=== PATIENT | female | born 1995 | race Two or more races ===

== ENCOUNTER 2023-08-30 11:07 | Outpatient (REF) | payer MEDICAID, SELFPAY ==
[2023-08-30 13:41] LABS: Hematocrit 39.4 % (37.0-47.0); Hemoglobin 12.8 g/dl (12.0-16.0); Mean Corpuscular HGB Conc 32.5 g/dl (31.0-35.0); Mean Corpuscular Hemoglobin 28.6 pg (27.0-33.0); Mean Corpuscular Volume 88.1 fL (80.0-98.0); Platelet Count 285 X10*3/uL (160-400); Red Blood Count 4.47 X10*6/uL (4.20-5.50); Red Cell Distribution Width 13.9 % (11.0-16.0); White Blood Count 5.9 X10*3/uL (4.8-10.8)
[2023-08-30 13:51] LABS: Estimated Average Glucose 97 mg/dL
[2023-08-30 14:00] LABS: Appearance Urine Clear; Color Urine Yellow; Glucose Urine UA Negative (Negative); Leukocyte Esterase Urine Negative (Negative); Nitrite Urine Negative (Negative); Specific Gravity - Urine <= 1.005 (1.005-1.025); Urine Blood Negative (Negative); Urine Ketones Negative (Negative); Urine Protein Negative (Neg-Trace)
[2023-08-30 14:04] LABS: Bacteria Urine None Seen (None Seen); Hyaline Casts Urine 0-2 /LPF (0-2); RBC Urine 0-2 /HPF (0-2); Squamous Epithelial Cell Urine 0-2 /HPF (0-2); WBC Urine 0-5 /HPF (0-5)
[2023-08-30 14:12] LABS: Alanine Aminotransferase 13 U/L (0-31); Albumin Level 4.8 g/dL (3.5-5.0); Alkaline Phosphatase 54 U/L (39-117); Anion Gap 13 (12-20); Aspartate Amino Transferase 21 U/L (5-31); Bilirubin Total 0.7 mg/dL (0.0-1.0); Blood Urea Nitrogen 11 mg/dL (9-16); C Reactive Protein 0.15 mg/dL (< or = 0.50); Calcium 10.1 mg/dL (8.4-10.2); Carbon Dioxide 28 mmol/L (22-29); Chloride 105 mmol/L (96-108); Cholesterol 197 mg/dL (<200); Estimated Glomerular Filt Rate > 60; Glucose Random 89 mg/dL (60-115); HDL Cholesterol 65 mg/dL (>40); LDL Cholesterol Calculated 117 mg/dL (<100); Potassium 3.7 mmol/L (3.3-5.1); Sodium 142 mmol/L (135-145); Total Protein 8.6 g/dL (6.5-8.0); Triglycerides 75 mg/dL (<150)
[2023-08-30 14:20] LABS: TSH reflex Free T4 0.83 uIU/mL (0.32-4.0)
[2023-08-30 14:22] LABS: Erythrocyte Sedimentation Rate 22 MM/HR (0-20)
[2023-08-30 15:50] LABS: CT PCR NOT DETECTED (Not Detect.); NG PCR NOT DETECTED (Not Detect.)
[2023-08-31 07:55] LABS: Syphilis Screen Nonreactive (Nonreactive)
[2023-08-31 08:05] LABS: HBS Num1 238.83 mIU/mL (0-7.99); HBc Num1 0.09 S/CO (0.00-0.79); HBsAGNum1 0.37 S/CO (0.00-0.99); HIV AB/AG Nonreactive (Nonreactive); HIV Num 1 0.07 S/CO (0.00-0.99); Hepatitis B Core Antibody Nonreactive (Nonreactive); Hepatitis B Surface Antigen Negative (Negative); ~HepC Num1 0.17 S/CO (0.00-0.79); ~Hepatitis B Surface Antibody REACTIVE (Nonreactive); ~Hepatitis C Antibody Nonreactive (Nonreactive)
[2023-09-06 13:34] LABS: Anti Nuclear Antibody Screen NEGATIVE (NEGATIVE)
== END 2023-08-30 11:08 | disposition home or self-care (01) ==
LOC: HO.HHCL 11:07
PROVIDERS: Visit Provider Student in an Organized Health Care Education/Training Program
DX: Z00.00 Encounter for general adult medical examination without abnormal findings (principal); Z11.4 Encounter for screening for human immunodeficiency virus [HIV]; Z11.3 Encounter for screening for infections with a predominantly sexual mode of transmission; M32.19 Other organ or system involvement in systemic lupus erythematosus
CPT/HCPCS: 0353U; 36415; 80053; 80061; 81001; 83036; 84443; 85027; 85652; 86038; 86140; 86704; 86706; 86780; 86803; 87340; 87389

== ENCOUNTER 2023-10-27 15:47 | Outpatient (AMB) | payer MEDICAID, SELFPAY ==
--- NOTE | 2023-10-27 15:49 | MHC.OFFVIS ---
Vital Signs 10/27/23 15:51 Height 5 ft Weight 132 lb 11.492 oz BMI 25.9 BP 100/70 Blood Pressure Location Rt brachial Position Sitting Pulse 85 Pulse Source Pulse Oximeter Pulse Oximetry (%) 100 Oxygen Delivery Method Room Air Intake Visit Reasons: Lupus/cm Intake Note: New patient, referred by Dr. Blankenship from [facility], presents today for SLE consult. Would like to have EMG done and see ortho for CTS repair consult. Previously diagnosed in [place]. Special Officer Automat Required: Yes Special Officer Automat Language: Household Personal Assistant Name: Swapna [id number] Information Interpreted: clinical only Accompanied by: Self / Same As Patient Allergies No Known Allergies Allergy (Verified 11/21/23 10:05) HPI Comments Details: Ms. Patrick Norris is a 38-year-old female presents for evaluation and treatment, stating a history of SLE. Upon inquiry the patient shares: --SLE hx 4 going to 5 years --last medication was 3 years. Do not remember the medication - took it for 1 year stopped due to headaches. She slept alot on the med. 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 --fingers turn purple when it's cold. --no chronic diarrhea, blood in stool or urine --Gets joint pain pretty badly, no swelling --Gets SOB - PCP ordered Lung test which is normal, uses pump --denies pericarditis or pleuritis --2 children, no miscarriages. --current symptoms - fatigue, headaches, sun fatigue. hand pain PFSH Medical History (Updated 11/21/23 @ 10:31 by GABRIEL Blanton) Long-term use of hydroxychloroquine Hx of migraine headaches Bone pain of hand Hx of systemic lupus erythematosus (SLE) SLE (systemic lupus erythematosus) Mixed anxiety and depressive disorder Migraine Mild intermittent asthma in adult without complication CTS (carpal tunnel syndrome) Family History (Updated 10/27/23 @ 15:56 by GUSTAVO Streeter) Maternal Grandmother Arthritis Paternal Grandmother Arthritis Social History Alcohol intake: current Alcohol intake frequency: holidays/special occasions only Patient Tobacco Use Status: Former Tobacco user Tobacco use type: Cigarette Current occupational status: unemployed Female Reproductive History Menstrual Total pregnancies: 2 Review of Systems Const All systems reviewed & are unremarkable except as noted in HPI and below Physical Exam Vital Signs: Last Vital Signs Pulse 85 10/27/23 15:51 BP 100/70 10/27/23 15:51 Pulse Ox 100 10/27/23 15:51 Oxygen Delivery Method Room Air 10/27/23 15:51 BMI result Body Mass Index 25.9 APPEARANCE: Patient in no acute distress EYES no redness, normal EARS:? External ear normal. NOSE/SINUS:? Airflow through both nares, no nasal discharge, no bleeding THROAT:? Oral mucosa moist, no ulcerations NECK:? No thyromegaly or masses, no adenopathy, trachea midline. HEART:? Regular rhythm, S1-S2 heard, no murmurs, rubs or gallops. LUNG:? Clear to percussion and auscultation EXTREMITIES:? No edema, no calf tenderness, normal peripheral pulses. NEURO:? Oriented and alert x3.? No focal weakness.? Reflexes symmetric.? Gait normal. SKIN:? There are no skin lesions evident. No objective signs of Raynaud's phenomenon. JOINT EXAM: Cervical Spine:.? Full range of motion without pain; no tenderness. Thoracic Spine:.? No scoliosis.? No tenderness on palpation. Lumbar Spine:.? Alignment normal.? Full range of motion without pain, no tenderness. Chest Wall:.? No tenderness, swelling, increased warmth or erythema. Hands:.? Normal pain-free range of motion with diffuse mild tenderness, but no swelling, increased warmth or erythema. 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 Wrists:.? Normal pain-free range of motion without tenderness, swelling, increased warmth or erythema. Elbows:. Normal pain-free range of motion without tenderness, swelling, increased warmth or erythema. Shoulders:.?? Full range of motion without pain. No tenderness, weakness, swelling, increased warmth or erythema. Hips:.? Full range of motion without pain. Hip bursa:.? No tenderness. Knees:.?? Normal pain-free range of motion without tenderness, swelling, increased warmth or erythema.? There is no effusion or crepitation Ankles:.? Normal pain-free range of motion without tenderness, swelling, increased warmth or erythema. Feet:.? Normal pain-free range of motion with diffuse tenderness, but no swelling, increased warmth or erythema. Tender points:? No tenderness to digital palpation at the occiput, trapezius, second rib, lateral epicondyle, knees, greater trochanter and gluteal area bilaterally. ? Results Reviewed Results Reviewed: Laboratory Tests 08/30/23 11:13 WBC 5.9 RBC 4.47 Hgb 12.8 Hct 39.4 Plt Count 285 ESR 22 H C-Reactive Protein 0.15 Total Protein 8.6 H ELIZABETH Pattern 3 TNP Assessment & Plan Assessment & Plan (1) Hx of systemic lupus erythematosus (SLE): Code(s): M32.9 - Systemic lupus erythematosus, unspecified Category: Medical (2) Bone pain of hand: Code(s): M89.8X4 - Other specified disorders of bone, hand Category: Medical Plan #Hx SLE/Hand Pain: The patient relates a history of systemic lupus while she was living in [place] (see HPI). Most significant to her right now is the chronic fatigue, headaches, diffuse tenderness to hands and forearm bone pain. She does not remember the name of the medication that she had taken prior in [place]. But given the fatigue, headaches, mouth sores and other symptoms as outlined in HPI I think the patient would benefit from hydroxychloroquine as the first-line treatment for SLE. I will do a complete rheumatology panel to obtain her baseline. I will also obtain imaging of her hands specifically also her forearms since she is describing deep tissue, possibly bone pain, to the forearm - the pain is not reproduce with palpation. I spent 40 minutes reviewing history, evaluating patient and documenting Follow-up in 1 month Orders: Orders Creatine Kinase Total 11/03/23 M32.9 - Systemic lupus erythematosus, unspecified Immunoglobulins,IgG IgA IgM 11/03/23 M32.9 - Systemic lupus erythematosus, unspecified Protein Electrophoresis, Serum 11/03/23 M32.9 - Systemic lupus erythematosus, unspecified UA w Microscopic 11/03/23 M32.9 - Systemic lupus erythematosus, unspecified XR hand RT min 3V 11/03/23 M89.8X4 - Other specified disorders of bone, hand XR hand LT min 3V 11/03/23 M89.8X4 - Other specified disorders of bone, hand Erythrocyte Sedimentation Rate 11/03/23 M32.9 - Systemic lupus erythematosus, unspecified ELIZABETH Reflex Titer and Pattern 11/03/23 M32.9 - Systemic lupus erythematosus, unspecified ANCA Vasculitides 11/03/23 M32.9 - Systemic lupus erythematosus, unspecified Anti-Centromere B Antibodies 11/03/23 M32.9 - Systemic lupus erythematosus, unspecified Anti DNA DS Antibody 11/03/23 M32.9 - Systemic lupus erythematosus, unspecified Anti Extractable Nuclear Ag 11/03/23 M32.9 - Systemic lupus erythematosus, unspecified Complement C3 11/03/23 M32.9 - Systemic lupus erythematosus, unspecified Complement C4 11/03/23 M32.9 - Systemic lupus erythematosus, unspecified Complete Blood Count Auto Diff 11/03/23 M32.9 - Systemic lupus erythematosus, unspecified Comprehensive Met. Panel 11/03/23 M32.9 - Systemic lupus erythematosus, unspecified C Reactive Protein 11/03/23 M32.9 - Systemic lupus erythematosus, unspecified Hepatitis A,B,C Profile 11/03/23 M32.9 - Systemic lupus erythematosus, unspecified Immunofixation Pnl, Serum 11/03/23 M32.9 - Systemic lupus erythematosus, unspecified Scleroderma 70 Antibody 11/03/23 M32.9 - Systemic lupus erythematosus, unspecified Sjogren's Antibodies 11/03/23 M32.9 - Systemic lupus erythematosus, unspecified Rheumatoid Factor 11/03/23 M32.9 - Systemic lupus erythematosus, unspecified Cyclic Citrullinated Peptide 11/03/23 M32.9 - Systemic lupus erythematosus, unspecified ECG 12 lead EKG 11/03/23 M32.9 - Systemic lupus erythematosus, unspecified Coding Level of Care Code New Pt Level 4 (23166) Diagnoses Hx of systemic lupus erythematosus (SLE) M32.9 Bone pain of hand M89.8X4
[2023-10-27 15:51] VITALS: BP 100/70; PULSE 85; O2SAT 100; BMI 25.9
== END 2023-10-27 16:34 | disposition home or self-care (01) ==
PROVIDERS: PCP Student in an Organized Health Care Education/Training Program; Referring Provider Student in an Organized Health Care Education/Training Program; Visit Provider Nurse Practitioner Family
DX: M32.9 Systemic lupus erythematosus, unspecified (principal); M89.8X4 Other specified disorders of bone, hand
CPT/HCPCS: 99204

== ENCOUNTER → 2023-10-27 15:47 | Outpatient (BNVA) | payer MEDICAID, SELFPAY | PROVIDERS: PCP Student in an Organized Health Care Education/Training Program; Referring Provider Student in an Organized Health Care Education/Training Program; Visit Provider Nurse Practitioner Family | DX: M32.9 Systemic lupus erythematosus, unspecified (principal); M89.8X4 Other specified disorders of bone, hand | CPT/HCPCS: 99212 ==

== ENCOUNTER 2023-11-03 09:23 | Outpatient (REF) | payer MEDICAID, SELFPAY ==
--- NOTE | ~2023-11-03 | XR_ITS ---
EXAMINATION: Bilateral hand series CLINICAL INFORMATION: Reason for Exam M89.8X4 - Other specified disorders of bone, hand COMPARISON: None. TECHNIQUE: 3 views of each hand FINDINGS: Right hand: The bones joints soft tissues are normal. No fracture or joint abnormality. Left hand: The bone and joints and soft tissues hand are normal. Incidental note made of partially visualized orthopedic fixation with plate and screw noted overlying the radius. No fracture line detected. XR/XR hand RT min 3V IMPRESSION: RIGHT HAND: Normal. LEFT HAND: Normal. Postsurgical changes in the distal radius
--- NOTE | ~2023-11-03 | XR_ITS ---
EXAMINATION: Bilateral hand series CLINICAL INFORMATION: Reason for Exam M89.8X4 - Other specified disorders of bone, hand COMPARISON: None. TECHNIQUE: 3 views of each hand FINDINGS: Right hand: The bones joints soft tissues are normal. No fracture or joint abnormality. Left hand: The bone and joints and soft tissues hand are normal. Incidental note made of partially visualized orthopedic fixation with plate and screw noted overlying the radius. No fracture line detected. XR/XR hand LT min 3V IMPRESSION: RIGHT HAND: Normal. LEFT HAND: Normal. Postsurgical changes in the distal radius
[2023-11-03 09:47] LABS: MANUAL DIFF FLAG NO
--- NOTE | 2023-11-03 09:58 | ECG_ITS ---
Test Reason : SYSTEMIC LUPUS Blood Pressure : / mmHG Vent. Rate : 072 BPM Atrial Rate : 072 BPM P-R Int : 144 ms QRS Dur : 070 ms QT Int : 364 ms P-R-T Axes : 067 039 028 degrees QTc Int : 398 ms Normal sinus rhythm Normal ECG No previous ECGs available Referred By: Nae Florez Electronically Signed By:DASHA RAMON MD
[2023-11-03 10:16] LABS: Basophils Percent Auto 0.6 % (0-2); Eosinophils Absolute Auto 0.1 X10*3/uL (0.0-0.4); Hematocrit 37.7 % (37.0-47.0); Hemoglobin 12.4 g/dl (12.0-16.0); Imm Gran Abs Auto 0.01 X10*3/uL (0.00-0.03); Imm Gran Pct Auto 0.2 % (0.0-0.4); Lymphocytes Absolute Auto 1.9 X10*3/uL (1.2-4.9); Lymphocytes Percent Auto 36.6 % (20-40); Mean Corpuscular HGB Conc 32.9 g/dl (31.0-35.0); Mean Corpuscular Hemoglobin 28.2 pg (27.0-33.0); Mean Corpuscular Volume 85.7 fL (80.0-98.0); Mean Platelet Volume 10.2 fL (9.4-12.3); Monocytes Absolute Auto 0.3 X10*3/uL (0.1-1.2); Monocytes Percent Auto 5.9 % (2-11); Neutrophils Absolute Auto 2.9 x10*3/uL (2.0-8.3); Neutrophils Percent Auto 55.7 % (45-73); Platelet Count 289 X10*3/uL (160-400); Red Cell Distribution Width 12.9 % (11.0-16.0); White Blood Count 5.2 X10*3/uL (4.8-10.8)
[2023-11-03 10:19] LABS: Appearance Urine Cloudy; Color Urine Yellow; Glucose Urine UA Negative (Negative); Leukocyte Esterase Urine Negative (Negative); Nitrite Urine Negative (Negative); Specific Gravity - Urine 1.025 (1.005-1.025); UMIC TRIGGER UA YES; Urine Blood Large (3+) (Negative); Urine Ketones 40 mg/dL (Negative); Urine Protein 100 (2+) mg/dL (Neg-Trace)
[2023-11-03 10:33] LABS: Bacteria Urine 2+ (None Seen); Hyaline Casts Urine 0-2 /LPF (0-2); Squamous Epithelial Cell Urine >20 /HPF (0-2); WBC Urine 0-5 /HPF (0-5)
[2023-11-03 10:38] LABS: Alanine Aminotransferase 10 U/L (0-31); Albumin Level 4.4 g/dL (3.5-5.0); Alkaline Phosphatase 50 U/L (39-117); Anion Gap 11 (12-20); Aspartate Amino Transferase 19 U/L (5-31); Bilirubin Total 0.5 mg/dL (0.0-1.0); Blood Urea Nitrogen 12 mg/dL (9-16); C Reactive Protein 0.18 mg/dL (< or = 0.50); Calcium 9.5 mg/dL (8.4-10.2); Carbon Dioxide 27 mmol/L (22-29); Chloride 105 mmol/L (96-108); Estimated Glomerular Filt Rate > 60; Glucose Random 90 mg/dL (60-115); Potassium 3.9 mmol/L (3.3-5.1); Sodium 139 mmol/L (135-145)
[2023-11-03 10:39] LABS: Rheumatoid Factor < 13.0 IU/mL (<15.0)
[2023-11-03 10:54] LABS: Erythrocyte Sedimentation Rate 16 MM/HR (0-20)
[2023-11-03 10:56] LABS: HBS Num1 198.47 mIU/mL (0-7.99); HBc Num1 0.06 S/CO (0.00-0.79); HBsAGNum1 0.35 S/CO (0.00-0.99); Hepatitis A Antibody IgM 0.25 Index (0-0.79); Hepatitis B Core Antibody Nonreactive (Nonreactive); Hepatitis B Surface Antigen Negative (Negative); ~HepC Num1 0.12 S/CO (0.00-0.79); ~Hepatitis A Antibody IgM Nonreactive (Nonreactive); ~Hepatitis B Surface Antibody REACTIVE (Nonreactive); ~Hepatitis C Antibody Nonreactive (Nonreactive)
[2023-11-06 11:04] LABS: Complement C3 119 mg/dL (83-193)
[2023-11-06 13:04] LABS: Prot Elec - Albumin 4.4 g/dL (3.8-4.8); Prot Elec - Alpha1 0.3 g/dL (0.2-0.3); Prot Elec - Alpha2 0.7 g/dL (0.5-0.9); Prot Elec - Beta 1 0.6 g/dL (0.4-0.6); Prot Elec - Beta 2 0.5 g/dL (0.2-0.5); Prot Elec - Gamma 1.4 g/dL (0.8-1.7); Prot Elec - Total Protein 7.8 g/dL (6.1-8.1)
[2023-11-06 14:18] LABS: Anti DNA DS Antibody 26 IU/mL; Anti-Centromere B Antibodies <1.0 NEG AI (<1.0 NEG); Antibody to SS-A Antigen <1.0 NEG AI (<1.0 NEG); Antibody to SS-B Antigen <1.0 NEG AI (<1.0 NEG); Myeloperoxidase Antibody <1.0 AI; Proteinase 3 PR3 Antibodies <1.0 AI; SM/Ribonucleoprotein Ab <1.0 NEG AI (<1.0 NEG); Scleroderma 70 Antibody <1.0 NEG AI (<1.0 NEG); Smith Protein <1.0 NEG AI (<1.0 NEG)
[2023-11-06 15:43] LABS: Anti Nuclear Antibody Screen NEGATIVE (NEGATIVE)
[2023-11-06 19:08] LABS: Cyclic Citrullinated Peptide <16 UNITS
[2023-11-09 17:23] LABS: IgA 388 mg/dL (47-310); IgG 1399 mg/dL (600-1640); IgM 255 mg/dL (50-300)
== END 2023-11-03 09:24 | disposition home or self-care (01) ==
LOC: HO.LAB 09:23
PROVIDERS: PCP Nurse Practitioner Family; Visit Provider Nurse Practitioner Family
DX: M32.9 Systemic lupus erythematosus, unspecified (principal); M89.8X4 Other specified disorders of bone, hand
CPT/HCPCS: 36415; 73130; 80053; 81001; 82550; 82784; 84165; 85025; 85652; 86021; 86038; 86140; 86160; 86200; 86225; 86235; 86334; 86431; 86704; 86706; 86709; 86803; 87340; 93005

== ENCOUNTER → 2023-11-03 09:58 | Outpatient (BNV) | payer MEDICAID, SELFPAY | PROVIDERS: PCP Nurse Practitioner Family; Visit Provider Internal Medicine Cardiovascular Disease | DX: M32.9 Systemic lupus erythematosus, unspecified (principal) | CPT/HCPCS: 93010 ==

== ENCOUNTER 2023-11-21 09:57 | Outpatient (REF) | payer MEDICAID, SELFPAY ==
[2023-11-22 11:35] LABS: Bacterial Vaginosis PCR NEGATIVE (Negative); Candida Group PCR NOT DETECTED (Not Detect); Candida glab krusei PCR NOT DETECTED (Not Detect); Trichomonas vaginalis PCR NOT DETECTED (Not Detect)
== END 2023-11-21 09:58 | disposition home or self-care (01) ==
LOC: HO.HHCLNP 09:57
PROVIDERS: PCP Pediatrics; Visit Provider Student in an Organized Health Care Education/Training Program
DX: N93.9 Abnormal uterine and vaginal bleeding, unspecified (principal)
CPT/HCPCS: 0352U; 99212

== ENCOUNTER 2023-11-21 09:57 | Outpatient (AMB) | payer MEDICAID, SELFPAY ==
--- NOTE | 2023-11-21 10:02 | A.OFFVIS_ITS ---
Vital Signs 11/21/23 10:10 Height 5 ft Weight 131 lb 6.328 oz BMI 25.7 BP 110/70 Blood Pressure Location Rt brachial Position Sitting Pulse 74 Pulse Source Pulse Oximeter Pulse Oximetry (%) 100 Oxygen Delivery Method Room Air Intake Visit Reasons: Hx of SLE/CM Intake Note: Patient last seen 10/27/23, presents today for SLE follow up and test results. 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 Ge 28 yoF presents for management of SLE. --SLE - Dx 4 going to 5 years in [place] --last medication was 3 years. Do not remember the medication - took it for 1 year stopped due to headaches. She slept alot on the med. 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 --some hair shedding but no bald spots --sometimes mouth sores - 2 months ago last episode --dry eyes uses eye drops prn , dry mouth drinks a lot of water --sun-sensitivy - gets butterfly rash on face and redness chest - she feels exhausted from the sun like it takes her strength away. --fingers turn purple when it's cold. --no chronic diarrhea, blood in stool or urine --Gets joint pain pretty badly, no swelling --Gets SOB - PCP ordered Lung test which is normal, uses pump --denies pericarditis or pleuritis --2 children, no miscarriages. --current symptoms - fatigue, headaches, sun fatigue. hand pain PFSH Medical History (Updated 12/17/23 @ 22:35 by HIWOT Blanton-) Long-term use of hydroxychloroquine Hx of migraine headaches Bone pain of hand Hx of systemic lupus erythematosus (SLE) SLE (systemic lupus erythematosus) Mixed anxiety and depressive disorder Migraine Mild intermittent asthma in adult without complication CTS (carpal tunnel syndrome) Family History (Updated 10/27/23 @ 15:56 by GUSTAVO Streeter) Maternal Grandmother Arthritis Paternal Grandmother Arthritis Social History (Reviewed 11/21/23 @ 10:12 by RUSTY Streeter Alcohol intake: current Alcohol intake frequency: holidays/special occasions only Patient Tobacco Use Status: Former Tobacco user Tobacco use type: Cigarette Current occupational status: unemployed Review of Systems Const All systems reviewed & are unremarkable except as noted in HPI and below Physical Exam Vital Signs: Last Vital Signs Pulse 74 11/21/23 10:10 BP 110/70 11/21/23 10:10 Pulse Ox 100 11/21/23 10:10 Oxygen Delivery Method Room Air 11/21/23 10:10 BMI result Body Mass Index 25.7 APPEARANCE: Patient in no acute distress EYES no redness, normal EARS:? External ear normal. NOSE/SINUS:? Airflow through both nares, no nasal discharge, no bleeding THROAT:? Oral mucosa moist, no ulcerations NECK:? No thyromegaly or masses, no adenopathy, trachea midline. HEART:? Regular rhythm, S1-S2 heard, no murmurs, rubs or gallops. LUNG:? Clear to percussion and auscultation EXTREMITIES:? No edema, no calf tenderness, normal peripheral pulses. NEURO:? Oriented and alert x3.? No focal weakness.? Reflexes symmetric.? Gait normal. SKIN:? There are no skin lesions evident. No objective signs of Raynaud's phenomenon. JOINT EXAM: Cervical Spine:.? Full range of motion without pain; no tenderness. Thoracic Spine:.? No scoliosis.? No tenderness on palpation. Lumbar Spine:.? Alignment normal.? Full range of motion without pain, no tenderness. Chest Wall:.? No tenderness, swelling, increased warmth or erythema. Hands:.? Normal with tenderness but no swelling, increased warmth or erythema. 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 Wrists:.? Normal range of motion with discomfort, slight tenderness but no swelling, increased warmth or erythema. Elbows:. Normal pain-free range of motion without tenderness, swelling, increased warmth or erythema. Shoulders:.?? Full range of motion without pain. No tenderness, weakness, swelling, increased warmth or erythema. Hips:.? Full range of motion without pain. Hip bursa:.? No tenderness. Knees:.?? Normal pain-free range of motion with mild tenderness to joint lines but no swelling, increased warmth or erythema.? There is no effusion or crepitation Ankles:.? Normal pain-free range of motion without tenderness, swelling, increased warmth or erythema. Feet:.? Normal pain-free range of motion without tenderness, swelling, increased warmth or erythema. Tender points:? No tenderness to digital palpation at the occiput, trapezius, second rib, lateral epicondyle, knees, greater trochanter and gluteal area bilaterally. ? Results Reviewed Results Reviewed: Laboratory Tests 11/03/23 11/03/23 09:45 09:46 WBC 5.2 RBC 4.40 Hgb 12.4 Hct 37.7 ESR 16 BUN 12 Creatinine 0.78 AST 19 ALT 10 Total Creatine Kinase 99 C-Reactive Protein 0.18 Total Protein 8.0 Urine Protein 100 (2+) H Urine Blood Large (3+) H Urine RBC 11-20 H IgG Total 1399 IgA Total 388 H IgM 255 Rheumatoid Factor < 13.0 Cycl Citrul Peptide IgG <16 ELIZABETH Screen NEGATIVE Double Strand DNA Ab 26 H Complement C3 119 Complement C4 19 Assessment & Plan Assessment & Plan (1) Hx of systemic lupus erythematosus (SLE): Code(s): M32.9 - Systemic lupus erythematosus, unspecified Category: Medical (2) Bone pain of hand: Code(s): M89.8X4 - Other specified disorders of bone, hand Category: Medical (3) Right-sided headache: Code(s): R51.9 - Headache, unspecified (4) Long-term use of hydroxychloroquine: Code(s): Z79.899 - Other half-way (current) drug therapy Category: Medical (5) SLE (systemic lupus erythematosus): Code(s): M32.9 - Systemic lupus erythematosus, unspecified Category: Medical Qualifiers: Systemic lupus erythematosus type: unspecified Systemic lupus erythematosus organ involvement: unspecified Qualified Code(s): M32.9 - Systemic lupus erythematosus, unspecified (6) Hx of migraine headaches: Code(s): Z86.69 - Personal history of other diseases of the nervous system and sense organs Category: Medical Plan #SLE vs UCTD: Ms. Ge presents for management of Lupus. She does not recall the medication she took for one year. Available lab results show mild elevated IgA and +dsDNA (26) but negative ELIZABETH. Although the ELIZABETH is negative, given her history (see HPI) and the achy joints on PE, I will consider to start her on HCQ. She will need a baseline eye exam. #Hx of Migraine Headaches: She also has chronic headaches and and would benefit from a neurology consult. #Care Home Use: Discussed with patient possible side effects of HCQ. She will require annual eye exams. We will also monitor CBC for cytopenias. Patient will obtain labs 1 week before next visit. Spent 45 minutes reviewing history, evaluating patient and documenting RTC 3 months Orders: Referrals Neurology Referral Z86.69 - Personal history of other diseases of the nervous system and sense organs, R51.9 - Headache, unspecified Ophthalmology Referral M32.9 - Systemic lupus erythematosus, unspecified, Z79.899 - Other half-way (current) drug therapy Medications: New hydroxychloroquine 200 mg PO DAILY 90 tabs 1RF M32.9 - Systemic lupus erythematosus, unspecified Coding Level of Care Code New Pt Level 4 (71153) Complex EM visit Add On G2211 Diagnoses Hx of systemic lupus erythematosus (SLE) M32.9 Bone pain of hand M89.8X4 Right-sided headache R51.9 Long-term use of hydroxychloroquine Z79.899 Systemic lupus erythematosus, unspecified SLE type, unspecified organ involvement status M32.9 Systemic lupus erythematosus type: unspecified Systemic lupus erythematosus organ involvement: unspecified Hx of migraine headaches Z86.69
[2023-11-21 10:10] VITALS: BP 110/70; PULSE 74; O2SAT 100; BMI 25.7
== END 2023-11-21 10:46 | disposition home or self-care (01) ==
PROVIDERS: PCP Pediatrics; Visit Provider Nurse Practitioner Family
DX: M32.9 Systemic lupus erythematosus, unspecified (principal); M89.8X4 Other specified disorders of bone, hand; R51.9 Headache, unspecified; Z79.899 Other long term (current) drug therapy; Z86.69 Personal history of other diseases of the nervous system and sense organs
CPT/HCPCS: 99214

== ENCOUNTER 2023-12-07 11:33 | Outpatient (REF) | payer MEDICAID, SELFPAY ==
--- NOTE | ~2023-12-07 | US_ITS ---
EXAMINATION: US PELVIS CLINICAL INFORMATION: Dysmenorrhea, abnormal uterine bleeding, last menstrual period 3 weeks ago. COMPARISON: None available. TECHNIQUE: Ultrasound of the pelvis is performed using both transabdominal and transvaginal transducers along with Doppler. Transvaginal imaging is performed due to inadequate visualization transabdominally. FINDINGS: Uterus is anteverted and measures 10.3 x 3.8 x 4.4 cm. Uterus is heterogeneous. Visualization of endometrium limited due to bowel gas, body habitus and uterine heterogeneity, but endometrial thickness is approximately 12 mm. Endometrium is difficult to visualize, but appears heterogeneous with at least 2 hypoechoic areas, possibly representing complex fluid. Right ovary measures 2.2 x 2.9 x 1.9 cm, volume 6.4 mL. Left ovary measures 1.7 x 3.2 x 1.6 cm, volume 4.6 mL. Bilateral ovaries are grossly unremarkable. US/US pelvic and transvaginal IMPRESSION: Visualization of endometrium limited due to bowel gas, body habitus and uterine heterogeneity, but endometrial thickness is approximately 12 mm. Endometrium is difficult to visualize, but appears heterogeneous with at least 2 hypoechoic areas, possibly representing complex fluid. Correlation with clinical exam recommended to determine further management including possible followup imaging in 6-8 weeks.
== END 2023-12-07 11:34 | disposition home or self-care (01) ==
LOC: HO.US 11:33
PROVIDERS: PCP Pediatrics; Visit Provider Student in an Organized Health Care Education/Training Program
DX: N93.9 Abnormal uterine and vaginal bleeding, unspecified (principal)
CPT/HCPCS: 76830; 76856

== ENCOUNTER 2024-01-02 17:10 | Outpatient (REF) | payer MEDICAID, SELFPAY ==
[2024-01-02 19:02] LABS: CT PCR NOT DETECTED (Not Detect.); NG PCR NOT DETECTED (Not Detect.)
== END 2024-01-02 17:11 | disposition home or self-care (01) ==
LOC: HO.HHCLNP 17:10
PROVIDERS: Visit Provider Student in an Organized Health Care Education/Training Program
DX: N94.10 Unspecified dyspareunia (principal)
CPT/HCPCS: 0353U

== ENCOUNTER 2024-01-16 15:04 | Outpatient (AMB) | payer MEDICAID, SELFPAY ==
[2024-01-16 15:14] VITALS: BP 114/62; BMI 25.4
--- NOTE | 2024-01-16 15:14 | MHC.OFFVIS ---
Vital Signs 01/16/24 15:14 Height 5 ft Weight 130 lb 1.164 oz BMI 25.4 BP 114/62 Intake Visit Reasons: AUB/referral Journeyman Level Acoustic Analyst Required: Yes Journeyman Level Acoustic Analyst Language: Vehicle Sales Professional Services: Journeyman Level Acoustic Analyst Present Journeyman Level Acoustic Analyst Name: Evi Kapil CHEN Information Interpreted: non-clinical & clinical Dining Service Worker: Dining Service Worker Present (Evi CHEN) Accompanied by: Self / Same As Patient Allergies No Known Allergies Allergy (Verified 01/16/24 15:33) Is last menstrual period known: Yes Last menstrual period: 01/13/24 [facility] Medical History (Updated 01/16/24 @ 16:05 by Flash Bruno MD) Long-term use of hydroxychloroquine Hx of migraine headaches Bone pain of hand Hx of systemic lupus erythematosus (SLE) SLE (systemic lupus erythematosus) Mixed anxiety and depressive disorder Migraine Mild intermittent asthma in adult without complication CTS (carpal tunnel syndrome) Surgical History (Updated 01/16/24 @ 15:35 by Evi Dick CMA) Hx of tubal ligation Hx of section Family History (Updated 10/27/23 @ 15:56 by GUSTAVO Streeter) Maternal Grandmother Arthritis Paternal Grandmother Arthritis Social History Household Members: Spouse, Family and Children Housing: House Alcohol intake: current Alcohol intake frequency: holidays/special occasions only Patient Tobacco Use Status: Never used Tobacco Tobacco use type: Cigarette Current occupational status: unemployed Sexual orientation: Straight/Heterosexual Gender identity: Female Female Reproductive History Menstrual Date of last menstrual period: 01/13/24 control method: permanent sterilization Total pregnancies: 2 Full term: 2 Number of Living Children: 2 Review of Systems Const All systems reviewed & are unremarkable except as noted in HPI and below Card Reports as per HPI Resp Reports as per HPI GI Reports as per HPI and Reports no additional complaints Reports as per HPI Physical Exam Vital Signs: Last Vital Signs BP 114/62 01/16/24 15:14 BMI result Body Mass Index 25.4 Const General: cooperative, healthy appearing and comfortable Chest Chest palpation & inspection: normal inspection of the chest and normal palpation of entire chest wall Breast/axilla inspection: normal inspection of the breasts and normal inspection of the axillae Breast/axilla palpation: normal palpation of the breasts, normal palpation of the axillae and no axillary lymphadenopathy Resp Effort & Inspection: normal respiratory effort Auscultation: clear to auscultation bilaterally Percussion: percussion normal Cardio Palpation: normal PMI Rate: regular rate Rhythm: regular rhythm Heart sounds: no murmurs and no rubs Peripheral pulses: Peripheral pulses 2+ throughout GI Inspection: Yes normal to inspection Palpation (GI): Soft to palpation, nontender, no guarding, not rigid and No hepatosplenomegaly present Percussion: Yes normal to percussion Auscultation: normal bowel sounds Rectal Exam - Female: deferred General: Yes bladder normal to palpation External Female Exam: No lesion Speculum Exam - Vagina: normal appearance of the vagina, normal palpation, normal vaginal discharge and not erythematous Speculum Exam - Cervix: normal appearance of the cervix and normal palpation Bimanual exam- vagina & uterus: normal bimanual exam, normal palpation, uterine size normal, bladder normal to palpation, consistency normal and normal palpation Bimanual Exam- Adnexa, other: normal adnexae, no masses and no tenderness Results AMB Test Urine AMB Test Urine Negative Last Edit by Evi Dick CMA on 01/16/24 15:47 Results Reviewed Results Reviewed: Laboratory Last Values Tst Clinic Negative 01/16/24 15:46 Assessment & Plan Assessment & Plan (1) Abnormal uterine bleeding (AUB): Comment: abn endo by US SLE, Migraine BAÑUELOS Code(s): N93.9 - Abnormal uterine and vaginal bleeding, unspecified Category: Medical Plan: UPT done in the office was negative, Co testing done, GC and chlamydia taken CBC, TSH, prolactin, HCG ordered and pelvic ultrasound recently done. In addition, discussed with the patient the finding on ultrasound showing abnormal endometrium, recommended hysteroscopy D&C possible polypectomy/myomectomy as the next step. Discussed with the patient the different causes of abnormal bleeding including thyroid disorders, uterine and ovarian pathology, endometrial hyperplasia, carcinoma and other potential causes. Discussed with the patient the work up including CBC (to r/o anemia), TSH, prolactin, pelvic Ultrasound, endometrial biopsy to r/o endometrial pathology. Discussed with the patient the procedure , all benefits and risks including but not limited to inability to complete the procedure , insufficient endometrial tissue for a complete evaluation of the endometrial cavity , bleeding, infection, possible need for blood transfusion with all its risk ( HIV,syphilis, Hepatitis, anaphylaxis shock, others..), injury to bladder, rectum, possible need for laparoscopy/laparotomy or hysterectomy. The patient verbalized understanding and signed the consent. Instructions given the patient to stay NPO after midnight the day prior to the procedure and to take only the specific medication (s) discussed the morning of the surgical procedure and to schedule a 2 week postoperative appointment (2) Dyspareunia in female: Code(s): N94.10 - Unspecified dyspareunia Category: Medical Plan: UPT done in the office was negative Discussed with the patient differential diagnosis of dyspareunia. The workup includes but not limited to GC/CT, BV panel collected, pelvic ultrasound recently done. Orders: Orders AMB HCG Urine Test Today Z32.02 - Encounter for test, result negative TSH reflex Free T4 Today N93.9 - Abnormal uterine and vaginal bleeding, unspecified Prolactin Today N93.9 - Abnormal uterine and vaginal bleeding, unspecified HCG Quantitative Today N93.9 - Abnormal uterine and vaginal bleeding, unspecified Complete Blood Count no Diff Today N93.9 - Abnormal uterine and vaginal bleeding, unspecified Coding Level of Care Code New Pt Level 3 (19748) Diagnoses Abnormal uterine bleeding (AUB) N93.9 Dyspareunia in female N94.10
== END 2024-01-16 16:16 | disposition home or self-care (01) ==
LOC: HO.HWS 15:04
PROVIDERS: PCP Pediatrics; Visit Provider Obstetrics & Gynecology
DX: N93.9 Abnormal uterine and vaginal bleeding, unspecified (principal); N94.10 Unspecified dyspareunia; Z32.02 Encounter for pregnancy test, result negative
CPT/HCPCS: 99203

== ENCOUNTER 2024-01-16 15:04 | Outpatient (REF) | payer MEDICAID, SELFPAY ==
[2024-01-16 17:17] LABS: Appearance Urine Clear; Color Urine Yellow; Glucose Urine UA Negative (Negative); Leukocyte Esterase Urine Negative (Negative); Nitrite Urine Negative (Negative); PH 5.5 (5.0-9.0); Specific Gravity - Urine <= 1.005 (1.005-1.025); Urine Blood Negative (Negative); Urine Ketones Negative (Negative); Urine Protein Negative (Neg-Trace)
[2024-01-16 17:23] LABS: Bacteria Urine None Seen (None Seen); Hyaline Casts Urine 0-2 /LPF (0-2); RBC Urine 0-2 /HPF (0-2); Squamous Epithelial Cell Urine 0-2 /HPF (0-2); WBC Urine 0-5 /HPF (0-5)
[2024-01-16 17:24] LABS: Hematocrit 34.1 % (37.0-47.0); Hemoglobin 11.3 g/dl (12.0-16.0); Mean Corpuscular HGB Conc 33.1 g/dl (31.0-35.0); Mean Corpuscular Hemoglobin 27.4 pg (27.0-33.0); Mean Corpuscular Volume 82.6 fL (80.0-98.0); Mean Platelet Volume 10.1 fL (9.4-12.3); Platelet Count 293 X10*3/uL (160-400); Red Blood Count 4.13 X10*6/uL (4.20-5.50); Red Cell Distribution Width 14.6 % (11.0-16.0); White Blood Count 7.2 X10*3/uL (4.8-10.8)
[2024-01-16 17:49] LABS: Alanine Aminotransferase 12 U/L (0-31); Albumin Level 4.7 g/dL (3.5-5.0); Alkaline Phosphatase 52 U/L (39-117); Anion Gap 12 (12-20); Aspartate Amino Transferase 18 U/L (5-31); Bilirubin Total 0.5 mg/dL (0.0-1.0); Blood Urea Nitrogen 16 mg/dL (9-16); C Reactive Protein 0.13 mg/dL (< or = 0.50); Calcium 9.5 mg/dL (8.4-10.2); Carbon Dioxide 21 mmol/L (22-29); Chloride 109 mmol/L (96-108); Estimated Glomerular Filt Rate > 60; Glucose Random 86 mg/dL (60-115); Potassium 3.4 mmol/L (3.3-5.1); Sodium 139 mmol/L (135-145); Total Protein 8.3 g/dL (6.5-8.0)
[2024-01-16 18:09] LABS: HCG Quantitative < 2 mIU/mL; TSH reflex Free T4 0.73 uIU/mL (0.32-4.0)
[2024-01-16 18:27] LABS: Erythrocyte Sedimentation Rate 15 MM/HR (0-20)
[2024-01-17 10:09] LABS: Prolactin 4.1 ng/mL
[2024-01-17 13:43] LABS: Anti DNA DS Antibody 28 IU/mL
[2024-01-18 04:20] LABS: CT PCR NOT DETECTED (Not Detect.); NG PCR NOT DETECTED (Not Detect.)
[2024-01-18 08:48] LABS: Complement C3 77 mg/dL (83-193)
[2024-01-18 11:52] LABS: Bacterial Vaginosis PCR NEGATIVE (Negative); Candida Group PCR NOT DETECTED (Not Detect); Candida glab krusei PCR NOT DETECTED (Not Detect); Trichomonas vaginalis PCR NOT DETECTED (Not Detect)
[2024-01-23 09:08] LABS: HPV mRNA E6/E7 Not Detected (Not Detected)
== END 2024-01-16 15:05 | disposition home or self-care (01) ==
LOC: HO.LAB 15:04
PROVIDERS: Nurse Practitioner Family; PCP Pediatrics; Visit Provider Obstetrics & Gynecology
DX: N93.9 Abnormal uterine and vaginal bleeding, unspecified (principal); M32.9 Systemic lupus erythematosus, unspecified; N94.10 Unspecified dyspareunia; Z32.02 Encounter for pregnancy test, result negative; Z79.899 Other long term (current) drug therapy
CPT/HCPCS: 0352U; 36415; 80053; 81001; 81025; 84146; 84443; 84702; 85027; 85652; 86140; 86160; 86225; 87491; 87591; 87624; 88175; 99202

== ENCOUNTER 2024-01-16 16:21 | Outpatient (REF) | payer MEDICAID, SELFPAY | END 2024-01-16 16:22 | disposition home or self-care (01) | LOC: HO.LNP 16:21 | PROVIDERS: Visit Provider Obstetrics & Gynecology | DX: Z13.89 Encounter for screening for other disorder (principal) ==

== ENCOUNTER 2024-01-23 12:56 | Day surgery (SDC) | payer MEDICAID, SELFPAY ==
--- NOTE | 2024-01-22 12:57 | HO.ANESPROP2 ---
Documented by User: Angeles Emmanuel NP 01/22/24 12:58 HPI - Anesthesia Eval Consult details Narrative: 28yo F for D&C Hysteroscopy,possible myomectomy,possible polypectomy SLE on plaquinel PMFSH Active Problems Active Problems: All Active Problems Dyspareunia in female (Acute) Abnormal uterine bleeding (AUB) (Acute) SLE (systemic lupus erythematosus) (Acute) Long-term use of hydroxychloroquine (Acute) Hx of migraine headaches (Acute) Bone pain of hand (Acute) Hx of systemic lupus erythematosus (SLE) (Acute) Past Medical History Medical History Long-term use of hydroxychloroquine Hx of migraine headaches Bone pain of hand Hx of systemic lupus erythematosus (SLE) SLE (systemic lupus erythematosus) Mixed anxiety and depressive disorder Migraine Mild intermittent asthma in adult without complication CTS (carpal tunnel syndrome) Family History Family History Maternal Grandmother Arthritis Paternal Grandmother Arthritis Surgical History Surgical History Hx of tubal ligation Hx of section Social History Social History Household Members: Spouse, Family and Children Housing: House Alcohol intake: current Alcohol intake frequency: holidays/special occasions only Patient Tobacco Use Status: Never used Tobacco Tobacco use type: Cigarette Use of substances other than those prescribed or required for medical reasons: No Are you DNR?: No Advance Directives: No Advance Directives Information Provided: Yes Current occupational status: unemployed Sexual orientation: Straight/Heterosexual Gender identity: Female Meds Allergies Allergy/AdvReac Type Severity Reaction Status Date / Time No Known Allergies Allergy Verified 01/23/24 13:16 Home Medications ?Medication ?Instructions ?Recorded ?Confirmed ?Last Taken ?Type albuterol sulfate 90 mcg/actuation 2 puff inhalation Q6H PRN wheezing 11/21/23 01/23/24 Unknown History aerosol inhaler (Ventolin HFA) amitriptyline 10 mg tablet 10 mg PO BEDTIME 11/21/23 01/23/24 Unknown History magnesium oxide 400 mg (241.3 mg 400 mg PO QAM 11/21/23 01/23/24 Unknown History magnesium) tablet Exam Pertinent Lab Results Pertinent Lab Results: Laboratory Tests 01/16/24 04:36 WBC 7.2 Hgb 11.3 L Hct 34.1 L Plt Count 293 Sodium 139 Potassium 3.4 Chloride 109 H Carbon Dioxide 21 L BUN 16 Creatinine 0.96 Narrative Narrative: EKG 10/2023 Vent. Rate : 072 BPM Atrial Rate : 072 BPM P-R Int : 144 ms QRS Dur : 070 ms QT Int : 364 ms P-R-T Axes : 067 039 028 degrees QTc Int : 398 ms Normal sinus rhythm Normal ECG No previous ECGs available Assessment and Plan Assessment Anesthesia Assessment: Chart Reviewed Documented by User: David Hensley MD 01/23/24 14:13 PMFSH Past Medical History Medical History Long-term use of hydroxychloroquine Hx of migraine headaches Bone pain of hand Hx of systemic lupus erythematosus (SLE) SLE (systemic lupus erythematosus) Mixed anxiety and depressive disorder Migraine Mild intermittent asthma in adult without complication CTS (carpal tunnel syndrome) Family History Family History Maternal Grandmother Arthritis Paternal Grandmother Arthritis Family history of problems with anesthesia: No Surgical History Surgical History Hx of tubal ligation Hx of section History of Problems with Anesthesia: No Social History Social History Household Members: Spouse, Family and Children Housing: House Alcohol intake: current Alcohol intake frequency: holidays/special occasions only Patient Tobacco Use Status: Never used Tobacco Tobacco use type: Cigarette Use of substances other than those prescribed or required for medical reasons: No Are you DNR?: No Advance Directives: No Advance Directives Information Provided: Yes Current occupational status: unemployed Sexual orientation: Straight/Heterosexual Gender identity: Female Meds Allergies Allergy/AdvReac Type Severity Reaction Status Date / Time No Known Allergies Allergy Verified 01/23/24 13:16 Home Medications ?Medication ?Instructions ?Recorded ?Confirmed ?Last Taken ?Type albuterol sulfate 90 mcg/actuation 2 puff inhalation Q6H PRN wheezing 11/21/23 01/23/24 Unknown History aerosol inhaler (Ventolin HFA) amitriptyline 10 mg tablet 10 mg PO BEDTIME 11/21/23 01/23/24 Unknown History magnesium oxide 400 mg (241.3 mg 400 mg PO QAM 11/21/23 01/23/24 Unknown History magnesium) tablet Exam Airway Mallampati Class: I TM Dist: >3cm Neck ROM: Full Loose/Missing/Broken Teeth: No Assessment and Plan Assessment Anesthesia Assessment: Anesthesia Plan Discussed Final Anesthetic Review Family History of Problems with Anesthesia: No History of Problems with Anesthesia: No NPO: Yes ASA Class: II Final Preanesthetic Review: No Changes in Pt Med Stat, Meds/Allgs Chart Reviewed, Consent Obtained/Reviewed and Anes Risks/Benef Reviewed Patient Risk: Low Procedure Risk: Low Anesthetic Plan Anesthetic Plan: GA Disposition: Standard PACU
[2024-01-23] VITALS (9 sets, daily range): BP systolic 102–125; BP diastolic 62–80; PULSE 60–75; RESP 14–18; TEMP 36.2–36.8; O2SAT 100; BMI 25.6
--- NOTE | 2024-01-23 13:24 | MHC.SHP ---
Pre-Procedural Eval Section A - 24 Hr Update-Section A only Date of Service: 01/23/24 The patient is an INPATIENT: No Changes since office visit: No Cold of Flu in the past 2 weeks, No New Medical Problems, No Changes in Medication and No Patient answered all questions The patient has been examined within 24 hours of the surgical procedure. The History & Physical has been completed within 30 days and I have reviewed it.: Yes Section B - Complete if H&P > 30 days Chief Complaint: Abnormal uterine and vaginal bleeding, unspecified Allergies: Allergies Allergy/AdvReac Type Severity Reaction Status Date / Time No Known Allergies Allergy Verified 01/23/24 13:16 Plan Diagnosis/Plan: Unchanged I have reviewed the history and physical and performed a pertinent physical examination on my patient. No changes have occurred unless specified. Time Spent With Patient Time: Total time managing care of this patient today ____ minutes.
[2024-01-23 13:25] LABS: UPreg QC Valid YES; Urine Pregnancy NEGATIVE (NEGATIVE)
[2024-01-23] MEDS: Lactated Ringers 1,000 ML 100 ML IVCONT (13:52)
--- NOTE | 2024-01-23 14:41 | P.BOP_ITS ---
Brief Operative Note Date of Service: 01/23/24 Pre-op diagnosis: Abnormal endometrium by ultrasound Post-op diagnosis: same (Two endometrial polyp) Procedure: Hysteroscopy D&C, Polypectomy Surgeon: Flash Bruno MD Anesthesia: GLMA Was an Ethnoarchaeologist used for this Procedure?: No Estimated blood loss (mL): 0 Pathology: other (Endometrial Scrapping. Polyps) Condition: stable Disposition: PACU
--- NOTE | 2024-01-23 14:41 | W.PM.OPN ---
Operative Note Operative Note Date of Service: 01/23/24 Narrative: Preop Diagnosis: Abnormal endometrium by US Operation: Diagnostic Hysteroscopy, Dilataion & Curettage and polypectomy Post Op Diagnosis: 2 Endometrial Polyps QBL: Minimal Anesthesia: GLMA Surgeon: Flash Bruno MD Salesforce Administrator: None Complication: None Pathology: Endometrial Scrapings, 2 Endometrial polyps Procedure: The patient was put in the dorsal lithotomy position, scrubbed, and draped in the usual manner. A sterile speculum was inserted in the patient's vagina. The anterior lip of the cervix was grasped with a single tooth tenaculum. The cervix was dilated up to 5 mm, then the scope was inserted in the patient's uterus. Inspection revealed 2 endometrial polyps. The Myosure Reach device was used; it was introduced through the operative channel and 2 polypectomies done with no complications. The scope was then taken out from the uterine cavity, sharp curettings was carried on with minimal to moderate amount of tissues retrieved. At the end of the procedure, all instruments were taken out of the patient uterine and vaginal cavity. The single tooth tenaculum was removed and homeostasis was assured using pressure,. The patient tolerated the procedure well and was transferred to the PACU in a stable condition.
[2024-01-23] MEDS: Ketorolac Tromethamine 15 MG/ML VIAL IVPUSH (15:38)
== END 2024-01-23 16:10 | disposition home or self-care (01) ==
PROVIDERS: PCP Pediatrics; Visit Provider Obstetrics & Gynecology
PROC: 0UDB8ZZ Extraction of Endometrium, Via Natural or Artificial Opening Endoscopic (ICD-10-PCS; CPT 58558; principal; 2024-01-23 14:30)
DX: N93.9 Abnormal uterine and vaginal bleeding, unspecified (principal); N84.0 Polyp of corpus uteri; N94.10 Unspecified dyspareunia; M32.9 Systemic lupus erythematosus, unspecified; F41.8 Other specified anxiety disorders; Z79.899 Other long term (current) drug therapy; Z56.0 Unemployment, unspecified; Z98.51 Tubal ligation status
CPT/HCPCS: 58558; 81025; 88305; J1885; J2250; J2704; J3010

== ENCOUNTER → 2024-01-23 12:56 | Outpatient (BNV) | payer MEDICAID, SELFPAY | PROVIDERS: PCP Pediatrics; Visit Provider Obstetrics & Gynecology | DX: N84.0 Polyp of corpus uteri (principal) | CPT/HCPCS: 58558 ==

== ENCOUNTER 2024-02-07 11:08 | Outpatient (AMB) | payer MEDICAID, SELFPAY ==
--- NOTE | 2024-02-07 11:28 | A.OFFVIS_ITS ---
Vital Signs 02/07/24 11:29 Height 5 ft Weight 130 lb BMI 25.4 Intake Visit Reasons: post op Environmental Services Assistant Required: Yes Environmental Services Assistant Language: Handtools Repairer Services: Environmental Services Assistant Present (in person) Environmental Services Assistant Name: Evi CHEN Information Interpreted: non-clinical & clinical Branch Sales And Service Representative: Branch Sales And Service Representative Present (Evi CHEN) Accompanied by: Self / Same As Patient Allergies No Known Allergies Allergy (Verified 02/07/24 11:30) HPI Comments Details: The patient is presenting post hysteroscopy D&C no complaints minimal vaginal bleeding no feverishness chills or abdominal pain. The pathology showed the following: A. Endometrium, polypectomy: Disordered proliferative endometrium; some fragments with features of endometrial polyp; no atypia identified. B. Endometrium, curettage: Disordered proliferative endometrium; no atypia or hyperplasia identified. The following workup was done.: H&H= 11.3/34.1 TSH, prolactin, hCG, GC and chlamydia were negative. Co testing was done was negative. Pelvic ultrasound showed the following: Uterus is anteverted and measures 10.3 x 3.8 x 4.4 cm. Uterus is heterogeneous. Visualization of endometrium limited due to bowel gas, body habitus and uterine heterogeneity, but endometrial thickness is approximately 12 mm. Endometrium is difficult to visualize, but appears heterogeneous with at least 2 hypoechoic areas, possibly representing complex fluid. Right ovary measures 2.2 x 2.9 x 1.9 cm, volume 6.4 mL. Left ovary measures 1.7 x 3.2 x 1.6 cm, volume 4.6 mL. Bilateral ovaries are grossly unremarkable. [facility] Medical History Long-term use of hydroxychloroquine Hx of migraine headaches Bone pain of hand Hx of systemic lupus erythematosus (SLE) SLE (systemic lupus erythematosus) Mixed anxiety and depressive disorder Migraine Mild intermittent asthma in adult without complication CTS (carpal tunnel syndrome) Surgical History Hx of tubal ligation Hx of section Family History Maternal Grandmother Arthritis Paternal Grandmother Arthritis Social History Household Members: Spouse, Family and Children Housing: House Alcohol intake: current Alcohol intake frequency: holidays/special occasions only Patient Tobacco Use Status: Never used Tobacco Tobacco use type: Cigarette Current occupational status: unemployed Sexual orientation: Straight/Heterosexual Gender identity: Female Review of Systems Const All systems reviewed & are unremarkable except as noted in HPI and below Reports as per HPI and Reports no additional complaints GI Reports no additional complaints Reports no additional complaints Assessment & Plan Assessment & Plan (1) Abnormal uterine bleeding (AUB): Comment: anemia SLE, Migraine BAÑUELOS Code(s): N93.9 - Abnormal uterine and vaginal bleeding, unspecified Category: Medical Plan: Iron sulfate 325 mg p.o. q.d. Discussed with the patient the results of the work up done and options of treatment including Lysteda, BCP's (both contraindicated in patient with SLE), Mirena IUD (USME category 3 with SLE), endometrial ablation and hysterectomy. All pros, cons, risks and benefits if each option was discussed with the patient and the patient decided to think about it and get back to us. All questions answered the patient verbalized understanding. Coding Level of Care Code Est Pt Level 3 (28822) Diagnoses Abnormal uterine bleeding (AUB) N93.9
[2024-02-07 11:29] VITALS: BMI 25.4
== END 2024-02-07 12:20 | disposition home or self-care (01) ==
LOC: HO.HWS 11:08
PROVIDERS: PCP Pediatrics; Referring Provider Pediatrics; Visit Provider Obstetrics & Gynecology
DX: N93.9 Abnormal uterine and vaginal bleeding, unspecified (principal)
CPT/HCPCS: 99213

== ENCOUNTER → 2024-02-07 11:08 | Outpatient (BNVA) | payer MEDICAID, SELFPAY | PROVIDERS: PCP Pediatrics; Visit Provider Obstetrics & Gynecology | DX: N93.9 Abnormal uterine and vaginal bleeding, unspecified (principal) | CPT/HCPCS: 99212 ==

== ENCOUNTER 2024-04-23 08:58 | Outpatient (AMB) | payer MEDICAID, SELFPAY ==
[2024-04-23 09:05] VITALS: BP 110/66; PULSE 77; O2SAT 99; BMI 26.6
--- NOTE | 2024-04-23 09:05 | MHC.OFFVIS ---
Vital Signs 04/23/24 09:05 Height 5 ft Weight 136 lb 3.931 oz BMI 26.6 BP 110/66 Blood Pressure Location Lt brachial Position Sitting Pulse 77 Pulse Source Pulse Oximeter Pulse Oximetry (%) 99 Oxygen Delivery Method Room Air Intake Visit Reasons: Hx of SLE/CM Intake Note: Patient presents for follow up on SLE diagnosis, last seen in the office on 11/21/23 by Nae Florez. Allergies No Known Allergies Allergy (Verified 04/23/24 09:07) Medication List - Last Reconciled 04/23/24 by Deborah Bradley MD albuterol sulfate 90 mcg/actuation (Ventolin HFA) 2 puffs inhalation Q6H PRN amitriptyline 10 mg PO BEDTIME hydroxychloroquine 200 mg PO DAILY magnesium oxide 400 mg PO QAM HPI Comments Details: Patient is a 28-year-old female with SLE without history of significant organ involvement who presents for follow-up Interval History: Last seen 11/21/2023 with Nae Florez. At that time was started on hydroxychloroquine Today she reports some improvement in her joint pain on the Plaquenil. She denies prolonged morning stiffness states that she is stiff for about 5 minutes in the morning. Denies rashes, photosensitivity, alopecia, oral/nasal ulcers, sicca symptoms, lymphadenopathy, chest pain/shortness of breath, foamy urine, lower extremity edema, muscle weakness, Reviewed Ophthalmology note from Arabella Herndon MD of [facility] visit date 11/30/2023. No evidence of Plaquenil toxicity to the eyes. 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 --some hair shedding but no bald spots --sometimes mouth sores --dry eyes uses eye drops prn , dry mouth drinks a lot of water --sun-sensitivy - gets butterfly rash on face and redness chest - she feels exhausted from the sun like it takes her strength away. --fingers turn purple when it's cold. --no chronic diarrhea, blood in stool or urine --Gets joint pain pretty badly, no swelling --Gets SOB --denies pericarditis or pleuritis --2 children, no miscarriages or pre eclampsia Current Rheumatology Medication(s): Plaquenil 200mg daily PFSH Medical History Long-term use of hydroxychloroquine Hx of migraine headaches Bone pain of hand Hx of systemic lupus erythematosus (SLE) SLE (systemic lupus erythematosus) Mixed anxiety and depressive disorder Migraine Mild intermittent asthma in adult without complication CTS (carpal tunnel syndrome) Surgical History Hx of tubal ligation Hx of section Family History Maternal Grandmother Arthritis Paternal Grandmother Arthritis Social History Household Members: Spouse, Family and Children Housing: House Alcohol intake: current Alcohol intake frequency: holidays/special occasions only Patient Tobacco Use Status: Never used Tobacco Tobacco use type: Cigarette Current occupational status: unemployed Sexual orientation: Straight/Heterosexual Gender identity: Female Review of Systems Const Details: Review of Systems Constitutional: Denies fever, chills, weight loss ENT: Denies vision changes, eye pain or eye redness, dental caries, dry mouth GI: Denies nausea, vomiting, diarrhea, abdominal pain, change in BM Pulm: Denies SOB, O[place], hemoptysis, wheezing Cards: Denies chest pain, palpitations Skin: Denies Raynaud's, rash, nail changes, photosensitivity, 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 ?Gait normal. Constitutional Mucous membranes pink and moist patient alert and cooperative HEENT Conjunctiva and sclera clear. ?Pupils equal round and reactive to light. ?No lymphadenopathy. ?Normal dentition. No oral or nasal ulcers. Respiratory System Normal respiratory effort and able to speak in complete sentences. ?Clear to auscultation bilaterally. ?No crackles, rales, rhonchi, wheezes heard. Cardiac System Regular rate and rhythm. ?S1 and S2 heard no murmurs. ?Radial pulses intact bilaterally MSK No deformity, swelling, abnormalities noted to bilateral hands. ?No evidence of synovitis. ?Able to move all joints with full range of motion, without limitation. Skin No evidence of rash. Results Reviewed Results Reviewed: Laboratory Tests 08/30/23 11/03/23 11/03/23 11:13 09:45 09:46 WBC 5.9 5.2 RBC 4.47 4.40 Hgb 12.8 12.4 Hct 39.4 37.7 Plt Count 285 289 ESR 22 H 16 Sodium 139 Potassium 3.9 Chloride 105 Carbon Dioxide 27 BUN 12 Creatinine 0.78 Calcium 9.5 Total Bilirubin 0.5 AST 19 ALT 10 Alkaline Phosphatase 50 C-Reactive Protein 0.18 Urine Color Yellow Urine Appearance Cloudy Urine pH 7.0 Urine Protein 100 (2+) H Urine Blood Large (3+) H Urine RBC 11-20 H ELIZABETH Screen NEGATIVE NEGATIVE Proteinase 3 (PR3) Ab <1.0 Myeloperoxidase Ab <1.0 SS-A/Ro Antibody <1.0 NEG SS-B/La Antibody <1.0 NEG Sm (Delarosa) Antibody <1.0 NEG SM/SINKER PULLER IgG Antibody <1.0 NEG Scl-70 Scleroderma Ab <1.0 NEG Double Strand DNA Ab 26 H Complement C3 119 Complement C4 19 01/16/24 01/16/24 04:36 16:28 WBC 7.2 RBC 4.13 L Hgb 11.3 L Hct 34.1 L Plt Count 293 ESR 15 Sodium 139 Potassium 3.4 Chloride 109 H Carbon Dioxide 21 L BUN 16 Creatinine 0.96 Calcium 9.5 Total Bilirubin 0.5 AST 18 ALT 12 Alkaline Phosphatase 52 C-Reactive Protein 0.13 Urine Color Yellow Urine Appearance Clear Urine pH 5.5 Urine Protein Negative Urine Blood Negative Urine RBC 0-2 ELIZABETH Screen Proteinase 3 (PR3) Ab Myeloperoxidase Ab SS-A/Ro Antibody SS-B/La Antibody Sm (Delarosa) Antibody SM/SINKER PULLER IgG Antibody Scl-70 Scleroderma Ab Double Strand DNA Ab 28 H Complement C3 77 L Complement C4 14 L Assessment & Plan Assessment & Plan (1) SLE (systemic lupus erythematosus): Code(s): M32.9 - Systemic lupus erythematosus, unspecified Category: Medical Qualifiers: Systemic lupus erythematosus type: unspecified Systemic lupus erythematosus organ involvement: unspecified Qualified Code(s): M32.9 - Systemic lupus erythematosus, unspecified Plan: #SLE Patient with ELIZABETH negative lupus without any significant organ involvement. Joint pain is doing better on Plaquenil. Based on her weight her dose of Plaquenil should be 300 mg per day (5mg/kg body weight dose). I advised her to alternate 204 100 mg tablets. She still reports some headache I advised her to take the Plaquenil at night before she goes to sleep. We will check lupus labs today (2) Long-term use of hydroxychloroquine: Code(s): Z79.899 - Other terminal operator (current) drug therapy Category: Medical Plan: #Long-term Use of Hydroxychloroquine Discussed with patient the risks and benefits of hydroxychloroquine in managing the rheumatic condition Benefits include: - Reduced pain, reduce mortality, maintenance of remission and reduction of flares Risks include: - GI upset, skin hyperpigmentation, retinal toxicity (especially after more than 5 years of use), myopathy Advised yearly ophthalmology visits Last ophthalmology visit: 11/30/23. No abnormalities detected Plan I spent 25 minutes reviewing the record and labs, seeing the patient, discussing the treatment plan and documenting in the medical record Orders: Orders UA w Microscopic 4 Months . - Systemic lupus erythematosus, unspecified Erythrocyte Sedimentation Rate 4 Months . - Systemic lupus erythematosus, unspecified Anti DNA DS Antibody Today . - Systemic lupus erythematosus, unspecified UA w Microscopic Today . - Systemic lupus erythematosus, unspecified Erythrocyte Sedimentation Rate Today . - Systemic lupus erythematosus, unspecified Complete Blood Count Auto Diff Today . - Systemic lupus erythematosus, unspecified Comprehensive Met. Panel Today . - Systemic lupus erythematosus, unspecified Comprehensive Met. Panel 4 Months . - Systemic lupus erythematosus, unspecified Anti DNA DS Antibody 4 Months . - Systemic lupus erythematosus, unspecified Complement C4 4 Months . - Systemic lupus erythematosus, unspecified C Reactive Protein 4 Months . - Systemic lupus erythematosus, unspecified Complement C3 4 Months . - Systemic lupus erythematosus, unspecified Protein Creatinine Ratio, Ur 4 Months . - Systemic lupus erythematosus, unspecified Complement C3 Today M32.9 - Systemic lupus erythematosus, unspecified Complement C4 Today M32.9 - Systemic lupus erythematosus, unspecified C Reactive Protein Today M32.9 - Systemic lupus erythematosus, unspecified Protein Creatinine Ratio, Ur Today M32.9 - Systemic lupus erythematosus, unspecified Complete Blood Count Auto Diff 4 Months M32.9 - Systemic lupus erythematosus, unspecified Medications: Changed From hydroxychloroquine 200 mg PO DAILY 90 tabs 1RF M32.9 - Systemic lupus erythematosus, unspecified To hydroxychloroquine Take 1 pill alternating with 2 pills every other day 400 mg (2 x 200 mg) PO DAILY 90 tabs 1RF M3.9 - Systemic lupus erythematosus, unspecified Coding Level of Care Code Est Pt Level 3 (03636) Complex EM visit Add On G2211 Diagnoses Systemic lupus erythematosus, unspecified SLE type, unspecified organ involvement status M32. Systemic lupus erythematosus type: unspecified Systemic lupus erythematosus organ involvement: unspecified Long-term use of hydroxychloroquine Z79.899
== END 2024-04-23 09:34 | disposition home or self-care (01) ==
PROVIDERS: PCP Pediatrics; Referring Provider Pediatrics; Visit Provider Student in an Organized Health Care Education/Training Program
DX: M32.9 Systemic lupus erythematosus, unspecified (principal); Z79.899 Other long term (current) drug therapy
CPT/HCPCS: 99213

== ENCOUNTER → 2024-04-23 08:58 | Outpatient (BNVA) | payer MEDICAID, SELFPAY | PROVIDERS: PCP Pediatrics; Visit Provider Student in an Organized Health Care Education/Training Program ==

== ENCOUNTER 2024-04-23 09:42 | Outpatient (REF) | payer MEDICAID, SELFPAY ==
[2024-04-23 10:50] LABS: Appearance Urine Clear; Color Urine Yellow; Glucose Urine UA Negative (Negative); Leukocyte Esterase Urine Negative (Negative); Nitrite Urine Negative (Negative); PH 5.5 (5.0-9.0); Urine Blood Negative (Negative); Urine Ketones Negative (Negative); Urine Protein Negative (Neg-Trace)
[2024-04-23 10:56] LABS: Bacteria Urine None Seen (None Seen); Hyaline Casts Urine 0-2 /LPF (0-2); RBC Urine 0-2 /HPF (0-2); Squamous Epithelial Cell Urine 0-2 /HPF (0-2); WBC Urine 0-5 /HPF (0-5)
[2024-04-23 11:00] LABS: MANUAL DIFF FLAG NO
[2024-04-23 11:01] LABS: Basophils Percent Auto 0.5 % (0-2); Eosinophils Absolute Auto 0.1 X10*3/uL (0.0-0.4); Eosinophils Percent Auto 1.1 % (0-4); Hematocrit 40.3 % (37.0-47.0); Hemoglobin 13.5 g/dl (12.0-16.0); Imm Gran Abs Auto 0.01 X10*3/uL (0.00-0.03); Imm Gran Pct Auto 0.2 % (0.0-0.4); Lymphocytes Absolute Auto 2.1 X10*3/uL (1.2-4.9); Lymphocytes Percent Auto 31.7 % (20-40); Mean Corpuscular HGB Conc 33.5 g/dl (31.0-35.0); Mean Corpuscular Hemoglobin 29.2 pg (27.0-33.0); Mean Corpuscular Volume 87.2 fL (80.0-98.0); Mean Platelet Volume 9.9 fL (9.4-12.3); Monocytes Absolute Auto 0.4 X10*3/uL (0.1-1.2); Monocytes Percent Auto 5.4 % (2-11); Neutrophils Percent Auto 61.1 % (45-73); Platelet Count 262 X10*3/uL (160-400); Red Blood Count 4.62 X10*6/uL (4.20-5.50); Red Cell Distribution Width 13.8 % (11.0-16.0); White Blood Count 6.5 X10*3/uL (4.8-10.8)
[2024-04-23 11:34] LABS: Total Protein Urine Random < 7 mg/dL (<12)
[2024-04-23 11:38] LABS: Erythrocyte Sedimentation Rate 7 MM/HR (0-20)
[2024-04-23 11:45] LABS: Alanine Aminotransferase 11 U/L (0-31); Albumin Level 4.5 g/dL (3.5-5.0); Alkaline Phosphatase 51 U/L (39-117); Anion Gap 10 (12-20); Aspartate Amino Transferase 16 U/L (5-31); Bilirubin Total 0.6 mg/dL (0.0-1.0); Blood Urea Nitrogen 12 mg/dL (9-16); C Reactive Protein < 0.10 mg/dL (< or = 0.50); Calcium 9.6 mg/dL (8.4-10.2); Carbon Dioxide 29 mmol/L (22-29); Chloride 105 mmol/L (96-108); Estimated Glomerular Filt Rate > 60; Glucose Random 98 mg/dL (60-115); Potassium 4.1 mmol/L (3.3-5.1); Sodium 140 mmol/L (135-145); Total Protein 7.8 g/dL (6.5-8.0)
[2024-04-24 10:59] LABS: Complement C3 132 mg/dL (83-193)
[2024-04-24 20:59] LABS: Anti DNA DS Antibody 29 IU/mL
== END 2024-04-23 09:43 | disposition home or self-care (01) ==
LOC: HO.10HDL 09:42
PROVIDERS: Visit Provider Student in an Organized Health Care Education/Training Program
DX: M32.9 Systemic lupus erythematosus, unspecified (principal); Z79.899 Other long term (current) drug therapy
CPT/HCPCS: 36415; 80053; 81001; 82570; 84156; 85025; 85652; 86140; 86160; 86225; 99212

== ENCOUNTER 2024-06-13 10:07 | Outpatient (AMB) | payer MEDICAID, SELFPAY ==
--- NOTE | 2024-06-13 10:17 | MHC.OFFVIS ---
Vital Signs 06/13/24 10:24 Height 5 ft Weight 132 lb BMI 25.8 BP 104/60 Blood Pressure Location Rt brachial Pulse 100 Pulse Source Pulse Oximeter Pulse Oximetry (%) 97 Oxygen Delivery Method Room Air Intake Visit Reasons: [id number], unspecified Torpedoman'S Mate Required: No Accompanied by: Self / Same As Patient Allergies No Known Allergies Allergy (Verified 06/13/24 10:23) Medication List - Last Reconciled 06/13/24 by HIWOT Dorsey albuterol sulfate 90 mcg/actuation (Ventolin HFA) 2 puffs inhalation Q6H PRN hydroxychloroquine 400 mg (2 x 200 mg) PO DAILY HPI Comments Details: Right-handed 29-yr-old female presents for new pt evaluation of headache disorder to reestablish care w/ neurology since she moved from [place] to [facility]. Pt reports she has had migraine for about 10 years, started months after her 1st child child was born (via ). Then she develeoped a right sided headcahe after hse was dx'd w/ SLE about 4-5 yrs. Over this time, both headcahes have become more stronger. PMH and ROS are notable for:? 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 Some restless legs, occassional nocturnal leg cramps. Caffeine use: 1 cups of coffee in am per day Substance use: none Exercise:?walks on a treadmill Employment:?not currently working, now living w/ her father. Headache questionnaire:? Previous work-up: unsure Types of headache disorders: 2 Typical migraine headache characteristics: Prodrome symptoms: none Aura: denies Pain intensity: [id number] Location, quality, characteristics: Starts as regular pain in bilateral temples then the pain becomes throbbing and severe.. Associated symptoms: neck tightness, photophobia, phonophobia, allodynia, lightheadedness, fatigue, cognitive difficulties, activity intolerance, Postdrome: lingering feeling unwell Triggers: none Time of day: No specific time of day Duration and Frequency: Has an every day headache a/w photo/photophobia, but becomes severe 3-4 days every 1-2 weeks. How does headache impact your life? has to rest, cannot work Typical right-sided headache characteristics: Prodrome symptoms: none Aura: none Pain intensity: severe Location, quality, characteristics: Starts in the right neck like a strong injection/tingling/squeezing and moves up over head into right eye- like her eye is pulsating Associated symptoms: nothing in addition to her underlying migraine s/s Postdrome: residual pain Triggers: when her migarine is too strong Time of day: No specific time of day- but can occur at night Duration and Frequency: 5 minutes 2-3 x's per day at times when headcahe severe, but not every time. The 1st attack is usually the strongest. Current acute medication use/interventions: Advil Migraine 2 tabs bid, with Tylenol 1000mg bid, Naproxen 440mg bid. Current preventative medication use: none. Was taking oral magnesium, however patient states her nutrition is advise her to stop taking oral form and take a daily bath in with magnesium in the water. Non-pharmacological interventions: sleep, hot bath in magnesium [facility] Medical History Long-term use of hydroxychloroquine Hx of migraine headaches Bone pain of hand Hx of systemic lupus erythematosus (SLE) SLE (systemic lupus erythematosus) Mixed anxiety and depressive disorder Migraine Mild intermittent asthma in adult without complication CTS (carpal tunnel syndrome) Surgical History Hx of tubal ligation Hx of section Family History Maternal Grandmother Arthritis Paternal Grandmother Arthritis Social History Household Members: Spouse, Family and Children Housing: House Alcohol intake: current Alcohol intake frequency: holidays/special occasions only Patient Tobacco Use Status: Never used Tobacco Tobacco use type: Cigarette Current occupational status: unemployed Sexual orientation: Straight/Heterosexual Gender identity: Female Physical Exam Vital Signs: Last Vital Signs Pulse 100 06/13/24 10:24 BP 104/60 06/13/24 10:24 Pulse Ox 97 06/13/24 10:24 Oxygen Delivery Method Room Air 06/13/24 10:24 BMI result Body Mass Index 25.8 Const Orientation/consciousness: patient oriented x3 Resp Effort & Inspection: normal respiratory effort and able to speak in complete sentences Neuro Other: Mild photophobia Mild signs of lower dental teeth wearing No palpable scalp tenderness. Bilateral mild posterior cervical tightness. Cervical ROM: full Left Spurling: Provokes discomfort moving into right upper trap Right Spurling: normal. General: patient oriented x3 Cranial nerves: Yes CN's II-XII intact bilaterally Cognition (Neuro): normal cognition Gait exam (Neuro): Normal gait present Motor exam (neuro): 5/5 motor strength present throughout Deep tendon reflexes (DTR's): Right triceps reflex intensity grade: 2+, Left triceps reflex intensity grade: 2+, Rt Biceps (C5, C6): 2+, Left biceps reflex intensity grade: 2+, Right brachioradialis reflex intensity grade: 2+, Left brachioradialis reflex intensity grade: 2+, Right patellar reflex intensity grade: 2+ and Left patellar reflex intensity grade: 2+ Coordination: [id number] test normal, tandem gait normal and Romberg test negative Pupils: Normal pupillary reactivity/response: bilateral Psych Appearance: grossly normal Mental Status: mental status grossly normal Speech and movement: Normal speech and movement present Affect: normal affect Attitude: cooperative Thought process: Normal thought process present Assessment & Plan Assessment & Plan (1) Worsening headaches: Code(s): R51.9 - Headache, unspecified Category: Medical (2) Right-sided headache: Comment: DDx includes secondary headache, exacerbation of untreated chronic migraine, occipital neuralgia Code(s): R51.9 - Headache, unspecified Category: Medical (3) Chronic migraine without aura: Code(s): G43.709 - Chronic migraine without aura, not intractable, without status migrainosus Category: Medical Plan Pt advised to undergo: Brain MRI with and without contrast as patient has worsening headaches in setting lupus diagnosis. XR C-spine We will also request notes from her network architect manager. For overall headache management: Optimize good self-care, including but not limited to maintaining a healthy diet, adequate fluid intake, adequate sleep, and engaging in regular physical activity. Track headaches, especially after any treatment regimen changes. ReadOz is one of many headache tracking apps. Information shared on non-pharmacological interventions which may help to alleviate headache attack burden. For light sensitivity: Patient may benefit from trying blue light filtering glasses, green glasses, green light therapy. Avoiding wearing sunglasses inside. For sound sensitivity: Patent may benefit from trying noise cancellation ear plugs. Neuromodulation devices, which can be used alone or with pharmacological treatment. For indications of bruxism: Advised to try an OTC mouth guard. For acute headache treatment: Discussed importance of taking acute medications at the first sign of headache, however stressed importance of avoiding acute medication overuse (especially with combined headache medications). Trial Sumatriptan 100mg tab, 1/2 - 1 tab (50-100mg) at onset of headache, may repeat in 2 hours. Max of 2 tabs (200mg) per 24 hours. May take sumatriptan with OTC Tylenol 650-1,000mg every 4-6 hours, Ibuprofen (liquid gels) 600mg every 6 hours, or Naproxen (liquid gels) 440mg q 12 hrs prn. Potential adverse effects of triptans, include but are not limited to nausea, fatigue, chest tightness/tingling (usually passes within a few minutes), medication overuse headaches. Previous acute migraine medication trials: OTC Advil migraine, naproxen, Tylenol. Acute migraine medication contraindications: None at this time For headache prevention medication: Preventative medications should be taken routinely as prescribed for best effect, it may take several weeks for full effect to take effect. Start Riboflavin 400mg qam Resume Magnesium 400mg qhs Previous migraine prevention medication trials: None Migraine prevention medication contraindications: None at this time, the patient expresses concern for medications that may make her sleepy or drowsy. Pt seen in collaboration w/ Dr Rakel Ortiz. Will follow-up upon review of above and patient to follow-up in clinic in 3-4 months or sooner prn. Orders: Orders XR cervical spine w flex/ext Today M54.2 - Cervicalgia MR head/brain wo/w con Today R51.9 - Headache, unspecified Coding Level of Care Code New Pt Level 4 (24225) Diagnoses Worsening headaches R51.9 Right-sided headache R51.9 Chronic migraine without aura G43.709
[2024-06-13 10:24] VITALS: BP 104/60; PULSE 100; O2SAT 97; BMI 25.8
== END 2024-06-13 12:02 | disposition home or self-care (01) ==
PROVIDERS: PCP Pediatrics; Visit Provider Nurse Practitioner Family
DX: R51.9 Headache, unspecified (principal); G43.709 Chronic migraine without aura, not intractable, without status migrainosus
CPT/HCPCS: 99204

== ENCOUNTER → 2024-06-13 10:07 | Outpatient (BNVA) | payer MEDICAID, SELFPAY | PROVIDERS: PCP Pediatrics; Visit Provider Nurse Practitioner Family | DX: G43.709 Chronic migraine without aura, not intractable, without status migrainosus (principal); M32.9 Systemic lupus erythematosus, unspecified; Z79.899 Other long term (current) drug therapy | CPT/HCPCS: 99212 ==

== ENCOUNTER → 2024-07-13 12:42 | Outpatient (BNV) | payer MEDICAID, SELFPAY | PROVIDERS: PCP Student in an Organized Health Care Education/Training Program; Visit Provider Radiology Diagnostic Radiology | DX: R51.9 Headache, unspecified (principal) | CPT/HCPCS: 70553 ==

== ENCOUNTER 2024-07-13 12:57 | Outpatient (REF) | payer MEDICAID, SELFPAY ==
--- NOTE | ~2024-07-13 | MR_ITS ---
EXAMINATION: MR BRAIN WITHOUT THEN WITH IV CONTRAST HISTORY: R51.9 - Headache, unspecified TECHNIQUE: Sagittal T1, and axial T1, FLAIR, T2, gradient echo, and diffusion weighted MR images of the brain were obtained. Subsequently, axial, and coronal T1-weighted images were obtained after the administration of intravenous gadolinium. Six mL Gadavist was administered. COMPARISON: None FINDINGS: The brain parenchyma is unremarkable, demonstrating normal gould/white differentiation. No foci of abnormal signal intensity are identified. The ventricular system is normal in size and configuration. There is no mass effect or midline shift. No intra or extra-axial fluid collections are identified. There are no foci of restricted diffusion. There is no abnormal contrast enhancement. Normal vascular flow voids are noted in the basilar and carotid arteries. The visualized paranasal sinuses are clear. MR/MR head/brain wo/w con IMPRESSION: Unremarkable MRI of the brain without and with contrast. Electronically signed by: Mp Nicolas MD 07/15/2024 10:[address] [facility]
[2024-07-13] MEDS: gadobutroL 7.5 ML VIAL IVPUSH (13:50)
== END 2024-07-13 12:58 | disposition home or self-care (01) ==
LOC: HO.MRI 12:57
PROVIDERS: PCP Student in an Organized Health Care Education/Training Program; Visit Provider Nurse Practitioner Family
DX: R51.9 Headache, unspecified (principal)
CPT/HCPCS: 70553; A9585

== ENCOUNTER 2024-08-05 17:52 | Emergency (ER) | payer MEDICAID, SELFPAY ==
[2024-08-05 18:13] VITALS: BP 118/56; PULSE 72; RESP 16; TEMP 36.1; O2SAT 100; BMI 25.4
--- NOTE | 2024-08-05 18:14 | ED_ITS ---
HPI - General Adult General Chief complaint: Urogenital-Female Stated complaint: ?uti Time Seen by Provider: 08/05/24 22:13 History of Present Illness ED Provider: Inessa FARIA narrative: The patient is a 29-year-old female with a history of lupus. She says this afternoon she developed burning with urination and she thought that her urine looked blood-tinged. She also had urgency and frequency. No flank pain. No fever, sweats, chills. No nausea or vomiting. Related Data Home Medications ?Medication ?Instructions ?Recorded ?Confirmed albuterol sulfate 90 mcg/actuation 2 puff inhalation Q6H PRN wheezing 11/21/23 06/13/24 aerosol inhaler (Ventolin HFA) Previous Rx's ?Medication ?Instructions ?Recorded hydroxychloroquine 200 mg tablet 400 mg (2 x 200 mg) PO DAILY #90 04/23/24 tabs cephalexin 500 mg capsule 500 mg PO BID #10 caps 08/05/24 phenazopyridine 200 mg tablet 200 mg PO TID PRN dysuria 6 doses 08/05/24 #6 tabs Allergies Allergy/AdvReac Type Severity Reaction Status Date / Time No Known Allergies Allergy Verified 08/05/24 18:15 Review of Systems 2 Review of Systems: Yes all other systems are reviewed and are negative PMFSH Past Medical History Medical History Long-term use of hydroxychloroquine Hx of migraine headaches Bone pain of hand Hx of systemic lupus erythematosus (SLE) SLE (systemic lupus erythematosus) Mixed anxiety and depressive disorder Migraine Mild intermittent asthma in adult without complication CTS (carpal tunnel syndrome) Surgical History Hx of tubal ligation Hx of section Family History Family History Maternal Grandmother Arthritis Paternal Grandmother Arthritis Social History Social History Household Members: Spouse, Family and Children Housing: House Alcohol intake: current Alcohol intake frequency: holidays/special occasions only Patient Tobacco Use Status: Never used Tobacco Tobacco use type: Cigarette Advance Directives: No Advance Directives Information Provided: No Do you have a plan to hurt others: No Plan Current occupational status: unemployed Sexual orientation: Straight/Heterosexual Gender identity: Female Physical Exam ED Vital Signs: Vital Signs - 24 hr 08/05/24 18:13 08/05/24 22:37 08/05/24 22:48 Temperature 97.0 F 98.0 F 98.0 F Pulse Rate 72 76 76 Respiratory Rate 16 16 16 Blood Pressure 118/56 L 112/66 112/66 Pulse Oximetry 100 100 100 Oxygen Delivery Method Room Air Room Air Room Air BMI result Body Mass Index 25.4 Const Other: The patient is awake, alert, pleasant, cooperative. She does not appear obviously ill or in distress. HENMT Other: Face is symmetrical. Mucous membranes moist. Eyes General: appearance normal, both eyes and all related structures Resp Effort & Inspection: normal respiratory effort Auscultation: clear to auscultation bilaterally Cardio Rate: regular rate Rhythm: regular rhythm Heart sounds: S1 normal heart sound present and S2 normal heart sound present GI Other: The abdomen is soft and nontender Back/Spine/Pelvis Other: No CVA percussion tenderness on either flank Skin General skin exam: no rashes or lesions noted Neuro Other: The patient is awake and alert with a normal mental status. Cranial nerves are intact. She moves her extremities normally and appropriately. Extrem Other: No peripheral edema. Course Course Course Narrative: RME performed by Sumaya Flores PA-C. Patient is a 29 year old assigned female at presenting to the emergency department with painful urination and blood in her urine. Detailed physical exam and review of systems are deferred to the cellophane bath mixer. Labs ordered. Patient placed back in the waiting room pending room availability and results. Medications Administered Discontinued Medications Generic Name Dose Route Start Last Admin Trade Name Angela PRN Reason Stop Dose Admin Cephalexin HCl 500 mg 08/05/24 22:22 08/05/24 22:40 Cephalexin 500 Mg Capsule PO 08/05/24 22:23 500 mg ONCE ONE Administration Phenazopyridine HCl 200 mg 08/05/24 22:22 08/05/24 22:40 Phenazopyridine Hcl 200 Mg Tablet PO 08/05/24 22:23 200 mg ONCE ONE Administration Medical Decision Making Medical Decision Making MDM Narrative: The patient presents with the acute urinary symptoms. She has no systemic symptoms. Urinalysis is consistent with a urinary tract infection. There is blood in her urine. She likely has hemorrhagic cystitis. She does not have a history of frequent UTIs. She will be placed on cephalexin and phenazopyridine. Lab Data 08/05/24 18:26 08/05/24 18:26 Labs: Lab Results 08/05/24 08/05/24 Range/Units 18:26 18:27 WBC 12.7 H (4.8-10.8) X10*3/uL RBC 4.28 (4.20-5.50) X10*6/uL Hgb 13.0 (12.0-16.0) g/dl Hct 38.8 (37.0-47.0) % MCV 90.7 (80.0-98.0) fL MCH 30.4 (27.0-33.0) pg MCHC 33.5 (31.0-35.0) g/dl RDW 12.2 (11.0-16.0) % Plt Count 264 (160-400) X10*3/uL MPV 9.9 (9.4-12.3) fL Immature Gran % (Auto) 0.4 (0.0-0.4) % Neut % (Auto) 75.1 H (45-73) % Lymph % (Auto) 18.1 L (20-40) % Saunders % (Auto) 5.6 (2-11) % Eos % (Auto) 0.6 (0-4) % Baso % (Auto) 0.2 (0-2) % Lymph # (Auto) 2.3 (1.2-4.9) X10*3/uL [place] # (Auto) 0.7 (0.1-1.2) X10*3/uL Eos # (Auto) 0.1 (0.0-0.4) X10*3/uL Baso # (Auto) 0.0 (0.0-0.2) X10*3/uL Abs Immat Gran (auto) 0.05 H (0.00-0.03) X10*3/uL Absolute Neuts (auto) 9.5 H (2.0-8.3) x10*3/uL Absolute Nucleated RBC 0.000 (0.0-0.012) X10*3/uL Nucleated RBC % (auto) 0.0 (0.0-0.2) /100WBC Sodium 140 (135-145) mmol/L Potassium 3.9 (3.3-5.1) mmol/L Chloride 108 (96-108) mmol/L Carbon Dioxide 27 (22-29) mmol/L Anion Gap 9 L (12-20) BUN 17 H (9-16) mg/dL Creatinine 0.93 (0.5-1.4) mg/dL Estim Creat Clear Calc 70.4 Estimated GFR > 60 Random Glucose 93 (60-115) mg/dL Calcium 9.4 (8.4-10.2) mg/dL Magnesium 2.1 (1.6-2.6) mg/dL Total Bilirubin 0.4 (0.0-1.0) mg/dL AST 21 (5-31) U/L ALT 18 (0-31) U/L Alkaline Phosphatase 54 (39-117) U/L Total Protein 7.9 (6.5-8.0) g/dL Albumin 4.4 (3.5-5.0) g/dL Beta HCG, Quant < 2 mIU/mL Urine Color [place] A Urine Appearance Cloudy Urine pH 5.5 (5.0-9.0) Ur Specific [place] <= 1.005 (1.005-1.025) Urine Protein 30 (1+) H (Neg-Trace) mg/dL Urine Glucose (UA) Negative (Negative) mg/dL Urine Ketones Negative (Negative) mg/dL Urine Blood Large (3+) H (Negative) Urine Nitrite Negative (Negative) Ur Leukocyte Esterase Large (3+) H (Negative) Urine RBC >20 H (0-2) /HPF Urine WBC >50 H (0-5) /HPF Ur Squamous Epith Cells 0-2 (0-2) /HPF Urine Bacteria None Seen (None Seen) Hyaline Casts 0-2 (0-2) /LPF Discharge Plan Discharge Clinical Impression: Acute hemorrhagic cystitis Patient Disposition: Home, Self-Care Instructions: Urinary Tract Infection in Women (ED) Additional Instructions: Your urine indicates that you have a urinary tract infection today. Sometimes urinary tract infections can cause a lot of bleeding from the bladder. I believe this is the case with you today. When this happens we call the urinary tract infection ?hemorrhagic cystitis. The treatment is still the same antibiotics for a regular UTI. You has been started on an antibiotic called cephalexin. Please take this 2 times a day. I have also sent a prescription for a medication that may help the discomfort of a urinary tract infection. This is called phenazopyridine. You may take this medication up to 3 times per day. This will turn your urine orange. Drink lot of fluids. Stay in touch with your regular doctor for additional advice as needed. Return to the emergency room if you feel significantly worse. Prescriptions: New cephalexin 500 mg capsule 500 mg PO BID Qty: 10 0RF phenazopyridine 200 mg tablet 200 mg PO TID PRN (Reason: dysuria) Qty: 6 0RF No Action albuterol sulfate [Ventolin HFA] 90 mcg/actuation HFA aerosol inhaler 2 puff inhalation Q6H PRN (Reason: wheezing) hydroxychloroquine 200 mg tablet 400 mg PO DAILY Qty: 90 1RF Rx Instructions: Take 1 pill alternating with 2 pills every other day Referrals: Ya Rojas MD [Primary Care Provider] - (UTI) Interventions: ED Discharge Assessment Last Done: 08/05/24 22:48 Discharge Date/Time: 08/05/24 22:49 Print Language: Japanese
[2024-08-05 18:31] LABS: MANUAL DIFF FLAG NO
[2024-08-05 18:34] LABS: Appearance Urine Cloudy; Color Urine Orange; Glucose Urine UA Negative (Negative); Leukocyte Esterase Urine Large (3+) (Negative); Nitrite Urine Negative (Negative); PH 5.5 (5.0-9.0); Specific Gravity - Urine <= 1.005 (1.005-1.025); UMIC TRIGGER UACC YES; Urine Blood Large (3+) (Negative); Urine Ketones Negative (Negative); Urine Protein 30 (1+) mg/dL (Neg-Trace)
[2024-08-05 18:36] LABS: Bacteria Urine None Seen (None Seen); Hyaline Casts Urine 0-2 /LPF (0-2); RBC Urine >20 /HPF (0-2); Squamous Epithelial Cell Urine 0-2 /HPF (0-2); UACC Culture Trigger YES; WBC Urine >50 /HPF (0-5)
[2024-08-05 18:41] LABS: Basophils Percent Auto 0.2 % (0-2); Eosinophils Absolute Auto 0.1 X10*3/uL (0.0-0.4); Eosinophils Percent Auto 0.6 % (0-4); Hematocrit 38.8 % (37.0-47.0); Imm Gran Abs Auto 0.05 X10*3/uL (0.00-0.03); Imm Gran Pct Auto 0.4 % (0.0-0.4); Lymphocytes Absolute Auto 2.3 X10*3/uL (1.2-4.9); Lymphocytes Percent Auto 18.1 % (20-40); Mean Corpuscular HGB Conc 33.5 g/dl (31.0-35.0); Mean Corpuscular Hemoglobin 30.4 pg (27.0-33.0); Mean Corpuscular Volume 90.7 fL (80.0-98.0); Mean Platelet Volume 9.9 fL (9.4-12.3); Monocytes Absolute Auto 0.7 X10*3/uL (0.1-1.2); Monocytes Percent Auto 5.6 % (2-11); Neutrophils Absolute Auto 9.5 x10*3/uL (2.0-8.3); Neutrophils Percent Auto 75.1 % (45-73); Platelet Count 264 X10*3/uL (160-400); Red Blood Count 4.28 X10*6/uL (4.20-5.50); Red Cell Distribution Width 12.2 % (11.0-16.0); White Blood Count 12.7 X10*3/uL (4.8-10.8)
[2024-08-05 18:52] LABS: Alanine Aminotransferase 18 U/L (0-31); Albumin Level 4.4 g/dL (3.5-5.0); Alkaline Phosphatase 54 U/L (39-117); Anion Gap 9 (12-20); Aspartate Amino Transferase 21 U/L (5-31); Bilirubin Total 0.4 mg/dL (0.0-1.0); Blood Urea Nitrogen 17 mg/dL (9-16); Calcium 9.4 mg/dL (8.4-10.2); Carbon Dioxide 27 mmol/L (22-29); Chloride 108 mmol/L (96-108); Creatinine Clr Calc Pharmacy 70.4; Estimated Glomerular Filt Rate > 60; Glucose Random 93 mg/dL (60-115); Magnesium 2.1 mg/dL (1.6-2.6); Potassium 3.9 mmol/L (3.3-5.1); Sodium 140 mmol/L (135-145); Total Protein 7.9 g/dL (6.5-8.0)
[2024-08-05 18:53] LABS: HCG Quantitative < 2 mIU/mL
--- OUTSIDE RECORDS SUMMARY | 2024-08-05 22:05 | XMS_ITS | Encounter Summary ---
Author Organization [facility] Address [address] [facility] [address] [place] [address] Care Team Providers Care Slubber Runner Name Role Phone Ya Rojas MD Primary Care Pro vider Reason for Visit * Reason Onset Date Comments New Patient 05/04/2023 Encounter Details Date Type Department Care Team ([facility] st Contact Info) Description 05/04/2023 Telephone [facility] MEDICINE [address], [place] [phone] Joe Navarro MD [address] [place] [phone] New Patient Social History Tobacco Use Types Packs/Day Years Used Date Smoking Tobacco: Never Assessed Comments Unknown Sex and Gender Information Value Date Recorded Sex Assigned at Female 05/09/2022 10:27 AM EDT Legal Sex Female 10:27 AM EDT Gender Identity Female 07/04/2023 1:57 PM EST Sexual Orientation Straight 07/04/2023 1: 59 PM EST documented as of this encounter Miscellaneous Notes * Telephone Encounter - Darryl Hernandez - 05/04/2023 3:51 PM EDT 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
--- OUTSIDE RECORDS SUMMARY | 2024-08-05 22:05 | XMS_ITS | Encounter Summary ---
Author Organization [employer] Address [address] [facility] [address] [place] [address] Care Team Providers Care Transaction Manager Name Role Phone Ya Rojas MD Primary Care Pro vider Encounter Details Date Type Department Care Team (Late st Contact Info) Description 08/05/2024 Orders Only GENERIC EXTERNAL DATA DEPARTMENT Provider, Generic External Data Social History Tobacco Use Types Packs/Day Years Used Date Smoking Tobacco: Never Smokeless Tobacco: Never Alcohol Use Standard Drinks/Week Comments Yes 0 (1 standard drink = 0.6 oz pur e alcohol) social Depression Answer Date Recorded Patient Health Questionnaire-9 Score 11 11/24/2023 Patient Health Questionnaire-9 Score 11 11/24/2023 Last PHQ-9: Questionnaire Data Not on file 0 11/24/2023 Housing Stability Answer Date Recorded What is your housing situation today? I have ronnie shepard 11/21/[address] you li ve. Do you have problems with any of the following? None of the above 11/21/2023 Food Insecurity Answer Date Recorded Within the past 12 months, y ou worried that your food would run out before you got money to buy more: Never True 11/21/2023 Within the past 12 months,th e food you bought just didn't last and you didn't have enough money to get more: Never True Transportation Answer Date Recorded In the past 12 months, has l ack of transportation kept you from medical appts, meetings, work or from getting things needed for daily living? No 11/21/2023 Utilities Answer Date Recorded In the past 12 months, has t he electric, gas, oil or water company threatened to shut off services in your home? No 11/21/2023 Depression Answer Date Recorded Patient Health Questionnaire-2 Score 3 11/24/2023 Comments Unknown Sex and Gender Information Value Date Recorded Sex Assigned at Female 05/09/2022 10:27 AM EDT Legal Sex Female 10:27 AM EDT Gender Identity Female 07/04/2023 1:57 PM EST Sexual Orientation Straight 07/04/2023 1: 59 PM EST documented as of this encounter Plan of Treatment Not on file documented as of this encounter Procedures Procedure Name Priority Date/Time Associated Diagnosis Comments URINALYSIS, COMPLETE, WITH REFLEX TO CULTURE Routine 08/05/2024 6:27 PM EST CBC WITH AUTO DIFFERENTIAL Routine 08/05/2024 6:26 PM EST HCG, TOTAL, QN Routine 08/05/2024 6:26 PM EST MAGNESIUM Routine 08/05/2024 6:26 PM EST COMPREHENSIVE METABOLIC PANEL Routine 08/05/2024 6:26 PM EST documented in this encounter Results * (ABNORMAL) Urinalysis, Complete, with Reflex to Culture (08/05/2024 6:27 PM EST) Color Urine [place](A) [facility] Appearance Urine Cloudy [facility] PH 5.5 5.0 - 9.0 [facility] Glucose Urine UA Negative Negative mg/dL [facility] Urine Blood Large (3+)(A) Negative [facility] Specific [place] - Urine <=1.005 1.005 - 1.025 [facility] Urine Protein 30 (1+)(A) Neg-Trace mg/dL [facility] Urine Ketones Negative Negative mg/dL [facility] Nitrite Urine Negative Negative [facility] Leukocyte Esterase Urine Large (3+)(A) Negative [facility] RBC Urine >20(A) 0 - 2 /HPF [facility] Urine WBC >50(A) 0 - 5 /HPF [facility] Urine Squamous Epithelial Cell 0-2 0 - 2 /HPF [facility] Urine Bacteria None Seen None Seen [facility] Hyaline Casts, Urine 0-2 0 - 2 /LPF [facility] 08/05/2024 6:27 PM EST 08/05/2024 6:30 PM EST Narrative [facility] - 08/05/2024 6:37 PM EST 1825Urine, Clean Catch Generic External Data Provider LAB URINE ORDERAB LES Final Result Performing Organization Address [facility]/ZIP Co de Phone Number [facility] [address] [place] [phone] * hCG, Total, Quantitative (08/05/2024 6:26 PM EST) HCG Quantitative <2 mIU/mL [facility] Comment:Weeks post LMP Appro ximate hCG(Last Menstrual Period) Range (mIU/ml)3 - 4 weeks 9 - 1304 - 5 weeks 75 - 2,6005 - 6 weeks 850 - 20,8006 - 7 weeks 4000 - 100,2007 - 12 weeks 11,500 - 289,02341 - 16 weeks 18,300 - 137,88618 - 29 weeks (2nd trimester) 1,400 - 53,26452 - 41 weeks (3rd trimester) 940 - 60,000The Stewart B- hCG assay is used for the early detection ofpregnancy; it cannot be used to diagnose any conditionunrelated to . If a B-hCG level is not supportedby the clinical evidence, results should be confirmed by analternative method (qualitative urine hCG, for example). 08/05/2024 6:26 PM EST 08/05/2024 6:30 PM EST Generic External Data Provider LAB BLOOD ORDERAB LES Final Result Performing Organization Address [facility]/ZIP Co de Phone Number [facility] [address] [place] [phone] * Magnesium (08/05/2024 6:26 PM EST) Pathologist [facility] Magnesium 2.1 1.6 - 2.6 mg/dL [facility] 08/05/2024 6:26 PM EST 08/05/2024 6:30 PM EST us Generic External Data Provider LAB BLOOD ORDERAB LES Final Result [facility] [address] [place] [phone] * (ABNORMAL) Comprehensive Metabolic Panel (08/05/2024 6:26 PM EST) Sodium 140 135 - 145 mmol/L [facility] Potassium 3.9 3.3 - 5.1 mmol/L [facility] Chloride 108 96 - 108 mmol/L [facility] Carbon Dioxide 27 22 - 29 mmol/L [facility] Anion Gap 9(L) 12 - 20 [facility] Urea Nitrogen (BUN) 17(H) 9 - 16 mg/dL [facility] Creatinine, Serum 0.93 0.5 - 1.4 mg/dL [facility] Creatinine Clr Calc Pharmacy 70.4 [facility] Comment:Provided height and weight: 152.4 cm,58.967 kg.eGFR (calculated from the MDRD study equation) and eCrCl(calculated from the Cockcroft-Gault equation) are based ondifferent parameters and may not yield comparable results.If eCrCl result is absurd, please check patient'sheight/weight. Estimated Glomerular Filt Rate >60 [facility] Comment:Chronic Kidney Disea se: Estimated GFR < 60 mL/min/1.57p3[place] Kidney Disease: Estimated GFR < 15 mL/min/1.73m2 Glucose 93 60 - 115 mg/dL [facility] Calcium 9.4 8.4 - 10.2 mg/dL [facility] Bilirubin, Total 0.4 0.0 - 1.0 mg/dL [facility] Aspartate Amino Transferase 21 5 - 31 U/L [facility] Alanine Aminotransferase 18 0 - 31 U/L [facility] Total Protein 7.9 6.5 - 8.0 g/dL [facility] Albumin Level 4.4 3.5 - 5.0 g/dL [facility] Alkaline Phosphatase 54 39 - 117 U/L [facility] 08/05/2024 6:26 PM EST 08/05/2024 6:30 PM EST us Generic External Data Provider LAB BLOOD ORDERAB LES Final Result [facility] [address] [place] [phone] * (ABNORMAL) CBC auto differential (08/05/2024 6:26 PM EST) White Blood Count 12.7(H) 4.8 - 10.8 X10*3/uL [facility] Red Blood Count 4.28 4.20 - 5.50 X10*6/uL [facility] Hemoglobin 13.0 12.0 - 16.0 g/dl [facility] Hematocrit 38.8 37.0 - 47.0 % [facility] Mean Corpuscular Volume 90.7 80.0 - 98.0 fL [facility] Mean Corpuscular Hemoglobin 30.4 27.0 - 33.0 pg [facility] Mean Corpuscular HGB Conc 33.5 31.0 - 35.0 g/dl [facility] Red Cell Distribution Width 12.2 11.0 - 16.0 % [facility] Platelet Count 264 160 - 400 X10*3/uL [facility] Mean Platelet Volume 9.9 9.4 - 12.3 fL [facility] Neutrophils Percent Auto 75.1(H) 45 - 73 % [facility] Imm Gran Pct Auto 0.4 0.0 - 0.4 % [facility] Lymphocytes Percent Auto 18.1(L) 20 - 40 % [facility] Monocytes Percent Auto 5.6 2 - 11 % [facility] Eosinophils Percent Auto 0.6 0 - 4 % [facility] Basophils Percent Auto 0.2 0 - 2 % [facility] NRBC Pct Auto 0.0 0.0 - 0.2 /100WBC [facility] Neutrophils Absolute Auto 9.5(H) 2.0 - 8.3 x10*3/uL [facility] Imm Gran Abs Auto 0.05(H) 0.00 - 0.03 X10*3/uL [facility] Lymphocytes Absolute Auto 2.3 1.2 - 4.9 X10*3/uL [facility] Monocytes Absolute Auto 0.7 0.1 - 1.2 X10*3/uL [facility] Eosinophils Absolute Auto 0.1 0.0 - 0.4 X10*3/uL [facility] Basophils Absolute Auto 0.0 0.0 - 0.2 X10*3/uL [facility] NRBC Abs Auto 0.000 0.0 - 0.012 X10*3/uL [facility] 08/05/2024 6:26 PM EST 08/05/2024 6:30 PM EST us Generic External Data Provider LAB BLOOD ORDERAB LES Final Result Performing Organization Address City/State/[facility] Co de Phone Number [facility] [address] [place] [phone] documented in this encounter Visit Diagnoses Not on filedocumented in this encounter Additional Health Concerns Assessment Noted Time PHQ-9 Depression Total Score: 11 024 10:11 AM EDT documented as of this encounter Care Teams Transaction Manager Relationship Specialty Start Date End Date Ya Rojas MD [address] [place] [address] PCP - General Internal Medicine 08/30/23 documented as of this encounter
--- OUTSIDE RECORDS SUMMARY | 2024-08-05 22:05 | XMS_ITS | Clinical Summary ---
Author Organization [employer] [facility] Address [address] [place] [address] Care Team Providers Care Seed Sorter Name Role Phone Unavailable Primary Care Provider Unavailabl e Social History Tobacco Use Types Packs/Day Years Used Date Smoking Tobacco: Never Assessed Sex and Gender Information Value Date Recorded Sex Assigned at Not on file Gender Identity Not on file Sexual Orientation Not on file Plan of Treatment Health Maintenance Due Date Last Done Comments DTaP,Tdap,and Td Vaccines (1 - Tdap) 2012 Hepatitis B Vaccines (1 of 3 - 19+ 3-dose series) 2012 Cervical Cancer Screening: P ap Smear 2014 Depression Screening 08/03/2023 HIV Screening 08/03/2023 Hepatitis C Screening 08/03/2023 Social Influencers of Health Screening 08/03/2023 COVID-19 Vaccine ( - 2023-2 5 season) 2024 Influenza Vaccine (#1) 2024 HIB Vaccines Aged Out No longer eligi ble based on patient's age to complete this topic HPV Vaccines Aged Out No longer eligi ble based on patient's age to complete this topic Hepatitis A Vaccines Aged Out No long er eligible based on patient's age to complete this topic IPV Vaccines Aged Out No longer eligi ble based on patient's age to complete this topic MMR Vaccines Aged Out No longer eligi ble based on patient's age to complete this topic Meningococcal ACWY Vaccine Aged Out N o longer eligible based on patient's age to complete this topic Pneumococcal Vaccine: Pediat rics (0 to 5 Years) and At-Risk Patients (6 to 64 Years) Aged Out No longer eligible b ased on patient's age to complete this topic RSV Immunization Patients Un jakob 20 months Aged Out No longer eligible b ased on patient's age to complete this topic Varicella Vaccines Aged Out No longer eligible based on patient's age to complete this topic
--- OUTSIDE RECORDS SUMMARY | 2024-08-05 22:05 | XMS_ITS | Patient Health Record ---
Author Organization [facility] Address [address] [place] [address] Support Name Relationship Address Phone JANET GUILLAUME Emergency Contact [address] [place] [address] Janet Guillaume Guarantor Unknown Reason For Referral No Information Immunizations Vaccine Route Administration Date Status Comme nts COVID-19, Pfizer Booster IM Intramuscular 07/21/2021 Admin istered Plan Of Treatment No Information
--- OUTSIDE RECORDS SUMMARY | 2024-08-05 22:05 | XMS_ITS | Encounter Summary ---
Author Organization [employer] Address [address] [facility] [facility] [address] [place] [address] Care Team Providers Care Phlebotomy Supervisor Name Role Phone Ya Rojas MD Primary Care Pro vider Encounter Details Date Type Department Care Team (Late st Contact Info) Description 07/13/2024 Orders Only [facility] External Provider, [facility] Social History Tobacco Use Types Packs/Day Years [...] Procedure Name Priority Date/Time Associated Diagnosis Comments MR BRAIN W AND WO CONTRAST Routine 07/13/2024 1:29 PM EST documented in this encounter Results * Mr Brain w/ and w/o Contrast (07/13/2024 1:29 PM EST) Anatomical Region Laterality Modality Brain Magnetic Resonan ce 07/13/2024 1:29 PM EST Narrative 07/15/2024 10:07 AM EST ? [facility] ?[address] ?[place] [address] ? Magnetic Resonance Report ? Signed ? Patient: Joo Yingoja,Diorimar ? MR#: [id number] ? : 1995 ?Acct:[id number] ? Age/Sex: 29 / F ?ADM Date: 07/13/24 ? Loc: HO.MRI ? Attending Dr: Zoe MI ? Ordering Physician: Zoe Craft ?? Date of Service: 07/13/24 ?? Procedure(s): MR head/brain wo/w con ?? Accession Number(s): [id number] ? cc: Zoe Craft; Ya Rojas MD ? EXAMINATION: ??MR BRAIN WITHOUT THEN WITH IV CONTRAST ? HISTORY: ??R51.9 - Headache, unspecified ? TECHNIQUE: ?Sagittal T1, and axial T1, FLAIR, T2, gradient echo, and ?? diffusion weighted MR images of the brain were obtained. ??Subsequently, ?? axial, and coronal T1-weighted images were obtained after the ?? administration of intravenous gadolinium. ??Six mL Gadavist was ?? administered. ? COMPARISON: None ? FINDINGS: ? The brain parenchyma is unremarkable, demonstrating normal gould/white ?? differentiation. No foci of abnormal signal intensity are identified. ?? The ventricular system is normal in size and configuration. ??There is ?? no mass effect or midline shift. No intra or extra-axial fluid ?? collections are identified. There are no foci of restricted diffusion. ? There is no abnormal contrast enhancement. ? Normal vascular flow voids are noted in the basilar and carotid ?? arteries. ??The visualized paranasal sinuses are clear. ? MR/MR head/brain wo/w con ?? IMPRESSION: ? Unremarkable MRI of the brain without and with contrast. ? Electronically signed by: ??Mp Nicolas MD ??07/15/2024 10:04 AM EST ? Dictated By: ?Mp Nicolas MD ? Signed By: ?<Electronically signed by Mp Nicolas MD in OV> ?07/15/24 1004 ? DD/ 1329 ? TD/TT: 07/13/24 1348 ? Chisel Worker: ? Procedure Note Chirag Lowry - 07/15/2024 [place] [id number] Magnetic Resonance Report Signed Patient: Isac Chavis MR#: [id number] : 1995Acct:[id number] Age/Sex: 29 / FADM Date: 07/13/24 Loc: HO.MRI Attending Dr: Zoe MI Ordering Physician: Zoe Craft Date of Service: 07/13/24 Procedure(s): MR head/brain wo/w con Accession Number(s): [id number] cc: Zoe Craft; Ya Rojas MD EXAMINATION: MR BRAIN WITHOUT THEN WITH IV CONTRAST HISTORY: R51.9 - Headache, unspecified TECHNIQUE: Sagittal T1, and axial T1, FLAIR, T2, gradient echo, and diffusion weighted MR images of the brain were obtained. Subsequently, axial, and coronal T1-weighted images were obtained after the administration of intravenous gadolinium. Six mL Gadavist was administered. COMPARISON: None FINDINGS: The brain parenchyma is unremarkable, demonstrating normal gould/white differentiation. No foci of abnormal signal intensity are identified. The ventricular system is normal in size and configuration. There is no mass effect or midline shift. No intra or extra-axial fluid collections are identified. There are no foci of restricted diffusion. There is no abnormal contrast enhancement. Normal vascular flow voids are noted in the basilar and carotid arteries. The visualized paranasal sinuses are clear. MR/MR head/brain wo/w con IMPRESSION: Unremarkable MRI of the brain without and with contrast. Electronically signed by: Mp Nicolas MD 07/15/2024 10:04 AM [facility] [place] Dictated By: Mp Nicolas MD Signed By: <Electronically signed by Mp Nicolas MD in OV> 07/15/24 1004 DD/ 1329 TD/TT: 07/13/24 1348 Chisel Worker: [facility] External Provider IMG MRI PROCEDURES Edited Result - Final documented in this encounter Visit Diagnoses Not on filedocumented in this encounter Additional Health Concerns Assessment Noted Time PHQ-9 Depression Total Score: 11 11/23/ 024 10:11 AM EDT documented as of this encounter Care Teams Phlebotomy Supervisor Relationship Specialty Start Date End Date Ya Rojas MD [address] [place] [id number] PCP - General Internal Medicine 08/30/23 documented as of this encounter
[2024-08-05 22:37] VITALS: BP 112/66; PULSE 76; RESP 16; TEMP 36.7; O2SAT 100
[2024-08-05] MEDS: Phenazopyridine HCL 200 MG TABLET PO (22:40)
[2024-08-05] MEDS: cephALEXin 500 MG CAPSULE PO (22:40)
[2024-08-05 22:48] VITALS: BP 112/66; PULSE 76; RESP 16; TEMP 36.7; O2SAT 100
== END 2024-08-05 22:49 | disposition home or self-care (01) ==
PROVIDERS: Physician Assistant Medical; Emergency Provider Emergency Medicine; PCP Student in an Organized Health Care Education/Training Program
DX: N30.01 Acute cystitis with hematuria (principal); B96.20 Unspecified Escherichia coli [E. coli] as the cause of diseases classified elsewhere; L93.0 Discoid lupus erythematosus; J45.909 Unspecified asthma, uncomplicated; Z79.899 Other long term (current) drug therapy
CPT/HCPCS: 36415; 80053; 81001; 83735; 84702; 85025; 87086; 87088; 87186; 99283; 99284

== ENCOUNTER 2024-08-16 12:51 | Outpatient (REF) | payer MEDICAID, SELFPAY ==
--- NOTE | ~2024-08-16 | XR_ITS ---
EXAMINATION: XR CERVICAL SPINE FLEXION EXTENSION HISTORY: M54.2 - Cervicalgia COMPARISON: There are no prior studies for comparison. FINDINGS: AP, neutral, flexion, and extension lateral, bilateral oblique, and open-mouth odontoid views of the cervical spine are submitted. Osseous mineralization is normal. Seven cervical vertebral bodies are identified maintaining normal height and alignment without evidence of fracture or subluxation. The intervertebral disc spaces are preserved. The neural foramina patent bilaterally. There is no abnormal motion with flexion or extension. The odontoid and lateral masses of C1 are intact. There is no prevertebral soft tissue swelling. XR/XR cervical spine w flex/ext IMPRESSION: Unremarkable examination of the cervical spine. There is no abnormal motion with flexion or extension. Electronically signed by: Mp Nicolas MD 08/16/2024 02:31 PM DOMO
[2024-08-16 13:15] LABS: MANUAL DIFF FLAG NO
--- OUTSIDE RECORDS SUMMARY | 2024-08-16 13:29 | XMS_ITS | Clinical Summary ---
Author Organization [facility] [facility] Address [address] [place] [address] Care Team Providers Care Fixed Wing Pilot Name Role Phone Unavailable Primary Care Provider [...]
--- OUTSIDE RECORDS SUMMARY | 2024-08-16 13:29 | XMS_ITS | Clinical Summary ---
Author Organization [employer] Address [address] [place] [address] Care Team Providers Care Cured Meats Supervisor Name Role Phone Ya Rojas MD Primary Care Pro vider Allergies No known active allergies Medications * This document contains information received from the source organization and may not represent a complete record from that organization. cyanocobalamin (Vitamin B-12) 100 MCG tablet Take 100 mcg by mouth in the morning. Active hydroxychloroquin e (Plaquenil) 200 MG tablet Take 1 tablet by mouth Once per day. 4 Active topiramate (Topamax) 50 MG tabletIndications :Migraine without status migrainosus, not intractable, unspecified migraine type Take 50 mg by mouth Once per day. 30 tablet 2 4 01/02/20 25 Active SUMAtriptan (Imitrex) 25 MG tabletIndications :Migraine without status migrainosus, not intractable, unspecified migraine type Take 1 tablet (25 mg) by mouth 1 (one) time if needed for migraine. May repeat dose once in 2 hours if no relief. Do not exceed 2 doses in 24 hours. 9 tablet 1 4 Active ferrous gluconate (Fergon) 324 (38 Fe) MG tablet Take 324 mg by mouth with breakfast. Active lidocaine (Lidoderm) 5 % patchIndications: Chronic low back pain, unspecified back pain laterality, unspecified whether sciatica present Apply 1 patch topically Once per day. Remove & discard patch within 12 hours or as directed by . 30 patch 2 4 Active magnesium oxide (Mag-Ox) 400 (240 Mg) MG tabletIndications :Other migraine without status migrainosus, not intractable TAKE 1 TABLET BY MOUTH EVERY MORNING 90 tablet 4 Active albuterol 108 (90 Base) MCG/ACT inhalerIndication s:Mild intermittent asthma with (acute) exacerbation Inhale 2 puffs every 6 (six) hours if needed for wheezing. 18 g 3 4 05/28/20 25 Active predniSONE (Deltasone) 20 MG tabletIndications :Mild intermittent asthma with (acute) exacerbation 2 tabs po daily for 5 days 10 tablet 4 Active Active Problems Problem Noted Date Diagnosed Date Mild intermittent asthma with (acute) exacerbati on 05/28/2024 Assessment & Plan (05/28/2024 2:23 PM EST): Faint wheezing on exam - Refilling albuterol 108 (90 Base) MCG/ACT inhaler 05/28/24 - Prescribed predniSONE (Deltasone) 20 MG tablet 05/28/24 - ER precautions discussed. - Seek medical attention for worsening symptoms. Overweight 04/03/2024 Anemia 04/03/2024 Chronic lower back pain 04/03/2024 Abnormal uterine bleeding 11/21/2023 CTS (carpal tunnel syndrome) 08/30/2023 Mild intermittent asthma without complication Migraine 08/30/2023 Mixed anxiety and depressive disorder 08/30/2023 Overview (09/04/2023): During IBH Consult Isac presenting with depressed mood, loss of interests/pleasure , changes in sleep difficulty falling asleep, change in appetite or weight reduce appetite, psychomotor agitation, trouble concentrating, fatigue/loss of energy, hopelessness, difficulty concentrating and excessive worry/anxiety, difficulty controlling worry, easily fatigued, difficulty concentrating/Mind going blank , irritability, muscle tension, and sleep disturbance difficulty falling asleep; for a period of 6-12 mo, for all symptoms in the context of family issues, illness or family illness, recent move, and relationship issues. Isac moved from [place] on 12/2022 looking for better opportunities. She endorsed depressive symptoms due to stressors and medical condition (RA). PCP will start medication to treat sxs (see PCP note). Patient had two children (10 and 7 y/o); she lives with her grandmother and children. PLAN: (check all that apply) New/Additional Services needed Off-site services for . Referral for OP individual therapy will be placed. clinician Penny will provide intervention during next medical appt. Assessment & Plan (11/24/2023 10:22 AM EDT): During IBH Consult Isac presenting with depressed mood, loss of interests/pleasure , changes in sleep difficulty falling asleep, psychomotor retardation, trouble concentrating, thoughts of worthlessness or guilt, fatigue/loss of energy, inappropriate guilt , hopelessness, worthlessness , difficulty concentrating and excessive worry/anxiety, difficulty controlling worry, restless/keyed up/On edge, easily fatigued, difficulty concentrating/Mind going blank , and irritability; for a period of 6-12 mo, for all symptoms in the context of family issues and recent move. Isac reported improvement of sxs since our last appt. She was able to incorporate coping techniques into her routine. Able to manage sxs and recognize the importance of setting up boundaries and communicate feelings to others. Not taking medication due to side effect (PCP updated). PLAN: (check all that apply) Continue with current services (defined as services in the past 12 months) Behavioral Health Integration Plan Patient Self Plan Patient to utilize skills provided in intervention , [facility], Patient to engage in OP therapy , and Patient to reach out to [facility] as needed. Pt received call from external agency to start OP services, but couldn't connect due to being out of the state. She has tried calling agency back with no success. Pt will follow- up with agency and update clinician if extra support is needed for services. Assessment & Plan (09/27/2023 2:09 PM EDT): During IBH Consult Isac presenting with loss of interests/pleasure , changes in sleep difficulty falling asleep, change in appetite or weight overeating, trouble concentrating, fatigue/loss of energy, hopelessness, worthlessness , difficulty concentrating and excessive worry/anxiety, difficulty controlling worry, easily fatigued, and irritability; for a period of 6-12 mo, for all symptoms in the context of illness or family illness, recent move, and relationship issues. Isac reported improvement of sxs since our last appt. She was able to incorporate coping techniques into her routine. Able to manage sxs and recognize the importance of setting up boundaries and communicate feelings to others. PLAN: (check all that apply) Continue with current services (defined as services in the past 12 months) . [facility]. Number giving to patient. SLE (systemic lupus erythematosus related syndro me) 08/30/2023 Health care maintenance 08/30/2023 Stress-related problem 08/30/2023 Assessment & Plan (11/24/2023 10:22 AM EDT): During IBH Consult Isac presenting with depressed mood, loss of interests/pleasure , changes in sleep difficulty falling asleep, psychomotor retardation, trouble concentrating, thoughts of worthlessness or guilt, fatigue/loss of energy, inappropriate guilt , hopelessness, worthlessness , difficulty concentrating and excessive worry/anxiety, difficulty controlling worry, restless/keyed up/On edge, easily fatigued, difficulty concentrating/Mind going blank , and irritability; for a period of 6-12 mo, for all symptoms in the context of family issues and recent move. Isac reported improvement of sxs since our last appt. She was able to incorporate coping techniques into her routine. Able to manage sxs and recognize the importance of setting up boundaries and communicate feelings to others. Not taking medication due to side effect (PCP updated). PLAN: (check all that apply) Continue with current services (defined as services in the past 12 months) Behavioral Health Integration Plan Patient Self Plan Patient to utilize skills provided in intervention , Patient to [facility] as needed, Patient to engage in OP therapy , and Patient to reach out to [facility] as needed. Pt received call from external agency to start OP services, but couldn't connect due to being out of the state. She has tried calling agency back with no success. Pt will follow- up with agency and update clinician if extra support is needed for MH services. Assessment & Plan (09/27/2023 2:10 PM EDT): During IBH Consult Isac presenting with loss of interests/pleasure , changes in sleep difficulty falling asleep, change in appetite or weight overeating, trouble concentrating, fatigue/loss of energy, hopelessness, worthlessness , difficulty concentrating and excessive worry/anxiety, difficulty controlling worry, easily fatigued, and irritability; for a period of 6-12 mo, for all symptoms in the context of illness or family illness, recent move, and relationship issues. Isac reported improvement of sxs since our last appt. She was able to incorporate coping techniques into her routine. Able to manage sxs and recognize the importance of setting up boundaries and communicate feelings to others. PLAN: (check all that apply) Continue with current services (defined as services in the past 12 months) . Referral placed to [facility]. Number giving to patient. Encounters Date Type Department Care Team Description 08/05/2024 Orders Only GENERIC EXTERNAL DATA DEPARTMENT Provider, Generic External Data 07/13/2024 Orders Only [facility] External Provider, [facility] 05/28/2024 3:00 PM EST Office Visit [facility] [address] [place] [address] Rachael Pavon MD Mild intermittent asthma with (acute) exacerbation (Primary Dx) 05/28/2024 1:00 PM EST Clinical Support [facility] [address], [place] [phone] Overweight (BMI 25.0-29.9) (Primary Dx) 05/28/2024 Travel from Last 3 Months Immunizations Name Administration Dates Next Due HPV 9-Valent 01/03/2024 Influenza injectable quadrivalent preservative f ree 08/30/2023 Influenza, seasonal, injectable, preservative fr ee 04/03/2024 Pfizer Covid-19 Vaccine 12+ 04/03/2024, Social History Tobacco Use Types Packs/Day Years Used Date Smoking Tobacco: Never Smokeless Tobacco: Never Tobacco Cessation:Counseling Given: Not Answered Alcohol Use Standard Drinks/Week Comments Yes 0 [...] Orientation Straight 07/04/2023 1: 59 PM EST Last Filed Vital Signs Vital Sign Reading Time Taken Comments Blood Pressure 113/65 05/28/2024 2:11 PM EST Pulse 91 05/28/2024 2:11 PM EST Temperature 36.6 ??C (97.9 ??F) 05/28/2024 2:11 PM ES T Respiratory Rate 20 05/28/2024 2:11 PM EST Oxygen Saturation 100% 05/28/2024 2:11 PM EST Inhaled Oxygen Concentration - - Weight 60.7 kg (133 lb 12.8 oz) 05/28/2024 2:11 PM EST Height 154.9 cm (5' 1 ) 05/17/2024 1:18 PM EST Body Mass Index 25.28 05/17/2024 1:18 PM EST Plan of Treatment Health Maintenance Due Date Last Done Comments Alcohol/Substance Use Screening 2005 Family Planning (PISQ) 2008 DTaP/Tdap/Td Vaccines (1 - Tdap) 2012 Hepatitis B Vaccines (1 of 3 - 19+ 3-dose series) 2012 Pneumococcal Vaccine: Pediatrics (0 to 5 Years) and At-Risk Patients (6 to 49) Years) (1 of 2 - PCV) 2012 Depression Monitoring (PHQ-9) 05/26/2024, 11/24/2023 HPV Vaccines (3 - 3-dose SCD M series) 07/04/2024 04/05/2024, 01/03/2024 SDOH Screening 11/20/2024 11/21/2023 Depression Screening 11/23/2024 11/24/2023, 11/24/2023 Tobacco Screening 04/03/2025 04/03/2024 Pap Smear 01/16/2027 01/17/2024 Cervical Cancer Screening 01/16/2029 HPV/Cotest 01/16/2029 01/17/2024 Zoster Vaccines (1 of 2) 2043 RSV Patients and Patients Aged 60 years or older (1 - 1-dose 75+ series) 2068 HIV Screening Completed 08/30/2023 Hepatitis C Screening Completed 08/30/2023 COVID-19 Vaccine Completed 04/03/2024, 08/30/2023 Influenza Vaccine Completed 04/03/2024, 08/30/2023 HIB Vaccines Aged Out No longer eligi ble based on patient's age to complete this topic Hepatitis A Vaccines Aged Out No long er eligible based on patient's age to complete this topic IPV Vaccines Aged Out No longer eligi ble based on patient's age to complete this topic Meningococcal Vaccine Aged Out No lashawn dean eligible based on patient's age to complete this topic RSV under 20 months Aged Out No longe r eligible based on patient's age to complete this topic Rotavirus Vaccines Aged Out No longer eligible based on patient's age to complete this topic Procedures Procedure Name Priority Date/Time Associated Diagnosis Comments CULTURE, URINE, ROUTINE Routine 08/05/2024 6:37 PM EST URINALYSIS, COMPLETE, WITH REFLEX TO CULTURE Routine 08/05/2024 6:27 PM EST HCG, TOTAL, QN Routine 08/05/2024 6:26 PM EST MAGNESIUM Routine 08/05/2024 6:26 PM EST COMPREHENSIVE METABOLIC PANEL Routine 08/05/2024 6:26 PM EST CBC WITH AUTO DIFFERENTIAL Routine 08/05/2024 6:26 PM EST MR BRAIN W AND WO CONTRAST Routine 07/13/2024 1:29 PM EST THINPREP IMAGING PAP AND HPV MRNA E6/E7 WITH REFLEX TO HPV 16,18/45 Routine 01/17/2024 3:04 PM EDT HEPATITIS C AB W/REFL TO HCV RNA, QN, PCR Routine 08/30/2023 11:13 AM EST Annual physical exam HIV 1/2 ANTIGEN/ANTIBODY, FOURTH GENERATION W/RFL Routine 08/30/2023 11:13 AM EST Annual physical exam from Last 3 Months or Most Recently Relevant to Health Maintenance Results * Culture, Urine, Routine (08/05/2024 6:37 PM EST) Urine Urine specimen obtained by clean catch procedure / Unknown 08/05/2024 6:37 PM EST 08/05/2024 6:37 PM EST Comment:[facility] - 08/07/2024 8:07 AM EST Escherichia coli Quant > 100,000 cfu/mL Escherichia coli: Ampicillin >=32(R) Escherichia coli: Cefazolin (Urine) 2(S) Escherichia coli: Cefepime <=0.12(S) Escherichia coli: Ceftriaxone <=0.25(S) Escherichia coli: Ciprofloxacin <=0.06(S) Escherichia coli: Gentamicin <=1(S) Escherichia coli: Nitrofurantoin <=16(S) Escherichia coli: Trimethoprim/Sulfamethoxazole <=20(S) Specimen Source: Urine clean catch us Generic External Data Provider LAB MICROBIOLOGY - GENERAL ORDERABLES Final Result [facility] [address] [place] [address] [place] [phone] * (ABNORMAL) Urinalysis, Complete, with Reflex to Culture (08/05/2024 6:27 PM EST) Color Urine Mellette(A) [facility] Appearance Urine Cloudy [facility] PH 5.5 5.0 - 9.0 [facility] Glucose Urine UA Negative Negative mg/dL [facility] Urine Blood Large (3+)(A) Negative [facility] Specific [place] - Urine <=1.005 1.005 - 1.025 [facility] Urine Protein 30 (1+)(A) Neg-Trace mg/dL [facility] Urine Ketones Negative Negative mg/dL [facility] Nitrite Urine Negative Negative [facility] Leukocyte Esterase Urine Large (3+)(A) Negative [facility] RBC Urine >20(A) 0 - 2 /HPF [facility] Urine WBC >50(A) 0 - 5 /HPF [facility] Urine Squamous Epithelial Cell 0-2 0 - 2 /HPF [facility] Urine Bacteria None Seen None Seen [facility] Hyaline Casts, Urine 0-2 0 - 2 /LPF [facility] 08/05/2024 6:27 PM EST 08/05/2024 6:30 PM EST Narrative [facility] - 08/05/2024 6:37 PM EST 1825Urine, Clean Catch us Generic External Data Provider LAB URINE ORDERAB LES Final Result [facility] [address] [place] [address] [phone] * (ABNORMAL) CBC auto differential (08/05/2024 6:26 PM EST) White Blood Count 12.7(H) 4.8 - 10.8 X10*3/uL [facility] Red Blood Count 4.28 4.20 - 5.50 X10*6/uL [facility] Hemoglobin 13.0 12.0 - 16.0 g/dl [facility] Hematocrit 38.8 37.0 - 47.0 % [facility] Mean Corpuscular Volume 90.7 80.0 - 98.0 fL [facility] Mean Corpuscular Hemoglobin 30.4 27.0 - 33.0 pg [facility] Mean Corpuscular HGB Conc 33.5 31.0 - 35.0 g/dl [facility] Red Cell Distribution Width 12.2 11.0 - 16.0 % [facility] Platelet Count 264 160 - 400 X10*3/uL [facility] Mean Platelet Volume 9.9 9.4 - 12.3 fL [facility] Neutrophils Percent Auto 75.1(H) 45 - 73 % [facility] Imm Gran Pct Auto 0.4 0.0 - 0.4 % [facility] Lymphocytes Percent Auto 18.1(L) 20 - 40 % [facility] Monocytes Percent Auto 5.6 2 - 11 % [facility] Eosinophils Percent Auto 0.6 0 - 4 % [facility] Basophils Percent Auto 0.2 0 - 2 % [facility] NRBC Pct Auto 0.0 0.0 - 0.2 /100WBC [facility] Neutrophils Absolute Auto 9.5(H) 2.0 - 8.3 x10*3/uL [facility] Imm Gran Abs Auto 0.05(H) 0.00 - 0.03 X10*3/uL [facility] Lymphocytes Absolute Auto 2.3 1.2 - 4.9 X10*3/uL [facility] Monocytes Absolute Auto 0.7 0.1 - 1.2 X10*3/uL [facility] Eosinophils Absolute Auto 0.1 0.0 - 0.4 X10*3/uL [facility] Basophils Absolute Auto 0.0 0.0 - 0.2 X10*3/uL [facility] NRBC Abs Auto 0.000 0.0 - 0.012 X10*3/uL [facility] 08/05/2024 6:26 PM EST 08/05/2024 6:30 PM EST Generic External Data Provider LAB BLOOD ORDERAB LES Final Result Performing Organization Address [facility] Co de Phone Number [facility] [address] [place] [phone] * hCG, Total, Quantitative (08/05/2024 6:26 PM EST) HCG Quantitative <2 mIU/mL [facility] Comment:Weeks post LMP Appro ximate hCG(Last Menstrual Period) Range (mIU/ml)3 - 4 weeks 9 - 1304 - 5 weeks 75 - 2,6005 - 6 weeks 850 - 20,8006 - 7 weeks 4000 - 100,2007 - 12 weeks 11,500 - 289,10248 - 16 weeks 18,300 - 137,60240 - 29 weeks (2nd trimester) 1,400 - 53,95643 - 41 weeks (3rd trimester) 940 - [...] ORDERAB LES Final Result Performing Organization Address City/[facility] Co de Phone Number [facility] [address] [place] [phone] * Magnesium (08/05/2024 6:26 PM EST) Magnesium 2.1 1.6 - 2.6 mg/dL [facility] 08/05/2024 6:26 PM EST 08/05/2024 6:30 PM EST Generic External Data Provider LAB BLOOD ORDERAB LES Final Result Performing Organization Address [facility]/State/ZIP Co de Phone Number [facility] [address] [place] [phone] * (ABNORMAL) Comprehensive Metabolic Panel (08/05/2024 6:26 PM EST) Sodium 140 135 - 145 mmol/L [facility] Potassium 3.9 3.3 - 5.1 mmol/L [facility] Chloride 108 96 - 108 mmol/L [facility] Carbon Dioxide 27 22 - 29 mmol/L [facility] Anion Gap 9(L) 12 - 20 [facility] Urea Nitrogen (BUN) 17(H) 9 - 16 mg/dL [facility] Creatinine, Serum 0.93 0.5 - 1.4 mg/dL [facility] Creatinine Clr Calc Pharmacy 70.4 [facility] Comment:Provided height and weight: 152.4 cm,58.967 kg.eGFR (calculated from the MDRD study equation) and eCrCl(calculated from the Cockcroft-Gault equation) are based ondifferent parameters and may not yield comparable results.If eCrCl result is absurd, please check patient'sheight/weight. Estimated Glomerular Filt Rate >60 [facility] Comment:Chronic Kidney Disea se: Estimated GFR < 60 mL/min/1.50e1Ldqntl Kidney Disease: Estimated GFR < 15 mL/min/1.73m2 Glucose 93 60 - 115 mg/dL [facility] Calcium 9.4 8.4 - 10.2 mg/dL [facility] Bilirubin, Total 0.4 0.0 - 1.0 mg/dL [facility] Aspartate Amino Transferase 21 5 - 31 U/L [facility] Alanine Aminotransferase 18 0 - 31 U/L [facility] Total Protein 7.9 6.5 - 8.0 g/dL [facility] Albumin Level 4.4 3.5 - 5.0 g/dL [facility] Alkaline Phosphatase 54 39 - 117 U/L [facility] 08/05/2024 6:26 PM EST 08/05/2024 6:30 PM EST us Generic External Data Provider LAB BLOOD ORDERAB LES Final Result [facility] [address] [place] [phone] * Mr Brain w/ and w/o Contrast (07/13/2024 1:29 PM EST) Anatomical Region Laterality Modality Brain Magnetic Resonan ce 07/13/2024 1:29 PM EST Narrative 07/15/2024 10:07 AM EST ? [facility] ?[address] ?[place] [address] ? Magnetic Resonance Report ? Signed ? Patient: Ge Baca,Diorimar ? MR#: [id number] ? : 1995 ?Acct:[id number] ? Age/Sex: 29 / F ?ADM Date: 07/13/24 ? Loc: HO.MRI ? Attending Dr: Zoe MI ? Ordering Physician: Zoe Craft ?? Date of Service: 07/13/24 ?? Procedure(s): MR head/brain wo/w con ?? Accession Number(s): [id number] ? cc: Zoe Craft; Ya Rojas MD [...] ??Mp Nicolas MD ??07/15/2024 10:04 AM EST ?? RP ? Dictated By: ?Mp Nicolas MD ? Signed By: ?<Electronically signed by Mp Nicolas MD in OV> ?07/15/24 1004 ? DD/ 1329 ? TD/TT: 07/13/24 1348 ? Shank Sander: ? Procedure Note [place], Image - 07/15/2024 [place] [address] Magnetic Resonance Report Signed Patient: Isac Chavis MR#: [id number] : 1995Acct:[id number] Age/Sex: 29 FADM Date: 07/13/24 Loc: HO.MRI Attending Dr: Zoe MI Ordering Physician: Zoe Craft Date of Service: 07/13/24 Procedure(s): MR head/brain wo/w con Accession Number(s): [id number] cc: Zoe Craft; Ya Rojas MD EXAMINATION: [...] by: Mp Nicolas MD 07/15/2024 10:04 AM EST Dictated By: Mp Nicolas MD Signed By: <Electronically signed by Mp Nicolas MD in OV> 07/15/24 1004 DD/ 1329 TD/TT: 07/13/24 1348 Shank Sander: [facility] External Provider IMG MRI PROCEDURES Edited Result - Final * [facility] Pap and HPV mRNA E6/E7 with Reflex to HPV 16,18/45 (01/17/2024 3:04 PM EDT) HPV 16 RNA VTP [facility] HPV 18/45 RNA [facility] HPV nRNA E6/E7 Not Detected Not Detected [facility] Comment:Methodology: Transcr iption-Mediated AmplificationThis assay detects E6/E7 viral messenger RNA (mRNA) from 14high-risk HPV types (16,18,31,33,35,39,45,51,52,56,58,59,66,68).Cervical sources are required for HPV testing.If a vaginal source from a patient who has had atotal hysterectomy with removal of cervix wassubmitted, please contact the testing laboratoryfor alternative testing options.For additional information, please refer tohttp://education.Hookflash/faq/RML832k1(This link if provided for information/educational purposes only.)THIS TEST WAS PERFORMED AT:[facility] [place] [phone] ESCALANTE MD SOURCE: SEE NOTE [facility] Comment:Cervix Report Status: [facility] Clinical Information: SEE NOTE [facility] Comment:None given LMP: SEE NOTE [facility] Comment:01/13/2024 Prev. PAP: SEE NOTE [facility] Comment:NONE GIVEN Prev. BX: SEE NOTE [facility] Comment:NONE GIVEN Statement Of Adequacy: SEE NOTE [facility] Comment:Satisfactory for moe luation.Endocervical/transformation zone componentpresent. General Categorization: [facility] Interpretation/Result: SEE NOTE [facility] Comment:Cytology Results: Ne gative for intraepitheliallesion or malignancy. Cytology Comment SEE NOTE [facility] Comment:This Pap test has be en evaluated with computerassisted technology. Special Education Secretary: SEE NOTE [facility] Comment:GSG, CT(ASCP)CT scre ening location: [place] [address] Review Special Education Secretary: [facility] Pathologist [facility] PAP Infection [facility] See Note SEE NOTE [facility] Comment:EXPLANATORY NOTE:The Pap is a screening test for cervical cancer. It isnot a diagnostic test and is subject to false negativeand false positive results. It is most reliable when asatisfactory sample, regularly obtained, is submittedwith relevant clinical findings and history, and whenthe Pap result is evaluated along with historic andcurrent clinical information. 01/17/2024 3:04 PM EDT 01/17/2024 4:02 PM EDT Narrative [facility] - 01/24/2024 12:48 PM EDT SEE SCANNED RESULTS IN EMRWas previous PAP abnormal? UnknownClinical Information: routineCollection Date: 01/16/24igh risk HPV with 16 ?? 18 genotyping? YReflex HPV any abnormal diagnosis? YReflex HPV if ASCUS only? NHigh Risk HPV (any diagnosis)? YLMP: 01/13/24Date of previous PAP unknownPerformed by: : [id number] us Generic External Data Provider LAB PATHOLOGY ORD ERABLES Final Result Performing Organization Address [facility] Co de Phone Number [facility] [address] [place] [phone] * Hepatitis C Antibody with Reflex to HCV, RNA, Quantitative, Real-Time PCR (08/30/2023 11:13 AM EST) Hepatitis C Antibody Nonreactive Nonreactive [facility] Comment:Antibodies to HCV no t detected; does not exclude early acuteHCV infection. Blood Venous blood specimen / Unknown 08/30/2023 11:13 AM EST 08/30/2023 1:27 PM EST Ya Khan MD LAB BLOOD ORDERAB LES Final Result Performing Organization Address [facility] Co de Phone Number [facility] [address] [place] [phone] * HIV-1/2 Antigen and Antibodies, Fourth Generation, with Reflexes (08/30/2023 11:13 AM EST) HIV AB/AG Nonreactive Nonreactive [facility] Comment:HIV-1 p24 Ag and/or HIV-1/HIV-2 Ab not detected.A test result that is nonreactive does not exclude thepossibility of exposure to or infection with HIV-1 and/orHIV-2. Nonreactive results in this assay for individualswith prior exposure to HIV-1 and/or HIV-2 may be due toantigen and antibody levels that are below the limit ofdetection of this assay.The DynadecniRackwise HIV Ag/Ab Combo assay result andsupplemental assay results should be interpreted inconjunction with the patient's clinical presentation,history and other laboratory results. If the results areinconsistent with clinical evidence, additional testing issuggested to confirm the result. Blood Venous blood specimen / Unknown 08/30/2023 11:13 AM EST 08/30/2023 1:27 PM EST Ya Khan MD LAB BLOOD ORDERAB LES Final Result [facility] [address] [place] [address] [phone] from Last 3 Months or Most Recently Relevant to Health Maintenance Insurance C3 Care Teams Cured Meats Supervisor Relationship Specialty Start Date End Date Ya Rojas MD [address] [place] [phone] PCP - General Internal Medicine 08/30/23
--- OUTSIDE RECORDS SUMMARY | 2024-08-16 13:29 | XMS_ITS | Encounter Summary ---
Author Organization [employer] Address [address] [facility] [place] [address] Care Team Providers Care Poultry Farm Laborer Name Role Phone Ya Rojas MD Primary [...] EST documented in this encounter Results * Culture, Urine, Routine (08/05/2024 6:37 PM EST) Urine Urine specimen obtained by clean catch procedure / Unknown 08/05/2024 6:37 PM EST 08/05/2024 6:37 PM EST Comment:[facility] - 08/07/2024 8:07 AM EST Escherichia coli Quant > 100,000 cfu/mL Escherichia coli: Ampicillin >=32(R) Escherichia coli: Cefazolin (Urine) 2(S) Escherichia coli: Cefepime <=0.12(S) Escherichia coli: Ceftriaxone <=0.25(S) Escherichia coli: Ciprofloxacin <=0.06(S) Escherichia coli: Gentamicin <=1(S) Escherichia coli: Nitrofurantoin <=16(S) Escherichia coli: Trimethoprim/Sulfamethoxazole <=20(S) Specimen Source: Urine clean catch us Generic External Data Provider LAB MICROBIOLOGY - GENERAL ORDERABLES Final Result Performing Organization Address City/[facility]/ZIP Co de Phone Number [facility] [address] [place], [place] [phone] * (ABNORMAL) Urinalysis, Complete, with Reflex to Culture (08/05/2024 6:27 PM EST) Color Urine [place](A) [facility] Appearance Urine Cloudy [facility] PH 5.5 5.0 - 9.0 [facility] Glucose Urine UA Negative Negative mg/dL [facility] Urine Blood Large (3+)(A) Negative [facility] Specific [place] - Urine <=1.005 1.005 - 1.025 [facility] Urine Protein 30 (1+)(A) Neg-Trace mg/dL [facility] Urine Ketones Negative Negative mg/dL [facility] Nitrite Urine Negative Negative [facility] Leukocyte Esterase Urine Large (3+)(A) Negative [facility] RBC Urine >20(A) 0 - 2 /HPF [facility] Urine WBC >50(A) 0 - 5 /HPF [facility] Urine Squamous Epithelial Cell 0-2 0 - 2 /HPF [facility] Urine Bacteria None Seen None Seen [facility] Hyaline Casts, Urine 0-2 0 - 2 /LPF [facility] 08/05/2024 6:27 PM EST 08/05/2024 6:30 PM EST Narrative [facility] - 08/05/2024 6:37 PM EST 1825Urine, Clean Catch Generic External Data Provider LAB URINE ORDERAB LES Final Result Performing Organization Address [facility]/ZIP Co de Phone Number [facility] [address] [place] [phone] * hCG, Total, Quantitative (08/05/2024 6:26 PM EST) HCG Quantitative <2 mIU/mL [facility] Comment:Weeks post LMP Appro ximate hCG(Last Menstrual Period) Range (mIU/ml)3 - 4 weeks 9 - 1304 - 5 weeks 75 - 2,6005 - 6 weeks 850 - 20,8006 - 7 weeks 4000 - 100,2007 - 12 weeks 11,500 - 289,80074 - 16 weeks 18,300 - 137,40012 - 29 weeks (2nd trimester) 1,400 - 53,33787 - 41 weeks (3rd trimester) 940 - [...] ORDERAB LES Final Result Performing Organization Address [facility]/ZIP Co de Phone Number [facility] [address] [place] [phone] * Magnesium (08/05/2024 6:26 PM EST) Pathologist [facility] Magnesium 2.1 1.6 - 2.6 mg/dL [facility] 08/05/2024 6:26 PM EST 08/05/2024 6:30 PM EST Generic External Data Provider LAB BLOOD ORDERAB LES Final Result Performing Organization Address [facility] Co de Phone Number [facility] [address] [place] [phone] * (ABNORMAL) Comprehensive Metabolic Panel (08/05/2024 6:26 PM EST) Sodium 140 135 - 145 mmol/L [facility] Potassium 3.9 3.3 - 5.1 mmol/L [facility] Chloride 108 96 - 108 mmol/L [facility] Carbon Dioxide 27 22 - 29 mmol/L [facility] Anion Gap 9(L) 12 - 20 [facility] Urea Nitrogen (BUN) 17(H) 9 - 16 mg/dL [facility] Creatinine, Serum 0.93 0.5 - 1.4 mg/dL [facility] Creatinine Clr Calc Pharmacy 70.4 [facility] Comment:Provided height and weight: 152.4 cm,58.967 kg.eGFR (calculated from the MDRD study equation) and eCrCl(calculated from the Cockcroft-Gault equation) are based ondifferent parameters and may not yield comparable results.If eCrCl result is absurd, please check patient'sheight/weight. Estimated Glomerular Filt Rate >60 [facility] Comment:Chronic Kidney Disea se: Estimated GFR < 60 mL/min/1.33d6Haayym Kidney Disease: Estimated GFR < 15 mL/min/1.73m2 Glucose 93 60 - 115 mg/dL [facility] Calcium 9.4 8.4 - 10.2 mg/dL [facility] Bilirubin, Total 0.4 0.0 - 1.0 mg/dL [facility] Aspartate Amino Transferase 21 5 - 31 U/L [facility] Alanine Aminotransferase 18 0 - 31 U/L [facility] Total Protein 7.9 6.5 - 8.0 g/dL [facility] Albumin Level 4.4 3.5 - 5.0 g/dL [facility] Alkaline Phosphatase 54 39 - 117 U/L [facility] 08/05/2024 6:26 PM EST 08/05/2024 6:30 PM EST us Generic External Data Provider LAB BLOOD ORDERAB LES Final Result [facility] [address] [place] [address] [phone] * (ABNORMAL) CBC auto differential (08/05/2024 6:26 PM EST) White Blood Count 12.7(H) 4.8 - 10.8 X10*3/uL [facility] Red Blood Count 4.28 4.20 - 5.50 X10*6/uL [facility] Hemoglobin 13.0 12.0 - 16.0 g/dl [facility] Hematocrit 38.8 37.0 - 47.0 % [facility] Mean Corpuscular Volume 90.7 80.0 - 98.0 fL [facility] Mean Corpuscular Hemoglobin 30.4 27.0 - 33.0 pg [facility] Mean Corpuscular HGB Conc 33.5 31.0 - 35.0 g/dl [facility] Red Cell Distribution Width 12.2 11.0 - 16.0 % [facility] Platelet Count 264 160 - 400 X10*3/uL [facility] Mean Platelet Volume 9.9 9.4 - 12.3 fL [facility] Neutrophils Percent Auto 75.1(H) 45 - 73 % [facility] Imm Gran Pct Auto 0.4 0.0 - 0.4 % [facility] Lymphocytes Percent Auto 18.1(L) 20 - 40 % [facility] Monocytes Percent Auto 5.6 2 - 11 % [facility] Eosinophils Percent Auto 0.6 0 - 4 % [facility] Basophils Percent Auto 0.2 0 - 2 % [facility] NRBC Pct Auto 0.0 0.0 - 0.2 /100WBC [facility] Neutrophils Absolute Auto 9.5(H) 2.0 - 8.3 x10*3/uL [facility] Imm Gran Abs Auto 0.05(H) 0.00 - 0.03 X10*3/uL [facility] Lymphocytes Absolute Auto 2.3 1.2 - 4.9 X10*3/uL [facility] Monocytes Absolute Auto 0.7 0.1 - 1.2 X10*3/uL [facility] Eosinophils Absolute Auto 0.1 0.0 - 0.4 X10*3/uL [facility] Basophils Absolute Auto 0.0 0.0 - 0.2 X10*3/uL [facility] NRBC Abs Auto 0.000 0.0 - 0.012 X10*3/uL [facility] 08/05/2024 6:26 PM EST 08/05/2024 6:30 PM EST us Generic External Data Provider LAB BLOOD ORDERAB LES Final Result [facility] [address] [place] [phone] documented in this encounter Visit Diagnoses Not on filedocumented in this encounter Additional Health Concerns Assessment Noted Time PHQ-9 Depression Total Score: 11 11/23/ 024 10:11 AM EDT documented as of this encounter Care Teams Poultry Farm Laborer Relationship Specialty Start Date End Date Ya Rojas MD [address] [place] [phone] PCP - General Internal Medicine 08/30/23 documented as of this encounter
--- OUTSIDE RECORDS SUMMARY | 2024-08-16 13:29 | XMS_ITS | Encounter Summary ---
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 EFFECTIVE SINCE 05/04/2023 documented in this encounter Plan of Treatment Not on file documented as of this encounter Visit Diagnoses Not on filedocumented in this encounter Care Teams Editor Newspaper Relationship Specialty Start Date End Date Ya Rojas MD [address] [place] [phone] PCP - General Internal Medicine 08/30/23 documented as of this encounter
[2024-08-16 13:52] LABS: Basophils Absolute Auto 0.1 X10*3/uL (0.0-0.2); Basophils Percent Auto 0.8 % (0-2); Eosinophils Percent Auto 0.4 % (0-4); Hematocrit 41.8 % (37.0-47.0); Imm Gran Abs Auto 0.02 X10*3/uL (0.00-0.03); Imm Gran Pct Auto 0.3 % (0.0-0.4); Lymphocytes Absolute Auto 2.2 X10*3/uL (1.2-4.9); Lymphocytes Percent Auto 29.6 % (20-40); Mean Corpuscular HGB Conc 33.5 g/dl (31.0-35.0); Mean Corpuscular Volume 89.7 fL (80.0-98.0); Mean Platelet Volume 10.1 fL (9.4-12.3); Monocytes Absolute Auto 0.4 X10*3/uL (0.1-1.2); Monocytes Percent Auto 5.7 % (2-11); Neutrophils Absolute Auto 4.7 x10*3/uL (2.0-8.3); Neutrophils Percent Auto 63.2 % (45-73); Platelet Count 271 X10*3/uL (160-400); Red Blood Count 4.66 X10*6/uL (4.20-5.50); Red Cell Distribution Width 11.9 % (11.0-16.0); White Blood Count 7.4 X10*3/uL (4.8-10.8)
[2024-08-16 14:08] LABS: Appearance Urine Clear; Color Urine Yellow; Glucose Urine UA Negative (Negative); Leukocyte Esterase Urine Negative (Negative); Nitrite Urine Negative (Negative); Urine Blood Negative (Negative); Urine Ketones Negative (Negative); Urine Protein Negative (Neg-Trace)
[2024-08-16 14:14] LABS: Bacteria Urine None Seen (None Seen); Hyaline Casts Urine 0-2 /LPF (0-2); RBC Urine 0-2 /HPF (0-2); WBC Urine 0-5 /HPF (0-5)
[2024-08-16 14:24] LABS: Anion Gap 15 (12-20); Blood Urea Nitrogen 14 mg/dL (9-16); Carbon Dioxide 25 mmol/L (22-29); Chloride 104 mmol/L (96-108); Potassium 3.9 mmol/L (3.3-5.1); Sodium 140 mmol/L (135-145)
[2024-08-16 14:25] LABS: Alanine Aminotransferase 15 U/L (0-31); Albumin Level 4.7 g/dL (3.5-5.0); Alkaline Phosphatase 43 U/L (39-117); Aspartate Amino Transferase 22 U/L (5-31); Bilirubin Total 0.7 mg/dL (0.0-1.0); C Reactive Protein < 0.10 mg/dL (< or = 0.50); Calcium 9.9 mg/dL (8.4-10.2); Estimated Glomerular Filt Rate > 60; Glucose Random 86 mg/dL (60-115); Total Protein 8.4 g/dL (6.5-8.0)
[2024-08-16 14:30] LABS: Erythrocyte Sedimentation Rate 10 MM/HR (0-20)
[2024-08-16 14:51] LABS: Total Protein Urine Random < 7 mg/dL (<12)
[2024-08-19 10:18] LABS: Complement C3 134 mg/dL (83-193)
[2024-08-19 15:57] LABS: Anti DNA DS Antibody 29 IU/mL
== END 2024-08-16 12:52 | disposition home or self-care (01) ==
LOC: HO.XRAY 12:51
PROVIDERS: Absent Provider Student in an Organized Health Care Education/Training Program; PCP Student in an Organized Health Care Education/Training Program; Referring Provider Student in an Organized Health Care Education/Training Program; Visit Provider Nurse Practitioner Family
DX: M32.9 Systemic lupus erythematosus, unspecified (principal); M54.2 Cervicalgia
CPT/HCPCS: 36415; 72052; 80053; 81001; 82570; 84156; 85025; 85652; 86140; 86160; 86225

== ENCOUNTER → 2024-08-16 13:19 | Outpatient (BNV) | payer MEDICAID, SELFPAY | PROVIDERS: Absent Provider Student in an Organized Health Care Education/Training Program; PCP Student in an Organized Health Care Education/Training Program; Referring Provider Student in an Organized Health Care Education/Training Program; Visit Provider Radiology Diagnostic Radiology | DX: M54.2 Cervicalgia (principal) | CPT/HCPCS: 72052 ==

== ENCOUNTER 2024-08-23 08:40 | Outpatient (AMB) | payer MEDICAID, SELFPAY ==
--- NOTE | 2024-08-23 08:50 | A.OFFVIS_ITS ---
Vital Signs 08/23/24 09:06 Height 5 ft Weight 133 lb 9.602 oz BMI 26.1 BP 94/60 Blood Pressure Location Lt brachial Position Sitting Respiration 16 Pulse 67 Pulse Source Pulse Oximeter Pulse Oximetry (%) 97 Oxygen Delivery Method Room Air Intake Visit Reasons: SLE Intake Note: Patient presents for SLE. Cloth Classer Required: Yes Cloth Classer Language: Assistant Account Executive Services: Cloth Classer Offered & Declined Cloth Classer Name: Isac Baca Information Interpreted: non-clinical & clinical Allergies No Known Allergies Allergy (Verified 08/23/24 09:04) Medication List - Last Reconciled 08/23/24 by Deborah Bradley MD albuterol sulfate 90 mcg/actuation (Ventolin HFA) 2 puffs inhalation Q6H PRN cephalexin 500 mg PO BID hydroxychloroquine 400 mg (2 x 200 mg) PO DAILY phenazopyridine 200 mg PO TID PRN 6 doses HPI Comments Details: Patient is a 28-year-old female with SLE without history of significant organ involvement who presents for follow-up Interval History: Last seen 04/23/24 with me. At that time she was doing well on Plaquenil. Today, She complaints of numbness and tingling to her bilateral hands when she is sleeping at night causing her to wake up in the middle of the night and shake out her hands. Denies rashes, photosensitivity, alopecia, oral/nasal ulcers, sicca symptoms, lymphadenopathy, chest pain/shortness of breath, foamy urine, lower extremity edema, muscle weakness, Rheumatologic History: SLE Ddx 2019 in [place] Arthritis, mouth ulcers, dry eyes/dry mouth, photosensitivity, malar rash, Raynaud's Positive ELIZABETH, positive double-stranded DNA, low complements Negative Delarosa and SSA/SSB Plaquenil 11/2023 Current Rheumatology Medication(s): Plaquenil 200mg bid PFSH Medical History Long-term use of hydroxychloroquine Hx of migraine headaches Bone pain of hand Hx of systemic lupus erythematosus (SLE) SLE (systemic lupus erythematosus) Mixed anxiety and depressive disorder Migraine Mild intermittent asthma in adult without complication CTS (carpal tunnel syndrome) Surgical History Hx of tubal ligation Hx of section Family History Maternal Grandmother Arthritis Paternal Grandmother Arthritis Social History Household Members: Spouse, Family and Children Housing: House Alcohol intake: current Alcohol intake frequency: holidays/special occasions only Patient Tobacco Use Status: Never used Tobacco Tobacco use type: Cigarette Current occupational status: unemployed Sexual orientation: Straight/Heterosexual Gender identity: Female Review of Systems Const Details: Review of Systems Constitutional: Denies fever, chills, weight loss ENT: Denies vision changes, eye pain or eye redness, dental caries, dry mouth GI: Denies nausea, vomiting, diarrhea, abdominal pain, change in BM Pulm: Denies SOB, OAKLEY, hemoptysis, wheezing Cards: Denies chest pain, palpitations Skin: Denies Raynaud's, rash, nail changes, photosensitivity, DANCE CHOREOGRAPHER: Denies headaches, weakness, paresthesias, recurrent falls MSK: as per HPI All other systems reviewed and are unremarkable except noted above Physical Exam Vital Signs: Last Vital Signs Pulse 67 08/23/24 09:06 Resp 16 08/23/24 09:06 BP 94/60 08/23/24 09:06 Pulse Ox 97 08/23/24 09:06 Oxygen Delivery Method Room Air 08/23/24 09:06 BMI result Body Mass Index 26.1 Vital signs reviewed Physical Examination CONSTITUITIONAL Patient alert and cooperative. Well appearing and in no apparent painful distress HEENT Conjunctiva and sclera clear. ?Pupils equal round and reactive to light. ?No lymphadenopathy. ? CHEST/RESPIRATORY SYSTEM Normal respiratory effort and able to speak in complete sentences. ?Clear to auscultation bilaterally. ?No crackles, rales, rhonchi, wheezes heard. CARDIAC SYSTEM Regular rate and rhythm. ?S1 and S2 heard no murmurs. ?Radial pulses intact bilaterally MSK Hands: ?Good web production assistant strength bilaterally. No deformities noted. ?No synovitis noted to the MCPs, PIPs or DIPs. ?No tenderness to palpation of these joints. Wrists: ?Full range of motion at the wrists without pain. ?No tenderness to palpation or synovitis noted to the wrists. Positive Phalen's test after 15 seconds Elbows: Full range of motion without pain. No tenderness, weakness, swelling, increased warmth or erythema. Shoulders: Full range of motion without pain. No tenderness, weakness, swelling, increased warmth or erythema. Hips: Full range of motion without pain. Hip bursa: No tenderness to palpation Knees: ?Full range of motion. ?No tenderness, swelling, increased warmth or erythema.?No effusion or crepitations Ankles: Full range of motion. ?No tenderness, swelling, increased warmth or erythema.? Feet: ?Negative squeeze test. ?No tenderness to palpation or swelling of the MTPs. Tender points:?No tenderness to palpation of the bilateral trapezius, supraspinatus, greater trochanters, anterior costochondral junctions, bilateral gluteal areas, bilateral suboccipital muscle insertions SKIN Skin intact without rashes. Results Reviewed Results Reviewed: Laboratory Tests 01/16/24 04/23/24 08/16/24 04:36 09:45 13:13 WBC 7.4 RBC 4.66 Hgb 14.0 Hct 41.8 Plt Count 271 ESR 10 Sodium 140 Potassium 3.9 Chloride 104 Carbon Dioxide 25 BUN 14 Creatinine 0.79 AST 22 ALT 15 Alkaline Phosphatase 43 C-Reactive Protein < 0.10 Total Protein 8.4 H Albumin 4.7 Double Strand DNA Ab 28 H 29 H 29 H Complement C3 77 L 132 134 Complement C4 14 L 21 21 Assessment & Plan Assessment & Plan (1) SLE (systemic lupus erythematosus): Code(s): M32.9 - Systemic lupus erythematosus, unspecified Category: Medical Qualifiers: Systemic lupus erythematosus organ involvement: unspecified Systemic lupus erythematosus type: unspecified Qualified Code(s): M32.9 - Systemic lupus erythematosus, unspecified Plan: #SLE Patient with ELIZABETH negative lupus without any significant organ involvement. Joint pain is doing better on Plaquenil. Plan - Plaquenil 200mg alternating with 400mg - RTC 4 months - Labs before next visit: CBC, CMP, ESR, CRP, C3, C4, dsDNA, UA, UPC (2) Bilateral carpal tunnel syndrome: Code(s): G56.03 - Carpal tunnel syndrome, bilateral upper limbs Plan: #Bilateral carpal tunnel syndrome Patient with numbness and tingling to her bilateral hands that requires her to shake out her hands in the middle of the night. Positive Phalen's test on exam History and exam consistent with carpal tunnel syndrome. Recommended bracing at nights Plan - Bilateral wrist brace at nights for the next 8 weeks (3) Long-term use of hydroxychloroquine: Code(s): Z79.899 - Other penitentiary (current) drug therapy Category: Medical Plan: #Long-term Use of Hydroxychloroquine Discussed with patient the risks and benefits of hydroxychloroquine in managing the rheumatic condition Benefits include: - Reduced pain, reduce mortality, maintenance of remission and reduction of flares Risks include: - GI upset, skin hyperpigmentation, retinal toxicity (especially after more than 5 years of use), myopathy Advised yearly ophthalmology visits Last ophthalmology visit: 11/30/23. No abnormalities detected Plan I spent 25 minutes reviewing the record and labs, seeing the patient, discussing the treatment plan and documenting in the medical record Orders: Orders Complete Blood Count Auto Diff 4 Months M32.9 - Systemic lupus erythematosus, unspecified, Z79.899 - Other electronic bench technician (current) drug therapy Comprehensive Met. Panel 4 Months M32.9 - Systemic lupus erythematosus, unspecified, Z79.899 - Other penitentiary (current) drug therapy Erythrocyte Sedimentation Rate 4 Months M32.9 - Systemic lupus erythematosus, unspecified, Z79.899 - Other penitentiary (current) drug therapy Protein Creatinine Ratio, Ur 4 Months M32.9 - Systemic lupus erythematosus, unspecified, Z79.899 - Other penitentiary (current) drug therapy Complement C3 4 Months M32.9 - Systemic lupus erythematosus, unspecified, Z79.899 - Other electronic bench technician (current) drug therapy Complement C4 4 Months M32.9 - Systemic lupus erythematosus, unspecified, Z79.899 - Other penitentiary (current) drug therapy C Reactive Protein 4 Months M32.9 - Systemic lupus erythematosus, unspecified, Z79.899 - Other electronic bench technician (current) drug therapy UA w Microscopic 4 Months M32.9 - Systemic lupus erythematosus, unspecified, Z79.899 - Other penitentiary (current) drug therapy Medications: New Brace,wrist (Wrist Brace - one) As directed. Right and left hand and wrist carpal tunnel brace 2 ea 0RF G56.03 - Carpal tunnel syndrome, bilateral upper limbs Refilled hydroxychloroquine Take 1 pill alternating with 2 pills every other day 400 mg (2 x 200 mg) PO DAILY 90 tabs 1RF M32.9 - Systemic lupus erythematosus, unspecified Coding Level of Care Code Est Pt Level 3 (60485) Complex EM visit Add On G2211 Diagnoses Systemic lupus erythematosus, unspecified SLE type, unspecified organ involvement status M32.9 Systemic lupus erythematosus organ involvement: unspecified Systemic lupus erythematosus type: unspecified Bilateral carpal tunnel syndrome G56.03 Long-term use of hydroxychloroquine Z79.899
--- OUTSIDE RECORDS SUMMARY | 2024-08-23 08:56 | XMS_ITS | Encounter Summary ---
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 EFFECTIVE SINCE 05/04/2023 documented in this encounter Plan of Treatment Not on file documented as of this encounter Visit Diagnoses Not on filedocumented in this encounter Care Teams Chin Strap Maker Relationship Specialty Start Date End Date Ya Rojas MD [address] [place] [phone] PCP - General Internal Medicine 08/30/23 documented as of this encounter
--- OUTSIDE RECORDS SUMMARY | 2024-08-23 08:56 | XMS_ITS | Clinical Summary ---
Author Organization [employer] Address [address] [facility] [facility] [address] [place] [address] Care Team Providers Care Bridge Worker Apprentice Name Role Phone Ya Rojas MD Primary [...] move, and relationship issues. Isac moved from [place] on 12/2022 looking for better opportunities. She [...] intervention , Patient [facility] to [facility] team [facility] needed, Patient to engage in [...] past 12 months) . Referral placed to [facility]. Number giving to patient. SLE (systemic [...] intervention , Patient to reach out to [facility] team as needed, Patient to engage in [...] past 12 months) . Referral placed to [facility] Number giving to patient. Encounters Date Type Department Care Team Description 08/16/2024 Orders Only GENERIC EXTERNAL DATA DEPARTMENT Provider, Generic External Data 08/05/2024 Orders Only GENERIC EXTERNAL DATA DEPARTMENT Provider, Generic External Data 07/13/2024 Orders Only [facility] External Provider, [facility] 05/28/2024 3:00 PM EST Office Visit [facility] [address] [place] [address] Rachael Pavon MD Mild intermittent asthma with (acute) exacerbation (Primary Dx) 05/28/2024 1:00 PM EST Clinical Support [facility] DIABETES/NUTRITION [address] [place] [address] Overweight (BMI 25.0-29.9) (Primary Dx) 05/28/2024 Travel from Last 3 Months Immunizations Name Administration Dates Next Due HPV 9-Valent 01/03/2024 Influenza injectable quadrivalent preservative f ree 08/30/2023 Influenza, seasonal, injectable, preservative fr ee 04/03/2024 Pfizer Covid-19 Vaccine 12+ 04/03/2024, 4 Social History Tobacco Use Types Packs/Day Years [...] Procedure Name Priority Date/Time Associated Diagnosis Comments XR SPINE CERVICAL W/FLEXT AND/OR EXT Routine 08/16/2024 1:30 PM EST DNA (DS) ANTIBODY Routine 08/16/2024 1:1 3 PM EST SED RATE BY MODIFIED WESTERGREN Routine 08/16/2024 1:13 PM EST CBC WITH AUTO DIFFERENTIAL Routine 08/16/2024 1:13 PM EST PROTEIN CREATININE RATIO, URINE Routine 08/16/2024 1:12 PM EST URINALYSIS, COMPLETE Routine 08/16/2024 1:12 PM EST CULTURE, URINE, ROUTINE Routine 08/05/2024 6:37 PM [...] Recently Relevant to Health Maintenance Results * XR Spine Cervical w/ Flext and/ Or Ext (08/16/2024 1:30 PM EST) Anatomical Region Laterality Modality Radiographic Mary ging 08/16/2024 1:30 PM EST Narrative 08/16/2024 2:37 PM EST ? [facility] ?[address] ?[place] [address] ?XRay Report ? Signed ? Patient: Ge Baca,Diorimar ? MR#: [id number] ? : 1995 ?Acct:[id number] ? Age/Sex: 29 / F ?ADM Date: 08/16/24 ? Loc: HO.XRAY ? Attending Dr: Zoe [place] ? Ordering Physician: Zoe Craft ?? Date of Service: 08/16/24 ?? Procedure(s): XR cervical spine w flex/ext ?? Accession Number(s): [id number] ? cc: Zoe Craft; Ya Rojas MD ? EXAMINATION: ??XR CERVICAL SPINE FLEXION EXTENSION ? HISTORY: M54.2 - Cervicalgia ? COMPARISON: There are no prior studies for comparison. ? FINDINGS: ??AP, neutral, flexion, and extension lateral, bilateral ?? oblique, and open-mouth odontoid views of the cervical spine are ?? submitted. ??Osseous mineralization is normal. ??Seven cervical vertebral ?? bodies are identified maintaining normal height and alignment without ?? evidence of fracture or subluxation. ??The intervertebral disc spaces ?? are preserved. ??The neural foramina patent bilaterally. ??There is no ?? abnormal motion with flexion or extension. The odontoid and lateral ?? masses of C1 are intact. ??There is no prevertebral soft tissue swelling. ? XR/XR cervical spine w flex/ext ?? IMPRESSION: ?? Unremarkable examination of the cervical spine. There is no abnormal ?? motion with flexion or extension. ? Electronically signed by: ??Mp Nicolas MD ??08/16/2024 02:31 PM EST ?? RP ? Dictated By: ?Mp Nicolas MD ? Signed By: ?<Electronically signed by Mp Nicolas MD in OV> ?08/16/24 1431 ? DD/ 1330 ? TD/TT: 08/16/24 1345 ? Bricklayer Tender: ? Procedure Note Alen, Image - 08/16/[address] [address] XRay Report Signed Patient: Isac Chavis MR#: [id number] : 1995Acct:[id number] Age/Sex: 29 / FADM Date: 08/16/24 Loc: HOPHILIP Attending Dr: Zoe [place] Ordering Physician: Zoe Craft Date of Service: 08/16/24 Procedure(s): XR cervical spine w flex/ext Accession Number(s): [id number] cc: Zoe Craft; Ya Rojas MD EXAMINATION: XR CERVICAL SPINE FLEXION EXTENSION HISTORY: M54.2 - Cervicalgia COMPARISON: There are no prior studies for comparison. FINDINGS: AP, neutral, flexion, and extension lateral, bilateral oblique, and open-mouth odontoid views of the cervical spine are submitted. Osseous mineralization is normal. Seven cervical vertebral bodies are identified maintaining normal height and alignment without evidence of fracture or subluxation. The intervertebral disc spaces are preserved. The neural foramina patent bilaterally. There is no abnormal motion with flexion or extension. The odontoid and lateral masses of C1 are intact. There is no prevertebral soft tissue swelling. XR/XR cervical spine w flex/ext IMPRESSION: Unremarkable examination of the cervical spine. There is no abnormal motion with flexion or extension. Electronically signed by: Mp Nicolas MD 08/16/2024 02:31 PM EST Dictated By: Mp Nicolas MD Signed By: <Electronically signed by Mp Nicolas MD in OV> 08/16/24 1431 DD/ 1330 TD/TT: 08/16/24 1345 Bricklayer Tender: [facility] External Provider IMG XR PROCEDURES Final Result * CBC auto differential (08/16/2024 1:13 PM EST) Only the most recent of2 resultswithin the time period is included. White Blood Count 7.4 4.8 - 10.8 X10*3/uL [facility] Red Blood Count 4.66 4.20 - 5.50 X10*6/uL [facility] Hemoglobin 14.0 12.0 - 16.0 g/dl [facility] Hematocrit 41.8 37.0 - 47.0 % [facility] Mean Corpuscular Volume 89.7 80.0 - 98.0 fL [facility] Mean Corpuscular Hemoglobin 30.0 27.0 - 33.0 pg [facility] Mean Corpuscular HGB Conc 33.5 31.0 - 35.0 g/dl [facility] Red Cell Distribution Width 11.9 11.0 - 16.0 % [facility] Platelet Count 271 160 - 400 X10*3/uL [facility] Mean Platelet Volume 10.1 9.4 - 12.3 fL [facility] Neutrophils Percent Auto 63.2 45 - 73 % [facility] Imm Gran Pct Auto 0.3 0.0 - 0.4 % [facility] Lymphocytes Percent Auto 29.6 20 - 40 % [facility] Monocytes Percent Auto 5.7 2 - 11 % [facility] Eosinophils Percent Auto 0.4 0 - 4 % [facility] Basophils Percent Auto 0.8 0 - 2 % [facility] NRBC Pct Auto 0.0 0.0 - 0.2 /100WBC [facility] Neutrophils Absolute Auto 4.7 2.0 - 8.3 x10*3/uL [facility] Imm Gran Abs Auto 0.02 0.00 - 0.03 X10*3/uL [facility] Lymphocytes Absolute Auto 2.2 1.2 - 4.9 X10*3/uL [facility] Monocytes Absolute Auto 0.4 0.1 - 1.2 X10*3/uL [facility] Eosinophils Absolute Auto 0.0 0.0 - 0.4 X10*3/uL [facility] Basophils Absolute Auto 0.1 0.0 - 0.2 X10*3/uL [facility] NRBC Abs Auto 0.000 0.0 - 0.012 X10*3/uL [facility] 08/16/2024 1:13 PM EST 08/16/2024 1:13 PM EST Generic External Data Provider LAB BLOOD ORDERAB LES Final Result Performing Organization Address [facility] Co de Phone Number [facility] [address] [place] [phone] * (ABNORMAL) DNA (ds) Antibody (08/16/2024 1:13 PM EST) Pathologist [facility] Anti DNA DS Antibody 29(A) IU/mL [facility] Comment:IU/mL Interpretatio n < or = 4 Negative 5-9 Indeterminate > or = 10 PositiveTHIS TEST WAS PERFORMED AT:[facility] [place] [id number] ESCALANTE MD 08/16/2024 1:13 PM EST 08/16/2024 1:13 PM EST Generic External Data Provider LAB BLOOD ORDERAB LES Final Result Performing Organization Address [facility] Co de Phone Number [facility] [address] [place] [phone] * Sed Rate by Modified Collinren (08/16/2024 1:13 PM EST) Pathologist [facility] Erythrocyte Sedimentation Rate 10 0 - 20 MM/HR [facility] Comment:Patients with polycy themia and many hemoglobin abnormalitiesmay have depressed sed rates whereas patients with anemiamay have elevated sed rates. 08/16/2024 1:13 PM EST 08/16/2024 1:13 PM EST Generic External Data Provider LAB BLOOD ORDERAB LES Final Result Performing Organization Address [facility] Co de Phone Number [facility] [address] [place] [phone] * Protein Creatinine Ratio, Urine (08/16/2024 1:12 PM EST) Creatinine, Urine 64.90 mg/dL [facility] Protein, Total, Random Urine <7 <12 mg/dL [facility] Protein/Creatin ine Ratio, Ur TNP <0.2 [facility] Comment:Unable to calculate urine protein creatinine ratio due tolow creatinine or protein result. 08/16/2024 1:12 PM EST 08/16/2024 1:47 PM EST us Generic External Data Provider LAB URINE ORDERAB LES Final Result Performing Organization Address [facility] Co de Phone Number [facility] [address] [place] [phone] * Urinalysis Complete (08/16/2024 1:12 PM EST) Color Urine Yellow [facility] Appearance Urine Clear [facility] PH 6.0 5.0 - 9.0 [facility] Glucose Urine UA Negative Negative mg/dL [facility] Urine Blood Negative Negative [facility] Specific [place] - Urine 1.010 1.005 - 1.025 [facility] Urine Protein Negative Neg-Trace mg/dL [facility] Urine Ketones Negative Negative mg/dL [facility] Nitrite Urine Negative Negative [facility] Leukocyte Esterase Urine Negative Negative [facility] RBC Urine 0-2 0 - 2 /HPF [facility] Urine WBC 0-5 0 - 5 /HPF [facility] Urine Squamous Epithelial Cell 3-5 0 - 2 /HPF [facility] Urine Bacteria None Seen None Seen [facility] Hyaline Casts, Urine 0-2 0 - 2 /LPF [facility] 08/16/2024 1:12 PM EST 08/16/2024 1:47 PM EST Generic External Data Provider LAB URINE ORDERAB LES Final Result Performing Organization Address City/[facility]/ZIP Co de Phone Number [facility] [address] [place] [phone] * Culture, Urine, Routine (08/05/2024 6:37 PM EST) Urine Urine specimen obtained by clean catch procedure / Unknown 08/05/2024 6:37 PM EST 08/05/2024 6:37 PM EST Comment:UACC Narrative [facility] - 08/07/2024 8:07 AM EST Escherichia coli Quant > 100,000 cfu/mL Escherichia coli: Ampicillin >=32(R) Escherichia coli: Cefazolin (Urine) 2(S) Escherichia coli: Cefepime <=0.12(S) Escherichia coli: Ceftriaxone <=0.25(S) Escherichia coli: Ciprofloxacin <=0.06(S) Escherichia coli: Gentamicin <=1(S) Escherichia coli: Nitrofurantoin <=16(S) Escherichia coli: Trimethoprim/Sulfamethoxazole <=20(S) Specimen Source: Urine clean catch Generic External Data Provider LAB MICROBIOLOGY - GENERAL ORDERABLES Final Result [facility] [address] [place] [phone] * (ABNORMAL) Urinalysis, Complete, with Reflex to Culture (08/05/2024 6:27 PM EST) Color Urine Basalt(A) [facility] Appearance Urine Cloudy [facility] PH 5.5 5.0 - 9.0 [facility] Glucose Urine UA Negative Negative mg/dL [facility] Urine Blood Large (3+)(A) Negative [facility] Specific [place] - Urine <=1.005 1.005 - 1.025 [facility] Urine Protein 30 (1+)(A) Neg-Trace mg/dL [facility] Urine Ketones Negative Negative mg/dL [facility] Nitrite Urine Negative Negative [facility] Leukocyte Esterase Urine Large (3+)(A) Negative [facility] RBC Urine >20(A) 0 - 2 /HPF [facility] Urine WBC >50(A) 0 - 5 /HPF [facility] Urine Squamous Epithelial Cell 0-2 0 - 2 /HPF [facility] Urine Bacteria None Seen None Seen [facility] Hyaline Casts, Urine 0-2 0 - 2 /LPF [facility] 08/05/2024 6:27 PM EST 08/05/2024 6:30 PM EST Narrative [facility] - 08/05/2024 6:37 PM EST 1825Urine, Clean Catch Generic External Data Provider LAB URINE ORDERAB LES Final Result Performing Organization Address [facility] de Phone Number [facility] [address] [place] [phone] * hCG, Total, Quantitative (08/05/2024 6:26 PM EST) HCG Quantitative <2 mIU/mL [facility] Comment:Weeks post LMP Appro ximate hCG(Last Menstrual Period) Range (mIU/ml)3 - 4 weeks 9 - 1304 - 5 weeks 75 - 2,6005 - 6 weeks 850 - 20,8006 - 7 weeks 4000 - 100,2007 - 12 weeks 11,500 - 289,39024 - 16 weeks 18,300 - 137,13402 - 29 weeks (2nd trimester) 1,400 - 53,17305 - 41 weeks (3rd trimester) 940 - [...] ORDERAB LES Final Result Performing Organization Address [facility] Co de Phone Number [facility] [address] [place] [phone] * Magnesium (08/05/2024 6:26 PM EST) Magnesium 2.1 1.6 - 2.6 mg/dL [facility] 08/05/2024 6:26 PM EST 08/05/2024 6:30 PM EST us Generic External Data Provider LAB BLOOD ORDERAB LES Final Result [facility] [address] [place] [phone] * (ABNORMAL) Comprehensive Metabolic Panel (08/05/2024 6:26 PM EST) Sodium 140 135 - 145 mmol/L [facility] Potassium 3.9 3.3 - 5.1 mmol/L [facility] Chloride 108 96 - 108 mmol/L [facility] Carbon Dioxide 27 22 - 29 mmol/L [facility] Anion Gap 9(L) 12 - 20 [facility] Urea Nitrogen (BUN) 17(H) 9 - 16 mg/dL [facility] Creatinine, Serum 0.93 0.5 - 1.4 mg/dL [facility] Creatinine Clr Calc Pharmacy 70.4 [facility] Comment:Provided height and weight: 152.4 cm,58.967 kg.eGFR (calculated from the MDRD study equation) and eCrCl(calculated from the Cockcroft-Gault equation) are based ondifferent parameters and may not yield comparable results.If eCrCl result is absurd, please check patient'sheight/weight. Estimated Glomerular Filt Rate >60 [facility] Comment:Chronic Kidney Disea se: Estimated GFR < 60 mL/min/1.40o9Mjhzsz Kidney Disease: Estimated GFR < 15 mL/min/1.73m2 Glucose 93 60 - 115 mg/dL [facility] Calcium 9.4 8.4 - 10.2 mg/dL [facility] Bilirubin, Total 0.4 0.0 - 1.0 mg/dL [facility] Aspartate Amino Transferase 21 5 - 31 U/L [facility] Alanine Aminotransferase 18 0 - 31 U/L [facility] Total Protein 7.9 6.5 - 8.0 g/dL [facility] Albumin Level 4.4 3.5 - 5.0 g/dL [facility] Alkaline Phosphatase 54 39 - 117 U/L [facility] 08/05/2024 6:26 PM EST 08/05/2024 6:30 PM EST us Generic External Data Provider LAB BLOOD ORDERAB LES Final Result [facility] [address] [place] [phone] * Mr Brain w/ and w/o Contrast (07/13/2024 1:29 PM EST) Anatomical Region Laterality Modality Brain Magnetic Resonan ce 07/13/2024 1:29 PM EST Narrative 07/15/2024 10:07 AM EST ? [facility] ?[address] ?[place] [address] ? Magnetic Resonance Report ? Signed ? Patient: GeIsac Jade ? MR#: [id number] ? : 1995 ?Acct:[id number] ? Age/Sex: 29 / F ?ADM Date: 07/13/24 ? Loc: HO.MRI ? Attending Dr: Zoe [place] ? Ordering Physician: Zoe Craft ?? Date of Service: 07/13/24 ?? Procedure(s): MR head/brain wo/w con ?? Accession Number(s): [id number] ? cc: Zoe Craft; Ya Rojas MD [...] DD/ 1329 ? TD/TT: 07/13/24 1348 ? Bricklayer Tender: ? Procedure Note Alen, Image - 07/15/2024 [place] [address] Magnetic Resonance Report Signed Patient: Isac Chavis MR#: [id number] : 1995Acct:[id number] Age/Sex: 29 / FADM Date: 07/13/24 Loc: HO.MRI Attending Dr: Zoe [place] Ordering Physician: Zoe Craft Date of Service: 07/13/24 Procedure(s): MR head/brain wo/w con Accession Number(s): [id number] cc: Zoe Craft; Ya Rojas MD EXAMINATION: [...] by: Mp Nicolas MD 07/15/2024 10:04 AM [facility] Dictated By: Mp Nicolas MD Signed By: <Electronically signed by pM Nicolas MD in OV> 07/15/24 1004 DD/ 1329 TD/TT: 07/13/24 1348 Bricklayer Tender: [facility] External Provider IMG MRI PROCEDURES Edited Result - Final * [facility] Pap and HPV mRNA E6/E7 with Reflex to HPV 16,18/45 (01/17/2024 3:04 PM EDT) HPV 16 RNA [facility] HPV 18/45 RNA [facility] HPV nRNA E6/E7 Not Detected Not Detected [facility] Comment:Methodology: Transcr iption-Mediated AmplificationThis assay detects E6/E7 viral messenger RNA (mRNA) from 14high-risk HPV types (16,18,31,33,35,39,45,51,52,56,58,59,66,68).Cervical sources are required for HPV testing.If a vaginal source from a patient who has had atotal hysterectomy with removal of cervix wassubmitted, please contact the testing laboratoryfor alternative testing options.For additional information, please refer tohttp://education.KXEN/faq/RZT037o6(This link if provided for information/educational purposes only.)THIS TEST WAS PERFORMED AT:[facility] [address] [id number] ESCALANTE MD SOURCE: SEE NOTE [facility] Comment:Cervix Report Status: [facility] Clinical Information: SEE NOTE [facility] Comment:None given LMP: SEE NOTE [facility] Comment:01/13/2024 Prev. PAP: SEE NOTE [facility] Comment:NONE GIVEN Prev. BX: SEE NOTE [facility] Comment:NONE GIVEN Statement Of Adequacy: SEE NOTE [facility] Comment:Satisfactory for moe luation.Endocervical/transformation zone componentpresent. General Categorization: [facility] Interpretation/Result: SEE NOTE [facility] Comment:Cytology Results: Ne gative for intraepitheliallesion or malignancy. Cytology Comment SEE NOTE [facility] Comment:This Pap test has be en evaluated with computerassisted technology. Personal Financial Representative: SEE NOTE [facility] Comment:[facility], CT(ASCP)CT scre ening location: [address] [address] Review Personal Financial Representative: [facility] Pathologist [facility] PAP Infection [facility] See Note SEE [facility] Comment:EXPLANATORY NOTE:The Pap is a screening test for cervical cancer. It isnot a diagnostic test and is subject to false negativeand false positive results. It is most reliable when asatisfactory sample, regularly obtained, is submittedwith relevant clinical findings and history, and whenthe Pap result is evaluated along with historic andcurrent clinical information. 01/17/2024 3:04 PM EDT 01/17/2024 4:02 PM EDT Narrative [facility] - 01/24/2024 12:48 PM EDT SEE SCANNED RESULTS IN EMRWas previous PAP abnormal? UnknownClinical Information: routineCollection Date: 01/16/24igh risk HPV with 16 ?? 18 genotyping? YReflex HPV any abnormal diagnosis? YReflex HPV if ASCUS only? NHigh Risk HPV (any diagnosis)? YLMP: 01/13/24Date of previous PAP unknownPerformed by: : [id number] us Generic External Data Provider LAB PATHOLOGY ORD ERABLES Final Result Performing Organization Address [facility] Co de Phone Number [facility] [address] [place] [phone] * Hepatitis C Antibody with Reflex to HCV, RNA, Quantitative, Real-Time PCR (08/30/2023 11:13 AM EST) Pathologist [facility] Hepatitis C Antibody Nonreactive Nonreactive [facility] Comment:Antibodies to HCV no t detected; does not exclude early acuteHCV infection. Blood Venous blood specimen / Unknown 08/30/2023 11:13 AM EST 08/30/2023 1:27 PM EST us Ya Khan MD LAB BLOOD ORDERAB LES Final Result Performing Organization Address [facility] de Phone Number [facility] [address] [place] [phone] * HIV-1/2 Antigen and Antibodies, Fourth Generation, with Reflexes (08/30/2023 11:13 AM EST) HIV AB/AG Nonreactive Nonreactive [facility] Comment:HIV-1 p24 Ag and/or HIV-1/HIV-2 Ab not detected.A test result that is nonreactive does not exclude thepossibility of exposure to or infection with HIV-1 and/orHIV-2. Nonreactive results in this assay for individualswith prior exposure to HIV-1 and/or HIV-2 may be due toantigen and antibody levels that are below the limit ofdetection of this assay.The [employer] HIV Ag/Ab Combo assay result andsupplemental assay results should be interpreted inconjunction with the patient's clinical presentation,history and other laboratory results. If the results areinconsistent with clinical evidence, additional testing issuggested to confirm the result. Blood Venous blood specimen / Unknown 08/30/2023 11:13 AM EST 08/30/2023 1:27 PM EST Ya Khan MD LAB BLOOD ORDERAB LES Final Result [facility] [address] [place] [phone] from Last 3 Months or Most Recently Relevant to Health Maintenance Insurance [employer] Care Teams Bridge Worker Apprentice Relationship Specialty Start Date End Date Ya Rojas MD [address] [place] [phone] PCP - General Internal Medicine 08/30/23
--- OUTSIDE RECORDS SUMMARY | 2024-08-23 08:56 | XMS_ITS | Clinical Summary ---
Author Organization [facility] ity Address [address] [place] [address] Care Team Providers Care Immigration Law Specialist Name Role Phone Unavailable Primary Care Provider Unavailabl e Social History Tobacco Use Types Packs/Day Years Used Date Smoking Tobacco: Never Assessed Comments Unknown Sex and Gender Information Value Date Recorded Sex Assigned at Not on file Legal Sex Female 8:15 PM EST Gender Identity Not on file Sexual Orientation [...] patient's age to complete this topic Meningococcal B Vacine Aged Out No lo nger eligible based on patient's age to complete [...]
--- OUTSIDE RECORDS SUMMARY | 2024-08-23 08:56 | XMS_ITS | Encounter Summary ---
Author Organization [employer] Address [address] [facility] [address] [place] [address] Care Team Providers Care Can Dryer Name Role Phone Ya Rojas MD Primary Care Pro vider Encounter Details Date Type Department Care Team (Late st Contact Info) Description 08/16/2024 Orders Only GENERIC EXTERNAL DATA [...] AND/OR EXT Routine 08/16/2024 1:30 PM EST CBC WITH AUTO DIFFERENTIAL Routine 08/16/2024 1:13 PM EST DNA (DS) ANTIBODY Routine 08/16/2024 1:1 3 PM EST SED RATE BY MODIFIED WESTERGREN Routine 08/16/2024 1:13 PM EST PROTEIN CREATININE RATIO, URINE Routine 08/16/2024 1:12 PM EST URINALYSIS, COMPLETE Routine 08/16/2024 1:12 PM EST documented in this encounter Results * XR Spine Cervical w/ Flext and/ Or Ext (08/16/2024 1:30 PM EST) Anatomical Region Laterality Modality Radiographic Mary ging 08/16/2024 1:30 PM EST Narrative 08/16/2024 2:37 PM EST ? [facility] ?[address] ?[place] [address] ?XRay Report ? Signed ? Patient: Ge Baca,Diorimar ? MR#: [id number] ? : 1995 ?Acct:[id number] ? Age/Sex: 29 / F ?ADM Date: 02/07/25 ? Loc: HO.XRAY ? Attending Dr: Zoe MI ? Ordering Physician: Zoe Craft ?? Date of Service: 08/16/24 ?? Procedure(s): XR cervical spine w flex/ext ?? Accession Number(s): [id number] ? cc: Zoe Craft; Ya Rojas MD [...] ??Mp Nicolas MD ??08/16/2024 02:31 PM EST ? Dictated By: ?Mp Nicolas MD ? Signed By: ?<Electronically signed by Mp Nicolas MD in OV> ?08/16/24 1431 ? DD/ 1330 ? TD/TT: 08/16/24 1345 ? Automotive Product Specialist: ? Procedure Note Alen, Image - 08/16/[address] [address] SHAZIAay Report Signed Patient: Isac Chavis MR#: [id number] : 1995Acct:[id number] Age/Sex: 29 / FADM Date: 08/16/24 Loc: [facility]DA[facility] Attending Dr: Zoe MI Ordering Physician: Zoe Craft Date of Service: 08/16/24 Procedure(s): XR cervical spine w flex/ext Accession Number(s): [id number] cc: Zoe Craft; Ya Rojas MD EXAMINATION: [...] 08/16/24 1431 DD/ 1330 TD/TT: 08/16/24 1345 Automotive Product Specialist: [facility] External Provider IMG XR PROCEDURES Final Result * (ABNORMAL) DNA (ds) Antibody (08/16/2024 1:13 PM EST) Anti DNA DS Antibody 29(A) IU/mL [facility] Comment:IU/mL Interpretation < or = 4 Negative 5-9 Indeterminate > or = 10 PositiveTHIS TEST WAS PERFORMED AT:[id number] [place] [id number] ESCALANTE MD 08/16/2024 1:13 PM EST 08/16/2024 1:13 PM EST Generic External Data Provider LAB BLOOD ORDERAB LES Final Result [facility] [address] [place] [address] [phone] * Sed Rate by Umer Littlejohn (08/16/2024 1:13 PM EST) Erythrocyte Sedimentation Rate 10 0 - 20 MM/HR [facility] Comment:Patients with polycy themia and many hemoglobin abnormalitiesmay have depressed sed rates whereas patients with anemiamay have elevated sed rates. 08/16/2024 1:13 PM EST 08/16/2024 1:13 PM EST us Generic External Data Provider LAB BLOOD ORDERAB LES Final Result [facility] [address] [place] [address] [phone] * CBC auto differential (08/16/2024 1:13 PM EST) Pathologist [facility] White Blood Count 7.4 4.8 - 10.8 X10*3/uL [facility] Red Blood Count 4.66 4.20 - 5.50 X10*6/uL [facility] Hemoglobin 14.0 12.0 - 16.0 g/dl [facility] Hematocrit 41.8 37.0 - 47.0 % [facility] Mean Corpuscular Volume 89.7 80.0 - 98.0 fL [facility] Mean Corpuscular Hemoglobin 30.0 27.0 - 33.0 pg [facility] Mean Corpuscular HGB Conc 33.5 31.0 - 35.0 g/dl [facility] Red Cell Distribution Width 11.9 11.0 - 16.0 % [facility] Platelet Count 271 160 - 400 X10*3/uL [facility] Mean Platelet Volume 10.1 9.4 - 12.3 fL [facility] Neutrophils Percent Auto 63.2 45 - 73 % [facility] Imm Gran Pct Auto 0.3 0.0 - 0.4 % [facility] Lymphocytes Percent Auto 29.6 20 - 40 % [facility] Monocytes Percent Auto 5.7 2 - 11 % [facility] Eosinophils Percent Auto 0.4 0 - 4 % [facility] Basophils Percent Auto 0.8 0 - 2 % [facility] NRBC Pct Auto 0.0 0.0 - 0.2 /100WBC [facility] Neutrophils Absolute Auto 4.7 2.0 - 8.3 x10*3/uL [facility] Imm Gran Abs Auto 0.02 0.00 - 0.03 X10*3/uL [facility] Lymphocytes Absolute Auto 2.2 1.2 - 4.9 X10*3/uL [facility] Monocytes Absolute Auto 0.4 0.1 - 1.2 X10*3/uL [facility] Eosinophils Absolute Auto 0.0 0.0 - 0.4 X10*3/uL [facility] Basophils Absolute Auto 0.1 0.0 - 0.2 X10*3/uL [facility] NRBC Abs Auto 0.000 0.0 - 0.012 X10*3/uL [facility] 08/16/2024 1:13 PM EST 08/16/2024 1:13 PM EST us Generic External Data Provider LAB BLOOD ORDERAB LES Final Result Performing Organization Address City/[facility]/ZIP Co de Phone Number [facility] [address] [place] [phone] * Protein Creatinine Ratio, Urine (08/16/2024 1:12 PM EST) Creatinine, Urine 64.90 mg/dL [facility] Protein, Total, Random Urine <7 <12 mg/dL [facility] Protein/Creatin ine Ratio, Ur TNP <0.2 [facility] Comment:Unable to calculate urine protein creatinine ratio due tolow creatinine or protein result. 08/16/2024 1:12 PM EST 08/16/2024 1:47 PM EST us Generic External Data Provider LAB URINE ORDERAB LES Final Result Performing Organization Address City/[facility]/ZIP Co de Phone Number [facility] [address] [place] [phone] * Urinalysis Complete (08/16/2024 1:12 PM EST) Color Urine Yellow [facility] Appearance Urine Clear [facility] PH 6.0 5.0 - 9.0 [facility] Glucose Urine UA Negative Negative mg/dL [facility] Urine Blood Negative Negative [facility] Specific [place] - Urine 1.010 1.005 - 1.025 [facility] Urine Protein Negative Neg-Trace mg/dL [facility] Urine Ketones Negative Negative mg/dL [facility] Nitrite Urine Negative Negative [facility] Leukocyte Esterase Urine Negative Negative [facility] RBC Urine 0-2 0 - 2 /HPF [facility] Urine WBC 0-5 0 - 5 /HPF [facility] Urine Squamous Epithelial Cell 3-5 0 - 2 /HPF [facility] Urine Bacteria None Seen None Seen [facility] Hyaline Casts, Urine 0-2 0 - 2 /LPF [facility] 08/16/2024 1:12 PM EST 08/16/2024 1:47 PM EST us Generic External Data Provider LAB URINE ORDERAB LES Final Result Performing Organization Address City/State/[facility] Co de Phone Number [facility] [address] [place] [phone] [phone] documented in this encounter Visit Diagnoses Not on filedocumented in this encounter Additional Health Concerns Assessment Noted Time PHQ-9 Depression Total Score: 11 11/23/ 024 10:11 AM EDT documented as of this encounter Care Teams Can Dryer Relationship Specialty Start Date End Date Ya Rojas MD [address] [place] [phone] PCP - General Internal Medicine 08/30/23 documented as of this encounter
--- OUTSIDE RECORDS SUMMARY | 2024-08-23 08:56 | XMS_ITS | Encounter Summary ---
Author Organization [employer] Address [address] [facility] 7t [place] [address] Care Team Providers Care Photographic Aide Name Role Phone Ya Rojas MD Primary [...] 6:37 PM EST 08/05/2024 6:37 PM EST Comment:[facility] - 08/07/2024 8:07 AM EST [...] GENERAL ORDERABLES Final Result Performing Organization Address City/[facility]/ZIP Co de Phone Number [facility] [address], [place] [phone] * (ABNORMAL) Urinalysis, Complete, with Reflex to Culture (08/05/2024 6:27 PM EST) Color Urine [place](A) [facility] Appearance Urine Cloudy [facility] PH 5.5 5.0 - 9.0 [facility] Glucose Urine UA Negative Negative mg/dL [facility] Urine Blood Large (3+)(A) Negative [facility] Specific [place] - Urine <=1.005 1.005 - 1.025 [facility] Urine Protein 30 (1+)(A) Neg-Trace mg/dL [facility] Urine Ketones Negative Negative mg/dL [facility] Nitrite Urine Negative Negative [facility] Leukocyte Esterase Urine Large (3+)(A) Negative [facility] RBC Urine >20(A) 0 - 2 /HPF [facility] Urine WBC >50(A) 0 - 5 /HPF [facility] Urine Squamous Epithelial Cell 0-2 0 - 2 /HPF [facility] Urine Bacteria None Seen None Seen [facility] Hyaline Casts, Urine 0-2 0 - 2 /LPF [facility] 08/05/2024 6:27 PM EST 08/05/2024 6:30 PM EST Narrative [facility] - 08/05/2024 6:37 PM EST 1825Urine, Clean Catch Generic External Data Provider LAB URINE ORDERAB LES Final Result Performing Organization Address [facility]/ZIP Co de Phone Number [facility] [address] [place] [phone] * hCG, Total, Quantitative (08/05/2024 6:26 PM EST) HCG Quantitative <2 mIU/mL [facility] Comment:Weeks post LMP Appro ximate hCG(Last Menstrual Period) Range (mIU/ml)3 - 4 weeks 9 - 1304 - 5 weeks 75 - 2,6005 - 6 weeks 850 - 20,8006 - 7 weeks 4000 - 100,2007 - 12 weeks 11,500 - 289,05048 - 16 weeks 18,300 - 137,40331 - 29 weeks (2nd trimester) 1,400 - 53,62467 - 41 weeks (3rd trimester) 940 - [...] ORDERAB LES Final Result Performing Organization Address [facility]/ZIP Co de Phone Number [facility] [address] [place] [phone] * Magnesium (08/05/2024 6:26 PM EST) Pathologist [facility] Magnesium 2.1 1.6 - 2.6 mg/dL [facility] 08/05/2024 6:26 PM EST 08/05/2024 6:30 PM EST Generic External Data Provider LAB BLOOD ORDERAB LES Final Result Performing Organization Address [facility] Co de Phone Number [facility] [address] [place] [phone] * (ABNORMAL) Comprehensive Metabolic Panel (08/05/2024 6:26 PM EST) Sodium 140 135 - 145 mmol/L [facility] Potassium 3.9 3.3 - 5.1 mmol/L [facility] Chloride 108 96 - 108 mmol/L [facility] Carbon Dioxide 27 22 - 29 mmol/L [facility] Anion Gap 9(L) 12 - 20 [facility] Urea Nitrogen (BUN) 17(H) 9 - 16 mg/dL [facility] Creatinine, Serum 0.93 0.5 - 1.4 mg/dL [facility] Creatinine Clr Calc Pharmacy 70.4 [facility] Comment:Provided height and weight: 152.4 cm,58.967 kg.eGFR (calculated from the MDRD study equation) and eCrCl(calculated from the Cockcroft-Gault equation) are based ondifferent parameters and may not yield comparable results.If eCrCl result is absurd, please check patient'sheight/weight. Estimated Glomerular Filt Rate >60 [facility] Comment:Chronic Kidney Disea se: Estimated GFR < 60 mL/min/1.38c5Urvlfv Kidney Disease: Estimated GFR < 15 mL/min/1.73m2 Glucose 93 60 - 115 mg/dL [facility] Calcium 9.4 8.4 - 10.2 mg/dL [facility] Bilirubin, Total 0.4 0.0 - 1.0 mg/dL [facility] Aspartate Amino Transferase 21 5 - 31 U/L [facility] Alanine Aminotransferase 18 0 - 31 U/L [facility] Total Protein 7.9 6.5 - 8.0 g/dL [facility] Albumin Level 4.4 3.5 - 5.0 g/dL [facility] Alkaline Phosphatase 54 39 - 117 U/L [facility] 08/05/2024 6:26 PM EST 08/05/2024 6:30 PM EST us Generic External Data Provider LAB BLOOD ORDERAB LES Final Result [facility] [address] [place] [phone] * (ABNORMAL) CBC auto differential (08/05/2024 6:26 PM EST) White Blood Count 12.7(H) 4.8 - 10.8 X10*3/uL [facility] Red Blood Count 4.28 4.20 - 5.50 X10*6/uL [facility] Hemoglobin 13.0 12.0 - 16.0 g/dl [facility] Hematocrit 38.8 37.0 - 47.0 % [facility] Mean Corpuscular Volume 90.7 80.0 - 98.0 fL [facility] Mean Corpuscular Hemoglobin 30.4 27.0 - 33.0 pg [facility] Mean Corpuscular HGB Conc 33.5 31.0 - 35.0 g/dl [facility] Red Cell Distribution Width 12.2 11.0 - 16.0 % [facility] Platelet Count 264 160 - 400 X10*3/uL [facility] Mean Platelet Volume 9.9 9.4 - 12.3 fL [facility] Neutrophils Percent Auto 75.1(H) 45 - 73 % [facility] Imm Gran Pct Auto 0.4 0.0 - 0.4 % [facility] Lymphocytes Percent Auto 18.1(L) 20 - 40 % [facility] Monocytes Percent Auto 5.6 2 - 11 % [facility] Eosinophils Percent Auto 0.6 0 - 4 % [facility] Basophils Percent Auto 0.2 0 - 2 % [facility] NRBC Pct Auto 0.0 0.0 - 0.2 /100WBC [facility] Neutrophils Absolute Auto 9.5(H) 2.0 - 8.3 x10*3/uL [facility] Imm Gran Abs Auto 0.05(H) 0.00 - 0.03 X10*3/uL [facility] Lymphocytes Absolute Auto 2.3 1.2 - 4.9 X10*3/uL [facility] Monocytes Absolute Auto 0.7 0.1 - 1.2 X10*3/uL [facility] Eosinophils Absolute Auto 0.1 0.0 - 0.4 X10*3/uL [facility] Basophils Absolute Auto 0.0 0.0 - 0.2 X10*3/uL [facility] NRBC Abs Auto 0.000 0.0 - 0.012 X10*3/uL [facility] 08/05/2024 6:26 PM EST 08/05/2024 6:30 PM EST us Generic External Data Provider LAB BLOOD ORDERAB LES Final Result [facility] [address] [place] [phone] documented in this encounter Visit Diagnoses Not on filedocumented in this encounter Additional Health Concerns Assessment Noted Time PHQ-9 Depression Total Score: 11 11/23/ 024 10:11 AM EDT documented as of this encounter Care Teams Photographic Aide Relationship Specialty Start Date End Date Ya Rojas MD [address] [place] [address] PCP - General Internal Medicine 08/30/23 documented as of this encounter
[2024-08-23 09:06] VITALS: BP 94/60; PULSE 67; RESP 16; O2SAT 97; BMI 26.1
== END 2024-08-23 09:23 | disposition home or self-care (01) ==
PROVIDERS: PCP Student in an Organized Health Care Education/Training Program; Visit Provider Student in an Organized Health Care Education/Training Program
DX: M32.9 Systemic lupus erythematosus, unspecified (principal); G56.03 Carpal tunnel syndrome, bilateral upper limbs; Z79.899 Other long term (current) drug therapy
CPT/HCPCS: 99213

== ENCOUNTER → 2024-08-23 08:40 | Outpatient (BNVA) | payer MEDICAID, SELFPAY | PROVIDERS: PCP Student in an Organized Health Care Education/Training Program; Visit Provider Student in an Organized Health Care Education/Training Program | DX: M32.9 Systemic lupus erythematosus, unspecified (principal); G56.03 Carpal tunnel syndrome, bilateral upper limbs; Z79.899 Other long term (current) drug therapy | CPT/HCPCS: 99212 ==

== ENCOUNTER 2024-09-09 07:48 | Outpatient (AMB) | payer MEDICAID, SELFPAY ==
--- NOTE | 2024-09-09 07:48 | MHC.OFFVIS ---
Intake Visit Reasons: 3 mo follow up Intake Note: Patient presents follow up migraine. X-ray/MRI in chart Allergies No Known Allergies Allergy (Verified 09/09/24 07:49) HPI Comments Details: Right-handed 29-yr-old female presents for televideo f/u of migraine. 08/16/2024 C-spine x-ray with flexion/extension was unremarkable. 07/13/2024 brain MRI with and without contrast results were unremarkable. Patient states her migraine attacks are better and occurring less often, which he attributes to starting an exercise program. She is currently having approximately 3 migraine days per week. The migraine attacks usually, but not always respond to OTC Tylenol or ibuprofen. She has started riboflavin, which he finds helpful. Magnesium in the past was helpful, however she does not have any refills. She is not interested in augmenting her migraine preventative regimen at this time, as she is feeling better. States she never received the sumatriptan. Right-handed 29-yr-old female presents for new pt evaluation of headache disorder to reestablish care w/ neurology since she moved from [place] to [facility]. Pt reports she has had migraine for about 10 years, started months after her 1st child child was born (via ). Then she develeoped a right sided headcahe after hse was dx'd w/ SLE about 4-5 yrs. Over this time, both headcahes have become more stronger. PMH and ROS are notable for:? 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 Some restless legs, occassional nocturnal leg cramps. Caffeine use: 1 cups of coffee in am per day Substance use: none Exercise:?walks on a treadmill Employment:?not currently working, now living w/ her father. Headache questionnaire:? Previous work-up: unsure Types of headache disorders: 2 Typical migraine headache characteristics: Prodrome symptoms: none Aura: denies Pain intensity: [id number] Location, quality, characteristics: Starts as regular pain in bilateral temples then the pain becomes throbbing and severe.. Associated symptoms: neck tightness, photophobia, phonophobia, allodynia, lightheadedness, fatigue, cognitive difficulties, activity intolerance, Postdrome: lingering feeling unwell Triggers: none Time of day: No specific time of day Duration and Frequency: Has an every day headache a/w photo/photophobia, but becomes severe 3-4 days every 1-2 weeks. How does headache impact your life? has to rest, cannot work Typical right-sided headache characteristics: Prodrome symptoms: none Aura: none Pain intensity: severe Location, quality, characteristics: Starts in the right neck like a strong injection/tingling/squeezing and moves up over head into right eye- like her eye is pulsating Associated symptoms: nothing in addition to her underlying migraine s/s Postdrome: residual pain Triggers: when her migarine is too strong Time of day: No specific time of day- but can occur at night Duration and Frequency: 5 minutes 2-3 x's per day at times when headcahe severe, but not every time. The 1st attack is usually the strongest. Current acute medication use/interventions: Advil Migraine 2 tabs bid, with Tylenol 1000mg bid, Naproxen 440mg bid. Current preventative medication use: none. Was taking oral magnesium, however patient states her nutrition is advise her to stop taking oral form and take a daily bath in with magnesium in the water. Non-pharmacological interventions: sleep, hot bath in magnesium [facility] Medical History Long-term use of hydroxychloroquine Hx of migraine headaches Bone pain of hand Hx of systemic lupus erythematosus (SLE) SLE (systemic lupus erythematosus) Mixed anxiety and depressive disorder Migraine Mild intermittent asthma in adult without complication CTS (carpal tunnel syndrome) Surgical History Hx of tubal ligation Hx of section Family History Maternal Grandmother Arthritis Paternal Grandmother Arthritis Social History Household Members: Spouse, Family and Children Housing: House Alcohol intake: current Alcohol intake frequency: holidays/special occasions only Patient Tobacco Use Status: Never used Tobacco Tobacco use type: Cigarette Current occupational status: unemployed Sexual orientation: Straight/Heterosexual Gender identity: Female Physical Exam Const General: cooperative and no acute distress Orientation/consciousness: patient oriented x3 Resp Effort & Inspection: normal respiratory effort and able to speak in complete sentences Neuro General: patient oriented x3 Cognition (Neuro): normal cognition Psych Appearance: grossly normal Mental Status: mental status grossly normal Speech and movement: Normal speech and movement present Affect: normal affect Attitude: cooperative Telehealth Telehealth Telehealth Platform: [employer] Location of provider rendering services: practice address Location of patient: address on file Patient Identification confirmed using: Name, : Yes Telehealth method: video Patient verbally consented to treatment: Yes Patient verbally consented to billing insurance company: Yes Patient informed of any privacy concerns related to visit: Yes Minutes spent on Phone/Video with Pt.: 6 Assessment & Plan Assessment & Plan (1) Chronic migraine without aura: Code(s): G43.709 - Chronic migraine without aura, not intractable, without status migrainosus Category: Medical (2) Right-sided headache: Comment: DDx includes h/o chronic migraine, ? occipital neuralgia Code(s): R51.9 - Headache, unspecified Category: Medical (3) Bruxism: Code(s): F45.8 - Other somatoform disorders Category: Medical Plan Reviewed: Brain MRI with and without contrast- unremarkable XR C-spine- unremarkable For overall headache management: Optimize good self-care, including but not limited to maintaining a healthy diet, adequate fluid intake, adequate sleep, and engaging in regular physical activity. Track headaches, especially after any treatment regimen changes. Migraine [employer] is one of many headache tracking apps. Information previously shared on non-pharmacological interventions which may help to alleviate headache attack burden. For light sensitivity: Patient may benefit from trying blue light filtering glasses, green glasses, green light therapy. Avoiding wearing sunglasses inside. For sound sensitivity: Patent may benefit from trying noise cancellation ear plugs. Neuromodulation devices, which can be used alone or with pharmacological treatment. For indications of bruxism: Advised to try an OTC mouth guard. Follow-up with Rheumatology as scheduled for management of SLE. For acute headache treatment: Discussed importance of taking acute medications at the first sign of headache, however stressed importance of avoiding acute medication overuse (especially with combined headache medications). We will recent order to trial Sumatriptan 100mg tab, 1/2 - 1 tab (50-100mg) at onset of headache, may repeat in 2 hours. Max of 2 tabs (200mg) per 24 hours. May take sumatriptan with OTC Tylenol 650-1,000mg every 4-6 hours, Ibuprofen (liquid gels) 600mg every 6 hours, or Naproxen (liquid gels) 440mg q 12 hrs prn. Potential adverse effects of triptans, include but are not limited to nausea, fatigue, chest tightness/tingling (usually passes within a few minutes), medication overuse headaches. Previous acute migraine medication trials: OTC Advil migraine, naproxen, Tylenol. Acute migraine medication contraindications: None at this time For headache prevention medication: Continue Riboflavin 400mg qam Resume Magnesium 400mg qhs Previous migraine prevention medication trials: None Migraine prevention medication contraindications: None at this time, the patient expresses concern for medications that may make her sleepy or drowsy. Pt to follow-up in 6 months or sooner prn. Medications: New sumatriptan succinate (0.5 - 1 x 100 mg) 50 - 100 mg orally at onset of headache, may repeat in 2 hrs PRN; max 2 tabs per day or 4 tabs/week (may take with Ibuprofen) 30 days 12 tabs 6RF migraine headache riboflavin (vitamin B2) 400 mg PO DAILY 30 days 30 tabs 6RF magnesium oxide may hold for loose stools 400 mg PO BEDTIME 30 days 30 tabs 6RF Coding Level of Care Code Tele Est Pt Level 4 (58624) Diagnoses Chronic migraine without aura G43.709 Right-sided headache R51.9 Bruxism F45.8
--- OUTSIDE RECORDS SUMMARY | 2024-09-09 07:51 | XMS_ITS | Clinical Summary ---
Author Organization [employer] Address [address] [facility] 7t [place] [address] Care Team Providers Care Bottler Helper Name Role Phone Ya Rojas MD Primary [...] move, and relationship issues. Isac moved from [place] on 12/2022 looking for better opportunities. She [...] intervention , Patient to reach out to [facility] team as needed, Patient to engage [...] past 12 months) . [facility]erral placed [facility] Number giving to patient. SLE (systemic [...] intervention , Patient to reach out to [facility] team as needed, Patient to engage [...] past 12 months) . Referral placed to [facility] Number giving to patient. Encounters Date Type Department Care Team Description 09/05/2024 Telephone [facility] [address] [place] [address] Ya Rojas MD October Recall 08/16/2024 Orders Only GENERIC EXTERNAL DATA DEPARTMENT Provider, Generic External Data 08/05/2024 Orders Only GENERIC EXTERNAL DATA DEPARTMENT Provider, Generic External Data 07/13/2024 Orders Only [facility] External Provider, [facility] from Last 3 Months Immunizations Name Administration [...] 2:11 PM EST Oxygen Saturation 100% 05/28/2024 2: 11 PM EST Inhaled Oxygen Concentration - - Weight 60.7 kg (133 lb 12.8 oz) 05/28/2024 2:11 PM EST Height 154.9 cm (5' 1 ) 05/17/2024 1:18 PM EST Body Mass Index 25.28 05/17/2024 1:18 PM EST Plan of Treatment Upcoming Encounters Date Type Department Care Team (Late st Contact Info) Description 10/24/2024 9:00 AM EDT Office Visit [facility] [address] [place] [address] Ya Rojas MD [address] [place] [address] Health Maintenance Due Date Last Done Comments Alcohol/Substance Use Screening 2005 Family Planning (PISQ) 2008 DTaP/Tdap/Td Vaccines (1 - Tdap) 2012 Hepatitis B Vaccines (1 of 3 - 19+ 3-dose series) 2012 Pneumococcal Vaccine: Pediatrics (0 to 5 Years) and At-Risk Patients (6 to 49) Years) (1 of 2 - PCV) 2012 Depression Monitoring (PHQ-9) 05/26/2024, 11/24/2023 SDOH Screening 11/20/2024 11/21/2023 Depression Screening 11/23/2024 [...] 04/03/2024, 08/30/2023 Influenza Vaccine Completed 04/03/2024, 08/30/2023 HPV Vaccines Completed 07/04/2024, 04/05/2024, 01/03/2024 HIB Vaccines Aged Out No longer eligi [...] EST Narrative 08/16/2024 2:37 PM EST ? [facility] ?[address] ?[place] [address] ?XRay Report ? Signed ? Patient: Ge Baca,Diorimar ? MR#: [id number] ? : 1995 ?Acct:[id number] ? Age/Sex: 29 / F ?ADM Date: 08/16/24 ? Loc: HO.XRAY ? Attending Dr: Zoe MI ? Ordering Physician: Zoe Craft ?? Date of Service: 08/16/24 ?? Procedure(s): XR cervical spine w flex/ext ?? Accession Number(s): [id number] ? cc: Zoe Craft; Ya Rojas MD [...] DD/ 1330 ? TD/TT: 08/16/24 1345 ? Mapping Pilot: ? Procedure Note Alen, Chirag - 08/16/[address] [address] XRay Report Signed Patient: Isac Chavis MR#: [id number] : 1995Acct:[id number] Age/Sex: 29 / FADM Date: 08/16/24 Loc: HO.MODESTO Attending Dr: Zoe MI Ordering Physician: Zoe Craft Date of Service: 08/16/24 Procedure(s): XR cervical spine w flex/ext Accession Number(s): [id number] cc: Zoe Craft; Ya Rojas MD EXAMINATION: [...] 08/16/24 1431 DD/ 1330 TD/TT: 08/16/24 1345 Mapping Pilot: [facility] External Provider IMG XR PROCEDURES Final Result * CBC auto differential (08/16/2024 1:13 PM EST) Only the most recent of2 resultswithin the time period is included. White Blood Count 7.4 4.8 - 10.8 X10*3/uL [facility] Red Blood Count 4.66 4.20 - 5.50 X10*6/uL [facility] Hemoglobin 14.0 12.0 - 16.0 g/dl [facility] Hematocrit 41.8 37.0 - 47.0 % [facility] Mean Corpuscular Volume 89.7 80.0 - 98.0 fL [facility] Mean Corpuscular Hemoglobin 30.0 27.0 - 33.0 pg [facility] Mean Corpuscular HGB Conc 33.5 31.0 - 35.0 g/dl [facility] Red Cell Distribution Width 11.9 11.0 - 16.0 % [facility] Platelet Count 271 160 - 400 X10*3/uL [facility] Mean Platelet Volume 10.1 9.4 - 12.3 fL [facility] Neutrophils Percent Auto 63.2 45 - 73 % [facility] Imm Gran Pct Auto 0.3 0.0 - 0.4 % [facility] Lymphocytes Percent Auto 29.6 20 - 40 % [facility] Monocytes Percent Auto 5.7 2 - 11 % [facility] Eosinophils Percent Auto 0.4 0 - 4 % [facility] Basophils Percent Auto 0.8 0 - 2 % [facility] NRBC Pct Auto 0.0 0.0 - 0.2 /100WBC [facility] Neutrophils Absolute Auto 4.7 2.0 - 8.3 x10*3/uL [facility] Imm Gran Abs Auto 0.02 0.00 - 0.03 X10*3/uL [facility] Lymphocytes Absolute Auto 2.2 1.2 - 4.9 X10*3/uL [facility] Monocytes Absolute Auto 0.4 0.1 - 1.2 X10*3/uL [facility] Eosinophils Absolute Auto 0.0 0.0 - 0.4 X10*3/uL [facility] Basophils Absolute Auto 0.1 0.0 - 0.2 X10*3/uL [facility] NRBC Abs Auto 0.000 0.0 - 0.012 X10*3/uL [facility] 08/16/2024 1:13 PM EST 08/16/2024 1:13 PM EST Generic External Data Provider LAB BLOOD ORDERAB LES Final Result Performing Organization Address [facility] Co de Phone Number [facility] [address] [place] [phone] * (ABNORMAL) DNA (ds) Antibody (08/16/2024 1:13 PM EST) Pathologist [facility] Anti DNA DS Antibody 29(A) IU/mL [facility] Comment:IU/mL Interpretation < or = 4 Negative 5-9 Indeterminate > or = 10 PositiveTHIS TEST WAS PERFORMED AT:[employer] [place] [id number] ESCALANTE MD 08/16/2024 1:13 PM EST 08/16/2024 1:13 PM EST Generic External Data Provider LAB BLOOD ORDERAB LES Final Result Performing Organization Address [facility] de Phone Number [facility] [address] [place] [phone] * Sed Rate by Modified Eron (08/16/2024 1:13 PM EST) [facility] Erythrocyte Sedimentation Rate 10 0 - 20 MM/HR [facility] Comment:Patients with polycy themia and many hemoglobin abnormalitiesmay have depressed sed rates whereas patients with anemiamay have elevated sed rates. 08/16/2024 1:13 PM EST 08/16/2024 1:13 PM EST Generic External Data Provider LAB BLOOD ORDERAB LES Final Result Performing Organization Address [facility] Co de Phone Number [facility] [address] [place] [phone] * Protein Creatinine Ratio, Urine (08/16/2024 1:12 PM EST) Pathologist [facility] Creatinine, Urine 64.90 mg/dL [facility] Protein, Total, Random Urine <7 <12 mg/dL [facility] Protein/Creatin ine Ratio, Ur TNP <0.2 [facility] Comment:Unable to calculate urine protein creatinine ratio due tolow creatinine or protein result. 08/16/2024 1:12 PM EST 08/16/2024 1:47 PM EST us Generic External Data Provider LAB URINE ORDERAB LES Final Result Performing Organization Address [facility] Co de Phone Number [facility] [address] [place] [phone] * Urinalysis Complete (08/16/2024 1:12 PM EST) Color Urine Yellow [facility] Appearance Urine Clear [facility] PH 6.0 5.0 - 9.0 [facility] Glucose Urine UA Negative Negative mg/dL [facility] Urine Blood Negative Negative [facility] Specific [place] - Urine 1.010 1.005 - 1.025 [facility] Urine Protein Negative Neg-Trace mg/dL [facility] Urine Ketones Negative Negative mg/dL [facility] Nitrite Urine Negative Negative [facility] Leukocyte Esterase Urine Negative Negative [facility] RBC Urine 0-2 0 - 2 /HPF [facility] Urine WBC 0-5 0 - 5 /HPF [facility] Urine Squamous Epithelial Cell 3-5 0 - 2 /HPF [facility] Urine Bacteria None Seen None Seen [facility] Hyaline Casts, Urine 0-2 0 - 2 /LPF [facility] 08/16/2024 1:12 PM EST 08/16/2024 1:47 PM EST us Generic External Data Provider LAB URINE ORDERAB LES Final Result Performing Organization Address [facility]/ZIP Co de Phone Number [facility] [address] [place] [phone] * Culture, Urine, Routine (08/05/2024 6:37 PM EST) Urine Urine specimen obtained by clean catch procedure / Unknown 08/05/2024 6:37 PM EST 08/05/2024 6:37 PM EST Comment:UACC Narrative [facility] - 08/07/2024 8:07 AM EST Escherichia coli Quant > 100,000 cfu/mL Escherichia coli: Ampicillin >=32(R) Escherichia coli: Cefazolin (Urine) 2(S) Escherichia coli: Cefepime <=0.12(S) Escherichia coli: Ceftriaxone <=0.25(S) Escherichia coli: Ciprofloxacin <=0.06(S) Escherichia coli: Gentamicin <=1(S) Escherichia coli: Nitrofurantoin <=16(S) Escherichia coli: Trimethoprim/Sulfamethoxazole <=20(S) Specimen Source: Urine clean catch Generic External Data Provider LAB MICROBIOLOGY - GENERAL ORDERABLES Final Result [facility] [address] [place] [phone] * (ABNORMAL) Urinalysis, Complete, with Reflex to Culture (08/05/2024 6:27 PM EST) Color Urine Stevens(A) [facility] Appearance Urine Cloudy [facility] PH 5.5 5.0 - 9.0 [facility] Glucose Urine UA Negative Negative mg/dL [facility] Urine Blood Large (3+)(A) Negative [facility] Specific [place] - Urine <=1.005 1.005 - 1.025 [facility] Urine Protein 30 (1+)(A) Neg-Trace mg/dL [facility] Urine Ketones Negative Negative mg/dL [facility] Nitrite Urine Negative Negative [facility] Leukocyte Esterase Urine Large (3+)(A) Negative [facility] RBC Urine >20(A) 0 - 2 /HPF [facility] Urine WBC >50(A) 0 - 5 /HPF [facility] Urine Squamous Epithelial Cell 0-2 0 - 2 /HPF [facility] Urine Bacteria None Seen None Seen [facility] Hyaline Casts, Urine 0-2 0 - 2 /LPF [facility] 08/05/2024 6:27 PM EST 08/05/2024 6:30 PM EST Narrative [facility] - 08/05/2024 6:37 PM EST 1825Urine, Clean Catch Generic External Data Provider LAB URINE ORDERAB LES Final Result Performing Organization Address [facility] Co de Phone Number [facility] [address] [place] [phone] * hCG, Total, Quantitative (08/05/2024 6:26 PM EST) HCG Quantitative <2 mIU/mL [facility] Comment:Weeks post LMP Appro ximate hCG(Last Menstrual Period) Range (mIU/ml)3 - 4 weeks 9 - 1304 - 5 weeks 75 - 2,6005 - 6 weeks 850 - 20,8006 - 7 weeks 4000 - 100,2007 - 12 weeks 11,500 - 289,89892 - 16 weeks 18,300 - 137,22592 - 29 weeks (2nd trimester) 1,400 - 53,04722 - 41 weeks (3rd trimester) 940 - [...] ORDERAB LES Final Result Performing Organization Address [facility] Co de Phone Number [facility] [address] [place] [phone] * Magnesium (08/05/2024 6:26 PM EST) Magnesium 2.1 1.6 - 2.6 mg/dL [facility] 08/05/2024 6:26 PM EST 08/05/2024 6:30 PM EST us Generic External Data Provider LAB BLOOD ORDERAB LES Final Result [facility] [address] [place] [phone] [phone] * (ABNORMAL) Comprehensive Metabolic Panel (08/05/2024 6:26 PM EST) Sodium 140 135 - 145 mmol/L [facility] Potassium 3.9 3.3 - 5.1 mmol/L [facility] Chloride 108 96 - 108 mmol/L [facility] Carbon Dioxide 27 22 - 29 mmol/L [facility] Anion Gap 9(L) 12 - 20 [facility] Urea Nitrogen (BUN) 17(H) 9 - 16 mg/dL [facility] Creatinine, Serum 0.93 0.5 - 1.4 mg/dL [facility] Creatinine Clr Calc Pharmacy 70.4 [facility] Comment:Provided height and weight: 152.4 cm,58.967 kg.eGFR (calculated from the MDRD study equation) and eCrCl(calculated from the Cockcroft-Gault equation) are based ondifferent parameters and may not yield comparable results.If eCrCl result is absurd, please check patient'sheight/weight. Estimated Glomerular Filt Rate >60 [facility] Comment:Chronic Kidney Disea se: Estimated GFR < 60 mL/min/1.54c6Esjopi Kidney Disease: Estimated GFR < 15 mL/min/1.73m2 Glucose 93 60 - 115 mg/dL [facility] Calcium 9.4 8.4 - 10.2 mg/dL [facility] Bilirubin, Total 0.4 0.0 - 1.0 mg/dL [facility] Aspartate Amino Transferase 21 5 - 31 U/L [facility] Alanine Aminotransferase 18 0 - 31 U/L [facility] Total Protein 7.9 6.5 - 8.0 g/dL [facility] Albumin Level 4.4 3.5 - 5.0 g/dL [facility] Alkaline Phosphatase 54 39 - 117 U/L [facility] 08/05/2024 6:26 PM EST 08/05/2024 6:30 PM EST us Generic External Data Provider LAB BLOOD ORDERAB LES Final Result [facility] [address] [place] [phone] * Mr Brain w/ and w/o Contrast (07/13/2024 1:29 PM EST) Anatomical Region Laterality Modality Brain Magnetic Resonan ce 07/13/2024 1:29 PM EST Narrative 07/15/2024 10:07 AM EST ? [facility] ?[address] ?[place] [address] ? Magnetic Resonance Report ? Signed ? Patient: Ge Baca,Diorimar ? MR#: [id number] ? : 1995 ?Acct:[id number] ? Age/Sex: 29 / F ?ADM Date: 07/13/24 ? Loc: HO.MRI ? Attending Dr: Zoe MI ? Ordering Physician: Zoe Craft ?? Date of Service: 07/13/24 ?? Procedure(s): MR head/brain wo/w con ?? Accession Number(s): [id number] ? cc: Zoe Craft; Ya Rojas MD [...] DD/ 1329 ? TD/TT: 07/13/24 1348 ? Mapping Pilot: ? Procedure Note Chirag Lowry - 07/15/2024 [place] [address] Magnetic Resonance Report Signed Patient: Isac Chavis MR#: [id number] : 1995Acct:[id number] Age/Sex: 29 / FADM Date: 07/13/24 Loc: HO.MRI Attending Dr: Zoe [place] Ordering Physician: Zoe Craft Date of Service: 07/13/24 Procedure(s): MR head/brain wo/w con Accession Number(s): [id number] cc: Zoe Craft; Ya Rojas MD EXAMINATION: [...] by: Mp Nicolas MD 07/15/2024 10:04 AM [facility] Dictated By: Mp Nicolas MD Signed By: <Electronically signed by Mp Nicolas MD in OV> 07/15/24 1004 DD/ 1329 TD/TT: 07/13/24 1348 Mapping Pilot: [facility] External Provider IMG MRI PROCEDURES Edited Result - Final * [facility] Imaging Pap and HPV mRNA E6/E7 with Reflex to HPV 16,18/45 (01/17/2024 3:04 PM EDT) HPV 16 RNA [facility] HPV 18/45 RNA [facility] HPV nRNA E6/E7 Not Detected Not Detected [facility] Comment:Methodology: Transcr iption-Mediated AmplificationThis assay detects E6/E7 viral messenger RNA (mRNA) from 14high-risk HPV types (16,18,31,33,35,39,45,51,52,56,58,59,66,68).Cervical sources are required for HPV testing.If a vaginal source from a patient who has had atotal hysterectomy with removal of cervix wassubmitted, please contact the testing laboratoryfor alternative testing options.For additional information, please refer tohttp://education.FAD ? IO/faq/NPG380x7(This link if provided for information/educational purposes only.)THIS TEST WAS PERFORMED AT:[facility] [address] [id number] ESCALANTE MD SOURCE: SEE NOTE [facility] Comment:Cervix Report Status: [facility] Clinical Information: SEE NOTE [facility] Comment:None given LMP: SEE NOTE [facility] Comment:01/13/2024 Prev. PAP: SEE NOTE [facility] Comment:NONE GIVEN Prev. BX: SEE NOTE [facility] Comment:NONE GIVEN Statement Of Adequacy: SEE NOTE [facility] Comment:Satisfactory for moe luation.Endocervical/transformation zone componentpresent. General Categorization: [facility] Interpretation/Result: SEE NOTE [facility] Comment:Cytology Results: Ne gative for intraepitheliallesion or malignancy. Cytology Comment SEE NOTE [facility] Comment:This Pap test has be en evaluated with computerassisted technology. Dish Technician: SEE NOTE [facility] Comment:GSG, CT(ASCP)CT scre ening location: [address] [address] Review Dish Technician: [facility] Pathologist [facility] PAP Infection [facility] See Note SEE NOTE [facility] Comment:EXPLANATORY NOTE:The Pap is a screening test for cervical cancer. It isnot a diagnostic test and is subject to false negativeand false positive results. It is most reliable when asatisfactory sample, regularly obtained, is submittedwith relevant clinical findings and history, and whenthe Pap result is evaluated along with historic andcurrent clinical information. 01/17/2024 3:04 PM EDT 01/17/2024 4:02 PM EDT Narrative [facility] - 01/24/2024 12:48 PM EDT SEE SCANNED RESULTS IN EMRWas previous PAP abnormal? UnknownClinical Information: routineCollection Date: 01/16/24igh risk HPV with 16 ?? 18 genotyping? YReflex HPV any abnormal diagnosis? YReflex HPV if ASCUS only? NHigh Risk HPV (any diagnosis)? YLMP: 01/13/24Date of previous PAP unknownPerformed by: : [id number] us Generic External Data Provider LAB PATHOLOGY ORD ERABLES Final Result Performing Organization Address [facility] Co de Phone Number [facility] [address] [place] [phone] * Hepatitis C Antibody with Reflex to HCV, RNA, Quantitative, Real-Time PCR (08/30/2023 11:13 AM EST) Hepatitis C Antibody Nonreactive Nonreactive [facility] Comment:Antibodies to HCV no t detected; does not exclude early acuteHCV infection. Blood Venous blood specimen / Unknown 08/30/2023 11:13 AM EST 08/30/2023 1:27 PM EST us Ya Khan MD LAB BLOOD ORDERAB LES Final Result Performing Organization Address [facility] de Phone Number [facility] [address] [place] [phone] * HIV-1/2 Antigen and Antibodies, Fourth Generation, with Reflexes (08/30/2023 11:13 AM EST) HIV AB/AG Nonreactive Nonreactive [facility] Comment:HIV-1 p24 Ag and/or HIV-1/HIV-2 Ab not detected.A test result that is nonreactive does not exclude thepossibility of exposure to or infection with HIV-1 and/orHIV-2. Nonreactive results in this assay for individualswith prior exposure to HIV-1 and/or HIV-2 may be due toantigen and antibody levels that are below the limit ofdetection of this assay.The [employer] HIV Ag/Ab Combo assay result andsupplemental assay results should be interpreted inconjunction with the patient's clinical presentation,history and other laboratory results. If the results areinconsistent with clinical evidence, additional testing issuggested to confirm the result. Blood Venous blood specimen / Unknown 08/30/2023 11:13 AM EST 08/30/2023 1:27 PM EST Ya Khan MD LAB BLOOD ORDERAB LES Final Result [facility] [address] [place] [address] [phone] from Last 3 Months or Most Recently Relevant to Health Maintenance Insurance C3 Care Teams Bottler Helper Relationship Specialty Start Date End Date Ya Rojas MD [address] [place] [phone] PCP - General Internal Medicine 08/30/23
--- OUTSIDE RECORDS SUMMARY | 2024-09-09 07:51 | XMS_ITS | Clinical Summary ---
Author Organization [facility] Address [address] [place] [address] Care Team Providers Care Director Of Regional Sales Name Role Phone Unavailable Primary Care Provider [...]
--- OUTSIDE RECORDS SUMMARY | 2024-09-09 07:51 | XMS_ITS | Encounter Summary ---
Author Organization [employer] Address [address] [facility] 7 [place] [address] Care Team Providers Care Cane Stripper Name Role Phone Ya Rojas MD Primary Care Pro vider Reason for Visit * Reason Onset Date Comments October09/05/2024 Encounter Details Date Type Department Care Team ([facility] st Contact Info) Description 09/05/2024 Telephone [facility] [address] [place], [place] [phone] Ya Rojas MD [address] [place] [address] October Recall Social History Tobacco Use Types Packs/Day Years [...] encounter Miscellaneous Notes * Telephone Encounter - Radha Lopez MA - 09/05/2024 1:17 PM EST Telephone call to patient to schedule the following recall: Visit type: Physical Appointment notes: Physical Patient agree to appointment on 10/24/24 at 9 AM with Krzysztof. documented in this encounter Plan of Treatment Upcoming Encounters Date Type Department Care Team (Late st Contact Info) Description 10/24/2024 9:00 AM EDT Office Visit [facility] [address] [place] [phone] Ya Rojas MD [address] [place] [phone] documented as of this encounter Visit Diagnoses Not on filedocumented in this encounter Additional Health Concerns Assessment Noted Time PHQ-9 Depression Total Score: 11 024 10:11 AM EDT documented as of this encounter Care Teams Cane Stripper Relationship Specialty Start Date End Date Ya Rojas MD [address] [place] [phone] PCP - General Internal Medicine 08/30/23 documented as of this encounter
--- OUTSIDE RECORDS SUMMARY | 2024-09-09 07:51 | XMS_ITS | Encounter Summary ---
Author Organization [employer] [facility] Address [address] 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 EFFECTIVE SINCE 05/04/2023 documented in this encounter Plan of Treatment Upcoming Encounters Date Type Department Care Team (Late Contact Info) Description 10/24/2024 9:00 AM EDT Office Visit [facility] [address] [place], [place] [phone] Ya Rojas MD [address] [place], [place] [phone] documented as of this encounter Visit Diagnoses Not on filedocumented in this encounter Care Teams Forest Pathologist Relationship Specialty Start Date End Date Ya Rojas MD [address] [place], [place] [phone] PCP - General Internal Medicine 08/30/23 documented as of this encounter
--- OUTSIDE RECORDS SUMMARY | 2024-09-09 07:51 | XMS_ITS | Encounter Summary ---
Author Organization [employer] Address [address] [place] [address] Care Team Providers Care Vocational Teacher Name Role Phone Ya Rojas MD Primary [...] as of this encounter Plan of Treatment Upcoming Encounters Date Type Department Care Team (Late st Contact Info) Description 10/24/2024 9:00 AM EDT Office Visit [facility] [address] [place] [address] Ya Rojas MD [address], [place] [phone] documented as of this encounter Procedures Procedure [...] EST Narrative 08/16/2024 2:37 PM EST ? [facility] [facility] ?[address] ?[place] [address] ?XRay Report ? Signed ? Patient: Ge Baca,Diorimar ? MR#: [id number] ? : 1995 ?Acct:[id number] ? Age/Sex: 29 / F ?ADM Date: 08/16/24 ? Loc: HO.XRAY ? Attending Dr: Zoe MI ? Ordering Physician: Zoe Craft ?? Date of Service: 08/16/24 ?? Procedure(s): XR cervical spine w flex/ext ?? Accession Number(s): [id number] ? cc: Zoe Craft; Ya Rojas MD [...] DD/ 1330 ? TD/TT: 08/16/24 1345 ? 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: [facility] External Provider IMG XR PROCEDURES Final Result * (ABNORMAL) DNA (ds) Antibody (08/16/2024 1:13 PM EST) Anti DNA DS Antibody 29(A) IU/mL [facility] Comment:IU/mL Interpretation < or = 4 Negative 5-9 Indeterminate > or = 10 PositiveTHIS TEST WAS PERFORMED AT:[employer] [place] [id number] ESCALANTE MD 08/16/2024 1:13 PM EST 08/16/2024 1:13 PM EST us Generic External Data Provider LAB BLOOD ORDERAB LES Final Result Performing Organization Address [facility]/ZIP Co de Phone Number [facility] [address] [place] [address] [phone] * Sed Rate by Modified Westergren (08/16/2024 1:13 PM EST) Erythrocyte Sedimentation Rate 10 0 - 20 MM/HR [facility] Comment:Patients with polycy themia and many hemoglobin abnormalitiesmay have depressed sed rates whereas patients with anemiamay have elevated sed rates. 08/16/2024 1:13 PM EST 08/16/2024 1:13 PM EST Generic External Data Provider LAB BLOOD ORDERAB LES Final Result Performing Organization Address [facility] de Phone Number [facility] [address] [place] [phone] * CBC auto differential (08/16/2024 1:13 PM EST) White Blood Count 7.4 4.8 - 10.8 X10*3/uL [facility] Red Blood Count 4.66 4.20 - 5.50 X10*6/uL [facility] Hemoglobin 14.0 12.0 - 16.0 g/dl [facility] Hematocrit 41.8 37.0 - 47.0 % [facility] Mean Corpuscular Volume 89.7 80.0 - 98.0 fL [facility] Mean Corpuscular Hemoglobin 30.0 27.0 - 33.0 pg [facility] Mean Corpuscular HGB Conc 33.5 31.0 - 35.0 g/dl [facility] Red Cell Distribution Width 11.9 11.0 - 16.0 % [facility] Platelet Count 271 160 - 400 X10*3/uL [facility] Mean Platelet Volume 10.1 9.4 - 12.3 fL [facility] Neutrophils Percent Auto 63.2 45 - 73 % [facility] Imm Gran Pct Auto 0.3 0.0 - 0.4 % [facility] Lymphocytes Percent Auto 29.6 20 - 40 % [facility] Monocytes Percent Auto 5.7 2 - 11 % [facility] Eosinophils Percent Auto 0.4 0 - 4 % [facility] Basophils Percent Auto 0.8 0 - 2 % [facility] NRBC Pct Auto 0.0 0.0 - 0.2 /100WBC [facility] Neutrophils Absolute Auto 4.7 2.0 - 8.3 x10*3/uL [facility] Imm Gran Abs Auto 0.02 0.00 - 0.03 X10*3/uL [facility] Lymphocytes Absolute Auto 2.2 1.2 - 4.9 X10*3/uL [facility] Monocytes Absolute Auto 0.4 0.1 - 1.2 X10*3/uL [facility] Eosinophils Absolute Auto 0.0 0.0 - 0.4 X10*3/uL [facility] Basophils Absolute Auto 0.1 0.0 - 0.2 X10*3/uL [facility] NRBC Abs Auto 0.000 0.0 - 0.012 X10*3/uL [facility] 08/16/2024 1:13 PM EST 08/16/2024 1:13 PM EST us Generic External Data Provider LAB BLOOD ORDERAB LES Final Result [facility] [address] [place] [phone] * Protein Creatinine Ratio, Urine (08/16/2024 1:12 PM EST) Creatinine, Urine 64.90 mg/dL [facility] Protein, Total, Random Urine <7 <12 mg/dL [facility] Protein/Creatin ine Ratio, Ur TNP <0.2 [facility] Comment:Unable to calculate urine protein creatinine ratio due tolow creatinine or protein result. 08/16/2024 1:12 PM EST 08/16/2024 1:47 PM EST Generic External Data Provider LAB URINE ORDERAB LES Final Result Performing Organization Address [facility] de Phone Number [facility] [address] [place] [phone] * Urinalysis Complete (08/16/2024 1:12 PM EST) Color Urine Yellow [facility] Appearance Urine Clear [facility] PH 6.0 5.0 - 9.0 [facility] Glucose Urine UA Negative Negative mg/dL [facility] Urine Blood Negative Negative [facility] Specific [place] - Urine 1.010 1.005 - 1.025 [facility] Urine Protein Negative Neg-Trace mg/dL [facility] Urine Ketones Negative Negative mg/dL [facility] Nitrite Urine Negative Negative [facility] Leukocyte Esterase Urine Negative Negative [facility] RBC Urine 0-2 0 - 2 /HPF [facility] Urine WBC 0-5 0 - 5 /HPF [facility] Urine Squamous Epithelial Cell 3-5 0 - 2 /HPF [facility] Urine Bacteria None Seen None Seen [facility] Hyaline Casts, Urine 0-2 0 - 2 /LPF [facility] 08/16/2024 1:12 PM EST 08/16/2024 1:47 PM EST Generic External Data Provider LAB URINE ORDERAB LES Final Result Performing Organization Address [facility] Co de Phone Number [facility] [address] [place] [phone] documented in this encounter Visit Diagnoses Not on filedocumented in this encounter Additional Health Concerns Assessment Noted Time PHQ-9 Depression Total Score: 11 11/23/2 024 10:11 AM EDT documented as of this encounter Care Teams Vocational Teacher Relationship Specialty Start Date End Date Ya Rojas MD [address] [place] [phone] PCP - General Internal Medicine 08/30/23 documented as of this encounter
== END 2024-09-19 16:01 | disposition home or self-care (01) ==
PROVIDERS: PCP Pediatrics; Visit Provider Nurse Practitioner Family
DX: G43.709 Chronic migraine without aura, not intractable, without status migrainosus (principal); F45.8 Other somatoform disorders
CPT/HCPCS: 99214

== ENCOUNTER → 2024-09-09 07:48 | Outpatient (BNVA) | payer MEDICAID, SELFPAY | PROVIDERS: PCP Pediatrics; Visit Provider Nurse Practitioner Family ==

== ENCOUNTER 2024-10-24 09:40 | Outpatient (REF) | payer MEDICAID, SELFPAY ==
[2024-10-24 11:34] LABS: Hematocrit 39.9 % (37.0-47.0); Hemoglobin 13.5 g/dl (12.0-16.0); Mean Corpuscular HGB Conc 33.8 g/dl (31.0-35.0); Mean Corpuscular Hemoglobin 30.2 pg (27.0-33.0); Mean Corpuscular Volume 89.3 fL (80.0-98.0); Mean Platelet Volume 10.2 fL (9.4-12.3); Platelet Count 253 X10*3/uL (160-400); Red Blood Count 4.47 X10*6/uL (4.20-5.50); Red Cell Distribution Width 12.3 % (11.0-16.0); White Blood Count 5.5 X10*3/uL (4.8-10.8)
[2024-10-24 12:05] LABS: Syphilis Screen Nonreactive (Nonreactive)
[2024-10-24 12:06] LABS: HIV AB/AG Nonreactive (Nonreactive); HIV Num 1 0.07 S/CO (0.00-0.99); ~Hepatitis C Antibody Nonreactive (Nonreactive)
[2024-10-24 12:11] LABS: Estimated Average Glucose 100 mg/dL; Hemoglobin A1C 119.0301 umol/L; Hemoglobin A1c % 5.1 % (<6.0); Total Hemoglobin (HGBA1C) 3662.9426 umol/L
[2024-10-24 12:19] LABS: Alanine Aminotransferase 15 U/L (0-31); Albumin Level 4.4 g/dL (3.5-5.0); Anion Gap 11 (12-20); Aspartate Amino Transferase 22 U/L (5-31); Bilirubin Total 0.9 mg/dL (0.0-1.0); Blood Urea Nitrogen 11 mg/dL (9-16); Calcium 9.4 mg/dL (8.4-10.2); Carbon Dioxide 25 mmol/L (22-29); Chloride 107 mmol/L (96-108); Cholesterol 143 mg/dL (<200); Estimated Glomerular Filt Rate > 60; Glucose Random 83 mg/dL (60-115); HDL Cholesterol 62 mg/dL (>40); Iron 178 mcg/dL (30-160); LDL Cholesterol Calculated 67 mg/dL (<100); Percent Iron Saturation 53 % (15-50); Sodium 139 mmol/L (135-145); Total Iron Binding Capacity 339 mcg/dL (228-428); Total Protein 7.6 g/dL (6.5-8.0); Triglycerides 73 mg/dL (<150); Unsaturated Iron Binding 161 ug/dL
[2024-10-24 12:27] LABS: Alkaline Phosphatase 39 U/L (39-117); Ferritin 19 ng/mL (10-122); TSH reflex Free T4 1.14 uIU/mL (0.32-4.0)
[2024-10-24 16:31] LABS: CT PCR NOT DETECTED (Not Detect.); NG PCR NOT DETECTED (Not Detect.)
== END 2024-10-24 09:41 | disposition home or self-care (01) ==
LOC: HO.HHCL 09:40
PROVIDERS: Visit Provider Student in an Organized Health Care Education/Training Program
DX: Z00.00 Encounter for general adult medical examination without abnormal findings (principal)
CPT/HCPCS: 80053; 80061; 82728; 83036; 83540; 84443; 85027; 86780; 86803; 87389; 87491; 87591

== ENCOUNTER 2024-12-12 10:17 | Outpatient (REF) | payer MEDICAID, SELFPAY ==
[2024-12-12 10:46] LABS: MANUAL DIFF FLAG NO
[2024-12-12 10:52] LABS: Basophils Percent Auto 0.9 % (0-2); Eosinophils Absolute Auto 0.1 X10*3/uL (0.0-0.4); Eosinophils Percent Auto 1.5 % (0-4); Hematocrit 37.6 % (37.0-47.0); Hemoglobin 12.7 g/dl (12.0-16.0); Lymphocytes Absolute Auto 1.8 X10*3/uL (1.2-4.9); Lymphocytes Percent Auto 38.9 % (20-40); Mean Corpuscular HGB Conc 33.8 g/dl (31.0-35.0); Mean Corpuscular Hemoglobin 30.1 pg (27.0-33.0); Mean Corpuscular Volume 89.1 fL (80.0-98.0); Monocytes Absolute Auto 0.4 X10*3/uL (0.1-1.2); Monocytes Percent Auto 7.9 % (2-11); Neutrophils Absolute Auto 2.3 x10*3/uL (2.0-8.3); Neutrophils Percent Auto 50.8 % (45-73); Platelet Count 248 X10*3/uL (160-400); Red Blood Count 4.22 X10*6/uL (4.20-5.50); Red Cell Distribution Width 12.2 % (11.0-16.0); White Blood Count 4.6 X10*3/uL (4.8-10.8)
[2024-12-12 11:24] LABS: Alanine Aminotransferase 16 U/L (0-31); Albumin Level 4.5 g/dL (3.5-5.0); Alkaline Phosphatase 46 U/L (39-117); Anion Gap 9 (12-20); Aspartate Amino Transferase 22 U/L (5-31); Bilirubin Total 0.9 mg/dL (0.0-1.0); Blood Urea Nitrogen 13 mg/dL (9-16); C Reactive Protein < 0.10 mg/dL (< or = 0.50); Calcium 9.5 mg/dL (8.4-10.2); Carbon Dioxide 27 mmol/L (22-29); Chloride 108 mmol/L (96-108); Estimated Glomerular Filt Rate > 60; Glucose Random 95 mg/dL (60-115); Sodium 140 mmol/L (135-145); Total Protein 7.4 g/dL (6.5-8.0)
[2024-12-12 11:32] LABS: Erythrocyte Sedimentation Rate 11 MM/HR (0-20)
[2024-12-12 11:59] LABS: Appearance Urine Clear; Color Urine Yellow; Glucose Urine UA Negative (Negative); Leukocyte Esterase Urine Negative (Negative); Nitrite Urine Negative (Negative); PH 6.5 (5.0-9.0); Specific Gravity - Urine <= 1.005 (1.005-1.025); Urine Blood Negative (Negative); Urine Ketones Negative (Negative); Urine Protein Negative (Neg-Trace)
--- OUTSIDE RECORDS SUMMARY | 2024-12-12 12:00 | XMS_ITS | Clinical Summary ---
Author Organization [employer] Address [address] [facility] [address] [place] [address] Care Team Providers Care 2Nd Pressman Name Role Phone Ya Rojas MD Primary Care Pro vider Allergies No known active allergies Medications * This document contains information received from the source organization and may not represent a complete record from that organization. cyanocobalamin (Vitamin B-12) 100 MCG tablet Take 100 mcg by mouth in the morning. Active hydroxychloroqui ne (Plaquenil) 200 MG tablet Take 1 tablet by mouth Once per day. Takes 200 mg alternating 400 mg daily 4 Active ferrous gluconate (Fergon) 324 (38 Fe) MG tablet Take 324 mg by mouth with breakfast. Active albuterol 108 (90 Base) MCG/ACT inhalerIndicatio ns:Mild intermittent asthma with (acute) exacerbation Inhale 2 puffs every 6 (six) hours if needed for wheezing. 18 g 3 4 05/28/20 25 Active riboflavin (Vitamin B-2) 400 MG tablet Take 1 tablet by mouth Once per day. 5 Active SUMAtriptan (Imitrex) 100 MG tablet TAKE 1/2 TO 1 TABLET AT ONSET OF HEADACHE MAY REPEAT IN 2 HRS MAX 2TABS/DAY OR 4TABS/ WEEK 5 Active alpha tocopherol (Vitamin E) 100 units capsule Take 100 Units by mouth Once per day. Active cholecalciferol (Vitamin D-3) 25 MCG (1000 UT) tablet Take 1,000 Units by mouth Once per day. Active topiramate (Topamax) 50 MG tabletIndication s:Migraine without status migrainosus, not intractable, unspecified migraine type Take 1 tablet (50 mg) by mouth Once per day. 30 tablet 2 5 10/25/19 26 Active magnesium oxide (Mag-Ox) 400 (240 Mg) MG tabletIndication s:Other migraine without status migrainosus, not intractable TAKE 1 TABLET BY MOUTH EVERY MORNING 90 tablet 5 Active lidocaine (Lidoderm) 5 % patchIndications :Chronic low back pain, unspecified back pain laterality, unspecified whether sciatica present Apply 1 patch topically Once per day. Remove & discard patch within 12 hours or as directed by MD. 30 patch 2 5 Active Active Problems Problem Noted Date Diagnosed [...] move, and relationship issues. Isac moved from [place] on 12/2022 looking for better opportunities. She [...] past 12 months) . Referral placed to [facility]. Number giving to patient. SLE (systemic lupus [...] past 12 months) . Referral placed to [facility]. Number giving to patient. Encounters Date Type Department Care Team Description 12/05/[address] [address] Ya Rojas MD Results 10/26/[address] [address] Ya Rojas MD Chronic low back pain, unspecified back pain laterality, unspecified whether sciatica present; Migraine without status migrainosus, not intractable, unspecified migraine type 10/24/2024 9:00 AM EDT Office Visit [address] [address] Ya Rojas MD Annual physical exam (Primary Dx); SLE (systemic lupus erythematosus related syndrome) ([facility]); Mild intermittent asthma with (acute) exacerbation; Migraine without status migrainosus, not intractable, unspecified migraine type; Other migraine without status migrainosus, not intractable 10/24/[address] [phone] Ya Rojas MD Referral 10/24/2024 Travel 10/17/[address] [address] Ya Rojas MD chart prep 10/17/2024 Patient Outreach [facility] [address] [place], [place] [phone] Ya Rojas MD Pre-visit Planning (SDOH negative, Tobacco screening negative. ) 09/20/2024 Population Health Risk Score [facility] () [address] [phone] Provider, Population Health Generic from Last 3 Months Immunizations Immunization Administration Dates Next Due HPV 9-Valent 07/04/2024,04/05/2024,01/03/2024 Influenza injectable quadriv alent preservative free 08/30/2023 Influenza, seasonal, injecta ble, preservative free 04/03/2024 Pfizer Covid-19 Vaccine 12+ 04/03/2024, Family History Medical History Relation Name Comments DM2 Maternal Grandfather Relation Name Status Comments Maternal Grandfather Social History Tobacco Use Types Packs/Day Years Used Date Smoking Tobacco: Never Smokeless Tobacco: Never Tobacco Cessation:Counseling Given: Not Answered Alcohol Use Standard Drinks/Week Comments Yes 0 (1 standard drink = 0.6 oz pur e alcohol) social Depression Answer Date Recorded Patient Health Questionnaire-9 Score 6 10/24/2024 Patient Health Questionnaire-9 Score 6 10/24/2024 Last PHQ-9: Questionnaire Data Not on file 0 10/24/2024 Housing Stability Answer Date Recorded What is [...] Answer Date Recorded Patient Health Questionnaire-2 Score 2 10/24/2024 Internet Access Answer Date Recorded Internet Access Q1 Yes 10/17/2024 Internet Access Q2 Not on file 10/17/2024 Comments Unknown Sex and Gender Information Value Date Recorded Sex Assigned at Female 05/09/2022 10:27 AM EDT Legal Sex Female 10:27 AM EDT Gender Identity Female 07/04/2023 1:57 PM EST Sexual Orientation Straight 07/04/2023 1: 59 PM EST Last Filed Vital Signs Vital Sign Reading Time Taken Comments Blood Pressure 104/63 10/24/2024 9:10 AM EDT Pulse 77 10/24/2024 9:10 AM EDT Temperature 36.8 ??C (98.2 ??F) 10/24/2024 9:10 AM ED T Respiratory Rate 20 10/24/2024 9:10 AM EDT Oxygen Saturation 98% 10/24/2024 9:10 AM EDT Inhaled Oxygen Concentration - - Weight 59.9 kg (132 lb) 10/24/2024 9:10 AM EDT Height 154.9 cm (5' 1 ) 10/24/2024 9:10 AM EDT Body Mass Index 24.94 10/24/2024 9:10 AM EDT Plan of Treatment Upcoming Encounters Date Type Department Care Team (Late st Contact Info) Description 01/28/2025 10:30 AM EDT Office Visit [facility] [address] [place] [address] Tarka Indigo, OD [address] [place] [address] Health Maintenance Due Date Last Done Comments Family Planning (PISQ) 2008 DTaP/Tdap/Td Vaccines (1 - Tdap) 2012 Hepatitis B Vaccines (1 of 3 - 19+ 3-dose series) 2012 Pneumococcal Vaccine: Pediatrics (0 to 5 Years) and At-Risk Patients (6 to 49) Years) (1 of 2 - PCV) 2012 SDOH Screening 10/17/2025 10/17/2024 Alcohol/Substance Use Screening 10/24/2025 10/24/2024 Depression Screening 10/24/2025 10/24/2024, 10/24/2024 Disability Screening 10/24/2025 10/24/2024 Tobacco Screening 10/24/2025 10/24/2024 Pap Smear 01/16/2027 01/17/2024 Cervical Cancer Screening 01/16/2029 HPV/Cotest 01/16/2029 01/17/2024 Zoster Vaccines (1 of 2) 2043 RSV Patients and Patients Aged 60 years or older (1 - 1-dose 75+ series) 2068 COVID-19 Vaccine Completed 04/03/2024, 08/30/2023 Influenza Vaccine Completed 04/03/2024, 08/30/2023 HPV Vaccines Completed 07/04/2024, 04/05/2024, 01/03/2024 HIV Screening Completed 10/24/2024, 08/30/2023 Hepatitis C Screening Completed 10/24/2024 , 08/30/2023 HIB Vaccines Aged Out No longer eligi ble based on patient's age to complete this topic Hepatitis A Vaccines Aged Out No long er eligible based on patient's age to complete this topic IPV Vaccines Aged Out No longer eligi ble based on patient's age to complete this topic Meningococcal B Vaccine Aged Out No l onger eligible based on patient's age to complete [...] Procedure Name Priority Date/Time Associated Diagnosis Comments LIPID PANEL, STANDARD Routine 10/24/2024 9:42 AM EDT Annual physical exam FERRITIN Routine 10/24/2024 9:42 AM EDT Annual physical exam IRON AND TOTAL IRON BINDING CAPACITY Routine 10/24/2024 9:42 AM EDT Annual physical exam TSH W/REFLEX TO FT4 Routine 10/24/2024 9 :42 AM EDT Annual physical exam SYPHILIS SCREEN Routine 10/24/2024 9:42 AM EDT Annual physical exam HIV 1/2 ANTIGEN/ANTIBODY, FOURTH GENERATION W/RFL Routine 10/24/2024 9:42 AM EDT Annual physical exam HEPATITIS C AB W/REFL TO HCV RNA, QN, PCR Routine 10/24/2024 9:42 AM EDT Annual physical exam HEMOGLOBIN A1C Routine 10/24/2024 9:42 AM EDT Annual physical exam COMPREHENSIVE METABOLIC PANEL Routine 10/24/2024 9:42 AM EDT Annual physical exam CBC Routine 10/24/2024 9:42 AM EDT Annual physical exam CHLAMYDIA/N. GONORRHOEAE RNA, TMA, UROGENITAL Routine 10/24/2024 9:42 AM EDT Annual physical exam THINPREP IMAGING PAP AND HPV MRNA E6/E7 WITH REFLEX TO HPV 16,18/45 Routine 01/17/2024 3:04 PM EDT from Last 3 Months or Most Recently Relevant to Health Maintenance Results * Syphilis Screen (10/24/2024 9:42 AM EDT) Syphilis Screen Nonreactive Nonreactive [facility] Blood 10/24/2024 9:42 AM EDT 10/24/2024 11:19 AM EDT Ya Khan MD LAB BLOOD ORDERAB LES Final Result [facility] [address] [place] [phone] * TSH with Reflex to Free T4 (10/24/2024 9:42 AM EDT) TSH reflex Free T4 1.14 0.32 - 4.0 uIU/mL [facility] Blood 10/24/2024 9:42 AM EDT 10/24/2024 11:19 AM EDT us Ya Khan MD LAB BLOOD ORDERAB LES Final Result Performing Organization Address [facility] Co de Phone Number [facility] [address] [place] [phone] * Hepatitis C Antibody with Reflex to HCV, RNA, Quantitative, Real-Time PCR (10/24/2024 9:42 AM EDT) Pathologist [facility] Hepatitis C Antibody Nonreactive Nonreactive [facility] Comment:Antibodies to HCV no t detected; does not exclude early acuteHCV infection. Blood Venous blood specimen / Unknown 10/24/2024 9:42 AM EDT 10/24/2024 11:19 AM EDT us Ya Khan MD LAB BLOOD ORDERAB LES Final Result Performing Organization Address [facility] Phone Number [facility] [address] [place] [phone] * (ABNORMAL) Iron And Total Iron Binding Capacity (10/24/2024 9:42 AM EDT) Pathologist [facility] Iron 178(H) 30 - 160 mcg/dL [facility] Total Iron Binding Capacity 339 228 - 428 mcg/dL [facility] Percent Iron Saturation 53(H) 15 - 50 % [facility] Unsaturated Iron Binding 161 ug/dL [facility] Blood Venous blood specimen / Unknown 10/24/2024 9:42 AM EDT 10/24/2024 11:19 AM EDT Ya Khan MD LAB BLOOD ORDERAB LES Final Result Performing Organization Address [facility] Co de Phone Number [facility] [address] [place] [phone] * Chlamydia/N. Gonorrhoeae RNA, TMA, Urogenitial (10/24/2024 9:42 AM EDT) CT PCR NOT DETECTED Not Detect. [facility] Comment:A not detected test result does not exclude the possibilityof infection because test results can be affected byimproper specimen collection, concurrent antibiotic therapy,or the number of organisms in the specimen which may bebelow the sensitivity of the test. As with many diagnostictests, results from the Xpert CT/NG assay should beinterpreted in conjunction with other laboratory andclinical data available to the clinician.Xpert CT/NG performance has not been evaluated in patientsless than 14 years of age. The assay should not be used forthe evaluationof suspected sexual abuse or for other medico-legalindications. Additional testing is recommended in anycircumstance when false positive or false negative resultscould lead to adverse medical, social or psychologicalconsequences. NG PCR NOT DETECTED Not Detect. [facility] Comment:A not detected test result does not exclude the possibilityof infection because test results can be affected byimproper specimen collection, concurrent antibiotic therapy,or the number of organisms in the specimen which may bebelow the sensitivity of the test. As with many diagnostictests, results from the Xpert CT/NG assay should beinterpreted in conjunction with other laboratory andclinical data available to the clinician.Xpert CT/NG performance has not been evaluated in patientsless than 14 years of age. The assay should not be used forthe evaluationof suspected sexual abuse or for other medico-legalindications. Additional testing is recommended in anycircumstance when false positive or false negative resultscould lead to adverse medical, social or psychologicalconsequences. Urine (Urine, Random) 10/24/2024 9:42 AM EDT 10/24/2024 11:25 AM EDT Narrative [facility] - 10/24/2024 4:32 PM EDT Urine us Ya Khan MD LAB MICROBIOLOGY - GENERAL ORDERABLES Final Result [facility] [address] [place] [phone] * HIV-1/2 Antigen and Antibodies, Fourth Generation, with Reflexes (10/24/2024 9:42 AM EDT) Pathologist [facility] HIV AB/AG Nonreactive Nonreactive [facility] Comment:HIV-1 p24 Ag and/or HIV-1/HIV-2 Ab not detected.A test result that is nonreactive does not exclude thepossibility of exposure to or infection with HIV-1 and/orHIV-2. Nonreactive results in this assay for individualswith prior exposure to HIV-1 and/or HIV-2 may be due toantigen and antibody levels that are below the limit ofdetection of this assay.The scrible HIV Ag/Ab Combo assay result andsupplemental assay results should be interpreted inconjunction with the patient's clinical presentation,history and other laboratory results. If the results areinconsistent with clinical evidence, additional testing issuggested to confirm the result. Blood Venous blood specimen / Unknown 10/24/2024 9:42 AM EDT 10/24/2024 11:19 AM EDT us Ya Khan MD LAB BLOOD ORDERAB LES Final Result [facility] [address] [place] [phone] * CBC (10/24/2024 9:42 AM EDT) Pathologist [facility] White Blood Count 5.5 4.8 - 10.8 X10*3/uL [facility] Red Blood Count 4.47 4.20 - 5.50 X10*6/uL [facility] Hemoglobin 13.5 12.0 - 16.0 g/dl [facility] Hematocrit 39.9 37.0 - 47.0 % [facility] Mean Corpuscular Volume 89.3 80.0 - 98.0 fL [facility] Mean Corpuscular Hemoglobin 30.2 27.0 - 33.0 pg [facility] Mean Corpuscular HGB Conc 33.8 31.0 - 35.0 g/dl [facility] Red Cell Distribution Width 12.3 11.0 - 16.0 % [facility] Platelet Count 253 160 - 400 X10*3/uL [facility] Mean Platelet Volume 10.2 9.4 - 12.3 fL [facility] NRBC Pct Auto 0.0 0.0 - 0.2 /100WBC [facility] NRBC Abs Auto 0.000 0.0 - 0.012 X10*3/uL [facility] Blood Venous blood specimen / Unknown 10/24/2024 9:42 AM EDT 10/24/2024 11:19 AM EDT Ya Khan MD LAB BLOOD ORDERAB LES Final Result Performing Organization Address [facility]/ZIP Co de Phone Number [facility] [address] [place] [phone] * Hemoglobin A1c (10/24/2024 9:42 AM EDT) Hemoglobin A1c 5.1 <6.0 % [facility] Comment:Hemoglobin A1C Refer ence Range Adults: 4.8 - 6.0 % Non diabetic: < 6.0 % Goal: < 7.0 %Additional Action Suggested: > 8.0 %Note: Hemoglobin A1c results are invalid for patients with abnormal amounts of HbF. Blood transfusions may impact the HbA1c concentration in the patient sample. Estimated Average Glucose 100 mg/dL [facility] Comment:eAG = Estimated ave rage glucose which is %A1C expressed asaverage glucose, using the formula of the [id number] Glucose study (ADAG), Diabetes Care, Vol.31,#8,Feb. 2007 Blood Venous blood specimen / Unknown 10/24/2024 9:42 AM EDT 10/24/2024 11:19 AM EDT us Ya Khan MD LAB BLOOD ORDERAB LES Final Result Performing Organization Address [facility]/ZIP Co de Phone Number [facility] [address] [place] [phone] * Ferritin (10/24/2024 9:42 AM EDT) Ferritin 19 10 - 122 ng/mL [facility] Blood Venous blood specimen / Unknown 10/24/2024 9:42 AM EDT 10/24/2024 11:19 AM EDT us Ya Khan MD LAB BLOOD ORDERAB LES Final Result Performing Organization Address City/[facility] Co de Phone Number [facility] [address] [place] [phone] * Lipid Panel, Standard (10/24/2024 9:42 AM EDT) Triglycerides 73 <150 mg/dL [facility] Comment:Desirable Triglyceri de: less than 150 mg/dLBorderline High Triglyceride 150-199 mg/dLHigh Triglyceride: 200-499 mg/dLVery High Triglyceride: greater than or equal to 5OO mg/dL Cholesterol 143 <200 mg/dL [facility] Comment:Desirable Cholestero l: less than 200 mg/dLBorderline High Cholesterol: 200-239 mg/dLHigh Cholesterol: greater than 239 mg/dL LDL Cholesterol Calculated 67 <100 mg/dL [facility] Comment:Desirable LDL: less than 100 mg/dLNear Optimal/Above Optimal LDL: 110- 129 mg/dLBorderline High LDL: 130-159 mg/dLHigh LDL: 160-189 mg/dLVery High LDL: greater than or equal to 190 mg/dL HDL Cholesterol 62 >40 mg/dL [facility] Comment:Desirable HDL: great er than 40 mg/dL Note: This HDL assay may give artificially low results in patients with liver disease. Blood Venous blood specimen / Unknown 10/24/2024 9:42 AM EDT 10/24/2024 11:19 AM EDT us Ya Khan MD LAB BLOOD ORDERAB LES Final Result Performing Organization Address City/[facility]/ZIP Co de Phone Number [facility] [address] [place] [phone] * (ABNORMAL) Comprehensive Metabolic Panel (10/24/2024 9:42 AM EDT) Sodium 139 135 - 145 mmol/L [facility] Potassium 4.0 3.3 - 5.1 mmol/L [facility] Chloride 107 96 - 108 mmol/L [facility] Carbon Dioxide 25 22 - 29 mmol/L [facility] Anion Gap 11(L) 12 - 20 [facility] Urea Nitrogen (BUN) 11 9 - 16 mg/dL [facility] Creatinine, Serum 0.77 0.5 - 1.4 mg/dL [facility] Estimated Glomerular Filt Rate >60 [facility] Comment:Chronic Kidney Disea se: Estimated GFR < 60 mL/min/1.49z4Amptue Kidney Disease: Estimated GFR < 15 mL/min/1.73m2 Glucose 83 60 - 115 mg/dL [facility] Calcium 9.4 8.4 - 10.2 mg/dL [facility] Bilirubin, Total 0.9 0.0 - 1.0 mg/dL [facility] Aspartate Amino Transferase 22 5 - 31 U/L [facility] Alanine Aminotransferase 15 0 - 31 U/L [facility] Total Protein 7.6 6.5 - 8.0 g/dL [facility] Albumin Level 4.4 3.5 - 5.0 g/dL [facility] Alkaline Phosphatase 39 39 - 117 U/L [facility] Blood Venous blood specimen / Unknown 10/24/2024 9:42 AM EDT 10/24/2024 11:19 AM EDT us Ya Khan MD LAB BLOOD ORDERAB LES Final Result [facility] [address] [place] [phone] * ThinPrep Imaging Pap and HPV mRNA E6/E7 with Reflex to HPV 16,18/45 (01/17/2024 3:04 PM EDT) HPV 16 RNA [facility] HPV 18/45 RNA [facility] HPV nRNA E6/E7 Not Detected Not Detected [facility] Comment:Methodology: Transcr iption-Mediated AmplificationThis assay detects E6/E7 viral messenger RNA (mRNA) from 14high-risk HPV types (16,18,31,33,35,39,45,51,52,56,58,59,66,68).Cervical sources are required for HPV testing.If a vaginal source from a patient who has had atotal hysterectomy with removal of cervix wassubmitted, please contact the testing laboratoryfor alternative testing options.For additional information, please refer [email or web address]/[email or web address](This link if provided for information/educational purposes only.)THIS TEST WAS PERFORMED AT:[facility] [address] [phone] ESCALANTE MD SOURCE: SEE NOTE [facility] Comment:Cervix Report Status: [facility] Clinical Information: SEE NOTE [facility] Comment:None given LMP: SEE NOTE [facility] Comment:01/13/2024 Prev. PAP: SEE NOTE [facility] Comment:NONE GIVEN Prev. BX: SEE NOTE [facility] Comment:NONE GIVEN Statement Of Adequacy: SEE NOTE [facility] Comment:Satisfactory for moe luation.Endocervical/transformation zone componentpresent. General Categorization: [facility] Interpretation/Result: SEE NOTE [facility] Comment:Cytology Results: Ne gative for intraepitheliallesion or malignancy. Cytology Comment SEE NOTE [facility] Comment:This Pap test has be en evaluated with computerassisted technology. Rod Puller: SEE NOTE [facility] Comment:GSG, CT(ASCP)CT scre ening location: [place] [address] Review Rod Puller: [facility] Pathologist [facility] PAP Infection [facility] See Note SEE NOTE [facility] Comment:EXPLANATORY NOTE:The Pap is a screening test for cervical cancer. It isnot a diagnostic test and is subject to false negativeand false positive results. It is most reliable when asatisfactory sample, regularly obtained, is submittedwith relevant clinical findings and history, and whenthe Pap result is evaluated along with historic andcurrent clinical information. 01/17/2024 3:04 PM EDT 01/17/2024 4:02 PM EDT Narrative [facility] - 01/24/2024 12:48 PM EDT SEE SCANNED RESULTS IN EMRWas previous PAP abnormal? UnknownClinical Information: routineCollection Date: 01/16/24igh risk HPV with 16 ?? 18 genotyping? YReflex HPV any abnormal diagnosis? YReflex HPV if ASCUS only? NHigh Risk HPV (any diagnosis)? YLMP: 01/13/24Date of previous PAP unknownPerformed by: : [id number] us Generic External Data Provider LAB PATHOLOGY ORD ERABLES Final Result [facility] [address] [place] [phone] from Last 3 Months or Most Recently Relevant to Health Maintenance [place] [address] [place] [address] C3 Care Teams 2Nd Pressman Relationship Specialty Start Date End Date Ya Rojas MD [address] [place] [phone] PCP - General Internal Medicine 08/30/23
[2024-12-12 12:01] LABS: Bacteria Urine None Seen (None Seen); Hyaline Casts Urine 0-2 /LPF (0-2); RBC Urine 0-2 /HPF (0-2); WBC Urine 0-5 /HPF (0-5)
[2024-12-12 12:25] LABS: Creatinine Urine 54.55 mg/dL; Total Protein Urine Random < 7 mg/dL (<12)
[2024-12-13 12:13] LABS: Complement C3 132 mg/dL (83-193)
== END 2024-12-12 10:18 | disposition home or self-care (01) ==
LOC: HO.HHCL 10:17
PROVIDERS: Visit Provider Student in an Organized Health Care Education/Training Program
DX: M32.9 Systemic lupus erythematosus, unspecified (principal); Z79.899 Other long term (current) drug therapy
CPT/HCPCS: 36415; 80053; 81001; 82570; 84156; 85025; 85652; 86140; 86160

== ENCOUNTER 2024-12-20 08:03 | Outpatient (AMB) | payer MEDICAID, SELFPAY ==
--- NOTE | 2024-12-20 08:04 | A.OFFVIS_ITS ---
Vital Signs 12/20/24 08:08 Height 5 ft Weight 131 lb 9.855 oz BMI 25.7 BP 90/62 Blood Pressure Location Lt brachial Position Sitting Pulse 75 Pulse Source Pulse Oximeter Pulse Oximetry (%) 97 Oxygen Delivery Method Room Air Intake Visit Reasons: 4 months Intake Note: Patient presents for 4 months follow up. Allergies No Known Allergies Allergy (Verified 12/20/24 08:08) Medication List - Last Reconciled 12/20/24 by Deborah Bradley MD albuterol sulfate 90 mcg/actuation (Ventolin HFA) 2 puffs inhalation Q6H PRN Brace,wrist (Wrist Brace - one) As directed. Right and left hand and wrist carpal tunnel brace hydroxychloroquine 400 mg (2 x 200 mg) PO DAILY magnesium oxide 400 mg PO BEDTIME 30 days phenazopyridine 200 mg PO TID PRN 6 doses riboflavin (vitamin B2) 400 mg PO DAILY 30 days sumatriptan succinate 50 - 100 mg orally at onset of headache, may repeat in 2 hrs PRN; max 2 tabs per day or 4 tabs/week (may take with Ibuprofen) 30 days HPI Comments Details: Patient is a 29 year-old female with SLE without history of significant organ involvement who presents for follow-up Interval History: Last seen 08/23/24 with me. At that visit she was complaining of numbness and tingling to her bilateral hands especially when she is sleeping at night. No signs or symptoms concerning for active lupus. She had a positive Phalen's test on examination consistent with bilateral carpal tunnel syndrome. Recommended bilateral wrist brace at nights Today, She states that she has been using the splints, which has helped but they are uncomfortable to wear for sleeping. Hands still get numb Complaining of low back pain, using a patch but still has some pain Has a lot of fatigue and has easy bruising Rheumatologic History: SLE Ddx 2019 in [place] Arthritis, mouth ulcers, dry eyes/dry mouth, photosensitivity, malar rash, Raynaud's Positive ELIZABETH, positive double-stranded DNA, low complements Negative Delarosa and SSA/SSB Plaquenil 11/2023 Current Rheumatology Medication(s): Plaquenil 200mg alt 400mg every other day PFSH Medical History Long-term use of hydroxychloroquine Hx of migraine headaches Bone pain of hand Hx of systemic lupus erythematosus (SLE) SLE (systemic lupus erythematosus) Mixed anxiety and depressive disorder Migraine Mild intermittent asthma in adult without complication CTS (carpal tunnel syndrome) Surgical History Hx of tubal ligation Hx of section Family History Maternal Grandmother Arthritis Paternal Grandmother Arthritis Social History Household Members: Spouse, Family and Children Housing: House Alcohol intake: current Alcohol intake frequency: holidays/special occasions only Patient Tobacco Use Status: Never used Tobacco Tobacco use type: Cigarette Current occupational status: unemployed Sexual orientation: Straight/Heterosexual Gender identity: Female Review of Systems Const Details: Review of Systems Constitutional: Denies fever, chills, weight loss ENT: Denies vision changes, eye pain or eye redness, dental caries, dry mouth GI: Denies nausea, vomiting, diarrhea, abdominal pain, change in BM Pulm: Denies SOB, [place], hemoptysis, wheezing Cards: Denies chest pain, palpitations Skin: Denies Raynaud's, rash, nail changes, photosensitivity, INSULATION HELPER: Denies headaches, weakness, paresthesias, recurrent falls MSK: as per HPI All other systems reviewed and are unremarkable except noted above Physical Exam Vital Signs: Last Vital Signs Pulse 75 12/20/24 08:08 BP 90/62 12/20/24 08:08 Pulse Ox 97 12/20/24 08:08 Oxygen Delivery Method Room Air 12/20/24 08:08 BMI result Body Mass Index 25.7 Vital signs reviewed Physical Examination CONSTITUITIONAL Patient alert and cooperative. Well appearing and in no apparent painful distress HEENT Conjunctiva and sclera clear. ?Pupils equal round and reactive to light. ?No lymphadenopathy. ? CHEST/RESPIRATORY SYSTEM Normal respiratory effort and able to speak in complete sentences. ?Clear to auscultation bilaterally. ?No crackles, rales, rhonchi, wheezes heard. CARDIAC SYSTEM Regular rate and rhythm. ?S1 and S2 heard no murmurs. 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 No deformities noted. ?No synovitis noted to the MCPs, PIPs or DIPs. ?No tenderness to palpation of these joints. Wrists: ?Full range of motion at the wrists without pain. ?No tenderness to palpation or synovitis noted to the wrists. Positive Phalen's test after 15 seconds Elbows: Full range of motion without pain. No tenderness, weakness, swelling, increased warmth or erythema. Shoulders: Full range of motion without pain. No tenderness, weakness, swelling, increased warmth or erythema. Hips: Full range of motion without pain. Hip bursa: No tenderness to palpation Knees: ?Full range of motion. ?No tenderness, swelling, increased warmth or erythema.?No effusion or crepitations Ankles: Full range of motion. ?No tenderness, swelling, increased warmth or erythema.? Feet: ?Negative squeeze test. ?No tenderness to palpation or swelling of the MTPs. Tender points:?No tenderness to palpation of the bilateral trapezius, supraspinatus, greater trochanters, anterior costochondral junctions, bilateral gluteal areas, bilateral suboccipital muscle insertions Negative straight leg raise bilaterally TTP of the paraspinal muscles of the lumbar spine SKIN Skin intact without rashes. Results Reviewed Results Reviewed: Laboratory Tests 12/12/24 10:45 WBC 4.6 L RBC 4.22 Hgb 12.7 Hct 37.6 Plt Count 248 ESR 11 Sodium 140 Potassium 4.0 Chloride 108 Carbon Dioxide 27 BUN 13 Creatinine 0.81 AST 22 ALT 16 Alkaline Phosphatase 46 C-Reactive Protein < 0.10 Total Protein 7.4 Albumin 4.5 Laboratory Tests 08/16/24 12/12/24 13:13 10:45 Double Strand DNA Ab 29 H Complement C3 134 132 Complement C4 21 21 Laboratory Tests 12/12/24 10:44 Urine Color Yellow Urine Protein Negative Urine Blood Negative U Random Total Protein < 7 Assessment & Plan Assessment & Plan (1) SLE (systemic lupus erythematosus): Comment: SLE Ddx 2020 in [place] Arthritis, mouth ulcers, dry eyes/dry mouth, photosensitivity, malar rash, Raynaud's Positive ELIZABETH, positive double-stranded DNA, low complements Negative Delarosa and SSA/SSB Plaquenil 11/2023 Code(s): M32.9 - Systemic lupus erythematosus, unspecified Category: Medical Qualifiers: Systemic lupus erythematosus type: unspecified Systemic lupus erythematosus organ involvement: unspecified Qualified Code(s): M32.9 - Systemic lupus erythematosus, unspecified Plan: #SLE Patient is a 29-year-old female with lupus without any significant organ involvement. Joint pain is doing better on Plaquenil. Fatigue is an unfortunate sequelae of having lupus which there is no treatment for it. Recommended lifestyle changes and adjustments to account for this fatigue. She also complained of easy bruising. Her platelets were normal. No evidence to suggest underlying coagulopathy. Plan - Plaquenil 200mg alternating with 400mg - RTC 4 months - Labs before next visit: CBC, CMP, ESR, CRP, C3, C4, dsDNA, UA, UPC (2) Bilateral carpal tunnel syndrome: Code(s): G56.03 - Carpal tunnel syndrome, bilateral upper limbs Plan: #Bilateral carpal tunnel syndrome Patient with numbness and tingling to her bilateral hands that requires her to shake out her hands in the middle of the night. Positive Phalen's test on exam History and exam consistent with carpal tunnel syndrome. Did not improve much with the brace. We will get ultrasound-guided steroid injection Plan - Bilateral US guided carpal tunnel steroid injection (3) Back Pain: Code(s): M54.9 - Dorsalgia, unspecified Qualifiers: Back pain location: low back pain Chronicity: chronic Back pain laterality: midline Sciatica presence: without sciatica Qualified Code(s): M54.50 - Low back pain, unspecified; G89.29 - Other chronic pain Plan: #Low back pain Patient with low back pain. No evidence of sciatica. We will give a 2 week course of high-dose ibuprofen and check x-rays Plan - XR L spine - Ibuprofen 800mg tid x 14 days (4) Long-term use of hydroxychloroquine: Code(s): Z79.899 - Other mcc (current) drug therapy Category: Medical Plan: #Long-term Use of Hydroxychloroquine Discussed with patient the risks and benefits of hydroxychloroquine in managing the rheumatic condition Benefits include: - Reduced pain, reduce mortality, maintenance of remission and reduction of flares Risks include: - GI upset, skin hyperpigmentation, retinal toxicity (especially after more than 5 years of use), myopathy Advised yearly ophthalmology visits Last ophthalmology visit: 11/30/23. No abnormalities detected Plan I spent 30 minutes reviewing the record and labs, seeing the patient, discussing the treatment plan and documenting in the medical record Orders: Orders US guided asp or inj major jt Today G56.03 - Carpal tunnel syndrome, bilateral upper limbs Complement C3 6 Months M32.9 - Systemic lupus erythematosus, unspecified Anti DNA DS Antibody 6 Months M32.9 - Systemic lupus erythematosus, unspecified Complete Blood Count Auto Diff 6 Months M32.9 - Systemic lupus erythematosus, unspecified Comprehensive Met. Panel 6 Months M32.9 - Systemic lupus erythematosus, unspeci fied C Reactive Protein 6 Months M32.9 - Systemic lupus erythematosus, unspecified UA w Microscopic 6 Months M32.9 - Systemic lupus erythematosus, unspecified XR lumbar spine 2-3V Today M54.9 - Dorsalgia, unspecified Complement C4 6 Months M32.9 - Systemic lupus erythematosus, unspecified Erythrocyte Sedimentation Rate 6 Months M32.9 - Systemic lupus erythematosus, unspecified Protein Creatinine Ratio, Ur 6 Months M32.9 - Systemic lupus erythematosus, unspecified Vitamin D 25-OH Total 6 Months E55.9 - Vitamin D deficiency, unspecified Medications: New ibuprofen 800 mg PO Q8H 14 days 42 tabs 0RF M54.9 - Dorsalgia, unspecified Discontinued phenazopyridine Discontinued Reason: Patient Completed Course 200 mg PO TID PRN 6 tabs 0RF dysuria Coding Level of Care Code Est Pt Level 4 (09455) Complex EM visit Add On G2211 Diagnoses Systemic lupus erythematosus, unspecified SLE type, unspecified organ involvement status M32.9 Systemic lupus erythematosus type: unspecified Systemic lupus erythematosus organ involvement: unspecified Bilateral carpal tunnel syndrome G56.03 Chronic midline low back pain without sciatica M54.50; G89.29 Back pain location: low back pain Chronicity: chronic Back pain laterality: midline Sciatica presence: without sciatica Long-term use of hydroxychloroquine Z79.899
--- OUTSIDE RECORDS SUMMARY | 2024-12-20 08:06 | XMS_ITS | Clinical Summary ---
Author Organization [employer] Address [address] [facility] [address]t [place] [address] Care Team Providers Care Plaster Foreman Name Role Phone Ya Rojas MD Primary [...] move, and relationship issues. Isac moved from [place] on 12/2022 looking for better opportunities. She [...] intervention , [facility] as needed, Patient to engage [...] past 12 months) . Referral placed to [facility]. Number giving to patient. SLE (systemic [...] intervention , [facility] as needed, Patient to engage [...] Type Department Care Team Description 12/05/[address] [phone] Ya Rojas MD Results 10/26/[address] [address] Ya Rojas MD Chronic low back pain, unspecified back pain laterality, unspecified whether sciatica present; Migraine without status migrainosus, not intractable, unspecified migraine type 10/24/2024 9:00 AM EDT Office Visit [address] [address] Ya Rojas MD Annual physical exam (Primary Dx); SLE (systemic lupus erythematosus related syndrome) ([facility]); Mild intermittent asthma with (acute) exacerbation; Migraine without status migrainosus, not intractable, unspecified migraine type; Other migraine without status migrainosus, not intractable 10/24/[address] [address] Ya Rojas MD Referral 10/24/2024 Travel 10/17/[address] [address] Ya Rojas MD chart prep 10/17/2024 Patient Outreach [facility] [address] [place], [place] [phone] Ya Rojas MD Pre-visit Planning (SDOH negative, Tobacco screening negative. ) 09/20/2024 Population Health Risk Score [facility] () [address] [phone] Provider, Population Health Generic from [...] Description 01/28/2025 10:30 AM EDT Office Visit [facility] [address] [place] [address] Tarka Indigo, OD [address] [place] [address] Health Maintenance Due Date Last Done Comments [...] 9:42 AM EDT) Syphilis Screen Nonreactive Nonreactive [facility] Blood 10/24/2024 9:42 AM EDT 10/24/2024 11:19 AM EDT Ya Khan MD LAB BLOOD ORDERAB LES Final Result [facility] [address] [place] [phone] * TSH with Reflex to Free T4 (10/24/2024 9:42 AM EDT) TSH reflex Free T4 1.14 0.32 - 4.0 uIU/mL [facility] Blood 10/24/2024 9:42 AM EDT 10/24/2024 11:19 AM EDT us Ya Khan MD LAB BLOOD ORDERAB LES Final Result Performing Organization Address [facility] Co de Phone Number [facility] [address] [place] [phone] * Hepatitis C Antibody with Reflex to HCV, RNA, Quantitative, Real-Time PCR (10/24/2024 9:42 AM EDT) Pathologist [facility] Hepatitis C Antibody Nonreactive Nonreactive [facility] Comment:Antibodies to HCV no t detected; does not exclude early acuteHCV infection. Blood Venous blood specimen / Unknown 10/24/2024 9:42 AM EDT 10/24/2024 11:19 AM EDT us Ya Khan MD LAB BLOOD ORDERAB LES Final Result Performing Organization Address [facility] Phone Number [facility] [address] [place] [phone] * (ABNORMAL) Iron And Total Iron Binding Capacity (10/24/2024 9:42 AM EDT) Pathologist [facility] Iron 178(H) 30 - 160 mcg/dL [facility] Total Iron Binding Capacity 339 228 - 428 mcg/dL [facility] Percent Iron Saturation 53(H) 15 - 50 % [facility] Unsaturated Iron Binding 161 ug/dL [facility] Blood Venous blood specimen / Unknown 10/24/2024 9:42 AM EDT 10/24/2024 11:19 AM EDT Ya Khan MD LAB BLOOD ORDERAB LES Final Result Performing Organization Address [facility] Co de Phone Number [facility] [address] [place] [phone] * Chlamydia/N. Gonorrhoeae RNA, TMA, Urogenitial (10/24/2024 9:42 AM EDT) CT PCR NOT DETECTED Not Detect. [facility] Comment:A not detected test result does [...] psychologicalconsequences. NG PCR NOT DETECTED Not Detect. [facility] Comment:A not detected test result does [...] AM EDT 10/24/2024 11:25 AM EDT Narrative [facility] - 10/24/2024 4:32 PM EDT Urine us Ya Khan MD LAB MICROBIOLOGY - GENERAL ORDERABLES Final Result [facility] [address] [place] [phone] [phone] * HIV-1/2 Antigen and Antibodies, Fourth Generation, with Reflexes (10/24/2024 9:42 AM EDT) Pathologist [facility] HIV AB/AG Nonreactive Nonreactive [facility] Comment:HIV-1 p24 Ag and/or HIV-1/HIV-2 Ab not detected.A test result that is nonreactive does not exclude thepossibility of exposure to or infection with HIV-1 and/orHIV-2. Nonreactive results in this assay for individualswith prior exposure to HIV-1 and/or HIV-2 may be due toantigen and antibody levels that are below the limit ofdetection of this assay.The [employer] HIV Ag/Ab Combo assay result andsupplemental assay results should be interpreted inconjunction with the patient's clinical presentation,history and other laboratory results. If the results areinconsistent with clinical evidence, additional testing issuggested to confirm the result. Blood Venous blood specimen / Unknown 10/24/2024 9:42 AM EDT 10/24/2024 11:19 AM EDT us Ya Khan MD LAB BLOOD ORDERAB LES Final Result [facility] [address] [place] [phone] * CBC (10/24/2024 9:42 AM EDT) Pathologist [facility] White Blood Count 5.5 4.8 - 10.8 X10*3/uL [facility] Red Blood Count 4.47 4.20 - 5.50 X10*6/uL [facility] Hemoglobin 13.5 12.0 - 16.0 g/dl [facility] Hematocrit 39.9 37.0 - 47.0 % [facility] Mean Corpuscular Volume 89.3 80.0 - 98.0 fL [facility] Mean Corpuscular Hemoglobin 30.2 27.0 - 33.0 pg [facility] Mean Corpuscular HGB Conc 33.8 31.0 - 35.0 g/dl [facility] Red Cell Distribution Width 12.3 11.0 - 16.0 % [facility] Platelet Count 253 160 - 400 X10*3/uL [facility] Mean Platelet Volume 10.2 9.4 - 12.3 fL [facility] NRBC Pct Auto 0.0 0.0 - 0.2 /100WBC [facility] NRBC Abs Auto 0.000 0.0 - 0.012 X10*3/uL [facility] Blood Venous blood specimen / Unknown 10/24/2024 9:42 AM EDT 10/24/2024 11:19 AM EDT Ya Khan MD LAB BLOOD ORDERAB LES Final Result Performing Organization Address [facility]/ZIP Co de Phone Number [facility] [address] [place] [phone] * Hemoglobin A1c (10/24/2024 9:42 AM EDT) Hemoglobin A1c 5.1 <6.0 % [facility] Comment:Hemoglobin A1C Refer ence Range Adults: 4.8 - 6.0 % Non diabetic: < 6.0 % Goal: < 7.0 %Additional Action Suggested: > 8.0 %Note: Hemoglobin A1c results are invalid for patients with abnormal amounts of HbF. Blood transfusions may impact the HbA1c concentration in the patient sample. Estimated Average Glucose 100 mg/dL [facility] Comment:eAG = Estimated ave rage glucose which is %A1C expressed asaverage glucose, using the formula of the V6T-WooqelyLcxdmbn Glucose study (ADAG), Diabetes Care, Vol.31,#8,Feb. 2007 Blood Venous blood specimen / Unknown 10/24/2024 9:42 AM EDT 10/24/2024 11:19 AM EDT us Ya Khan MD LAB BLOOD ORDERAB LES Final Result Performing Organization Address [facility]/ZIP Co de Phone Number [facility] [address] [place] [phone] * Ferritin (10/24/2024 9:42 AM EDT) Ferritin 19 10 - 122 ng/mL [facility] Blood Venous blood specimen / Unknown 10/24/2024 9:42 AM EDT 10/24/2024 11:19 AM EDT us Ya Khan MD LAB BLOOD ORDERAB LES Final Result Performing Organization Address [facility] Co de Phone Number [facility] [address] [place] [phone] * Lipid Panel, Standard (10/24/2024 9:42 AM EDT) Triglycerides 73 <150 mg/dL [facility] Comment:Desirable Triglyceri de: less than 150 mg/dLBorderline High Triglyceride 150-199 mg/dLHigh Triglyceride: 200-499 mg/dLVery High Triglyceride: greater than or equal to 5OO mg/dL Cholesterol 143 <200 mg/dL [facility] Comment:Desirable Cholestero l: less than 200 mg/dLBorderline High Cholesterol: 200-239 mg/dLHigh Cholesterol: greater than 239 mg/dL LDL Cholesterol Calculated 67 <100 mg/dL [facility] Comment:Desirable LDL: less than 100 mg/dLNear Optimal/Above Optimal LDL: 110- 129 mg/dLBorderline High LDL: 130-159 mg/dLHigh LDL: 160-189 mg/dLVery High LDL: greater than or equal to 190 mg/dL HDL Cholesterol 62 >40 mg/dL [facility] Comment:Desirable HDL: great er than 40 mg/dL Note: This HDL assay may give artificially low results in patients with liver disease. Blood Venous blood specimen / Unknown 10/24/2024 9:42 AM EDT 10/24/2024 11:19 AM EDT us Ya Khan MD LAB BLOOD ORDERAB LES Final Result Performing Organization Address City/[facility]/ZIP Co de Phone Number [facility] [address] [place] [phone] * (ABNORMAL) Comprehensive Metabolic Panel (10/24/2024 9:42 AM EDT) Sodium 139 135 - 145 mmol/L [facility] Potassium 4.0 3.3 - 5.1 mmol/L [facility] Chloride 107 96 - 108 mmol/L [facility] Carbon Dioxide 25 22 - 29 mmol/L [facility] Anion Gap 11(L) 12 - 20 [facility] Urea Nitrogen (BUN) 11 9 - 16 mg/dL [facility] Creatinine, Serum 0.77 0.5 - 1.4 mg/dL [facility] Estimated Glomerular Filt Rate >60 [facility] Comment:Chronic Kidney Disea se: Estimated GFR < 60 mL/min/[id number] Kidney Disease: Estimated GFR < 15 mL/min/1.73m2 Glucose 83 60 - 115 mg/dL [facility] Calcium 9.4 8.4 - 10.2 mg/dL [facility] Bilirubin, Total 0.9 0.0 - 1.0 mg/dL [facility] Aspartate Amino Transferase 22 5 - 31 U/L [facility] Alanine Aminotransferase 15 0 - 31 U/L [facility] Total Protein 7.6 6.5 - 8.0 g/dL [facility] Albumin Level 4.4 3.5 - 5.0 g/dL [facility] Alkaline Phosphatase 39 39 - 117 U/L [facility] Blood Venous blood specimen / Unknown 10/24/2024 9:42 AM EDT 10/24/2024 11:19 AM EDT us Ya Khan MD LAB BLOOD ORDERAB LES Final Result [facility] [address] [place] [phone] [phone] * ThinPrep Imaging Pap and HPV mRNA E6/E7 with Reflex to HPV 16,18/45 (01/17/2024 3:04 PM EDT) HPV 16 RNA [facility] HPV 18/45 RNA [facility] HPV nRNA E6/E7 Not Detected Not Detected [facility] Comment:Methodology: Transcr iption-Mediated AmplificationThis assay detects E6/E7 viral messenger RNA (mRNA) from 14high-risk HPV types (16,18,31,33,35,39,45,51,52,56,58,59,66,68).Cervical sources are required for HPV testing.If a vaginal source from a patient who has had atotal hysterectomy with removal of cervix wassubmitted, please contact the testing laboratoryfor alternative testing options.For additional information, please refer tohttp://education.ABOVE [employer]/faq/XUB128i8(This link if provided for information/educational purposes only.)THIS TEST WAS PERFORMED AT:[employer] [address] [id number] ESCALANTE MD SOURCE: SEE NOTE [facility] Comment:Cervix Report Status: [facility] Clinical Information: SEE NOTE [facility] Comment:None given LMP: SEE NOTE [facility] Comment:01/13/2024 Prev. PAP: SEE NOTE [facility] Comment:NONE GIVEN Prev. BX: SEE NOTE [facility] Comment:NONE GIVEN Statement Of Adequacy: SEE NOTE [facility] Comment:Satisfactory for moe luation.Endocervical/transformation zone componentpresent. General Categorization: [facility] Interpretation/Result: SEE NOTE [facility] Comment:Cytology Results: Ne gative for intraepitheliallesion or malignancy. Cytology Comment SEE NOTE [facility] Comment:This Pap test has be en evaluated with computerassisted technology. Biofuels Technology Development Manager: SEE NOTE [facility] Comment:GSG, CT(ASCP)CT scre ening location: [place] [address] Review Biofuels Technology Development Manager: [facility] Pathologist [facility] PAP Infection [facility] See Note SEE NOTE [facility] Comment:EXPLANATORY NOTE:The Pap is a screening test for cervical cancer. It isnot a diagnostic test and is subject to false negativeand false positive results. It is most reliable when asatisfactory sample, regularly obtained, is submittedwith relevant clinical findings and history, and whenthe Pap result is evaluated along with historic andcurrent clinical information. 01/17/2024 3:04 PM EDT 01/17/2024 4:02 PM EDT Narrative [facility] - 01/24/2024 12:48 PM EDT SEE SCANNED RESULTS IN EMRWas previous PAP abnormal? UnknownClinical Information: routineCollection Date: 01/16/24igh risk HPV with 16 ?? 18 genotyping? YReflex HPV any abnormal diagnosis? YReflex HPV if ASCUS only? NHigh Risk HPV (any diagnosis)? YLMP: 01/13/24Date of previous PAP unknownPerformed by: : [id number] us Generic External Data Provider LAB PATHOLOGY ORD ERABLES Final Result [facility] [address] [place] [phone] [phone] from Last 3 Months or Most Recently Relevant to Health Maintenance [place] [address] [place] [address] C3 Care Teams Plaster Foreman Relationship Specialty Start Date End Date Ya Rojas MD [address] [place] [phone] PCP - General Internal Medicine 08/30/23
[2024-12-20 08:08] VITALS: BP 90/62; PULSE 75; O2SAT 97; BMI 25.7
== END 2024-12-20 08:35 | disposition home or self-care (01) ==
LOC: HO.RHE 08:03
PROVIDERS: PCP Pediatrics; Visit Provider Student in an Organized Health Care Education/Training Program
DX: M32.9 Systemic lupus erythematosus, unspecified (principal); G56.03 Carpal tunnel syndrome, bilateral upper limbs; M54.50 Low back pain, unspecified; G89.29 Other chronic pain; Z79.899 Other long term (current) drug therapy
CPT/HCPCS: 99214

== ENCOUNTER → 2024-12-20 08:03 | Outpatient (BNVA) | payer MEDICAID, SELFPAY | PROVIDERS: PCP Pediatrics; Visit Provider Student in an Organized Health Care Education/Training Program | DX: G56.03 Carpal tunnel syndrome, bilateral upper limbs (principal); M32.9 Systemic lupus erythematosus, unspecified; M54.50 Low back pain, unspecified; G89.29 Other chronic pain; Z79.899 Other long term (current) drug therapy | CPT/HCPCS: 99212 ==

== ENCOUNTER 2025-02-07 08:53 | Outpatient (REF) | payer MEDICAID, SELFPAY ==
--- OUTSIDE RECORDS SUMMARY | 2025-02-07 09:07 | XMS_ITS | Clinical Summary ---
Author Organization [facility] Address [address] [place] [address] Care Team Providers Care Grocery Worker Name Role Phone Unavailable Primary Care Provider [...] Cervical Cancer Screening: P ap Smear 2014 HIV Screening 08/03/2023 Hepatitis C Screening 08/03/2023 Social Influencers of Health Screening 08/03/2023 COVID-19 Vaccine ( - 2023-2 5 season) 2024 Depression Screening 07/10/2024 Influenza Vaccine (#1) 2025 HIB Vaccines Aged Out No longer eligi [...] 5 Years) and At-Risk Patients (6 to 49 Years) Aged Out No longer eligible b ased on patient's age to complete this topic RSV Immunization Patients Un jakob 20 months Aged Out No longer eligible b ased on patient's age to complete this topic Varicella Vaccines Aged Out No longer eligible based on patient's age to complete this topic
--- OUTSIDE RECORDS SUMMARY | 2025-02-07 09:07 | XMS_ITS | Clinical Summary ---
Author Organization [employer] Address [address] [facility] [address] [place] [address] Care Team Providers Care Manager French Name Role Phone Ya Rojas MD Primary [...] move, and relationship issues. Isac moved from [place] on 12/2022 looking for better opportunities. She [...] intervention , [facility], Patient to engage in [...] past 12 months) . Referral placed to [facility]. Number giving to patient. SLE (systemic lupus [...] intervention , [facility], Patient to engage in [...] past 12 months) . [facility] Number giving to patient. Encounters Date Type Department Care Team Description 12/24/2024 Telephone [facility] [address] [place], [place] [phone] Ya Rojas MD Nurse Triage 12/05/2024 Telephone [facility] [address] [place] [address] Ya Rojas MD Results from Last 3 Months Immunizations Immunization Administration [...] 77 10/24/2024 9:10 AM EDT Temperature 36.8 C (98.2 F) 10/24/2024 9:10 AM EDT Respiratory Rate 20 10/24/2024 9:10 AM EDT Oxygen Saturation 98% 10/24/2024 9:10 AM EDT Inhaled Oxygen Concentration - - Weight 59.9 kg (132 lb) 10/24/2024 9:10 AM EDT Height 154.9 cm (5' 1 ) 10/24/2024 9:10 AM EDT Body Mass Index 24.94 10/24/2024 9:10 AM EDT Plan of Treatment Health Maintenance Due Date Last Done Comments Family Planning (PISQ) 2008 DTaP/Tdap/Td Vaccines (1 - Tdap) 2012 Hepatitis B Vaccines (1 of 3 - 19+ 3-dose series) 2012 Pneumococcal Vaccine: Pediatrics (0 to 5 Years) and At-Risk Patients (6 to 49) Years (1 of 2 - PCV) 2012 Influenza Vaccine (#1) 2025 , 08/30/2023 SDOH Screening 10/17/2025 10/17/2024 Alcohol/Substance Use Screening 10/24/2025 10/24/2024 Depression Screening 10/24/2025 10/24/2024, 10/24/2024 Disability Screening 10/24/2025 10/24/2024 Tobacco Screening 10/24/2025 10/24/2024 Pap Smear 01/16/2027 01/17/2024 Cervical Cancer Screening 01/16/2029 HPV/Cotest 01/16/2029 01/17/2024 Zoster Vaccines (1 of 2) 2043 RSV Patients and Patients Aged 60 years or older (1 - 1-dose 75+ series) 2068 COVID-19 Vaccine Completed 04/03/2024, 08/30/2023 HPV Vaccines Completed [...] Procedure Name Priority Date/Time Associated Diagnosis Comments HEPATITIS C AB W/REFL TO HCV RNA, QN, PCR Routine 10/24/2024 9:42 AM EDT Annual physical exam HIV 1/2 ANTIGEN/ANTIBODY, FOURTH GENERATION W/RFL Routine 10/24/2024 9:42 AM EDT Annual physical exam THINPREP IMAGING PAP AND HPV MRNA E6/E7 WITH REFLEX TO HPV 16,18/45 Routine 01/17/2024 3:04 PM EDT from Last 3 Months or Most Recently Relevant to Health Maintenance Results * Hepatitis C Antibody with Reflex to HCV, RNA, Quantitative, Real-Time PCR (10/24/2024 9:42 AM EDT) Hepatitis C Antibody Nonreactive Nonreactive [facility] Comment:Antibodies to HCV no t detected; does not exclude early acuteHCV infection. Blood Venous blood specimen / Unknown 10/24/2024 9:42 AM EDT 10/24/2024 11:19 AM EDT Ya Khan MD LAB BLOOD ORDERAB LES Final Result [facility] [address] [place] [phone] * HIV-1/2 Antigen and Antibodies, Fourth Generation, with Reflexes (10/24/2024 9:42 AM EDT) HIV AB/AG Nonreactive Nonreactive [facility] Comment:HIV-1 p24 Ag and/or HIV-1/HIV-2 Ab not detected.A test result that is nonreactive does not exclude thepossibility of exposure to or infection with HIV-1 and/orHIV-2. Nonreactive results in this assay for individualswith prior exposure to HIV-1 and/or HIV-2 may be due toantigen and antibody levels that are below the limit ofdetection of this assay.The [email or web address] HIV Ag/Ab Combo assay result andsupplemental assay results should be interpreted inconjunction with the patient's clinical presentation,history and other laboratory results. If the results areinconsistent with clinical evidence, additional testing issuggested to confirm the result. Blood Venous blood specimen / Unknown 10/24/2024 9:42 AM EDT 10/24/2024 11:19 AM EDT us Ya Khan MD LAB BLOOD ORDERAB LES Final Result [facility] [address] [place] [phone] [phone] * ThinPrep Imaging Pap and HPV mRNA E6/E7 with Reflex to HPV 16,18/45 (01/17/2024 3:04 PM EDT) HPV 16 RNA [facility] HPV 18/45 RNA [facility] HPV nRNA E6/E7 Not Detected Not Detected [facility] Comment:Methodology: Transcr iption-Mediated AmplificationThis assay detects E6/E7 viral messenger RNA (mRNA) from 14high-risk HPV types (16,18,31,33,35,39,45,51,52,56,58,59,66,68).Cervical sources are required for HPV testing.If a vaginal source from a patient who has had atotal hysterectomy with removal of cervix wassubmitted, please contact the testing laboratoryfor alternative testing options.For additional information, please refer tohttp://education.ProMed/faq/GFI509p3(This link if provided for information/educational purposes only.)THIS TEST WAS PERFORMED AT:[employer] [place] [phone] ESCALANTE MD SOURCE: SEE NOTE [facility] Comment:Cervix Report Status: [facility] Clinical Information: SEE NOTE [facility] Comment:None given LMP: SEE NOTE [facility] Comment:01/13/2024 Prev. PAP: SEE NOTE [facility] Comment:NONE GIVEN Prev. BX: SEE NOTE [facility] Comment:NONE GIVEN Statement Of Adequacy: SEE [facility] Comment:Satisfactory for moe luation.Endocervical/transformation zone componentpresent. General Categorization: [facility] Interpretation/Result: SEE NOTE [facility] Comment:Cytology Results: Ne gative for intraepitheliallesion or malignancy. Cytology Comment SEE NOTE [facility] Comment:This Pap test has be en evaluated with computerassisted technology. Varnish Inspector: SEE NOTE [facility] Comment:GSG, CT(ASCP)CT scre ening location: [place] [address] Review Varnish Inspector: [facility] Pathologist [facility] PAP Infection [facility] See Note SEE NOTE [facility] Comment:EXPLANATORY NOTE:The Pap is a screening test for cervical cancer. It isnot a diagnostic test and is subject to false negativeand false positive results. It is most reliable when asatisfactory sample, regularly obtained, is submittedwith relevant clinical findings and history, and whenthe Pap result is evaluated along with historic andcurrent clinical information. 01/17/2024 3:04 PM EDT 01/17/2024 4:02 PM EDT Narrative [facility] - 01/24/2024 12:48 PM EDT SEE SCANNED RESULTS IN EMRWas previous PAP abnormal? UnknownClinical Information: routineCollection Date: 01/16/24igh risk HPV with 16 18 genotyping? YReflex HPV any abnormal diagnosis? YReflex HPV if ASCUS only? NHigh Risk HPV (any diagnosis)? YLMP: 01/13/24Date of previous PAP unknownPerformed by: : [id number] us Generic External Data Provider LAB PATHOLOGY ORD ERABLES Final Result [facility] [address] [place] [address] [phone] from Last 3 Months or Most Recently Relevant to Health Maintenance Insurance [address] [place], [place] [address] C3 Care Teams Manager French Relationship Specialty Start Date End Date Ya Rojas MD [address] [place] [phone] PCP - General Internal Medicine 08/30/23
--- OUTSIDE RECORDS SUMMARY | 2025-02-07 09:07 | XMS_ITS | Patient Health Record ---
Author Organization [employer] [facility] JONATHAN V ELEAZAR GARCIA PA Address [address] [facility] [address] [place] [address] Support Name Relationship Address Phone Isac Ge Guarantor Unknown Unavail able Reason For Referral No Information Plan Of Treatment No Information Insurance Providers Payer Name Payer Address Payer Phone Subscriber Number Group Number Insured Name Patient Relationship to Insured Coverage Start Date Coverage End Date [employer] [facility] [address] [address] [place] [phone] [id number] Isac Ge Self - patient is the insured 9
[2025-02-07] MEDS: Lidocaine HCl 2 % MPF 5 ML VIAL SUBCUT (10:16)
--- NOTE | 2025-02-07 14:57 | PCN2_ITS ---
Brief Operative Note Date of procedure: 02/07/25 Pre-op diagnosis: Bilateral carpal tunnel syndrome Procedure: Date: 02/07/2025 Study Type: Limited Ultrasound with Guidance of needle placement Indication: Bilateral carpal tunnel syndrome with failed conservative measures Study Site: Right Wrist Equipment: [employer] Brief History: Patient with bilateral carpal tunnel with failed conservative measures of splinting Findings: ?Orthogonal views of the palmar aspect of the right wrist was obtained in grayscale and Doppler. Procedure: ?After obtaining informed consent for an ultrasound-guided aspiration and glucocorticoid injection of the right wrist, the median nerve was imaged with ultrasound and revealed median nerve diameter 0.201cm2 consistent with carpal tunnel syndrome. ?The radial artery was identified and avoided. The wrist was sterilely prepped with chlorhexidine and anesthetized with lidocaine spray. ?A 21 gauge 1.5 in needle was advanced and placed inferior to the median nerve under direct ultrasound visualization using in plane technique. ?40 mg of kenalog with 1cc 2% lidocaine was injected. ?The procedure was well tolerated. Impressions: ?Right carpal tunnel syndrome with enlarged median nerve. Successful injection of the inferior epineurium of the right median nerve Date: 02/07/2025 Study Type: Limited Ultrasound with Guidance of needle placement Indication: Bilateral carpal tunnel syndrome with failed conservative measures Study Site: Left Wrist Equipment: [employer] Brief History: Patient with bilateral carpal tunnel with failed conservative measures of splinting Findings: ?Orthogonal views of the palmar aspect of the left wrist was obtained in grayscale and Doppler. Procedure: ?After obtaining informed consent for an ultrasound-guided aspiration and glucocorticoid injection of the left wrist, the median nerve was imaged with ultrasound and revealed median nerve diameter 0.197cm2 consistent with carpal tunnel syndrome. ?The radial artery was identified and avoided. The wrist was sterilely prepped with chlorhexidine and anesthetized with lidocaine spray. ?A 21 gauge 1.5 in needle was advanced and placed inferior to the median nerve under direct ultrasound visualization using in plane technique. ?40 mg of kenalog with 1cc 2% lidocaine was injected. ?The procedure was well tolerated. Impressions: ?Left carpal tunnel syndrome with enlarged median nerve. Successful injection of the inferior epineurium of the left median nerve Condition: stable
== END 2025-02-07 08:54 | disposition home or self-care (01) ==
LOC: HO.US 08:53
PROVIDERS: PCP Pediatrics; Visit Provider Student in an Organized Health Care Education/Training Program
DX: M89.8X4 Other specified disorders of bone, hand (principal)
CPT/HCPCS: 20526; 76942; J2003; J3301

== ENCOUNTER → 2025-02-07 08:53 | Outpatient (BNV) | payer MEDICAID, SELFPAY | PROVIDERS: PCP Pediatrics; Visit Provider Student in an Organized Health Care Education/Training Program | DX: G56.03 Carpal tunnel syndrome, bilateral upper limbs (principal) | CPT/HCPCS: 20526; 76942 ==

== ENCOUNTER 2025-04-09 10:07 | Outpatient (REF) | payer MEDICAID, SELFPAY ==
--- OUTSIDE RECORDS SUMMARY | 2025-04-09 09:40 | XMS_ITS | Encounter Summary ---
Author Organization [employer] Address [address] [place] [address] 7 [place] [address] Care Team Providers Care Applications Scientist Name Role Phone Ya Rojas MD Primary Care Pro vider Reason for Referral * Imaging (Urgent) - Authorized Specialty Diagnoses / Procedures Referred By Contac t Referred To Contact Radiology Diagnoses Vaginal bleeding SLE (systemic lupus erythematosus related syndrome) (CMS/HCC) (HCC) Abnormal uterine bleeding Procedures Us Pelvis complete Ruma Gallardo MD [address] [place] [address] Phone: tel: fax: [address] Phone: tel: fax: Referral ID Status Reason Start Date Expiration Date V isits Requested Visits Authorized [id number] Authorized 04/09/2025 04/09/2026 1 1 * Imaging (Urgent) - Authorized Specialty Diagnoses / Procedures Referred By Contac t Referred To Contact Radiology Diagnoses Vaginal bleeding SLE (systemic lupus erythematosus related syndrome) (CMS/HCC) (HCC) Abnormal uterine bleeding Procedures US Pelvis Transvaginal Ruma Gallardo MD [address] [place] [address] Phone: tel: fax: [address] Phone: tel: fax: Referral ID Status Reason Start Date Expiration Date V isits Requested Visits Authorized [id number] Authorized 04/09/2025 04/09/2026 1 1 Reason for Visit * Reason Comments Blood in Urine CO continuous bleedi ng for 17 days. Pt states she's been bleeding no other symptoms Encounter Details Date Type Department Care Team (Latest Contact Info) Description 04/09/2025 9:40 AM EDT Office Visit [facility] [address] [address] Vaginal bleeding (Primary Dx); SLE (systemic lupus [...] 9:19 AM EDT documented in this encounter Plan of Treatment Upcoming Encounters Date Type Department Care Team (Late st Contact Info) Description 06/10/2025 9:45 AM EST Office Visit [facility] [address] [place] [phone] Ya Rojas MD [address] [place] [address] Scheduled Orders Name Type Priority Associated Diagnoses Orde r Schedule CBC auto differential Lab Routine Vaginal bleeding Expected: 04/09/2025 (Approximate), Expires: 04/09/2026 Ferritin Lab Routine Vaginal bleeding Expected: 04/09/2025, Expires: 04/09/2026 Hepatic Function Panel Lab Routine Vaginal bleeding Expected: 04/09/2025 (Approximate), Expires: 04/09/2026 Basic Metabolic Panel Lab Routine Vaginal bleeding Expected: 04/09/2025 (Approximate), Expires: 04/09/2026 Iron And Total Iron Binding Capacity Lab Routine Vaginal bleeding Expected: 04/09/2025, Expires: 04/09/2026 TSH W/Reflex to FT4 Lab Routine Vaginal bleeding Expected: 04/09/2025 (Approximate), Expires: 04/09/2026 Urinalysis, Complete, with Reflex to Culture Lab Routine Vaginal bleeding Expected: 04/09/2025 (Approximate), Expires: 04/09/2026 Prothrombin Time-INR Lab Routine Vaginal bleeding Expected: 04/09/2025, Expires: 04/09/2026 US Pelvis Transvaginal Imaging Urgent Vaginal bleeding SLE (systemic lupus erythematosus related syndrome) ([facility]) Abnormal uterine bleeding Expected: 04/09/2025, Expires: 04/09/2026 Us Pelvis complete Imaging Urgent Vaginal bleeding SLE (systemic lupus erythematosus related syndrome) ([facility]) Abnormal uterine bleeding Expected: 04/09/2025, Expires: 04/09/2026 documented as of this encounter Procedures Procedure Name Priority Date/Time Associated Diagnosis Comments POCT URINALYSIS DIPSTICK Routine 04/09/2025 9:54 AM EDT Vaginal bleeding Abnormal uterine bleeding POCT , URINE Routine 04/09/2025 9:44 AM EDT Vaginal bleeding documented in this encounter Results * (ABNORMAL) POCT Urinalysis (04/09/2025 9:54 AM EDT) Color, UA Yellow Clarity, UA Clear Glucose, UA Negative Bilirubin, UA Negative Ketones, UA Negative Spec Grav, UA 1.030 Blood, UA Positive(A) Negative, None Detected Comment:Moderate pH, UA 0.2 Protein, UA Negative Urobilinogen, UA 0.2 Leukocytes, UA Negative Negative, Rare, Trace Nitrite, UA Negative Negative, None Detected Urine 04/09/2025 9:54 AM EDT Ruma Gallardo MD POINT OF CARE TEST ENTER/EDIT ORDERABLES Final Result * POCT Urine (04/09/2025 9:44 AM EDT) Preg Test, Ur Negative Negative, Indeterminate, None Detected, Invalid, Specimen unsatisfactory for evaluation, Weakly Positive, 2+ QC Media Lot # [id number] Lot# Expiration Date , Urine 04/09/2025 9:44 AM EDT us Ruma [...] documented as of this encounter Care Teams Applications Scientist Relationship Specialty Start Date End Date Ya Rojas MD [address] [place] [phone] PCP - General Internal Medicine 08/30/23 documented as of this encounter
[2025-04-09 11:01] LABS: MANUAL DIFF FLAG NO
--- OUTSIDE RECORDS SUMMARY | 2025-04-09 11:21 | XMS_ITS | Clinical Summary ---
Author Organization [facility] Address [address] [place] [address] Care Team Providers Care Systems Programmer Name Role Phone Unavailable Primary Care Provider [...] Cervical Cancer Screening: P ap Smear 2014 HPV Vaccines (1 - 3-dose SCD M series) 2020 HIV Screening 08/03/2023 Hepatitis C Screening 08/03/2023 Social Influencers of Health Screening 08/03/2023 Depression Screening 07/10/2024 COVID-19 Vaccine ( - 2023-2 5 season) 2025 Influenza Vaccine (#1) 2025 RSV Immunization Adult Patie nts (1 - 1-dose 75+ series) 2068 HIB Vaccines Aged Out No longer eligi [...] complete this topic RSV Immunization Patients Un jakbo 20 months Aged Out No longer eligible b ased on patient's age to complete this topic Varicella Vaccines Aged Out No longer eligible based on patient's age to complete this topic
--- OUTSIDE RECORDS SUMMARY | 2025-04-09 11:21 | XMS_ITS | Clinical Summary ---
Author Organization [employer] Address [address] [facility] 7t [place] [address] Care Team Providers Care Substation Supervisor Name Role Phone Ya Rojas MD [...] and relationship issues. Isac moved from [place] on 12/2022 looking for better opportunities. She [...] intervention , [facility], Patient to engage [...] past 12 months) . Referral placed to [facility]. Number giving to patient. SLE (systemic lupus erythema tosus related syndrome) ([facility]) 08/30/2023 Health care maintenance 08/30/2023 Stress-related problem [...] intervention , [facility], Patient to engage [...] Encounters Date Type Department Care Team Description 04/09/2025 9:40 AM EDT Office Visit [facility] [address] [place], [place] [phone] Vaginal bleeding (Primary Dx); SLE (systemic lupus erythematosus related syndrome) (CMS/HCC) (HCC); Abnormal uterine bleeding 04/09/2025 Travel 02/17/2025 Telephone [facility] [address] [place], [place] [phone] Ya Rojas MD apr recall from Last 3 Months Immunizations Immunization Administration [...] 22 04/09/2025 9:19 AM EDT Oxygen Saturation 98% 10/24/2024 9:10 AM EDT Inhaled Oxygen Concentration - - Weight 59.7 kg (131 lb 9.6 oz) 04/09/2025 9:19 A M EDT Height 152.4 cm (5') 04/09/2025 9:19 AM EDT Body Mass Index 25.7 04/09/2025 9:19 AM EDT Plan of Treatment Upcoming Encounters Date Type Department Care Team (Late st Contact Info) Description 06/10/2025 9:45 AM EST Office Visit [facility] [address] [place], [place] [phone] Ya Rojas MD [address] [place], [place] [phone] Health Maintenance Due Date Last Done Comments [...] 10/24/2024 Disability Screening 10/24/2025 10/24/2024 Tobacco Screening 04/09/2026 04/09/2025 Pap Smear 01/16/2027 01/17/2024 Cervical Cancer Screening [...] Routine 04/09/2025 9:44 AM EDT Vaginal bleeding HEPATITIS C AB W/REFL TO HCV RNA, QN, PCR Routine 10/24/2024 9:42 AM EDT Annual physical exam HIV 1/2 ANTIGEN/ANTIBODY, FOURTH GENERATION W/RFL Routine 10/24/2024 9:42 AM EDT Annual physical exam THINPREP IMAGING PAP AND HPV MRNA E6/E7 WITH REFLEX TO HPV 16,18/45 Routine 01/17/2024 3:04 PM EDT from Last 3 Months or Most Recently Relevant to Health Maintenance Results * (ABNORMAL) POCT Urinalysis (04/09/2025 9:54 [...] Media Lot # [id number] Lot# Expiration Date [id number] Urine 04/09/2025 9:44 AM EDT us Ruma Gallardo MD POINT OF CARE TEST ENTER/EDIT ORDERABLES Final Result * Hepatitis C Antibody with Reflex to HCV, RNA, Quantitative, Real-Time PCR (10/24/2024 9:42 AM EDT) Hepatitis C Antibody Nonreactive Nonreactive [facility] Comment:Antibodies to HCV no t detected; does not exclude early acuteHCV infection. Blood Venous blood specimen / Unknown 10/24/2024 9:42 AM EDT 10/24/2024 11:19 AM EDT Ya Khan MD LAB BLOOD ORDERAB LES Final Result [facility] [address] [place] [phone] * HIV-1/2 Antigen and Antibodies, Fourth Generation, with Reflexes (10/24/2024 9:42 AM EDT) Pathologist [facility] HIV AB/AG Nonreactive Nonreactive [facility] Comment:HIV-1 p24 Ag and/or HIV-1/HIV-2 Ab not detected.A test result that is nonreactive does not exclude thepossibility of exposure to or infection with HIV-1 and/orHIV-2. Nonreactive results in this assay for individualswith prior exposure to HIV-1 and/or HIV-2 may be due toantigen and antibody levels that are below the limit ofdetection of this assay.The [employer] HIV Ag/Ab Combo assay result andsupplemental assay results should be interpreted inconjunction with the patient's clinical presentation,history and other laboratory results. If the results areinconsistent with clinical evidence, additional testing issuggested to confirm the result. Blood Venous blood specimen / Unknown 10/24/2024 9:42 AM EDT 10/24/2024 11:19 AM EDT us Ya Khan MD LAB BLOOD ORDERAB LES Final Result [facility] [address] [place] [address] [phone] * ThinPrep Imaging Pap and HPV mRNA E6/E7 with Reflex to HPV 16,18/45 (01/17/2024 3:04 PM EDT) HPV 16 RNA [facility] HPV 18/45 RNA [facility] HPV nRNA E6/E7 Not Detected Not Detected [facility] Comment:Methodology: Transcr iption-Mediated AmplificationThis assay detects E6/E7 viral messenger RNA (mRNA) from 14high-risk HPV types (16,18,31,33,35,39,45,51,52,56,58,59,66,68).Cervical sources are required for HPV testing.If a vaginal source from a patient who has had atotal hysterectomy with removal of cervix wassubmitted, please contact the testing laboratoryfor alternative testing options.For additional information, please refer [email or web address]/faq/SPS197d7(This link if provided for information/educational purposes only.)THIS TEST WAS PERFORMED AT:[employer] [place] [phone] ESCALANTE MD SOURCE: SEE NOTE [facility] Comment:Cervix Report Status: [facility] Clinical Information: SEE NOTE [facility] Comment:None given LMP: SEE NOTE [facility] Comment:01/13/2024 Prev. PAP: SEE NOTE [facility] Comment:NONE GIVEN Prev. BX: SEE NOTE [facility] Comment:NONE GIVEN Statement Of Adequacy: SEE [facility] Comment:Satisfactory for moe luation.Endocervical/transformation zone componentpresent. General Categorization: [facility] Interpretation/Result: SEE NOTE [facility] Comment:Cytology Results: Ne gative for intraepitheliallesion or malignancy. Cytology Comment SEE NOTE [facility] Comment:This Pap test has be en evaluated with computerassisted technology. Director Of Epidemiology: SEE NOTE [facility] Comment:GSG, CT(ASCP)CT scre ening location: [place] [address] Review Director Of Epidemiology: [facility] Pathologist [facility] PAP Infection [facility] See Note SEE NOTE [facility] Comment:EXPLANATORY NOTE:The Pap is a screening test for cervical cancer. It isnot a diagnostic test and is subject to false negativeand false positive results. It is most reliable when asatisfactory sample, regularly obtained, is submittedwith relevant clinical findings and history, and whenthe Pap result is evaluated along with historic andcurrent clinical information. 01/17/2024 3:04 PM EDT 01/17/2024 4:02 PM EDT Narrative [facility] - 01/24/2024 12:48 PM EDT SEE SCANNED RESULTS IN EMRWas previous PAP abnormal? UnknownClinical Information: routineCollection Date: 01/16/24igh risk HPV with 16 18 genotyping? YReflex HPV any abnormal diagnosis? YReflex HPV if ASCUS only? NHigh Risk HPV (any diagnosis)? YLMP: 01/13/24Date of previous PAP unknownPerformed by: : [id number] us Generic External Data Provider LAB PATHOLOGY ORD ERABLES Final Result [facility] [address] [place] [phone] from Last 3 Months or Most Recently Relevant to Health Maintenance Insurance [address] [place], [place] [id number] Care Teams Substation Supervisor Relationship Specialty Start Date End Date Ya Rojas MD [address] [place] [phone] PCP - General Internal Medicine 08/30/23
--- OUTSIDE RECORDS SUMMARY | 2025-04-09 11:21 | XMS_ITS | Encounter Summary ---
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 EFFECTIVE SINCE 05/04/2023 documented in this encounter Plan of Treatment Upcoming Encounters Date Type Department Care Team (Late Contact Info) Description 06/10/2025 9:45 AM EST Office Visit [facility] [address] [place] [address] [phone] Ya Rojas MD [address] [place], [place] [phone] documented as of this encounter Visit Diagnoses Not on filedocumented in this encounter Care Teams Internal Grinder Set Up Operator Relationship Specialty Start Date End Date Ya Rojas MD [address] [place], [place] [phone] PCP - General Internal Medicine 08/30/23 documented as of this encounter
--- OUTSIDE RECORDS SUMMARY | 2025-04-09 11:21 | XMS_ITS | Patient Health Record ---
Author Organization [facility] [employer] [facility] Address [address] [facility] [address] [place] [address] Care Team Providers Care Motor Vehicle License Clerk Name Role Phone Yolanda Ramos Primary Care Provider [phone] YOLANDA KAUR MD Unavailable Unavaila ble Reason For Referral No Information Medications Medication SIG (Take, Route, Frequency, Duration) Notes Start Date End Date Status Cefdinir 300 MG as directed Orally Active predniSONE 20 MG 2 tablet Orally Once a day; Duration: 30 Active ZyrTEC Allergy 10 MG 1 tablet Orally Onc e a day; Duration: 30 day(s) Active Fluticasone Propionate 50 MCG/ACT 1 spray in each nostril Nasally Once a day; Duration: 30 day(s) Active traMADol HCl 50 MG 1 tablet as needed O rally Once a day Active ProAir HFA 108 (90 Base) MCG/ACT 2 puffs as needed Inhalation every 6 hrs Active Lidocaine 5 % 1 patch to skin tatum ve after 12 hours Externally Once a day Active Escitalopram Oxalate 10 MG 1 tablet Oral ly Once a day; Duration: 30 day(s) Active CellCept 500 MG 2 tablets Orally Twi ce a day; Duration: 90 days Active Social History Tobacco Use: Social History Observation Description Date Details (start date - stop date) Never Smoker NA - NA Tobacco Use/Smoking Question Answer Notes Are you a nonsmoker Alcohol Screen (Audit-C) Question Answer Notes Did you have a drink containing alcohol in the p ast year? No Points 0 Interpretation Negative Problems Problem Type SNOMED Code ICD Code Onset Dates Problem Status W/U Status Risk Notes Problem Systemic lupus erythematosus (06067409) Systemic lupus erythematosus, unspecified (M32.9) Active confirmed Plan Of Treatment No Information Insurance Providers Payer Name Payer Address Payer Phone Subscriber Number Group Number Insured Name Patient Relationship to Insured Coverage Start Date Coverage End Date [place] [address] [address] [place]AM[place]A [phone] [id number] JANET MERINO Self - patient is the insured 9 Medical (General) History Medical History History ICD Code Lupus Asthma Lower back arthritis Surgical History Surgery Date(Month/Year) Left forearm surgery-broken x2
--- OUTSIDE RECORDS SUMMARY | 2025-04-09 11:21 | XMS_ITS | Patient Health Record ---
Author Organization [employer]ATH[employer]ARC[employer] Address [address] [facility] [address] [place] [address] Support Name Relationship Address Phone Isac Ge Guarantor Unknown Unavail able Reason For Referral No Information Plan Of Treatment No Information Insurance Providers Payer Name Payer Address Payer Phone Subscriber Number Group Number Insured Name Patient Relationship to Insured Coverage Start Date Coverage End Date Aetna [facility] [address] [address] [place] [phone] [id number] Isac Ge Self - patient is the insured 9
--- OUTSIDE RECORDS SUMMARY | 2025-04-09 11:22 | XMS_ITS | Encounter Summary ---
Author Organization [employer] Address [address] [facility] 7t [place] [address] Care Team Providers Care Director Of Graduate Admissions Name Role Phone Ya Rojas MD Primary Care Pro vider Encounter Details Date Type Department Care Team (Latest Contact Info) Description 04/09/2025 Travel Social History Tobacco Use Types Packs/Day Years [...] Description 06/10/2025 9:45 AM EST Office Visit [facility] [address] [place] [phone] Ya Rojas MD [address] [place] [phone] documented as of this encounter Visit Diagnoses Not on filedocumented in this encounter Additional Health Concerns Assessment Noted Time PHQ-9 Depression Total Score: 6 10/25/19 25 9:48 AM EDT documented as of this encounter Care Teams Director Of Graduate Admissions Relationship Specialty Start Date End Date Ya Rojas MD [address] [place] [phone] PCP - General Internal Medicine 08/30/23 documented as of this encounter
[2025-04-09 11:27] LABS: Appearance Urine Clear; Glucose Urine UA Negative (Negative); PH 6.5 (5.0-9.0); Specific Gravity - Urine <= 1.005 (1.005-1.025); UMIC TRIGGER UACC YES
[2025-04-09 11:29] LABS: Hematocrit 39.9 % (37.0-47.0); Hemoglobin 12.8 g/dl (12.0-16.0); Imm Gran Abs Auto 0.01 X10*3/uL (0.00-0.03); Imm Gran Pct Auto 0.2 % (0.0-0.4); Lymphocytes Absolute Auto 1.8 X10*3/uL (1.2-4.9); Mean Corpuscular HGB Conc 32.1 g/dl (31.0-35.0); Mean Corpuscular Hemoglobin 29.0 pg (27.0-33.0); Mean Corpuscular Volume 90.3 fL (80.0-98.0); NRBC Abs Auto 0.000 X10*3/uL (0.0-0.012); NRBC Pct Auto 0.0 /100WBC (0.0-0.2); Platelet Count 275 X10*3/uL (160-400); Red Blood Count 4.42 X10*6/uL (4.20-5.50); White Blood Count 5.2 X10*3/uL (4.8-10.8)
[2025-04-09 11:32] LABS: INTERNATIONAL NORM RATIO 1.1 (0.9-1.1); Prothrombin Time 12.3 SEC (10.9-12.4)
[2025-04-09 12:13] LABS: Alanine Aminotransferase 14 U/L (0-31); Albumin Level 4.4 g/dL (3.5-5.0); Alkaline Phosphatase 45 U/L (39-117); Anion Gap 8 (12-20); Aspartate Amino Transferase 20 U/L (5-31); Blood Urea Nitrogen 10 mg/dL (9-16); Calcium 9.2 mg/dL (8.4-10.2); Carbon Dioxide 28 mmol/L (22-29); Chloride 109 mmol/L (96-108); Estimated Glomerular Filt Rate > 60; Iron 135 mcg/dL (30-160); Percent Iron Saturation 39 % (15-50); Potassium 4.1 mmol/L (3.3-5.1); Sodium 141 mmol/L (135-145); Total Iron Binding Capacity 350 mcg/dL (228-428); Total Protein 7.0 g/dL (6.5-8.0); Unsaturated Iron Binding 215 ug/dL
[2025-04-09 12:18] LABS: Ferritin 9 ng/mL (10-122)
== END 2025-04-09 10:08 | disposition home or self-care (01) ==
LOC: HO.HHCL 10:07
PROVIDERS: PCP Pediatrics; Visit Provider Pediatrics
DX: N93.9 Abnormal uterine and vaginal bleeding, unspecified (principal)
CPT/HCPCS: 36415; 80048; 80076; 81001; 82728; 83540; 84443; 85025; 85610

== ENCOUNTER 2025-04-11 15:38 | Outpatient (REF) | payer MEDICAID, SELFPAY ==
--- OUTSIDE RECORDS SUMMARY | 2025-04-09 09:40 | XMS_ITS | Encounter Summary ---
Author Organization [employer] Address [address] [place] [address] [address] [place] [address] Care Team Providers Care Edi Programmer Analyst Name Role Phone Ya Rojas MD Primary Care Pro vider Reason for Referral * Imaging (Urgent) - Authorized Specialty Diagnoses / Procedures Referred By Contac t Referred To Contact Radiology Diagnoses Vaginal bleeding SLE (systemic lupus erythematosus related syndrome) (CMS/HCC) (HCC) Abnormal uterine bleeding Procedures Us Pelvis complete Ruma Gallardo MD [address] [place] [address] Phone: tel: fax: [address] Phone: tel: fax: Referral ID Status Reason Start Date Expiration Date V isits Requested Visits Authorized [id number] Authorized 04/09/2025 04/09/2026 1 1 * Imaging (Urgent) - Authorized Specialty Diagnoses / Procedures Referred By Contac t Referred To Contact Radiology Diagnoses Vaginal bleeding SLE (systemic lupus erythematosus related syndrome) (CMS/HCC) (HCC) Abnormal uterine bleeding Procedures US Pelvis Transvaginal Ruma Gallardo MD [address] [place] [address] Phone: tel: fax: [address] Phone: tel: fax: Referral ID Status Reason Start Date Expiration Date V isits Requested Visits Authorized [id number] Authorized 04/09/2025 04/09/2026 1 1 Reason for Visit * Reason Comments Blood in Urine CO continuous bleedi ng for 17 days. Pt states she's been bleeding no other symptoms Encounter Details Date Type Department Care Team (Latest Contact Info) Description 04/09/2025 9:40 AM EDT Office Visit [facility] [address] [place] [phone] Ruma Gallardo MD [address] [place] [address] Vaginal bleeding (Primary Dx); SLE (systemic lupus erythematosus related syndrome) (CMS/HCC) (HCC); Abnormal uterine bleeding Social History Tobacco Use Types Packs/Day Years [...] PM EST documented as of this encounter Last Filed Vital Signs Vital Sign Reading Time Taken Comments Blood Pressure 98/62 04/09/2025 9:19 AM EDT Pulse 74 04/09/2025 9:19 AM EDT Temperature 35.8 C (96.4 F) 04/09/2025 9:19 AM EDT Respiratory Rate 22 04/09/2025 9:19 AM EDT Oxygen Saturation - - Inhaled Oxygen Concentration - - Weight 59.7 kg (131 lb 9.6 oz) 04/09/2025 9:19 A M EDT Height 152.4 cm (5') 04/09/2025 9:19 AM EDT Body Mass Index 25.7 04/09/2025 9:19 AM EDT documented in this encounter Progress Notes * Ruma Gallardo MD - 04/09/2025 9:40 AM EDT Subjective Patient ID: Isac Ge is a 29 y.o. female who presents for Blood in Urine (CO continuous bleeding for 17 days. Pt states she's been bleeding no other symptoms ). Isac is a 29 y/o female with history of lupus and DUB here in [facility] due to 3 weeks history of heavy vaginal bleeding and suprapubic mild pain. Has history of colposcopy,etc.. done by due to DUB and endometrial thickening of 12 mm on last pelvic US at [facility], has a follow up in 07/03.no STD or risk factors.Urine HCG negative today.Feels weak. Sees rheum at [facility], last seen in 01/01. Vaginal Bleeding The patient's primary symptoms include vaginal bleeding. The patient's pertinent negatives include no genital itching, genital lesions, genital odor, genital rash, missed menses, pelvic pain or vaginal discharge. This is a new problem. The current episode started 1 to 4 weeks ago. The problem occurs 2 to 4 times per day. The problem has been unchanged. The pain is mild. The problem affects both sides. She is not . Associated symptoms include painful intercourse. Pertinent negatives include no back pain, constipation, diarrhea, dysuria, fever, flank pain, frequency, headaches, hematuria, rash, sore throat, urgency or vomiting. The vaginal discharge was bloody and dark. The vaginal ble eding is heavier than menses. She has been passing clots. She has not been passing tissue. Nothing aggravates the symptoms. She has tried nothing for the symptoms. Sexual activity: ,no intercourse in 3 weeks due to bleeding. No, her partner does not have an STD. Contraceptive use: btl. Her menstrual history has been regular. There is no history of miscarriage, PID or an STD. Review of Systems Constitutional: Positive for fatigue. Negative for fever. HENT: Negative for sore throat. Gastrointestinal: Negative for abdominal distention, anal bleeding, blood in stool, constipation, diarrhea and vomiting. Genitourinary: Positive for vaginal bleeding. Negative for dysuria, flank pain, frequency, hematuria, missed menses, pelvic pain, urgency and vaginal discharge. Musculoskeletal: Negative for back pain. Skin: Negative for rash. Neurological: Positive for dizziness. Negative for headaches. Objective BP 98/62 (BP Location: Right arm, Patient Position: Sitting, BP Cuff Size: Adult) Pulse74 Temp 96.4 ??F (35.8 ??C) (Temporal) Resp 22 Ht 5' (1.524 m) Wt 131 lb 9.6 oz (59.7 kg) LMP 04/09/2025 (Approximate) BMI 25.70 kg/m?? Physical Exam Constitutional: General: She is not in acute distress. Appearance: Normal appearance. She is not ill-appearing. HENT: Head: Normocephalic. Right Ear: Tympanic membrane and ear canal normal. Left Ear: Tympanic membrane and ear canal normal. Nose: Nose normal. Mouth/Throat: Mouth: Mucous membranes are moist. Pharynx: No oropharyngeal exudate or posterior oropharyngeal erythema. Eyes: Extraocular Movements: Extraocular movements intact. Conjunctiva/sclera: Conjunctivae normal. Pupils: Pupils are equal, round, and reactive to light. Cardiovascular: Rate and Rhythm: Normal rate and regular rhythm. Pulses: Normal pulses. Heart sounds: Normal heart sounds. Pulmonary: Effort: Pulmonary effort is normal. No respiratory distress. Breath sounds: Normal breath sounds. Abdominal: General: There is no distension. Palpations: Abdomen is soft. Tenderness: There is no right CVA tenderness, left CVA tenderness or guarding. Musculoskeletal: General: Normal range of motion. Cervical back: Normal range of motion. Skin: General: Skin is warm. Capillary Refill: Capillary refill takes less than 2 seconds. Coloration: Skin is not pale. Findings: No rash. Neurological: General: No focal deficit present. Mental Status: She is alert and oriented to person, place, and time. Psychiatric: Mood and Affect: Mood normal. Behavior: Behavior normal. Thought Content: Thought content normal. Judgment: Judgment normal. Assessment/Plan Diagnoses and all orders for this visit: Vaginal bleeding Comments: DUB from new polyps? Check CBC and other labs today,call with results .REfer if needed.Pelvic US ordered,Schedule with strand and binder controller sooner then June if needed. Orders: - CBC auto differential; Future - Ferritin; Future - Hepatic Function Panel; Future - Basic Metabolic Panel; Future - Iron And Total Iron Binding Capacity; Future - TSH W/Reflex to FT4; Future - Urinalysis, Complete, with Reflex to Culture; Future - Prothrombin Time-INR; Future - POCT Urine - US Pelvis Transvaginal; Future - Us Pelvis complete; Future - POCT Urinalysis SLE (systemic lupus erythematosus related syndrome) ([facility]/HCC) ([facility]) Comments: F/U with rheumatology at [facility] as planned.Take meds a sprescribed. Orders: - US Pelvis Transvaginal; Future - Us Pelvis complete; Future Abnormal uterine bleeding - US Pelvis Transvaginal; Future - Us Pelvis complete; Future - POCT Urinalysis documented in this encounter Plan of Treatment Upcoming Encounters Date Type Department Care Team (Late st Contact Info) Description 06/10/2025 9:45 AM EST Office Visit [facility] [address] [place] [address] [phone] Ya Rojas MD [address] [place] [phone] Scheduled Orders Name Type Priority Associated Diagnoses Orde r Schedule US Pelvis Transvaginal Imaging Urgent Vaginal bleeding SLE (systemic lupus erythematosus related syndrome) (CMS/HCC) Abnormal uterine bleeding Expected: 04/09/2025, Expires: 04/09/2026 Us Pelvis complete Imaging Urgent Vaginal bleeding SLE (systemic lupus erythematosus related syndrome) (CMS/HCC) Abnormal uterine bleeding Expected: 04/09/2025, Expires: 04/09/2026 documented as of this encounter Procedures Procedure Name Priority Date/Time Associated Diagnosis Comments URINALYSIS, COMPLETE, WITH REFLEX TO CULTURE Routine 04/09/2025 10:26 AM EDT Vaginal bleeding TSH W/REFLEX TO FT4 Routine 04/09/2025 1 0:26 AM EDT Vaginal bleeding CBC WITH AUTO DIFFERENTIAL Routine 04/09/2025 10:26 AM EDT Vaginal bleeding IRON AND TOTAL IRON BINDING CAPACITY Routine 04/09/2025 10:26 AM EDT Vaginal bleeding PROTHROMBIN TIME-INR Routine 04/09/2025 10:26 AM EDT Vaginal bleeding FERRITIN Routine 04/09/2025 10:26 AM EDT Vaginal bleeding HEPATIC FUNCTION PANEL Routine 04/09/2025 10:26 AM EDT Vaginal bleeding BASIC METABOLIC PANEL Routine 04/09/2025 10:26 AM EDT Vaginal bleeding POCT URINALYSIS DIPSTICK Routine 04/09/2025 9:54 AM EDT Vaginal bleeding Abnormal uterine bleeding POCT , URINE Routine 04/09/2025 9:44 AM EDT Vaginal bleeding documented in this encounter Results * Prothrombin Time-INR (04/09/2025 10:26 AM EDT) Prothrombin Time 12.3 10.9 - 12.4 SEC [facility] INTERNATIONAL NORM RATIO 1.1 0.9 - 1.1 [facility] Comment:INTERNATIONAL NORMAL IZED RATIO (INR) REFERENCE RANGES Reference RangeFor patients not on anticoagulant therapy: 0.9 - 1.1INR ranges for oral anticoagulanttherapy:For prevention and treatment of venous thrombosis and pulmonary embolism: 2.0 - 3.0For acute myocardial infarction with aspirin therapy: 2.0 - 3.0For acute myocardial infarction without aspirin therapy: 3.0 - 4.0For patients with mechanical prosthetic heart valves: 2.5 - 3.5 Blood Venous blood specimen / Unknown 04/09/2025 10:26 AM EDT 04/09/2025 10:55 AM EDT us Ruma Gallardo MD LAB BLOOD ORDERABLES Final Re sult [facility] [address] [place] [address] [phone] * (ABNORMAL) Urinalysis, Complete, with Reflex to Culture (04/09/2025 10:26 AM EDT) Color Urine Yellow [facility] Appearance Urine Clear [facility] PH 6.5 5.0 - 9.0 [facility] Glucose Urine UA Negative Negative mg/dL [facility] Urine Blood Small (1+)(A) Negative [facility] Specific [place] - Urine <=1.005 1.005 - 1.025 [facility] Urine Protein Negative Neg-Trace mg/dL [facility] Urine Ketones Negative Negative mg/dL [facility] Nitrite Urine Negative Negative [facility] Leukocyte Esterase Urine Negative Negative [facility] RBC Urine 0-2 0 - 2 /HPF [facility] Urine WBC 0-5 0 - 5 /HPF [facility] Urine Squamous Epithelial Cell 0-2 0 - 2 /HPF [facility] Urine Bacteria None Seen None Seen [facility] Hyaline Casts, Urine 0-2 0 - 2 /LPF [facility] Urine 04/09/2025 10:2 6 AM EDT 04/09/2025 10:55 AM EDT Narrative [facility] - 04/09/2025 11:47 AM EDT Urine, Clean Catch Ruma Gallardo MD LAB URINE ORDERABLES Final Re sult Performing Organization Address [facility] Co de Phone Number [facility] [address] [place] [address] [phone] * TSH W/Reflex to FT4 (04/09/2025 10:26 AM EDT) TSH reflex Free T4 0.62 0.32 - 4.0 uIU/mL [facility] Blood Venous blood specimen / Unknown 04/09/2025 10:26 AM EDT 04/09/2025 10:55 AM EDT Ruma Gallardo MD LAB BLOOD ORDERABLES Final Re sult Performing Organization Address [facility] Co de Phone Number [facility] [address] [place] [phone] * Iron And Total Iron Binding Capacity (04/09/2025 10:26 AM EDT) Iron 135 30 - 160 mcg/dL [facility] Total Iron Binding Capacity 350 228 - 428 mcg/dL [facility] Percent Iron Saturation 39 15 - 50 % [facility] Unsaturated Iron Binding 215 ug/dL [facility] Blood Venous blood specimen / Unknown 04/09/2025 10:26 AM EDT 04/09/2025 10:55 AM EDT us Ruma Gallardo MD LAB BLOOD ORDERABLES Final Re sult Performing Organization Address [facility]/ZIP Co de Phone Number [facility] [address] [place] [address] [phone] * (ABNORMAL) Basic Metabolic Panel (04/09/2025 10:26 AM EDT) Pathologist [facility] Sodium 141 135 - 145 mmol/L [facility] Potassium 4.1 3.3 - 5.1 mmol/L [facility] Chloride 109(H) 96 - 108 mmol/L [facility] Carbon Dioxide 28 22 - 29 mmol/L [facility] Anion Gap 8(L) 12 - 20 [facility] Urea Nitrogen (BUN) 10 9 - 16 mg/dL [facility] Creatinine, Serum 0.73 0.5 - 1.4 mg/dL [facility] Estimated Glomerular Filt Rate >60 [facility] Comment:Chronic Kidney Disea se: Estimated GFR < 60 mL/min/[id number] Kidney Disease: Estimated GFR < 15 mL/min/1.73m2 Glucose 91 60 - 115 mg/dL [facility] Calcium 9.2 8.4 - 10.2 mg/dL [facility] Blood Venous blood specimen / Unknown 04/09/2025 10:26 AM EDT 04/09/2025 10:55 AM EDT us Ruma Gallardo MD LAB BLOOD ORDERABLES Final Re sult [facility] [address] [place] [phone] * Hepatic Function Panel (04/09/2025 10:26 AM EDT) Pathologist [facility] Bilirubin, Total 0.7 0.0 - 1.0 mg/dL [facility] Bilirubin, Direct 0.3 0.0 - 0.5 mg/dL [facility] Aspartate Amino Transferase 20 5 - 31 U/L [facility] Alanine Aminotransferase 14 0 - 31 U/L [facility] Total Protein 7.0 6.5 - 8.0 g/dL [facility] Albumin Level 4.4 3.5 - 5.0 g/dL [facility] Alkaline Phosphatase 45 39 - 117 U/L [facility] Blood Venous blood specimen / Unknown 04/09/2025 10:26 AM EDT 04/09/2025 10:55 AM EDT Ruma Gallardo MD LAB BLOOD ORDERABLES Final Re sult Performing Organization Address [facility]/ZIP Co de Phone Number [facility] [address] [place] [phone] [phone] * (ABNORMAL) Ferritin (04/09/2025 10:26 AM EDT) Pathologist [facility] Ferritin 9(L) 10 - 122 ng/mL [facility] Blood Venous blood specimen / Unknown 04/09/2025 10:26 AM EDT 04/09/2025 10:55 AM EDT Ruma Gallardo MD LAB BLOOD ORDERABLES Final Re sult Performing Organization Address City/[facility]/ZIP Co de Phone Number [facility] [address] [place] [phone] * CBC auto differential (04/09/2025 10:26 AM EDT) Pathologist [facility] White Blood Count 5.2 4.8 - 10.8 X10*3/uL [facility] Red Blood Count 4.42 4.20 - 5.50 X10*6/uL [facility] Hemoglobin 12.8 12.0 - 16.0 g/dl [facility] Hematocrit 39.9 37.0 - 47.0 % [facility] Mean Corpuscular Volume 90.3 80.0 - 98.0 fL [facility] Mean Corpuscular Hemoglobin 29.0 27.0 - 33.0 pg [facility] Mean Corpuscular HGB Conc 32.1 31.0 - 35.0 g/dl [facility] Red Cell Distribution Width 12.9 11.0 - 16.0 % [facility] Platelet Count 275 160 - 400 X10*3/uL [facility] Mean Platelet Volume 10.1 9.4 - 12.3 fL [facility] Neutrophils Percent Auto 55.6 45 - 73 % [facility] Imm Gran Pct Auto 0.2 0.0 - 0.4 % [facility] Lymphocytes Percent Auto 34.8 20 - 40 % [facility] Monocytes Percent Auto 7.6 2 - 11 % [facility] Eosinophils Percent Auto 1.2 0 - 4 % [facility] Basophils Percent Auto 0.6 0 - 2 % [facility] NRBC Pct Auto 0.0 0.0 - 0.2 /100WBC [facility] Neutrophils Absolute Auto 2.9 2.0 - 8.3 x10*3/uL [facility] Imm Gran Abs Auto 0.01 0.00 - 0.03 X10*3/uL [facility] Lymphocytes Absolute Auto 1.8 1.2 - 4.9 X10*3/uL [facility] Monocytes Absolute Auto 0.4 0.1 - 1.2 X10*3/uL [facility] Eosinophils Absolute Auto 0.1 0.0 - 0.4 X10*3/uL [facility] Basophils Absolute Auto 0.0 0.0 - 0.2 X10*3/uL [facility] NRBC Abs Auto 0.000 0.0 - 0.012 X10*3/uL [facility] Blood Venous blood specimen / Unknown 04/09/2025 10:26 AM EDT 04/09/2025 10:55 AM EDT us Ruma Gallardo MD LAB BLOOD ORDERABLES Final Re sult [facility] [address] [place] [phone] * (ABNORMAL) POCT Urinalysis (04/09/2025 9:54 AM EDT) Color, UA Yellow Clarity, UA Clear Glucose, UA Negative Bilirubin, UA Negative Ketones, UA Negative Spec Grav, UA 1.030 Blood, UA Positive(A) Negative, None Detected Comment:Moderate pH, UA 0.2 Protein, UA Negative Urobilinogen, UA 0.2 Leukocytes, UA Negative Negative, Rare, Trace Nitrite, UA Negative Negative, None Detected Urine 04/09/2025 9:54 AM EDT us Ruma Gallardo MD POINT OF CARE TEST ENTER/EDIT ORDERABLES Final Result * POCT Urine (04/09/2025 9:44 AM EDT) Preg Test, Ur Negative Negative, Indeterminate, None Detected, Invalid, Specimen unsatisfactory for evaluation, Weakly Positive, 2+ QC Media Lot # [id number] Lot# Expiration Date 11,026 Urine 04/09/2025 9:44 AM EDT us Ruma Gallardo MD POINT OF CARE TEST ENTER/EDIT ORDERABLES Final Result documented in this encounter Visit Diagnoses Diagnosis Vaginal bleeding- Primary Other specified noninflammatory disorder of vagina SLE (systemic lupus erythematosus related syndrome) (CMS/HCC) (HCC) Systemic lupus erythematosus Abnormal uterine bleeding Unspecified disorder of menstruation and other abnormal bleeding from female genital tract documented in this encounter Additional Health Concerns Assessment Noted Time PHQ-9 Depression Total Score: 6 10/25/19 25 9:48 AM EDT documented as of this encounter Care Teams Edi Programmer Analyst Relationship Specialty Start Date End Date Ya Rojas MD [address] [place] [phone] PCP - General Internal Medicine 08/30/23 documented as of this encounter
--- NOTE | ~2025-04-11 | US_ITS ---
EXAMINATION: US PELVIS CLINICAL INFORMATION: menorrhagia, history of lupus and endometrial thickening COMPARISON: December 07, 2023 TECHNIQUE: Ultrasound of the pelvis is performed using both transabdominal and transvaginal transducers along with Doppler. Transvaginal imaging is performed due to inadequate visualization transabdominally. FINDINGS: Uterus: The uterus is anteverted and measures 9.4 x 3.4 x 5.0 cm. There is trace fluid in the endocervical canal. The double wall endometrial thickness is 6 mm. The uterus is smooth in contour and has normal myometrial echogenicity. No visible fibroid. Adnexa: Both ovaries are visualized. There is normal color flow to the adnexa. There is no ovarian torsion. There is no pelvic ascites or fluid collection. Right ovary measures 3.2 x 2.2 x 2 4 cm. There is a 2.1 cm simple cyst/follicle Left ovary measures 3.1 x 2.15 cm. There is a 2.1 cm cyst /follicle US/US pelvic and transvaginal IMPRESSION: Unremarkable pelvic ultrasound Electronically signed by: Je Deluca MD 04/11/2025 04:33 PM EDT
--- OUTSIDE RECORDS SUMMARY | 2025-04-11 15:42 | XMS_ITS | Encounter Summary ---
Author Organization [employer] Address [address] [facility] 7t [place] [address] Care Team Providers Care Electrical Tryout Person Name Role Phone Ya Rojas MD Primary Care Pro vider Encounter Details Date Type Department Care Team ([facility] st Contact Info) Description 04/09/2025 Results Follow-Up [facility] [address] [place], [place] [phone] Ruma Gallardo MD [address] [place] [address] CBC auto differential, Ferritin, Hepatic Function Panel, Additional followed-up results: 7 Social History Tobacco Use Types Packs/Day Years [...] Description 06/10/2025 9:45 AM EST Office Visit [facility] [address] [place] [phone] Ya Rojas MD [address] [place] [phone] documented as of this encounter Visit Diagnoses Not on filedocumented in this encounter Additional Health Concerns Assessment Noted Time PHQ-9 Depression Total Score: 6 10/25/19 25 9:48 AM EDT documented as of this encounter Care Teams Electrical Tryout Person Relationship Specialty Start Date End Date Ya Rojas MD [address] [place] [phone] PCP - General Internal Medicine 08/30/23 documented as of this encounter
--- OUTSIDE RECORDS SUMMARY | 2025-04-11 15:42 | XMS_ITS | Clinical Summary ---
Author Organization [facility] Address [address] [place] [address] Care Team Providers Care Clinical Field Specialist Name Role Phone Unavailable Primary Care [...]
--- OUTSIDE RECORDS SUMMARY | 2025-04-11 15:42 | XMS_ITS | Encounter Summary ---
Author Organization [employer] Address [address] [facility] 7t [place] [address] Care Team Providers Care Doll Wig Maker Rooted Hair Name Role Phone Ya Rojas MD Primary [...] Description 06/10/2025 9:45 AM EST Office Visit [facility] [address] [place] [phone] Ya Rojas MD [address] [place] [phone] documented as of this encounter Visit Diagnoses Not on filedocumented in this encounter Additional Health Concerns Assessment Noted Time PHQ-9 Depression Total Score: 6 10/25/19 25 9:48 AM EDT documented as of this encounter Care Teams Doll Wig Maker Rooted Hair Relationship Specialty Start Date End Date Ya Rojas MD [address] [place] [phone] PCP - General Internal Medicine 08/30/23 documented as of this encounter
--- OUTSIDE RECORDS SUMMARY | 2025-04-11 15:42 | XMS_ITS | Patient Health Record ---
Author Organization [employer] - JONATHAN V ELEAZAR GARCIA PA Address [address] [facility] [address] [place] [address] Support Name Relationship Address Phone Isac Ge Guarantor Unknown Unavail able Reason For Referral No Information Plan Of Treatment No Information Insurance Providers Payer Name Payer Address Payer Phone Subscriber Number Group Number Insured Name Patient Relationship to Insured Coverage Start Date Coverage End Date Aetna [facility] [address] [address] [place] [address] [id number] Isac Ge Self - patient is the insured 9
--- OUTSIDE RECORDS SUMMARY | 2025-04-11 15:42 | XMS_ITS | Encounter Summary ---
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 EFFECTIVE SINCE 05/04/2023 documented in this encounter Plan of Treatment Upcoming Encounters Date Type Department Care Team (Late Contact Info) Description 06/10/2025 9:45 AM EST Office Visit [facility] [address] [place] [address] [phone] Ya Rojas MD [address] [place], [place] [phone] documented as of this encounter Visit Diagnoses Not on filedocumented in this encounter Care Teams Site Surveyor Relationship Specialty Start Date End Date Ya Rojas MD [address] [place], [place] [phone] PCP - General Internal Medicine 08/30/23 documented as of this encounter
--- OUTSIDE RECORDS SUMMARY | 2025-04-11 15:42 | XMS_ITS | Patient Health Record ---
Author Organization [facility] [employer] [facility] Address [address] [place] [address] Care Team Providers Care General Manager Land Department Name Role Phone Yolanda Ramos Primary Care Provider YOLANDA KAUR MD Unavailable Unavaila ble Reason [...] Status Risk Notes Problem Systemic lupus erythematosus ([id number]) Systemic lupus erythematosus, unspecified (M32.9) Active confirmed Plan Of Treatment No Information Insurance Providers Payer Name Payer Address Payer Phone Subscriber Number Group Number Insured Name Patient Relationship to Insured Coverage Start Date Coverage End Date [employer] [place] [employer] [address] [address] DARIN ZAMORA [phone] [id number] JANET MERINO Self - patient is the insured 9 Medical (General) History Medical History History ICD Code Lupus Asthma Lower back arthritis Surgical History Surgery Date(Month/Year) Left forearm surgery-broken x2
--- OUTSIDE RECORDS SUMMARY | 2025-04-11 15:42 | XMS_ITS | Clinical Summary ---
Author Organization [employer] Address [address] [place] [address] Care Team Providers Care Sales Representative Consultant Name Role Phone Ya Rojas MD Primary [...] move, and relationship issues. Isac moved from [place] on 12/2022 looking for better opportunities. She [...] intervention , Patient to reach [facility] to [facility] team [facility] needed, Patient to engage [...] past 12 months) . Referral placed to [facility]. Number giving to patient. SLE (systemic lupus erythema tosus related syndrome) ([facility]) 08/30/2023 Health care maintenance 08/30/2023 Stress-related problem [...] intervention , Patient to reach [facility] to [facility] team as needed, Patient to engage [...] Description 04/09/2025 9:40 AM EDT Office Visit [facility] [address] [place] [address] Ruma Gallardo MD Vaginal bleeding (Primary Dx); SLE (systemic lupus erythematosus related syndrome) (CMS/HCC) (HCC); Abnormal uterine bleeding 04/09/2025 Results Follow-Up [facility] [address], [place] [phone] Ruma Gallardo MD CBC auto differential, Ferritin, Hepatic Function Panel, Additional followed-up results: 7 04/09/2025 Travel 02/17/2025 Telephone [facility] [address], [place] [phone] Ya Rojas MD oct recall from Last 3 Months Immunizations Immunization Administration Dates Next Due HPV 9-Valent 07/04/2024,04/05/2024,01/03/2024 Influenza injectable quadriv alent preservative free 08/30/2023 Influenza, seasonal, injecta ble, preservative free 04/03/2024 Pfizer Covid-19 Vaccine 12+ 04/03/2024, 4 Family History Medical History Relation Name Comments [...] Description 06/10/2025 9:45 AM EST Office Visit [facility] [address] [place], [place] [phone] Ya Rojas MD [address] [place], [place] [phone] Health Maintenance Due Date Last Done Comments [...] Procedure Name Priority Date/Time Associated Diagnosis Comments PROTHROMBIN TIME-INR Routine 04/09/2025 10:26 AM EDT Vaginal bleeding URINALYSIS, COMPLETE, WITH REFLEX TO CULTURE Routine 04/09/2025 10:26 AM EDT Vaginal bleeding TSH W/REFLEX TO FT4 Routine 04/09/2025 1 0:26 AM EDT Vaginal bleeding IRON AND TOTAL IRON BINDING CAPACITY Routine 04/09/2025 10:26 AM EDT Vaginal bleeding BASIC METABOLIC PANEL Routine 04/09/2025 10:26 AM EDT Vaginal bleeding HEPATIC FUNCTION PANEL Routine 04/09/2025 10:26 AM EDT Vaginal bleeding FERRITIN Routine 04/09/2025 10:26 AM EDT Vaginal bleeding CBC WITH AUTO [...] Relevant to Health Maintenance Results * (ABNORMAL) Urinalysis, Complete, with Reflex to Culture (04/09/2025 10:26 AM EDT) Color Urine Yellow [facility] Appearance Urine Clear [facility] PH 6.5 5.0 - 9.0 [facility] Glucose Urine UA Negative Negative mg/dL [facility] Urine Blood Small (1+)(A) Negative [facility] Specific [place] - Urine <=1.005 1.005 - 1.025 [facility] Urine Protein Negative Neg-Trace mg/dL [facility] Urine Ketones Negative Negative mg/dL [facility] Nitrite Urine Negative Negative [facility] Leukocyte Esterase Urine Negative Negative [facility] RBC Urine 0-2 0 - 2 /HPF [facility] Urine WBC 0-5 0 - 5 /HPF [facility] Urine Squamous Epithelial Cell 0-2 0 - 2 /HPF [facility] Urine Bacteria None Seen None Seen [facility] Hyaline Casts, Urine 0-2 0 - 2 /LPF [facility] Urine 04/09/2025 10:2 6 AM EDT 04/09/2025 10:55 AM EDT Narrative [facility] - 04/09/2025 11:47 AM EDT Urine, Clean Catch us Ruma Gallardo MD LAB URINE ORDERABLES Final Re sult [facility] [address] [place] [phone] * TSH W/Reflex to FT4 (04/09/2025 10:26 AM EDT) TSH reflex Free T4 0.62 0.32 - 4.0 uIU/mL [facility] Blood Venous blood specimen / Unknown 04/09/2025 10:26 AM EDT 04/09/2025 10:55 AM EDT us Ruma Gallardo MD LAB BLOOD ORDERABLES Final Re sult [facility] [address], [place] [phone] * CBC auto differential (04/09/2025 10:26 AM EDT) White Blood Count 5.2 4.8 - 10.8 X10*3/uL [facility] Red Blood Count 4.42 4.20 - 5.50 X10*6/uL [facility] Hemoglobin 12.8 12.0 - 16.0 g/dl [facility] Hematocrit 39.9 37.0 - 47.0 % [facility] Mean Corpuscular Volume 90.3 80.0 - 98.0 fL [facility] Mean Corpuscular Hemoglobin 29.0 27.0 - 33.0 pg [facility] Mean Corpuscular HGB Conc 32.1 31.0 - 35.0 g/dl [facility] Red Cell Distribution Width 12.9 11.0 - 16.0 % [facility] Platelet Count 275 160 - 400 X10*3/uL [facility] Mean Platelet Volume 10.1 9.4 - 12.3 fL [facility] Neutrophils Percent Auto 55.6 45 - 73 % [facility] Imm Gran Pct Auto 0.2 0.0 - 0.4 % [facility] Lymphocytes Percent Auto 34.8 20 - 40 % [facility] Monocytes Percent Auto 7.6 2 - 11 % [facility] Eosinophils Percent Auto 1.2 0 - 4 % [facility] Basophils Percent Auto 0.6 0 - 2 % [facility] NRBC Pct Auto 0.0 0.0 - 0.2 /100WBC [facility] Neutrophils Absolute Auto 2.9 2.0 - 8.3 x10*3/uL [facility] Imm Gran Abs Auto 0.01 0.00 - 0.03 X10*3/uL [facility] Lymphocytes Absolute Auto 1.8 1.2 - 4.9 X10*3/uL [facility] Monocytes Absolute Auto 0.4 0.1 - 1.2 X10*3/uL [facility] Eosinophils Absolute Auto 0.1 0.0 - 0.4 X10*3/uL [facility] Basophils Absolute Auto 0.0 0.0 - 0.2 X10*3/uL [facility] NRBC Abs Auto 0.000 0.0 - 0.012 X10*3/uL [facility] Blood Venous blood specimen / Unknown 04/09/2025 10:26 AM EDT 04/09/2025 10:55 AM EDT Ruma Gallardo MD LAB BLOOD ORDERABLES Final Re sult Performing Organization Address City/[facility]/ZIP Co de Phone Number [facility] [address] [place] [phone] * Iron And Total Iron Binding Capacity (04/09/2025 10:26 AM EDT) Iron 135 30 - 160 mcg/dL [facility] Total Iron Binding Capacity 350 228 - 428 mcg/dL [facility] Percent Iron Saturation 39 15 - 50 % [facility] Unsaturated Iron Binding 215 ug/dL [facility] Blood Venous blood specimen / Unknown 04/09/2025 10:26 AM EDT 04/09/2025 10:55 AM EDT Ruma Gallardo MD LAB BLOOD ORDERABLES Final Re sult [facility] [address] [place] [phone] * Prothrombin Time-INR (04/09/2025 10:26 AM EDT) [facility] Prothrombin Time 12.3 10.9 - 12.4 SEC [facility] INTERNATIONAL NORM RATIO 1.1 0.9 - 1.1 [facility] Comment:INTERNATIONAL NORMAL IZED RATIO (INR) REFERENCE [...] ORDERABLES Final Re sult Performing Organization Address City/[facility]/ZIP Co de Phone Number [facility] [address] [place] [phone] * (ABNORMAL) Ferritin (04/09/2025 10:26 AM EDT) [facility] Ferritin 9(L) 10 - 122 ng/mL [facility] Blood Venous blood specimen / Unknown 04/09/2025 10:26 AM EDT 04/09/2025 10:55 AM EDT Ruma Gallardo MD LAB BLOOD ORDERABLES Final Re sult [facility] [address] [place] [phone] * Hepatic Function Panel (04/09/2025 10:26 AM EDT) [facility] Bilirubin, Total 0.7 0.0 - 1.0 mg/dL [facility] Bilirubin, Direct 0.3 0.0 - 0.5 mg/dL [facility] Aspartate Amino Transferase 20 5 - 31 U/L [facility] Alanine Aminotransferase 14 0 - 31 U/L [facility] Total Protein 7.0 6.5 - 8.0 g/dL [facility] Albumin Level 4.4 3.5 - 5.0 g/dL [facility] Alkaline Phosphatase 45 39 - 117 U/L [facility] Blood Venous blood specimen / Unknown 04/09/2025 10:26 AM EDT 04/09/2025 10:55 AM EDT us Ruma Gallardo MD LAB BLOOD ORDERABLES Final Re sult [facility] [address] [place], [place] [phone] * (ABNORMAL) Basic Metabolic Panel (04/09/2025 10:26 AM EDT) Sodium 141 135 - 145 mmol/L [facility] Potassium 4.1 3.3 - 5.1 mmol/L [facility] Chloride 109(H) 96 - 108 mmol/L [facility] Carbon Dioxide 28 22 - 29 mmol/L [facility] Anion Gap 8(L) 12 - 20 [facility] Urea Nitrogen (BUN) 10 9 - 16 mg/dL [facility] Creatinine, Serum 0.73 0.5 - 1.4 mg/dL [facility] Estimated Glomerular Filt Rate >60 [facility] Comment:Chronic Kidney Disea se: Estimated GFR < 60 mL/min/[id number] Kidney Disease: Estimated GFR < 15 mL/min/1.73m2 Glucose 91 60 - 115 mg/dL [facility] Calcium 9.2 8.4 - 10.2 mg/dL [facility] Blood Venous blood specimen / Unknown 04/09/2025 10:26 AM EDT 04/09/2025 10:55 AM EDT Result [facility] Ruma Gallardo MD LAB BLOOD ORDERABLES Final Re sult [facility] [address] [place] [phone] * (ABNORMAL) POCT Urinalysis (04/09/2025 9:54 AM EDT) Color, UA Yellow Clarity, UA Clear Glucose, UA Negative Bilirubin, UA Negative Ketones, UA Negative Spec Grav, UA 1.030 Blood, UA Positive(A) Negative, None Detected Comment:Moderate pH, UA 0.2 Protein, UA Negative Urobilinogen, UA 0.2 Leukocytes, UA Negative Negative, Rare, Trace Nitrite, UA Negative Negative, None Detected Urine 04/09/2025 9:54 AM EDT Result [facility] Ruma Gallardo MD POINT OF CARE TEST ENTER/EDIT ORDERABLES Final Result * POCT Urine (04/09/2025 9:44 AM EDT) Preg Test, Ur Negative Negative, Indeterminate, None Detected, Invalid, Specimen unsatisfactory for evaluation, Weakly Positive, 2+ QC Media Lot # [id number] Lot# Expiration Date ,395 Urine 04/09/2025 9:44 AM EDT Result [facility] Ruma Gallardo MD POINT OF CARE TEST ENTER/EDIT ORDERABLES Final Result * Hepatitis C Antibody with Reflex to HCV, RNA, Quantitative, Real-Time PCR (10/24/2024 9:42 AM EDT) Hepatitis C Antibody Nonreactive Nonreactive [facility] Comment:Antibodies to HCV no t detected; does not exclude early acuteHCV infection. Blood Venous blood specimen / Unknown 10/24/2024 9:42 AM EDT 10/24/2024 11:19 AM EDT Result [facility] Ya Khan MD LAB BLOOD ORDERAB LES Final Result Performing Organization Address [facility]/ZIP Co de Phone Number [facility] [address] [place] [phone] * HIV-1/2 Antigen and Antibodies, Fourth Generation, with Reflexes (10/24/2024 9:42 AM EDT) HIV AB/AG Nonreactive Nonreactive [facility] Comment:HIV-1 p24 Ag and/or HIV-1/HIV-2 Ab not detected.A test result that is nonreactive does not exclude thepossibility of exposure to or infection with HIV-1 and/orHIV-2. Nonreactive results in this assay for individualswith prior exposure to HIV-1 and/or HIV-2 may be due toantigen and antibody levels that are below the limit ofdetection of this assay.The Intertwine HIV Ag/Ab Combo assay result andsupplemental assay results should be interpreted inconjunction with the patient's clinical presentation,history and other laboratory results. If the results areinconsistent with clinical evidence, additional testing issuggested to confirm the result. Blood Venous blood specimen / Unknown 10/24/2024 9:42 AM EDT 10/24/2024 11:19 AM EDT us Ya Khan MD LAB BLOOD ORDERAB LES Final Result Performing Organization Address [facility]/ZIP Co de Phone Number [facility] [address] [place] [phone] * ThinPrep Imaging Pap and HPV mRNA E6/E7 with Reflex to HPV 16,18/45 (01/17/2024 3:04 PM EDT) HPV 16 RNA TNP [facility] HPV 18/45 RNA [facility] HPV nRNA E6/E7 Not Detected Not Detected [facility] Comment:Methodology: Transcr iption-Mediated AmplificationThis assay detects E6/E7 viral messenger RNA (mRNA) from 14high-risk HPV types (16,18,31,33,35,39,45,51,52,56,58,59,66,68).Cervical sources are required for HPV testing.If a vaginal source from a patient who has had atotal hysterectomy with removal of cervix wassubmitted, please contact the testing laboratoryfor alternative testing options.For additional information, please refer [email or web address]/faq/ROI919f8(This link if provided for information/educational purposes only.)THIS TEST WAS PERFORMED AT:[facility] [address] [phone] ESCALANTE MD SOURCE: SEE NOTE [facility] Comment:Cervix Report Status: [facility] Clinical Information: SEE NOTE [facility] Comment:None given LMP: SEE NOTE [facility] Comment:01/13/2024 Prev. PAP: SEE NOTE [facility] Comment:NONE GIVEN Prev. BX: SEE NOTE [facility] Comment:NONE GIVEN Statement Of Adequacy: SEE NOTE [facility] Comment:Satisfactory for moe luation.Endocervical/transformation zone componentpresent. General Categorization: [facility] Interpretation/Result: SEE NOTE [facility] Comment:Cytology Results: Ne gative for intraepitheliallesion or malignancy. Cytology Comment SEE NOTE [facility] Comment:This Pap test has be en evaluated with computerassisted technology. Guide Plant: SEE NOTE [facility] Comment:GSG, CT(ASCP)CT scre ening location: [address] [address] Review Guide Plant: [facility] Pathologist [facility] PAP Infection [facility] See Note SEE NOTE [facility] Comment:EXPLANATORY NOTE:The Pap is a screening test for cervical cancer. It isnot a diagnostic test and is subject to false negativeand false positive results. It is most reliable when asatisfactory sample, regularly obtained, is submittedwith relevant clinical findings and history, and whenthe Pap result is evaluated along with historic andcurrent clinical information. 01/17/2024 3:04 PM EDT 01/17/2024 4:02 PM EDT Narrative [facility] - 01/24/2024 12:48 PM EDT SEE SCANNED RESULTS IN EMRWas previous PAP abnormal? UnknownClinical Information: routineCollection Date: 01/16/24igh risk HPV with 16 18 genotyping? YReflex HPV any abnormal diagnosis? YReflex HPV if ASCUS only? NHigh Risk HPV (any diagnosis)? YLMP: 01/13/24Date of previous PAP unknownPerformed by: : [id number] us Generic External Data Provider LAB PATHOLOGY ORD ERABLES Final Result [facility] [address] [place] [phone] from Last 3 Months or Most Recently Relevant to Health Maintenance Insurance [employer] Care Teams Sales Representative Consultant Relationship Specialty Start Date End Date Ya Rojas MD [address] [place] [phone] PCP - General Internal Medicine 08/30/23
== END 2025-04-11 15:39 | disposition home or self-care (01) ==
LOC: HO.US 15:38
PROVIDERS: PCP Pediatrics; Visit Provider Pediatrics
DX: N93.9 Abnormal uterine and vaginal bleeding, unspecified (principal); M32.9 Systemic lupus erythematosus, unspecified
CPT/HCPCS: 76830; 76856

== ENCOUNTER → 2025-04-11 15:40 | Outpatient (BNV) | payer MEDICAID, SELFPAY | PROVIDERS: PCP Pediatrics; Visit Provider Radiology Diagnostic Radiology | DX: N92.5 Other specified irregular menstruation (principal) | CPT/HCPCS: 76830; 76856 ==

== ENCOUNTER 2025-06-11 10:54 | Outpatient (REF) | payer MEDICAID, SELFPAY ==
--- OUTSIDE RECORDS SUMMARY | 2025-06-10 09:45 | XMS_ITS | Encounter Summary ---
Author Organization [employer] Address [address] [facility] 7 [place] [address] Care Team Providers Care Rn Allergy Name Role Phone Ya Rojas MD Primary Care Pro vider Encounter Details Date Type Department Care Team (Latest Contact Info) Description 06/10/2025 9:45 AM EST Office Visit [facility] [address] [place] [address] [phone] aY Rojas MD [address] [place] [address] Overweight (Primary Dx); Dietary counseling; Exercise counseling; Encounter for immunization; Abnormal uterine bleeding; Health care maintenance; Iron deficiency anemia due to chronic blood loss; SLE (systemic lupus erythematosus related syndrome) (CMS/HCC) ([facility]); High risk heterosexual behavior Social History Tobacco Use Types Packs/Day Years Used Date Smoking Tobacco: Never Passive Smoke Exposure: Current Smokeless Tobacco: Never Tobacco Cessation:Counseling Given: Not Answered Alcohol Use Standard Drinks/Week Comments Yes 0 (1 standard drink = 0.6 oz pur e alcohol) social Depression Answer Date Recorded Patient Health Questionnaire-9 Score 0 06/10/2025 Patient Health Questionnaire-9 Score 0 06/10/2025 Last PHQ-9: Questionnaire Data Not on file 1 08/11/2024 Housing Stability Answer Date Recorded What is [...] Answer Date Recorded Patient Health Questionnaire-2 Score 0 06/10/2025 Internet Access Answer Date Recorded Internet Access [...] Sign Reading Time Taken Comments Blood Pressure 108/70 06/10/2025 10:07 AM EST Pulse 72 06/10/2025 10:07 AM EST Temperature 36.2 C (97.1 F) 06/10/2025 10:07 AM EST Respiratory Rate 20 06/10/2025 10:0 7 AM EST Oxygen Saturation 99% 06/10/2025 10: 07 AM EST Inhaled Oxygen Concentration - - Weight 58.4 kg (128 lb 12.8 oz) 025 10:07 AM EST Height 152.4 cm (5') 06/10/2025 10:07 AM EST Body Mass Index 25.15 06/10/2025 10:07 AM EST documented in this encounter Functional Status * Over the past 2 weeks, how often have you been bothered by any of the following problems? Question Answer Date of Assessment Author Patient Health Questionnaire -2 Score 0 06/10/2025 10:56 AM EST Radha Lopez MA * Little interest or pleasure in doing things Answer Date of Assessment Author Not at all 06/10/2025 10:56 AM EST Radha Lopez MA * Feeling down, depressed, or hopeless Answer Date of Assessment Author Not at all 06/10/2025 10:56 AM Radha Vasquez MA * Trouble falling or staying asleep, or sleeping too much Answer Date of Assessment Author Not at all 06/10/2025 10:56 AM Radha Vasquez MA * Feeling tired or having little energy Answer Date of Assessment Author Not at all 06/10/2025 10:56 AM Radha Vasquez MA * Poor appetite or overeating Answer Date of Assessment Author Not at all 06/10/2025 10:56 AM Radha Vasquez MA * Feeling bad about yourself - or that you are a failure or have let yourself or your family down Answer Date of Assessment Author Not at all 06/10/2025 10:56 AM Radha Vasquez MA * Trouble concentrating on things, such as reading the newspaper or watching television Answer Date of Assessment Author Not at all 06/10/2025 10:56 AM Radha Vasquez MA * Moving or speaking so slowly that other people could have noticed? Or the opposite - being so fidgety or restless that you have been moving around a lot more than usual. Answer Date of Assessment Author Not at all 06/10/2025 10:56 AM Radha Vasquez MA * Thoughts that you would be better off or hurting yourself in some way Answer Date of Assessment Author Not at all 06/10/2025 10:56 AM Radha Vasquez MA * Patient Health Questionnaire-9 Score Answer Date of Assessment Author 0 06/10/2025 10:56 AM Radha Vasquez MA * Over the last 2 weeks, how often have you been bothered by any of the following problems? Question Answer Date of Assessment Author Feeling nervous, anxious, or on edge 0 06/10/2025 10:56 AM Radha Vasquez MA Not being able to stop or co ntrol worrying 0 06/10/2025 10:56 AM Radha Vasquez MA Worrying too much about diff erent things 0 06/10/2025 10:56 AM Radha Vasquez MA Trouble relaxing 0 06/10/2025 10:56 AM Radha Vasquez MA Being so restless that it is hard to sit still 0 06/10/2025 10:56 AM Radha Vasquez MA Becoming easily annoyed or irritable 0 06/10/2025 10:56 AM Radha Vasquez MA Feeling afraid as if somethi ng awful might happen 0 06/10/2025 10:56 AM Radha Vasquez MA PILI-7 Total Score 0 06/10/2025 10:56 AM Radha Vasquez MA documented as of this encounter Progress Notes * Ya Khan MD - 06/10/2025 9:45 AM EST Subjective Patient ID: Isac Ge is a 30 y.o. 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 ,Asthma,migraine BAÑUELOS ,depression,CTS Comes for f up apt -Reports started an open relationship w ,not yet either her or with another partners -Pt reports less heavy periods as 3 days heavy and clots then decrease brown ongoing for 2 more weeks Pt states has hard time to schedule apt w her [employer] ----- -LMP: 05/29/2025 ---- Assessment and Plan: Health care maintenance -Annual exam done 10/2024 -contraception: s/p tubal ligation -pap smear: 01/2024 Neg /HPV neg to repeat in 5 y -vaccines COVID 19 x2 -Last booster 08/2023, Flu vaccine 03/2024 ,Tdap 2016 while per pt ,HPVx 3 doses ,-hep B immune In office received COVID 19 and flu vaccine today SLE -08/2023 CRP wnl, ESR 22,ELIZABETH neg,UA neg -from records brought from [place]: 04/2020 antiDNA Pos at 22 x2 -saw nutrition services worker 12/2024 and has f up apt in 06/2025 -saw retail manager 11/2024 to f in 1 y Depression/anxiety PHQ9 6<-- 16 PILI 3 <-- 16 , SI , no hallucinations ,no isidro Feeling better -f w therapist -completed therapist not currently following any more -valerian root helping to sleep Migraine BAÑUELOS Unilateral right BAÑUELOS for 2 y ,constant ,daily ----- now improved -Had at ER CT brain w/o contrast , CT neck and brain angiogram in 05/2023 all studies were normal -MR head/brain wo/w con 07/2024 :Unremarkable MRI of the brain without and with contrast. -XR cervical spine w flex/ext 08/2024 :Unremarkable examination of the cervical spine. There is no abnormal motion with flexion or extension. Stopped amytriptiline stopped was feeling heavy -continue PO mag daily -Tylenol -NSAIDS prn -continue Topiramate to 50 mg daily -imitrex prn -neurologist 07/2024 Referred for Brain MRI with and without contrast as patient has worsening headaches in setting lupus diagnosis. XR C-spine,Start Riboflavin 400mg qam ,Resume Magnesium 400mg qhs Asthma -PFT 08/2023 normal ,if clinical concern may need methacholine challenge test -pt feeling well now ,will monitor -albuterol prn -rarely use CTS -resume using wrist brace-using doing better -continue to monitor Abnormal uterine bleeding dysmenorrhea ,dyspareunia, sometimes blood after sex. Denies vaginal discharge, no vaginal itching , no foul smelling secretions, no pelvic pain, no fever no chills, no symptoms. -US pelvic and transvaginal 11/2023:Visualization of endometrium limited due to bowel gas, body habitus and uterine heterogeneity, but endometrial thickness is approximately 12 mm. Endometrium is difficult to visualize, but appears heterogeneous with at least 2 hypoechoic areas, possibly representing complex fluid. Correlation with clinical exam recommended to determine further management including possible followup imaging in 6-8 weeks. -BV panel neg -Endometrial bx 01/2024 hysteroscopy D C : Endometrium, polypectomy: Disordered proliferative endometrium; some fragments with features of endometrial polyp; no atypia identified. no atypia or hyperplasia identified. -US pelvic and transvaginal 04/2025 Unremarkable pelvic ultrasound Last seen by [employer] 01/2024 : Discussed with the patient the results of the work up done and option of treatment including Lysteda, BCP's (both contraindicated in patient with SLE), Mirena IUD (USME category 3 with SLE), endometrial ablation and hysterectomy. All pros, cons, risks and benefits if each option was discussed with the patient and the patient decided to think about it and get back to us. All questions answered the patient verbalized understanding. Pt reports less heavy periods as 3 days heavy and clots then decrease brown ongoing for 2 more weeks Pt states has hard time to schedule apt w her [employer] -I called her [employer] at [facility] -Dr Bruno today to get apt -------they will call pt today to schedule f up-while in office [employer] called pt and in process to schedule f up w Dr Bruno Anemia -resolved Periods less heavy now -Improved but still prolong periods Off iron tab for 6 mo per pt -04/2025 CBC wnl, ferritin 9 ,Chem wnl ,iron panel wnl ,Tsh wnl,UA wnl,PT INR wnl --iron food -advised to continue w iron rich food -will repeat CBC at annual exam in 4 mo Lisbeth risk sexual encounter Reports started an open relationship w ,not yet either her or with another partners Discussed today w pt if interested in take DOXY PEP and HIV PREP if will start high risk encounters, pt states will think about it and will schedule apt if interested but refuse for now Advised pt for constant condom use Review of Systems -prolong menstrual periods Objective BP 108/70 (BP Location: Left arm, Patient Position: Sitting, BP Cuff Size: Adult) Pulse 72 Temp97.1 ??F (36.2 ??C) (Temporal) Resp 20 Ht 5' (1.524 m) Wt 128 lb 12.8 oz (58.4 kg) LMP 06/03/2025 (Exact Date) SpO2 99% BMI 25.15 kg/m?? Physical Exam Constitutional: General: She is not in acute distress. Appearance: Normal appearance. She is not ill-appearing. Neurological: Mental Status: She is alert. Assessment/Plan Problem List Items Addressed This Visit SLE (systemic lupus erythematosus related syndrome) (CMS/HCC) ([facility]) Health care maintenance Abnormal uterine bleeding Overweight - Primary Anemia Risky sexual behavior Other Visit Diagnoses Dietary counseling Exercise counseling Encounter for immunization Relevant Orders COVID-19 VACCINE [id number] (Comirnaty) 12 yrs to 18 yrs (Completed) FLU VACCINE TRIVALENT [id number] (Fluarix) 19 yrs + (Completed) documented in this encounter Plan of Treatment Not on file documented as of this encounter Visit Diagnoses Diagnosis Overweight- Primary Dietary counseling Dietary surveillance and counseling Exercise counseling Encounter for immunization Abnormal uterine bleeding Unspecified disorder of menstruation and other abnormal bleeding from female genital tract Health care maintenance Iron deficiency anemia due to chronic blood loss Iron deficiency anemia secondary to blood loss (chronic) SLE (systemic lupus erythematosus related syndrome) (CMS/HCC) (HCC) Systemic lupus erythematosus High risk heterosexual behavior documented in this encounter Additional Health Concerns Assessment Noted Time PHQ-9 Depression Total Score: 0 06/10/20 25 10:56 AM EST documented as of this encounter Care Teams Rn Allergy Relationship Specialty Start Date End Date Ya Rojas MD [address] [place] [id number] PCP - General Internal Medicine 08/30/23 documented as of this encounter
[2025-06-11 11:19] LABS: MANUAL DIFF FLAG NO
[2025-06-11 12:00] LABS: Hematocrit 38.1 % (37.0-47.0); Hemoglobin 12.9 g/dl (12.0-16.0); Imm Gran Abs Auto 0.02 X10*3/uL (0.00-0.03); Imm Gran Pct Auto 0.4 % (0.0-0.4); Lymphocytes Absolute Auto 0.8 X10*3/uL (1.2-4.9); Mean Corpuscular HGB Conc 33.9 g/dl (31.0-35.0); Mean Corpuscular Hemoglobin 30.1 pg (27.0-33.0); Mean Corpuscular Volume 88.8 fL (80.0-98.0); NRBC Abs Auto 0.000 X10*3/uL (0.0-0.012); NRBC Pct Auto 0.0 /100WBC (0.0-0.2); Platelet Count 249 X10*3/uL (160-400); Red Blood Count 4.29 X10*6/uL (4.20-5.50); White Blood Count 5.4 X10*3/uL (4.8-10.8)
[2025-06-11 12:01] LABS: Appearance Urine Clear; Glucose Urine UA Negative (Negative); PH 6.5 (5.0-9.0); Specific Gravity - Urine 1.010 (1.005-1.025)
[2025-06-11 12:29] LABS: Alanine Aminotransferase 14 U/L (0-31); Albumin Level 4.7 g/dL (3.5-5.0); Alkaline Phosphatase 45 U/L (39-117); Anion Gap 10 (12-20); Aspartate Amino Transferase 27 U/L (5-31); Blood Urea Nitrogen 15 mg/dL (9-16); Calcium 9.4 mg/dL (8.4-10.2); Carbon Dioxide 28 mmol/L (22-29); Chloride 106 mmol/L (96-108); Estimated Glomerular Filt Rate > 60; Potassium 4.0 mmol/L (3.3-5.1); Sodium 140 mmol/L (135-145); Total Protein 7.5 g/dL (6.5-8.0)
--- OUTSIDE RECORDS SUMMARY | 2025-06-11 12:47 | XMS_ITS | Patient Health Record ---
Author Organization [employer] [facility] [employer] [facility]LE[facility] Address [address] [facility] [address] [place] [address] Support Name Relationship Address Phone Isac Ge Guarantor Unknown Unavail able Reason For Referral No Information Plan Of Treatment No Information Insurance Providers Payer Name Payer Address Payer Phone Subscriber Number Group Number Insured Name Patient Relationship to Insured Coverage Start Date Coverage End Date [employer] [facility] [address] [address] [place] [phone] [id number] Isac Ge Self - patient is the insured 9
--- OUTSIDE RECORDS SUMMARY | 2025-06-11 12:48 | XMS_ITS | Clinical Summary ---
Author Organization [id number] Address [address] [facility] [address] [place] [address] Care Team Providers Care Staff Developer Name Role Phone Ya Rojas MD Primary [...] Takes 200 mg alternating 400 mg daily 11/21/19 24 Active albuterol 108 (90 Base) MCG/ACT inhalerIndicatio ns:Mild intermittent asthma with (acute) exacerbation Inhale 2 puffs every 6 (six) hours if needed for wheezing. 18 g 3 05/28/20 24 Active riboflavin (Vitamin B-2) 400 MG tablet Take 1 tablet by mouth Once per day. 09/11/19 25 Active SUMAtriptan (Imitrex) 100 MG tablet TAKE 1/2 TO 1 TABLET AT ONSET OF HEADACHE MAY REPEAT IN 2 HRS MAX 2TABS/DAY OR 4TABS/ WEEK 09/10/19 25 Active alpha tocopherol (Vitamin E) 100 units capsule Take 100 Units by mouth Once per day. Active cholecalciferol (Vitamin D-3) 25 MCG (1000 UT) tablet Take 1,000 Units by mouth Once per day. Active topiramate (Topamax) 50 MG tabletIndication s:Migraine without status migrainosus, not intractable, unspecified migraine type Take 1 tablet (50 mg) by mouth Once per day. 30 tablet 2 10/25/19 25 026 Active magnesium oxide (Mag-Ox) 400 (240 Mg) MG tabletIndication s:Other migraine without status migrainosus, not intractable TAKE 1 TABLET BY MOUTH EVERY MORNING 90 tablet 10/25/19 25 Active lidocaine (Lidoderm) 5 % patchIndications :Chronic low back pain, unspecified back pain laterality, unspecified whether sciatica present Apply 1 patch topically Once per day. Remove & discard patch within 12 hours or as directed by MD. 30 patch 2 10/30/19 25 Active ferrous gluconate (Fergon) 324 (38 Fe) MG tablet Take 324 mg by mouth with breakfast. 025 Discontinu ed(Other) amitriptyline (Elavil) 25 MG tablet Take 1 tablet (25 mg) by mouth at bedtime. 30 tablet 04/15/20 25 025 Discontinu ed(Other) naproxen (Naprosyn) 500 MG tablet Take 1 tablet (500 mg) by mouth 2 times daily. 60 tablet 04/15/20 25 Active Problems Problem Noted Date Diagnosed Date Risky sexual behavior 06/10/2025 Mild intermittent asthma with (acute) exacerbati on [...] bleeding 11/21/2023 CTS (carpal tunnel syndrome) 08/30/2023 Migraine 08/30/2023 Mixed anxiety and depressive disorder 08/30/2023 Overview (09/04/2023): During IBH Consult [place] presenting with depressed mood, loss of interests/pleasure [...] move, and relationship issues. Isac moved from [place] on 12/2022 looking for better opportunities. She [...] intervention , [facility], Patient to engage [...] for MH services. Assessment & Plan (09/27/2023 2:09 PM [...] past 12 months) . Referral placed to [facility]. Number giving to patient. SLE (systemic lupus erythema tosus related syndrome) ([facility]) 08/30/2023 Health care maintenance 08/30/2023 Stress-related problem [...] intervention , [facility] as needed, Patient to engage [...] past 12 months) . Referral placed to [facility]. Number giving to patient. Encounters Date Type Department Care Team Description 06/11/2025 Orders Only GENERIC EXTERNAL DATA DEPARTMENT Provider, Generic External Data 06/10/2025 9:45 AM EST Office Visit [facility] [address] [place] [phone] Ya Rojas MD Overweight (Primary Dx); Dietary counseling; Exercise counseling; Encounter for immunization; Abnormal uterine bleeding; Health care maintenance; Iron deficiency anemia due to chronic blood loss; SLE (systemic lupus erythematosus related syndrome) (CMS/HCC) (HCC); High risk heterosexual behavior 06/10/2025 Travel 06/09/2025 Telephone [facility] [address] [place] [address] [phone] Ya Rojas MD chart prep 04/15/2025 5:00 PM EDT Office Visit [facility] [address] [place] [phone] Yanci Echevarria FNP Migraine without status migrainosus, not intractable, unspecified migraine type (Primary Dx) 04/15/2025 Travel 04/09/2025 9:40 AM EDT Office Visit [facility] [address] [place] [address] Ruma Gallardo MD Vaginal bleeding (Primary Dx); SLE (systemic lupus erythematosus related syndrome) (CMS/HCC) (HCC); Abnormal uterine bleeding 04/09/2025 Results Follow-Up [facility] [address] [place] [address] Ruma Gallardo MD CBC auto differential, Ferritin, Hepatic Function Panel, Additional followed-up results: 8 04/09/2025 Travel from Last 3 Months Immunizations Immunization Administration Dates Next Due HPV 9-Valent 07/04/2024,04/05/2024,01/03/2024 Influenza injectable quadriv alent preservative free 08/30/2023 Influenza, seasonal, injecta ble, preservative free 06/10/2025,04/03/2024 Pfizer Covid-19 Vaccine 12+ 06/10/2025,,08/30/2023 Family History Medical History Relation Name Comments [...] Mass Index 25.15 06/10/2025 10:07 AM EST Plan of Treatment Health Maintenance Due Date Last Done Comments Family Planning (PISQ) 2008 DTaP/Tdap/Td Vaccines (1 - Tdap) 2012 Hepatitis B Vaccines (1 of 3 - 19+ 3-dose series) 2012 Pneumococcal Vaccine: Pediatrics (0 to 5 Years) and At-Risk Patients (6 to 49) Years (1 of 2 - PCV) 2012 SDOH Screening 10/17/2025 10/17/2024 Disability Screening 10/24/2025 10/24/2024 Alcohol/Substance Use Screening 06/10/2026 06/10/2025 Depression Screening 06/10/2026 06/10/2025, 06/10/2025 Tobacco Screening 06/10/2026 06/10/2025 Pap Smear 01/16/2027 01/17/2024 Cervical Cancer Screening 01/16/2029 HPV/Cotest 01/16/2029 01/17/2024 Zoster Vaccines (1 of 2) 2043 RSV Patients and Patients Aged 60 years or older (1 - 1-dose 75+ series) 2068 HPV Vaccines Completed 07/04/2024, 04/05/2024, 01/03/2024 HIV Screening Completed 10/24/2024, 08/30/2023 Hepatitis C Screening Completed 10/24/2024 , 08/30/2023 COVID-19 Vaccine Completed 06/10/2025, 04/03/2024, 08/30/2023 Influenza Vaccine Completed 06/10/2025, 04/03/2024, 08/30/2023 HIB Vaccines Aged Out No [...] Procedure Name Priority Date/Time Associated Diagnosis Comments SED RATE BY MODIFIED WESTERGREN Routine 06/11/2025 11:16 AM EST VITAMIN D,25-OH,TOTAL,IA Routine 06/11/2025 11:16 AM EST HCG, TOTAL, QN Routine 06/11/2025 11:16 AM EST C-REACTIVE PROTEIN Routine 06/11/2025 11 :16 AM EST COMPREHENSIVE METABOLIC PANEL Routine 06/11/2025 11:16 AM EST CBC WITH AUTO DIFFERENTIAL Routine 06/11/2025 11:16 AM EST URINALYSIS, COMPLETE Routine 06/11/2025 11:07 AM EST US PELVIS TRANSVAGINAL Urgent 04/11/2025 4:04 PM EDT Vaginal bleeding SLE (systemic lupus erythematosus related syndrome) (CMS/HCC) (HCC) Abnormal uterine bleeding PROTHROMBIN TIME-INR Routine 04/09/2025 10:26 AM [...] Recently Relevant to Health Maintenance Results * Vitamin D, 25-Hydroxy, Total, Immunoassay (06/11/2025 11:16 AM EST) Vitamin D 25-OH Total 52.0 >30 ng/mL [facility] Comment: Health Based Reference Values*< 20 ng/mL [id number] ng/mL Insufficient> 30 ng/mL Sufficient*Christopher TUBBS. N Engl J Med. 2007;357:266-280There is no well-established upper level of normal vitamin Dlevels. Some laboratories use 50 ng/mL as an upper limit ofnormal. However, toxicity is patient-dependent and may occurat any level. Careful correlation with the patient'spresentation is necessary and, if there is concern forvitamin D toxicity, treatment should be consideredirrespective of the serum level.Care must be taken in interpreting Vitamin D results fromdifferent laboratories and methodologies. Published datademonstrated that results from patients undergoinghemodialysis may show a negative bias when tested withvarious automated 25-OH vitamin D assays when compared toLC-MS/MS.When testing samples from patients whose predominant form ofVitamin D is Vitamin D2, such as patients receiving VitaminD2 supplementation, results that are subtherapeutic shouldbe confirmed with another method such as LC-MS/MS. 06/11/2025 11:1 6 AM EST 06/11/2025 11:16 AM EST us Generic External Data Provider LAB BLOOD ORDERAB LES Final Result [facility] [address] [place] [phone] * (ABNORMAL) CBC auto differential (06/11/2025 11:16 AM EST) Only the most recent of2 resultswithin the time period is included. White Blood Count 5.4 4.8 - 10.8 X10*3/uL [facility] Red Blood Count 4.29 4.20 - 5.50 X10*6/uL [facility] Hemoglobin 12.9 12.0 - 16.0 g/dl [facility] Hematocrit 38.1 37.0 - 47.0 % [facility] Mean Corpuscular Volume 88.8 80.0 - 98.0 fL [facility] Mean Corpuscular Hemoglobin 30.1 27.0 - 33.0 pg [facility] Mean Corpuscular HGB Conc 33.9 31.0 - 35.0 g/dl [facility] Red Cell Distribution Width 12.4 11.0 - 16.0 % [facility] Platelet Count 249 160 - 400 X10*3/uL [facility] Mean Platelet Volume 10.3 9.4 - 12.3 fL [facility] Neutrophils Percent Auto 77.5(H) 45 - 73 % [facility] Imm Gran Pct Auto 0.4 0.0 - 0.4 % [facility] Lymphocytes Percent Auto 15.5(L) 20 - 40 % [facility] Monocytes Percent Auto 5.8 2 - 11 % [facility] Eosinophils Percent Auto 0.4 0 - 4 % [facility] Basophils Percent Auto 0.4 0 - 2 % [facility] NRBC Pct Auto 0.0 0.0 - 0.2 /100WBC [facility] Neutrophils Absolute Auto 4.2 2.0 - 8.3 x10*3/uL [facility] Imm Gran Abs Auto 0.02 0.00 - 0.03 X10*3/uL [facility] Lymphocytes Absolute Auto 0.8(L) 1.2 - 4.9 X10*3/uL [facility] Monocytes Absolute Auto 0.3 0.1 - 1.2 X10*3/uL [facility] Eosinophils Absolute Auto 0.0 0.0 - 0.4 X10*3/uL [facility] Basophils Absolute Auto 0.0 0.0 - 0.2 X10*3/uL [facility] NRBC Abs Auto 0.000 0.0 - 0.012 X10*3/uL [facility] 06/11/2025 11:1 6 AM EST 06/11/2025 11:16 AM EST us Generic External Data Provider LAB BLOOD ORDERAB LES Final Result Performing Organization Address [facility] Co de Phone Number [facility] [address] [place] [phone] * Sed Rate by Modified Joseergren (06/11/2025 11:16 AM EST) Erythrocyte Sedimentation Rate 13 0 - 20 MM/HR [facility] Comment:Patients with polycy themia and many hemoglobin abnormalitiesmay have depressed sed rates whereas patients with anemiamay have elevated sed rates. 06/11/2025 11:1 6 AM EST 06/11/2025 11:16 AM EST us Generic External Data Provider LAB BLOOD ORDERAB LES Final Result Performing Organization Address [facility] de Phone Number [facility] [address] [place] [phone] * C-reactive Protein (06/11/2025 11:16 AM EST) C Reactive Protein 0.38 < or = 0.50 mg/dL [facility] 06/11/2025 11:1 6 AM EST 06/11/2025 11:16 AM EST us Generic External Data Provider LAB BLOOD ORDERAB LES Final Result Performing Organization Address [facility] Co de Phone Number [facility] [address] [place] [phone] * hCG, Total, Quantitative (06/11/2025 11:16 AM EST) HCG Quantitative <2 mIU/mL [facility] Comment:Weeks post LMP Appro ximate hCG(Last Menstrual Period) Range (mIU/ml)3 - 4 weeks 9 - 1304 - 5 weeks 75 - 2,6005 - 6 weeks 850 - 20,8006 - 7 weeks 4000 - 100,2007 - 12 weeks 11,500 - 289,08417 - 16 weeks 18,300 - 137,30374 - 29 weeks (2nd trimester) 1,400 - 53,61960 - 41 weeks (3rd trimester) 940 - 60,000The Stewart B- hCG assay is used for the early detection ofpregnancy; it cannot be used to diagnose any conditionunrelated to . If a B-hCG level is not supportedby the clinical evidence, results should be confirmed by analternative method (qualitative urine hCG, for example). 06/11/2025 11:1 6 AM EST 06/11/2025 11:16 AM EST us Generic External Data Provider LAB BLOOD ORDERAB LES Final Result [facility] [address] [place] [phone] * (ABNORMAL) Comprehensive Metabolic Panel (06/11/2025 11:16 AM EST) Sodium 140 135 - 145 mmol/L [facility] Potassium 4.0 3.3 - 5.1 mmol/L [facility] Chloride 106 96 - 108 mmol/L [facility] Carbon Dioxide 28 22 - 29 mmol/L [facility] Anion Gap 10(L) 12 - 20 [facility] Urea Nitrogen (BUN) 15 9 - 16 mg/dL [facility] Creatinine, Serum 0.79 0.5 - 1.4 mg/dL [facility] Estimated Glomerular Filt Rate >60 [facility] Comment:Chronic Kidney Disea se: Estimated GFR < 60 mL/min/1.61o7Norldx Kidney Disease: Estimated GFR < 15 mL/min/1.73m2 Glucose 124(H) 60 - 115 mg/dL [facility] Calcium 9.4 8.4 - 10.2 mg/dL [facility] Bilirubin, Total 1.2(H) 0.0 - 1.0 mg/dL [facility] Aspartate Amino Transferase 27 5 - 31 U/L [facility] Alanine Aminotransferase 14 0 - 31 U/L [facility] Total Protein 7.5 6.5 - 8.0 g/dL [facility] Albumin Level 4.7 3.5 - 5.0 g/dL [facility] Alkaline Phosphatase 45 39 - 117 U/L [facility] 06/11/2025 11:1 6 AM EST 06/11/2025 11:16 AM EST us Generic External Data Provider LAB BLOOD ORDERAB LES Final Result Performing Organization Address City/State/[facility] Co de Phone Number [facility] [address] [place] [phone] * Urinalysis Complete (06/11/2025 11:07 AM EST) Color Urine Yellow [facility] Appearance Urine Clear [facility] PH 6.5 5.0 - 9.0 [facility] Glucose Urine UA Negative Negative mg/dL [facility] Urine Blood Negative Negative [facility] Specific [place] - Urine 1.010 1.005 - 1.025 [facility] Urine Protein Negative Neg-Trace mg/dL [facility] Urine Ketones Negative Negative mg/dL [facility] Nitrite Urine Negative Negative [facility] Leukocyte Esterase Urine Negative Negative [facility] RBC Urine 0-2 0 - 2 /HPF [facility] Urine WBC 0-5 0 - 5 /HPF [facility] Urine Squamous Epithelial Cell 0-2 0 - 2 /HPF [facility] Urine Bacteria None Seen None Seen [facility] Hyaline Casts, Urine 0-2 0 - 2 /LPF [facility] 06/11/2025 11:0 7 AM EST 06/11/2025 11:40 AM EST us Generic External Data Provider LAB URINE ORDERAB LES Final Result [facility] [address] [place] [phone] * US Pelvis Transvaginal (04/11/2025 4:04 PM EDT) Anatomical Region Laterality Modality Pelvis Ultrasound 04/11/2025 4:04 PM EDT Narrative 04/11/2025 4:35 PM EDT [address] [address] Ultrasound Report Signed Patient: Isac Chavis MR#: [id number] : 1995 Acct:[id number] Age/Sex: 29 / F ADM Date: 04/11/25 Loc: .US Attending Dr: Ruma Gallardo MD Ordering Physician: Ruma Gallardo MD Date of Service: 04/11/25 Procedure(s): US pelvic and transvaginal Accession Number(s): [id number] cc: Ruma Gallardo MD Reason for Exam: menorrhagia, history of lupus and endometrial thickening EXAMINATION: US PELVIS CLINICAL INFORMATION: menorrhagia, history of lupus and endometrial thickening COMPARISON: December 07, 2023 TECHNIQUE: Ultrasound of the pelvis is performed using both transabdominal and transvaginal transducers along with Doppler. Transvaginal imaging is performed due to inadequate visualization transabdominally. FINDINGS: Uterus: The uterus is anteverted and measures 9.4 x 3.4 x 5.0 cm. There is trace fluid in the endocervical canal. The double wall endometrial thickness is 6 mm. The uterus is smooth in contour and has normal myometrial echogenicity. No visible fibroid. Adnexa: Both ovaries are visualized. There is normal color flow to the adnexa. There is no ovarian torsion. There is no pelvic ascites or fluid collection. Right ovary measures 3.2 x 2.2 x 2 4 cm. There is a 2.1 cm simple cyst/follicle Left ovary measures 3.1 x 2.15 cm. There is a 2.1 cm cyst /follicle US/US pelvic and transvaginal IMPRESSION: Unremarkable pelvic ultrasound Electronically signed by: Je Deluca MD 04/11/2025 04:33 PM EDT Dictated By: Je Deluca MD Signed By: <Electronically signed by Je Deluca MD in OV> 04/11/25 1633 DD/ 1604 TD/TT: 04/11/25 1616 Factory Engineer: Procedure Note Donotuseinterpreter, Image - 04/11/2025 [place] [address] Ultrasound Report Signed Patient: Isac Chavis MR#: [id number] : 1995Acct:[id number] Age/Sex: 29 / FADM Date: 04/11/25 Loc: HO.US Attending Dr: Ruma Gallardo MD Ordering Physician: Ruma Gallardo MD Date of Service: 04/11/25 Procedure(s): US pelvic and transvaginal Accession Number(s): [id number] cc: Ruma Gallardo MD Reason for Exam: menorrhagia, history of lupus and endometrial thickening EXAMINATION: US PELVIS CLINICAL INFORMATION: menorrhagia, history of lupus and endometrial thickening COMPARISON: December 07, 2023 TECHNIQUE: Ultrasound of the pelvis is performed using both transabdominal and transvaginal transducers along with Doppler. Transvaginal imaging is performed due to inadequate visualization transabdominally. FINDINGS: Uterus: The uterus is anteverted and measures 9.4 x 3.4 x 5.0 cm. There is trace fluid in the endocervical canal. The double wall endometrial thickness is 6 mm. The uterus is smooth in contour and has normal myometrial echogenicity. No visible fibroid. Adnexa: Both ovaries are visualized. There is normal color flow to the adnexa. There is no ovarian torsion. There is no pelvic ascites or fluid collection. Right ovary measures 3.2 x 2.2 x 2 4 cm. There is a 2.1 cm simple cyst/follicle Left ovary measures 3.1 x 2.15 cm. There is a 2.1 cm cyst /follicle US/US pelvic and transvaginal IMPRESSION: Unremarkable pelvic ultrasound Electronically signed by: Je Deluca MD 04/11/2025 04:33 PM EDT Dictated By: Je Deluca MD Signed By: <Electronically signed by Je Deluca MD in OV> 04/11/25 1633 DD/ 1604 TD/TT: 04/11/25 1616 Factory Engineer: us Ruma Gallardo MD IMG US PROCEDURES Final Resul t * (ABNORMAL) Urinalysis, Complete, with Reflex to Culture (04/09/2025 10:26 AM EDT) Color Urine Yellow [facility] Appearance Urine Clear [facility] PH 6.5 5.0 - 9.0 [facility] Glucose Urine UA Negative Negative mg/dL [facility] Urine Blood Small (1+)(A) Negative [facility] Specific [place] - Urine <=1.005 1.005 - 1.025 [facility] Urine Protein Negative Neg-Trace mg/dL [facility] Urine Ketones Negative Negative mg/dL [facility] Nitrite Urine Negative Negative [facility] Leukocyte Esterase Urine Negative Negative [facility] RBC Urine 0-2 0 - 2 /HPF [facility] Urine WBC 0-5 0 - 5 /HPF [facility] Urine Squamous Epithelial Cell 0-2 0 - 2 /HPF [facility] Urine Bacteria None Seen None Seen [facility] Hyaline Casts, Urine 0-2 0 - 2 /LPF [facility] Urine 04/09/2025 10:2 6 AM EDT 04/09/2025 10:55 AM EDT Narrative [facility] - 04/09/2025 11:47 AM EDT Urine, Clean Catch us Ruma Gallardo MD LAB URINE ORDERABLES Final Re sult [facility] [address] [place] [phone] * TSH W/Reflex to FT4 (04/09/2025 10:26 AM EDT) TSH reflex Free T4 0.62 0.32 - 4.0 uIU/mL [facility] Blood Venous blood specimen / Unknown 04/09/2025 10:26 AM EDT 04/09/2025 10:55 AM EDT Ruma Gallardo MD LAB BLOOD ORDERABLES Final Re sult Performing Organization Address [facility] de Phone Number [facility] [address] [place] [phone] * Iron And Total Iron Binding Capacity (04/09/2025 10:26 AM EDT) Pathologist [facility] Iron 135 30 - 160 mcg/dL [facility] Total Iron Binding Capacity 350 228 - 428 mcg/dL [facility] Percent Iron Saturation 39 15 - 50 % [facility] Unsaturated Iron Binding 215 ug/dL [facility] Blood Venous blood specimen / Unknown 04/09/2025 10:26 AM EDT 04/09/2025 10:55 AM EDT Ruma Gallardo MD LAB BLOOD ORDERABLES Final Re sult Performing Organization Address [facility] Co de Phone Number [facility] [address] [place] [phone] * Prothrombin Time-INR (04/09/2025 10:26 AM EDT) Prothrombin Time 12.3 10.9 - 12.4 SEC [facility] INTERNATIONAL NORM RATIO 1.1 0.9 - 1.1 [facility] Comment:INTERNATIONAL NORMAL IZED RATIO (INR) REFERENCE [...] ORDERABLES Final Re sult Performing Organization Address [facility] Co de Phone Number [facility] [address] [place] [phone] * (ABNORMAL) Ferritin (04/09/2025 10:26 AM EDT) Ferritin 9(L) 10 - 122 ng/mL [facility] Blood Venous blood specimen / Unknown 04/09/2025 10:26 AM EDT 04/09/2025 10:55 AM EDT Ruma Gallardo MD LAB BLOOD ORDERABLES Final Re sult Performing Organization Address [facility] Phone Number [facility] [address] [place] [phone] * Hepatic Function Panel (04/09/2025 10:26 AM EDT) Bilirubin, Total 0.7 0.0 - 1.0 mg/dL [facility] Bilirubin, Direct 0.3 0.0 - 0.5 mg/dL [facility] Aspartate Amino Transferase 20 5 - 31 U/L [facility] Alanine Aminotransferase 14 0 - 31 U/L [facility] Total Protein 7.0 6.5 - 8.0 g/dL [facility] Albumin Level 4.4 3.5 - 5.0 g/dL [facility] Alkaline Phosphatase 45 39 - 117 U/L [facility] Blood Venous blood specimen / Unknown 04/09/2025 10:26 AM EDT 04/09/2025 10:55 AM EDT Ruma Gallardo MD LAB BLOOD ORDERABLES Final Re sult Performing Organization Address [facility] Co de Phone Number [facility] [address] [place] [phone] * (ABNORMAL) Basic Metabolic Panel (04/09/2025 10:26 AM EDT) Sodium 141 135 - 145 mmol/L [facility] Potassium 4.1 3.3 - 5.1 mmol/L [facility] Chloride 109(H) 96 - 108 mmol/L [facility] Carbon Dioxide 28 22 - 29 mmol/L [facility] Anion Gap 8(L) 12 - 20 [facility] Urea Nitrogen (BUN) 10 9 - 16 mg/dL [facility] Creatinine, Serum 0.73 0.5 - 1.4 mg/dL [facility] Estimated Glomerular Filt Rate >60 [facility] Comment:Chronic Kidney Disea se: Estimated GFR < 60 mL/min/[id number] Kidney Disease: Estimated GFR < 15 mL/min/1.73m2 Glucose 91 60 - 115 mg/dL [facility] Calcium 9.2 8.4 - 10.2 mg/dL [facility] Blood Venous blood specimen / Unknown 04/09/2025 10:26 AM EDT 04/09/2025 10:55 AM EDT Ruma Gallardo MD LAB BLOOD ORDERABLES Final Re sult Performing Organization Address [facility]/ZIP Co de Phone Number [facility] [address] [place] [phone] * (ABNORMAL) POCT Urinalysis (04/09/2025 9:54 [...] * POCT Urine (04/09/2025 9:44 AM EDT) Pathologist [facility] Preg Test, Ur Negative Negative, Indeterminate, None Detected, Invalid, Specimen unsatisfactory for evaluation, Weakly Positive, 2+ QC Media Lot # [id number] Lot# Expiration Date ,702 Urine 04/09/2025 9:44 AM EDT Ruma Gallardo MD POINT OF CARE TEST ENTER/EDIT ORDERABLES Final Result * Hepatitis C Antibody with Reflex to HCV, RNA, Quantitative, Real-Time PCR (10/24/2024 9:42 AM EDT) [facility] Hepatitis C Antibody Nonreactive Nonreactive [facility] Comment:Antibodies to HCV no t detected; does not exclude early acuteHCV infection. Blood Venous blood specimen / Unknown 10/24/2024 9:42 AM EDT 10/24/2024 11:19 AM EDT Ya Khan MD LAB BLOOD ORDERAB LES Final Result [facility] [address] [place] [phone] * HIV-1/2 Antigen and Antibodies, Fourth Generation, with Reflexes (10/24/2024 9:42 AM EDT) [facility] HIV AB/AG Nonreactive Nonreactive [facility] Comment:HIV-1 p24 Ag and/or HIV-1/HIV-2 Ab not detected.A test result that is nonreactive does not exclude thepossibility of exposure to or infection with HIV-1 and/orHIV-2. Nonreactive results in this assay for individualswith prior exposure to HIV-1 and/or HIV-2 may be due toantigen and antibody levels that are below the limit ofdetection of this assay.[employer] HIV Ag/Ab Combo assay result andsupplemental assay results should be interpreted inconjunction with the patient's clinical presentation,history and other laboratory results. If the results areinconsistent with clinical evidence, additional testing issuggested to confirm the result. Blood Venous blood specimen / Unknown 10/24/2024 9:42 AM EDT 10/24/2024 11:19 AM EDT Ya Khan MD LAB BLOOD ORDERAB LES Final Result [facility] [address] [place] [phone] * ThinPrep Imaging Pap and HPV mRNA E6/E7 with Reflex to HPV 16,18/45 (01/17/2024 3:04 PM EDT) HPV 16 RNA NDP [facility] HPV 18/45 RNA [facility] HPV nRNA E6/E7 Not Detected Not Detected [facility] Comment:Methodology: Transcr iption-Mediated AmplificationThis assay detects E6/E7 viral messenger RNA (mRNA) from 14high-risk HPV types (16,18,31,33,35,39,45,51,52,56,58,59,66,68).Cervical sources are required for HPV testing.If a vaginal source from a patient who has had atotal hysterectomy with removal of cervix wassubmitted, please contact the testing laboratoryfor alternative testing options.For additional information, please refer [email or web address]/[email or web address](This link if provided for information/educational purposes only.)THIS TEST WAS PERFORMED AT:[facility] [address] [phone] ESCALANTE MD SOURCE: SEE NOTE [facility] Comment:Cervix Report Status: [facility] Clinical Information: SEE NOTE [facility] Comment:None given LMP: SEE NOTE [facility] Comment:01/13/2024 Prev. PAP: SEE NOTE [facility] Comment:NONE GIVEN Prev. BX: SEE NOTE [facility] Comment:NONE GIVEN Statement Of Adequacy: SEE NOTE [facility] Comment:Satisfactory for moe luation.Endocervical/transformation zone componentpresent. General Categorization: [facility] Interpretation/Result: SEE NOTE [facility] Comment:Cytology Results: Ne gative for intraepitheliallesion or malignancy. Cytology Comment SEE NOTE [facility] Comment:This Pap test has be en evaluated with computerassisted technology. General Farmer: SEE NOTE [facility] Comment:GSG, CT(ASCP)CT scre ening location: [address] [address] Review General Farmer: [facility] Pathologist [facility] PAP Infection [facility] See Note SEE NOTE [facility] Comment:EXPLANATORY NOTE:The Pap is a screening test for cervical cancer. It isnot a diagnostic test and is subject to false negativeand false positive results. It is most reliable when asatisfactory sample, regularly obtained, is submittedwith relevant clinical findings and history, and whenthe Pap result is evaluated along with historic andcurrent clinical information. 01/17/2024 3:04 PM EDT 01/17/2024 4:02 PM EDT Narrative [facility] - 01/24/2024 12:48 PM EDT SEE SCANNED RESULTS IN EMRWas previous PAP abnormal? UnknownClinical Information: routineCollection Date: 01/16/24igh risk HPV with 16 18 genotyping? YReflex HPV any abnormal diagnosis? YReflex HPV if ASCUS only? NHigh Risk HPV (any diagnosis)? YLMP: 01/13/24Date of previous PAP unknownPerformed by: : [id number] us Generic External Data Provider LAB PATHOLOGY ORD ERABLES Final Result [facility] [address] [place] [phone] from Last 3 Months or Most Recently Relevant to Health Maintenance Insurance [employer] C3 Care Teams Staff Developer Relationship Specialty Start Date End Date Ya Rojas MD [address] [place] [phone] PCP - General Internal Medicine 08/30/23
--- OUTSIDE RECORDS SUMMARY | 2025-06-11 12:48 | XMS_ITS | Encounter Summary ---
Author Organization [employer] Address [address] 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 EFFECTIVE SINCE 05/04/2023 documented in this encounter Plan of Treatment Not on file documented as of this encounter Visit Diagnoses Not on filedocumented in this encounter Care Teams Manager Packaging Relationship Specialty Start Date End Date Ya Rojas MD [address] [place] [phone] PCP - General Internal Medicine 08/30/23 documented as of this encounter
--- OUTSIDE RECORDS SUMMARY | 2025-06-11 12:48 | XMS_ITS | Encounter Summary ---
Author Organization [employer] Address [address] [facility] [address] [place] [address] Care Team Providers Care Vacuum Form Operator Name Role Phone Ya Rojas MD Primary Care Pro vider Encounter Details Date Type Department Care Team ([facility] st Contact Info) Description 06/11/2025 Orders Only GENERIC EXTERNAL DATA DEPARTMENT Provider, Generic External Data Social History Tobacco Use Types Packs/Day Years Used Date Smoking Tobacco: Never Passive Smoke Exposure: Current Smokeless Tobacco: Never Alcohol Use Standard Drinks/Week [...] Procedure Name Priority Date/Time Associated Diagnosis Comments VITAMIN D,25-OH,TOTAL,IA Routine 06/11/2025 11:16 AM EST CBC WITH AUTO DIFFERENTIAL Routine 06/11/2025 11:16 AM EST SED RATE BY MODIFIED WESTERGREN Routine 06/11/2025 11:16 AM EST C-REACTIVE PROTEIN Routine 06/11/2025 11 :16 AM EST HCG, TOTAL, QN Routine 06/11/2025 11:16 AM EST COMPREHENSIVE METABOLIC PANEL Routine 06/11/2025 11:16 AM EST URINALYSIS, COMPLETE Routine 06/11/2025 11:07 AM EST documented in this encounter Results * Sed Rate by Modified Westergren (06/11/2025 11:16 AM EST) Erythrocyte Sedimentation Rate 13 0 - 20 MM/HR [facility] Comment:Patients with polycy themia and many hemoglobin abnormalitiesmay have depressed sed rates whereas patients with anemiamay have elevated sed rates. 06/11/2025 11:1 6 AM EST 06/11/2025 11:16 AM EST us Generic External Data Provider LAB BLOOD ORDERAB LES Final Result [facility] [address] [place] [address] [phone] * Vitamin D, 25-Hydroxy, Total, Immunoassay (06/11/2025 11:16 AM EST) Vitamin D 25-OH Total 52.0 >30 ng/mL [facility] Comment: Health Based Reference Values*< 20 ng/mL [id number] ng/mL Insufficient> 30 ng/mL Sufficient*Christopher TUBBS. N [...] Provider LAB BLOOD ORDERAB LES Final Result [facility] [address] [place] [phone] * hCG, Total, Quantitative (06/11/2025 11:16 AM EST) HCG Quantitative <2 mIU/mL [facility] Comment:Weeks post LMP Appro ximate hCG(Last Menstrual Period) Range (mIU/ml)3 - 4 weeks 9 - 1304 - 5 weeks 75 - 2,6005 - 6 weeks 850 - 20,8006 - 7 weeks 4000 - 100,2007 - 12 weeks 11,500 - 289,00286 - 16 weeks 18,300 - 137,50461 - 29 weeks (2nd trimester) 1,400 - 53,18288 - 41 weeks (3rd trimester) 940 - 60,000The Stewart B- hCG assay is used for the early detection ofpregnancy; it cannot be used to diagnose any conditionunrelated to . If a B-hCG level is not supportedby the clinical evidence, results should be confirmed by analternative method (qualitative urine hCG, for example). 06/11/2025 11:1 6 AM EST 06/11/2025 11:16 AM EST Generic External Data Provider LAB BLOOD ORDERAB LES Final Result Performing Organization Address [facility]/ZIP Co de Phone Number [facility] [address] [place] [phone] * C-reactive Protein (06/11/2025 11:16 AM EST) C Reactive Protein 0.38 < or = 0.50 mg/dL [facility] 06/11/2025 11:1 6 AM EST 06/11/2025 11:16 AM EST Generic External Data Provider LAB BLOOD ORDERAB LES Final Result Performing Organization Address [facility]/ZIP Co de Phone Number [facility] [address] [place] [phone] * (ABNORMAL) Comprehensive Metabolic Panel (06/11/2025 11:16 AM EST) Sodium 140 135 - 145 mmol/L [facility] Potassium 4.0 3.3 - 5.1 mmol/L [facility] Chloride 106 96 - 108 mmol/L [facility] Carbon Dioxide 28 22 - 29 mmol/L [facility] Anion Gap 10(L) 12 - 20 [facility] Urea Nitrogen (BUN) 15 9 - 16 mg/dL [facility] Creatinine, Serum 0.79 0.5 - 1.4 mg/dL [facility] Estimated Glomerular Filt Rate >60 [facility] Comment:Chronic Kidney Disea se: Estimated GFR < 60 mL/min/1.02y3Uzguvr Kidney Disease: Estimated GFR < 15 mL/min/1.73m2 Glucose 124(H) 60 - 115 mg/dL [facility] Calcium 9.4 8.4 - 10.2 mg/dL [facility] Bilirubin, Total 1.2(H) 0.0 - 1.0 mg/dL [facility] Aspartate Amino Transferase 27 5 - 31 U/L [facility] Alanine Aminotransferase 14 0 - 31 U/L [facility] Total Protein 7.5 6.5 - 8.0 g/dL [facility] Albumin Level 4.7 3.5 - 5.0 g/dL [facility] Alkaline Phosphatase 45 39 - 117 U/L [facility] 06/11/2025 11:1 6 AM EST 06/11/2025 11:16 AM EST us Generic External Data Provider LAB BLOOD ORDERAB LES Final Result [facility] [address] [place] [phone] * (ABNORMAL) CBC auto differential (06/11/2025 11:16 AM EST) White Blood Count 5.4 4.8 - 10.8 X10*3/uL [facility] Red Blood Count 4.29 4.20 - 5.50 X10*6/uL [facility] Hemoglobin 12.9 12.0 - 16.0 g/dl [facility] Hematocrit 38.1 37.0 - 47.0 % [facility] Mean Corpuscular Volume 88.8 80.0 - 98.0 fL [facility] Mean Corpuscular Hemoglobin 30.1 27.0 - 33.0 pg [facility] Mean Corpuscular HGB Conc 33.9 31.0 - 35.0 g/dl [facility] Red Cell Distribution Width 12.4 11.0 - 16.0 % [facility] Platelet Count 249 160 - 400 X10*3/uL [facility] Mean Platelet Volume 10.3 9.4 - 12.3 fL [facility] Neutrophils Percent Auto 77.5(H) 45 - 73 % [facility] Imm Gran Pct Auto 0.4 0.0 - 0.4 % [facility] Lymphocytes Percent Auto 15.5(L) 20 - 40 % [facility] Monocytes Percent Auto 5.8 2 - 11 % [facility] Eosinophils Percent Auto 0.4 0 - 4 % [facility] Basophils Percent Auto 0.4 0 - 2 % [facility] NRBC Pct Auto 0.0 0.0 - 0.2 /100WBC [facility] Neutrophils Absolute Auto 4.2 2.0 - 8.3 x10*3/uL [facility] Imm Gran Abs Auto 0.02 0.00 - 0.03 X10*3/uL [facility] Lymphocytes Absolute Auto 0.8(L) 1.2 - 4.9 X10*3/uL [facility] Monocytes Absolute Auto 0.3 0.1 - 1.2 X10*3/uL [facility] Eosinophils Absolute Auto 0.0 0.0 - 0.4 X10*3/uL [facility] Basophils Absolute Auto 0.0 0.0 - 0.2 X10*3/uL [facility] NRBC Abs Auto 0.000 0.0 - 0.012 X10*3/uL [facility] 06/11/2025 11:1 6 AM EST 06/11/2025 11:16 AM EST us Generic External Data Provider LAB BLOOD ORDERAB LES Final Result [facility] [address] [place] [phone] * Urinalysis Complete (06/11/2025 11:07 AM EST) Color Urine Yellow [facility] Appearance Urine Clear [facility] PH 6.5 5.0 - 9.0 [facility] Glucose Urine UA Negative Negative mg/dL [facility] Urine Blood Negative Negative [facility] Specific [place] - Urine 1.010 1.005 - 1.025 [facility] Urine Protein Negative Neg-Trace mg/dL [facility] Urine Ketones Negative Negative mg/dL [facility] Nitrite Urine Negative Negative [facility] Leukocyte Esterase Urine Negative Negative [facility] RBC Urine 0-2 0 - 2 /HPF [facility] Urine WBC 0-5 0 - 5 /HPF [facility] Urine Squamous Epithelial Cell 0-2 0 - 2 /HPF [facility] Urine Bacteria None Seen None Seen [facility] Hyaline Casts, Urine 0-2 0 - 2 /LPF [facility] 06/11/2025 11:0 7 AM EST 06/11/2025 11:40 AM EST us Generic External Data Provider LAB URINE ORDERAB LES Final Result Performing Organization Address City/State/[facility] Co de Phone Number [facility] [address] [place] [phone] documented in this encounter Visit Diagnoses Not on filedocumented in this encounter Additional Health Concerns Assessment Noted Time PHQ-9 Depression Total Score: 0 06/10/20 25 10:56 AM EST documented as of this encounter Care Teams Vacuum Form Operator Relationship Specialty Start Date End Date Ya Rojas MD [address] [place] [phone] PCP - General Internal Medicine 08/30/23 documented as of this encounter
--- OUTSIDE RECORDS SUMMARY | 2025-06-11 12:48 | XMS_ITS | Encounter Summary ---
Author Organization [employer] Address [address] [facility] 7t [place] [address] Care Team Providers Care Treasury Director Name Role Phone Ya Rojas MD Primary Care Pro vider Encounter Details Date Type Department Care Team (Latest Contact Info) Description 06/10/2025 Travel Social History Tobacco Use Types Packs/Day [...] PM EST documented as of this encounter Functional Status * Over the past 2 weeks, how often have you been bothered by any of the following problems? Question Answer Date of Assessment Author Patient Health Questionnaire -2 Score 0 06/10/2025 10:56 AM Radha Vasquez [place] * Little interest or pleasure in doing things Answer Date of Assessment Author Not at all 06/10/2025 10:56 AM Radha Vasquez MA * Feeling down, depressed, or hopeless [...] Vasquez MA documented as of this encounter Plan of Treatment Not on file documented as of this encounter Visit Diagnoses Not on filedocumented in this encounter Additional Health Concerns Assessment Noted Time PHQ-9 Depression Total Score: 0 06/10/20 25 10:56 AM EST documented as of this encounter Care Teams Treasury Director Relationship Specialty Start Date End Date Ya Rojas MD [address] [place] [phone] PCP - General Internal Medicine 08/30/23 documented as of this encounter
--- OUTSIDE RECORDS SUMMARY | 2025-06-11 12:48 | XMS_ITS | Encounter Summary ---
Author Organization [employer] Address [address] [facility] [address] [place] [address] Care Team Providers Care Warehouse Supervisor 3Rd Shift Name Role Phone Ya Rojas MD Primary Care Pro vider Reason for Visit * Reason Onset Date Comments chart prep 06/09/2025 Encounter Details Date Type Department Care Team (Late st Contact Info) Description 06/09/2025 Telephone [facility] [address] [place], [place] [phone] Ya Rojas MD [address] [place] [address] chart prep Social History Tobacco Use Types Packs/Day Years [...] Telephone Encounter - Radha Lopez MA - 06/09/2025 9:37 AM EST Chart Prep Labs: done Images: done Screenings: Not Applicable Vaccines due: Covid Due, Tdap Due, Hep B Due, PCV20 Due, and Flu Due Referrals: Completed Overdue care gaps: None documented in this encounter Plan of Treatment Not on file documented as of this encounter Visit Diagnoses Not on filedocumented in this encounter Additional Health Concerns Assessment Noted Time PHQ-9 Depression Total Score: 6 10/25/19 25 9:48 AM EDT documented as of this encounter Care Teams Warehouse Supervisor 3Rd Shift Relationship Specialty Start Date End Date Ya Rojas MD [address] [place] [phone] PCP - General Internal Medicine 08/30/23 documented as of this encounter
--- OUTSIDE RECORDS SUMMARY | 2025-06-11 12:48 | XMS_ITS | Patient Health Record ---
Author Organization [facility] [employer] [facility] Address [address] [facility] [address] [place] [address] Care Team Providers Care Medical Research Scientist Name Role Phone Yolanda Ramos Primary Care Provider YOLANDA KAUR MD Unavailable Unavaila ble Reason For Referral No Information Medications Medication SIG (Take, Route, Frequency, Duration) Notes Start Date End Date Status Cefdinir 300 MG Capsule as directed Orally Active predniSONE 20 MG Tablet 2 tablet Orally Once a day; Duration: 30 Active ZyrTEC Allergy 10 MG Tablet 1 tablet Ora lly Once a day; Duration: 30 day(s) Active Fluticasone Propionate 50 MCG/ACT Suspension 1 spray in each nostril Nasally Once a day; Duration: 30 day(s) Active traMADol HCl 50 MG Tablet 1 tablet as ne eded Orally Once a day Active ProAir HFA 108 (90 Base) MCG/ACT Aerosol Solution 2 puffs as needed Inhalation every 6 hrs Active Lidocaine 5 % Patch 1 patch to skin tatum ve after 12 hours Externally Once a day Active Escitalopram Oxalate 10 MG Tablet 1 tablet Orally Once a day; Duration: 30 day(s) Active CellCept 500 MG Tablet 2 tablets Orally Twice a day; Duration: 90 days Active Social History Tobacco Use: Social History Observation Description Date Details (start date - stop date) Never Smoker NA - NA Social History Drugs/Alcohol: Social Info Question Answer Notes Alcohol Screen (Audit-C) Did you have a drink containing alcohol in the past year? No Points 0 Interpretation Negative Tobacco Use: Social Info Question Answer Notes Tobacco Use/Smoking Are you a nonsmoker Problems Problem Type SNOMED Code ICD Code Onset Dates Problem Status W/U Status Risk Notes Problem Systemic lupus erythematosus (35131415) Systemic lupus erythematosus, unspecified (M32.9) Active confirmed Plan Of Treatment No Information Insurance Providers Payer Name Payer Address Payer Phone Subscriber Number Group Number Insured Name Patient Relationship to Insured Coverage Start Date Coverage End Date [employer] [place] [employer] [address] [address] [place] [phone] [id number] JANET MERINO Self - patient is the insured 9 Medical (General) History Medical History History ICD Code Lupus Asthma Lower back arthritis Surgical History Surgery Date(Month/Year) x2 Left forearm surgery-broken
--- OUTSIDE RECORDS SUMMARY | 2025-06-11 12:48 | XMS_ITS | Encounter Summary ---
Author Organization [employer] Address [address] [facility] 7t [place] [address] Care Team Providers Care Threshing Operator Name Role Phone Ya Rojas MD Primary Care Pro vider Encounter Details Date Type Department Care Team ([facility] st Contact Info) Description 04/09/2025 Results Follow-Up [facility] [address] [place], [place] [phone] Ruma Gallardo MD [address] [place] [address] CBC auto differential, Ferritin, Hepatic Function Panel, Additional followed-up results: 8 Social History Tobacco Use Types Packs/Day Years [...] documented as of this encounter Care Teams Threshing Operator Relationship Specialty Start Date End Date Ya Rojas MD [address] [place] [phone] PCP - General Internal Medicine 08/30/23 documented as of this encounter
--- OUTSIDE RECORDS SUMMARY | 2025-06-11 12:48 | XMS_ITS | Clinical Summary ---
Author Organization [facility] Address [address] [place] [address] Care Team Providers Care Hoisting Machine Operator Name Role Phone Unavailable Primary Care Provider [...] Screening 08/03/2023 Depression Screening 07/10/2024 COVID-19 Vaccine (1 - 2024-2 6 season) 2025 Influenza Vaccine (#1) 2025 RSV [...]
[2025-06-11 13:18] LABS: Total Protein Urine Random < 7 mg/dL (<12)
== END 2025-06-11 10:55 | disposition home or self-care (01) ==
LOC: HO.LAB 10:54
PROVIDERS: Obstetrics & Gynecology; PCP Student in an Organized Health Care Education/Training Program; Visit Provider Student in an Organized Health Care Education/Training Program
DX: N93.9 Abnormal uterine and vaginal bleeding, unspecified (principal); M32.9 Systemic lupus erythematosus, unspecified; E55.9 Vitamin D deficiency, unspecified; Z98.51 Tubal ligation status
CPT/HCPCS: 36415; 80053; 81001; 82306; 82570; 84156; 84443; 84702; 85025; 85652; 86140; 86160; 86225

== ENCOUNTER 2025-06-11 13:09 | Outpatient (AMB) | payer MEDICAID, SELFPAY ==
[2025-06-11 13:31] VITALS: BP 108/60; BMI 25.2
--- NOTE | 2025-06-11 13:31 | MHC.OFFVIS ---
Vital Signs 06/11/25 13:31 Height 5 ft Weight 129 lb 2 oz BMI 25.2 BP 108/60 Blood Pressure Location Lt brachial Position Sitting Intake Visit Reasons: HCG and labs follow up Allergies No Known Allergies Allergy (Verified 06/11/25 13:31) HPI Comments Details: The patient is presenting c/o irregular bleeding associated with passage of blood clots and abdominal cramping. it started few months ago and is getting worse no other associated symptoms. H&H done today was 12.3/38.1 HCG less than 2 Ultrasound done on 05/03 was unremarkable 01/30 Co testing negative PFSH Medical History Long-term use of hydroxychloroquine Hx of migraine headaches Bone pain of hand SLE (systemic lupus erythematosus) Mixed anxiety and depressive disorder Migraine Mild intermittent asthma in adult without complication CTS (carpal tunnel syndrome) Surgical History Hx of tubal ligation Hx of section Family History Maternal Grandmother Arthritis Paternal Grandmother Arthritis Social History Household Members: Spouse, Family and Children Housing: House Alcohol intake: current Alcohol intake frequency: holidays/special occasions only Patient Tobacco Use Status: Never used Tobacco Tobacco use type: Cigarette Current occupational status: unemployed Sexual orientation: Straight/Heterosexual Gender identity: Female Review of Systems Const All systems reviewed & are unremarkable except as noted in HPI and below Physical Exam Vital Signs: Last Vital Signs BP 108/60 06/11/25 13:31 BMI result Body Mass Index 25.2 Chest Chest palpation & inspection: normal inspection of the chest Breast/axilla inspection: normal inspection of the breasts Breast/axilla palpation: normal palpation of the breasts General: Yes no CVA tenderness External Female Exam: normal external appearance and normal appearance of the urethra Speculum Exam - Vagina: normal appearance of the vagina, normal palpation, no lesions and no masses Speculum Exam - Cervix: normal appearance of the cervix, normal palpation, no lesions, no masses and nontender Bimanual exam- vagina & uterus: normal bimanual exam, normal palpation, uterine size normal, normal palpation, uterine shape normal, No Cervical tenderness present and non-tender Bimanual Exam- Adnexa, other: normal adnexae Back/Spine/Pelvis Back: no CVA tenderness Office Procedures Endometrial Biopsy Details: The patient was counseled regarding the indication and benefits of endometrial sampling to rule out endometrial pathology including not limited to endometrial hyperplasia or endometrial cancer and others; The alternatives (Either do nothing vs. hysteroscopy D&C) & the risks were discussed with the patient including but not limited: pain, uterine perforation, bleeding, infection, possible injury to bladder, bowel, ureter, possible need for blood transfusion with all its possible risks. The patient verbalized understanding all questions answered and signed consent. HCG quantitative done today was negative The patient was placed into the dorsal lithotomy position; a speculum was inserted in the vagina. Using aseptic technique for the procedure, the cervix was cleansed with Betadine. The anterior lip of the cervix was grasped with a single tooth tenaculum. The uterus was sounded to 7 cm with a 4 mm Pipelle was used. Tissues samples were obtained and placed in formalin, in a patient labeled container and sent to the pathology department. At the end of the procedure, there was minimal bleeding noted The patient tolerated the procedure well and was discharged in good condition with the following instructions: Nothing in the vagina until the bleeding stops. No sex until the bleeding stops, to call if any of the following occurs: fever (>100.4), flu-like symptoms, abdominal pain, heavy bleeding, four smelling vaginal discharge. The patient was instructed to schedule a Follow up appointment in 2 weeks to discuss pathology results of the biopsy and treatment options. This note was generated with a voice recognition program. Some errors may have been overlooked during the review of this note. Sometimes these errors may affect the content or meaning of a given sentence. [id number] Biopsy Assessment & Plan Assessment & Plan (1) Abnormal uterine bleeding (AUB): Comment: anemia SLE, Migraine BAÑUELOS Code(s): N93.9 - Abnormal uterine and vaginal bleeding, unspecified Category: Medical Plan: TSH ordered. Recommended EMB to rule out endometrial pathology including endometrial hyperplasia or malignancy. EMB done, see procedure note Instructions given the patient to schedule a 2 week follow-up appointment. All questions answered, the patient verbalized understanding Orders: Orders AMB Endometrial Biopsy Today N93.9 - Abnormal uterine and vaginal bleeding, unspecified Coding Level of Care Code Est Pt Level 3 (39198) Procedure Only Diagnoses Abnormal uterine bleeding (AUB) N93.9 CPT Codes Endometrial Biopsy - CPT: 75034-Vznabwhgwrk Biopsy ([id number])
== END 2025-06-11 13:53 | disposition home or self-care (01) ==
LOC: HO.HWS 13:10
PROVIDERS: PCP Pediatrics; Visit Provider Obstetrics & Gynecology
DX: N93.9 Abnormal uterine and vaginal bleeding, unspecified (principal)
CPT/HCPCS: 58100; 99213

== ENCOUNTER 2025-06-11 15:11 | Outpatient (REF) | payer MEDICAID, SELFPAY ==
[2025-06-11 23:32] LABS: CT PCR NOT DETECTED (Not Detect.); NG PCR NOT DETECTED (Not Detect.)
== END 2025-06-11 15:12 | disposition home or self-care (01) ==
LOC: HO.LNP 15:11
PROVIDERS: Visit Provider Obstetrics & Gynecology
DX: Z20.2 Contact with and (suspected) exposure to infections with a predominantly sexual mode of transmission (principal); N93.9 Abnormal uterine and vaginal bleeding, unspecified
CPT/HCPCS: 87491; 87591; 88305

== ENCOUNTER 2025-06-18 08:23 | Outpatient (AMB) | payer MEDICAID, SELFPAY ==
--- NOTE | 2025-06-18 08:27 | A.OFFVIS_ITS ---
Vital Signs 06/18/25 08:36 Height 5 ft Weight 128 lb 15.527 oz BMI 25.2 BP 112/60 Blood Pressure Location Lt brachial Position Sitting Pulse 79 Pulse Source Pulse Oximeter Pulse Oximetry (%) 98 Oxygen Delivery Method Room Air Intake Visit Reasons: 4 months Intake Note: Patient presents for SLE follow up and test results. Child And Youth Program Assistant Required: Yes Child And Youth Program Assistant Language: Art Framing Manager Services: Child And Youth Program Assistant Present Child And Youth Program Assistant Name: Rigo [id number] Information Interpreted: non-clinical & clinical Accompanied by: Self / Same As Patient Allergies No Known Allergies Allergy (Verified 06/18/25 08:35) Medication List - Last Reconciled 06/18/25 by Deborah Bradley MD albuterol sulfate 90 mcg/actuation (Ventolin HFA) 2 puffs inhalation Q6H PRN Brace,wrist (Wrist Brace - one) As directed. Right and left hand and wrist carpal tunnel brace hydroxychloroquine 400 mg (2 x 200 mg) PO DAILY ibuprofen 800 mg PO Q8H 14 days magnesium oxide 400 mg PO BEDTIME 90 days riboflavin (vitamin B2) 400 mg PO DAILY 90 days sumatriptan succinate 50 - 100 mg orally at onset of headache, may repeat in 2 hrs PRN; max 2 tabs per day or 4 tabs/week (may take with Ibuprofen) 30 days HPI Comments Details: Patient is a 30 year-old female with SLE without history of significant organ involvement who presents for follow-up Interval History: Last seen 12/20/24 with me. - Plaquenil 200mg alt 400mg every other day - She states that she has been using the splints, which has helped but they are uncomfortable to wear for sleeping. - Hands still get numb - Complaining of low back pain, using a patch but still has some pain - Has a lot of fatigue and has easy bruising Today, - Plaquenil 200mg alt 400mg every other day - Had steroid injection to the left median nerve 02/2025 for CTS - Gave some relief but still having some numbness in the left hand - Continues to complain of back pain, with no improvement from PT - Has an ulcer on her tongue - No joint pain - Complaining fatigue Rheumatologic History: SLE Ddx 2019 in [place] Arthritis, mouth ulcers, dry eyes/dry mouth, photosensitivity, malar rash, Raynaud's Positive ELIZABETH, positive double-stranded DNA, low complements Negative Delarosa and SSA/SSB Plaquenil 11/2023 Current Rheumatology Medication(s): Plaquenil 200mg alt 400mg every other day PFSH Medical History Long-term use of hydroxychloroquine Hx of migraine headaches Bone pain of hand SLE (systemic lupus erythematosus) Mixed anxiety and depressive disorder Migraine Mild intermittent asthma in adult without complication CTS (carpal tunnel syndrome) Surgical History Hx of tubal ligation Hx of section Family History Maternal Grandmother Arthritis Paternal Grandmother Arthritis Social History Household Members: Spouse, Family and Children Housing: House Alcohol intake: current Alcohol intake frequency: holidays/special occasions only Patient Tobacco Use Status: Never used Tobacco Tobacco use type: Cigarette Current occupational status: unemployed Sexual orientation: Straight/Heterosexual Gender identity: Female Review of Systems Narrative Review of Systems Constitutional: Denies fever, chills, weight loss ENT: Denies vision changes, eye pain or eye redness, dental caries, dry mouth GI: Denies nausea, vomiting, diarrhea, abdominal pain, change in BM Pulm: Denies SOB, OAKLEY, hemoptysis, wheezing Cards: Denies chest pain, palpitations Skin: Denies Raynaud's, rash, nail changes, photosensitivity, GREY INSPECTOR: Denies headaches, weakness, paresthesias, recurrent falls MSK: as per HPI All other systems reviewed and are unremarkable except noted above Physical Exam Exam Exam: Vital signs reviewed Physical Examination CONSTITUITIONAL Patient alert and cooperative. Well appearing and in no apparent painful distress MSK Hands * Right Hand: Able to make a fist. No swelling or tenderness to palpation of the MCPs, PIPs or DIPs. * Left Hand: Able to make a fist. No swelling or tenderness to palpation of the MCPs, PIPs or DIPs. Wrists * Right Wrist: Full ROM to flexion and extension. No swelling or TTP * Left Wrist: Full ROM to flexion and extension. No swelling or TTP Elbows * Right Elbow: Full ROM. No swelling or TTP. No TTP of the medial epicondyle. No TTP of the lateral epicondyle * Left Elbow: Full ROM. No swelling or TTP. No TTP of the medial epicondyle. No TTP of the lateral epicondyle Shoulders * Right shoulder: Full ROM. No swelling noted. No TTP of the AC joint. No TTP of the subacromial bursa. No TTP of the posterior shoulder * Left shoulder: Full ROM. No swelling noted. No TTP of the AC joint. No TTP of the subacromial bursa. No TTP of the posterior shoulder Knees * Right knee: Full ROM. No swelling noted. No TTP of the knee joint line. No TTP of pes anserine bursa * Left knee: Full ROM. No swelling noted. No TTP of the knee joint line. No TTP of pes anserine bursa. Ankles * Right ankle: Good ankle dorsiflexion and plantar flexion. No swelling. No TTP of the ankle joint * Left ankle: Good ankle dorsiflexion and plantar flexion. No swelling. No TTP of the ankle joint Feet * Right foot: Negative squeeze test * Left foot: Negative squeeze test Tender points? * No tenderness to palpation of the bilateral trapezius, supraspinatus, anterior costochondral junctions, bilateral suboccipital muscle insertions SKIN No rashes Vital Signs: Last Vital Signs Pulse 79 06/18/25 08:36 BP 112/60 06/18/25 08:36 Pulse Ox 98 06/18/25 08:36 Oxygen Delivery Method Room Air 06/18/25 08:36 BMI result Body Mass Index 25.2 Results Reviewed Results Reviewed: Laboratory Tests 06/11/25 11:16 WBC 5.4 RBC 4.29 Hgb 12.9 Hct 38.1 Plt Count 249 ESR 13 Sodium 140 Potassium 4.0 Chloride 106 Carbon Dioxide 28 BUN 15 Creatinine 0.79 AST 27 ALT 14 C-Reactive Protein 0.38 25-OH Vitamin D Total 52.0 Laboratory Tests 12/12/24 06/11/25 10:45 11:16 Double Strand DNA Ab 24 H Complement C3 132 42 L Complement C4 21 7 L Assessment & Plan Assessment & Plan (1) SLE (systemic lupus erythematosus): Comment: SLE Ddx 2020 in [place] Arthritis, mouth ulcers, dry eyes/dry mouth, photosensitivity, malar rash, Raynaud's Positive ELIZABETH, positive double-stranded DNA, low complements Negative Delarosa and SSA/SSB Plaquenil 11/2023 Code(s): M32.9 - Systemic lupus erythematosus, unspecified Category: Medical Qualifiers: Systemic lupus erythematosus type: unspecified Systemic lupus erythematosus organ involvement: unspecified Qualified Code(s): M32.9 - Systemic lupus erythematosus, unspecified Plan: #SLE Patient is a 29-year-old female with lupus without any significant organ involvement. Joint pain is doing better on Plaquenil. Fatigue is an unfortunate sequelae of having lupus which there is no treatment for it. Recommended lifestyle changes and adjustments to account for this fatigue. She also complained of easy bruising. Her platelets were normal. No evidence to suggest underlying coagulopathy. Her complement and dsDNA indicate increased lupus activity but exam was benign apart from ulcer noted on the tongue Will give a short course of steroids to help with the mild increased lupus activity Plan - Plaquenil 200mg alternating with 400mg - Prednisone: Take 15mg for 7 days then 10mg for 7 days then 5mg for 7 days then stop - RTC 4 months - Labs before next visit: CBC, CMP, ESR, CRP, C3, C4, dsDNA, UA, UPC (2) Bilateral carpal tunnel syndrome: Code(s): G56.03 - Carpal tunnel syndrome, bilateral upper limbs Plan: #Bilateral carpal tunnel syndrome Had steroid injection but did not have much improvement Will send to hand surgery Plan - Hand surgery referral (3) Back Pain: Code(s): M54.9 - Dorsalgia, unspecified Qualifiers: Back pain location: low back pain Chronicity: chronic Back pain laterality: bilateral Sciatica presence: without sciatica Qualified Code(s): M54.50 - Low back pain, unspecified; G89.29 - Other chronic pain Plan: #Low back pain Patient with low back pain. No evidence of sciatica. No improvement with high dose ibuprofen Plan - XR L spine and SI joint - Send to pain management after XRs (4) Long-term use of hydroxychloroquine: Code(s): Z79.899 - Other terminal operations manager (current) drug therapy Category: Medical Plan: #Long-term Use of Hydroxychloroquine Discussed with patient the risks and benefits of hydroxychloroquine in managing the rheumatic condition Benefits include: - Reduced pain, reduce mortality, maintenance of remission and reduction of flares Risks include: - GI upset, skin hyperpigmentation, retinal toxicity (especially after more than 5 years of use), myopathy Advised yearly ophthalmology visits Last ophthalmology visit: 11/30/23. No abnormalities detected Plan I spent 30 minutes reviewing the record and labs, seeing the patient, discussing the treatment plan and documenting in the medical record Orders: Orders XR lumbar spine 4V min Today M54.9 - Dorsalgia, unspecified XR sacroiliac joint min 3V Today M54.9 - Dorsalgia, unspecified Referrals Hand Surgery Referral G56.03 - Carpal tunnel syndrome, bilateral upper limbs Medications: Refilled hydroxychloroquine Take 1 pill alternating with 2 pills every other day 400 mg (2 x 200 mg) PO DAILY 90 tabs 1RF M32.9 - Systemic lupus erythematosus, unspecified Coding Level of Care Code Est Pt Level 4 (53647) Complex visit Add On G2211 Diagnoses Systemic lupus erythematosus, unspecified SLE type, unspecified organ involvement status M32.9 Systemic lupus erythematosus type: unspecified Systemic lupus erythematosus organ involvement: unspecified Bilateral carpal tunnel syndrome G56.03 Chronic bilateral low back pain without sciatica M54.50; G89.29 Back pain location: low back pain Chronicity: chronic Back pain laterality: bilateral Sciatica presence: without sciatica Long-term use of hydroxychloroquine Z79.899
[2025-06-18 08:36] VITALS: BP 112/60; PULSE 79; O2SAT 98; BMI 25.2
== END 2025-06-18 08:59 | disposition home or self-care (01) ==
LOC: HO.RHES 08:23
PROVIDERS: PCP Pediatrics; Visit Provider Student in an Organized Health Care Education/Training Program
DX: M32.9 Systemic lupus erythematosus, unspecified (principal); G56.03 Carpal tunnel syndrome, bilateral upper limbs; M54.50 Low back pain, unspecified; G89.29 Other chronic pain; Z79.899 Other long term (current) drug therapy
CPT/HCPCS: 99214

== ENCOUNTER → 2025-06-18 08:23 | Outpatient (BNVA) | payer MEDICAID, SELFPAY | PROVIDERS: PCP Pediatrics; Visit Provider Student in an Organized Health Care Education/Training Program | DX: M32.9 Systemic lupus erythematosus, unspecified (principal); G56.03 Carpal tunnel syndrome, bilateral upper limbs; M54.50 Low back pain, unspecified; G89.29 Other chronic pain; L81.9 Disorder of pigmentation, unspecified; Z79.899 Other long term (current) drug therapy; R53.83 Other fatigue | CPT/HCPCS: 99212 ==